=== PATIENT | female | born 1970 | race Caucasian/White ===

== ENCOUNTER 2021-02-16 18:56 | Inpatient (IN) | payer MEDICAID, SELFPAY ==
[2021-02-16 18:58] VITALS: BP 147/85; PULSE 104; RESP 16; TEMP 36.2; O2SAT 97; BMI 25.0
--- NOTE | 2021-02-16 19:26 | ED.VIS.GI ---
HPI HPI - GI History of Present Illness Chief Complaint: Nausea/Vomiting Informant: patient Abdominal Pain/Flank Pain Onset: Days Context: Gradual Onset Timing: Intermittent Current Severity: Mild Maximum Severity: Moderate Worsened by: Nothing Relieved by: Nothing Nausea/Vomiting/Emesis GI Symptom: Positive for Nausea and Vomiting Onset: Weeks Quality: Positive for Hematemesis Severity: Moderate Diarrhea/Melena/Hematochezia GI Symptom: Negative for Diarrhea, Melena and Hematochezia Associated Symptoms Associated Symptoms: Negative for Dysuria and Frequency Narrative Narrative: 44-year-old female history of liver cirrhosis, hypertension high cholesterol. States he drinks half of the fifth of vodka a day. She has had nausea vomiting for 6 months. Today she threw up initially dark blood then bright red blood. She denies any melena. Mild epigastric discomfort. States that there were clots in the blood today and it was more than a Styrofoam cup for blood. She is on no blood thinners. Prior similar symptoms: No Recent Illness/Hospitalization: Yes PFSH [facility] Medical History Alcohol abuse Cirrhosis of liver High cholesterol Hypertension Home Medications aripiprazole 2 mg PO DAILY 02/16/21 [History Last Taken 02/16/21] naltrexone 50 mg PO DAILY 02/16/21 [History Last Taken 02/15/21] propranolol 80 mg PO DAILY 02/16/21 [History Last Taken 02/16/21] spironolactone 25 mg PO DAILY 02/16/21 [History Last Taken 02/16/21] Allergy/AdvReac Type Severity Reaction Status Date / Time No Known Allergies Allergy Verified 02/16/21 18:57 Social History Smoking Status: Never smoker ROS ROS ED ROS Narrative Nausea and vomiting. Hematemesis. Epigastric abdominal pain. Review of Systems ROS Unobtainable: Denies due to encephalopathy Constitutional Constitutional ED: Denies chills or fever(s) ENT ENT ED: Denies ear pain Cardiovascular Cardiovascular: Denies chest pain Respiratory/Chest Respiratory/Chest: Denies cough or dyspnea Gastrointestinal Gastrointestinal: Reports abdominal pain, nausea and vomiting; Denies constipation, diarrhea or melena Genitourinary Genitourinary ED: Denies dysuria Musculoskeletal Musculoskeletal: Denies myalgias Integumentary Denies rash Neurologic Neurologic: Denies headache(s) Psychiatric Psychiatric: Denies depression Endocrine Endocrinology: Denies polyuria Hematologic/Lymphatic Hematologic/Lymphatic: Denies easy bruising Allergic/Immunologic Allergic/Immunologic ED: Denies urticaria EXAM Physical Exam Narrative Exam Narrative: Right treatment no acute distress vital signs stable afebrile. Initial blood pressure 147/85. She sitting upright in bed. HEENT exam unremarkable. Neck nontender. Lungs clear to auscultation bilaterally. Heart regular rhythm rate about 100 no murmur. Abdomen soft mild epigastric left upper quadrant tenderness. No rebound guarding rigidity. Soft. Right upper and right lower quadrants are unremarkable. No obstruction. Moving all 4 extremities. No edema. Neurologically awake and alert with no focal motor deficits. Const Vital Signs: 02/16/21 18:58 Temperature 97.1 F L Temperature Source Temporal Pulse Rate 104 H Respiratory Rate 16 Blood Pressure 147/85 H Blood Pressure Mean 105 Pulse Ox 97 Oxygen Delivery Method Room Air Positive well nourished and well developed; Negative for obese, cachectic, contractures or unkempt General Appearance ED: well developed and NAD; Negative for unkempt, cachectic, contractures or pallor Nutritional Appearance: Negative for cachectic or obese HEENT Reports moist mucous membranes normocephalic and atraumatic; Negative for trauma or tenderness Eyes PERRL and EOMs intact bilaterally General Eye ED: Negative for pale conjunctiva or scleral icterus Neck no lymphadenopathy, supple and no JVD General: Negative for tenderness Resp normal respiratory effort and clear to auscultation bilaterally Auscultation: Negative for rales, rhonchi or wheezes Cardio regular rate, regular rhythm, S1 normal heart sound, S2 normal heart sound and no murmurs GI non-distended and no masses; Negative for non-tender Inspection: Negative for abdominal distention Auscultation: normoactive bowel sounds; Negative for hypoactive bowel sounds Palpation: soft and tender; Negative for guarding, rigid or rebound tenderness present Back/Spine no CVA tenderness General Back: Negative for CVA tenderness Cervical Spine: Negative for cervical spine tenderness Extremity full ROM General Extremety ED: Negative for edema or tenderness General Extremity: Negative for edema Neuro moves all extremities Sensorium / Orientation: alert, oriented to person, oriented to place and oriented to time; Negative for orientation impaired, confused, lethargic or stuporous Motor Exam: strength 5/5 throughout Psych mental status grossly normal and thought process normal Appearance: Negative for unkempt Skin no wounds General Skin Exam: Negative for jaundice or pallor Lesions: no lesions Rashes: no rashes MDM MDM MDM Narrative Medical decision making narrative: 42-year-old female cirrhosis with upper GI bleed. She has had a prior upper endoscopy she says there is no history or signs of varices in the past. She is on no blood thinners. She is never had a GI bleed or an ulcer. She has had no recent melena. She will be treated with IV fluids, Protonix and Zofran. She will undergo work-up. She will need to be admitted for further evaluation and possible upper endoscopy. Repeat exam patient is doing well at 9:20 PM. We went over all of her labs and reason for admission. Discussed with GI on-call and the hospitalist the hospitalist would admit her and GI will be consulted. Lab Data Attestation: I reviewed the patient's lab results. Lab results narrative: CBC shows white count of 7. Hemoglobin 11.5 with no prior comparison. PT of 15 INR 1 PTT of 40. Electrolytes sodium 147. Gap of 12. Normal BUN and creatinine. Liver enzymes slightly elevated. Lipase normal. Labs: Laboratory Results - last 24 hr 02/16/21 02/16/21 02/16/21 19:43 19:43 19:43 WBC 7.2 RBC 3.44 L Hgb 11.5 L Hct 35.8 L MCV 104.1 H MCH 33.4 H MCHC 32.1 RDW Std Deviation 55.3 H RDW Coeff of Melissa 14.4 Plt Count 157 MPV 10.0 Immature Gran % (Auto) 0.800 Neut % (Auto) 65.8 Lymph % (Auto) 16.8 L [place] % (Auto) 10.2 H Eos % (Auto) 4.9 Baso % (Auto) 1.5 H Absolute Neuts (auto) 4.7 Absolute Lymphs (auto) 1.20 Nucleated RBC % 0 PT 15.4 H INR 1.3 APTT 40.0 H Sodium Potassium Chloride Carbon Dioxide Anion Gap BUN Creatinine Estim Creat Clear Calc Est GFR (MDRD) Af Amer Est GFR (MDRD) Non-Af BUN/Creatinine Ratio Glucose Calcium Total Bilirubin AST ALT Alkaline Phosphatase Total Protein Albumin Globulin Albumin/Globulin Ratio Lipase Crossmatch See Detail 02/16/21 19:43 WBC RBC Hgb Hct MCV MCH MCHC RDW Std Deviation RDW Coeff of Melissa Plt Count MPV Immature Gran % (Auto) Neut % (Auto) Lymph % (Auto) [place] % (Auto) Eos % (Auto) Baso % (Auto) Absolute Neuts (auto) Absolute Lymphs (auto) Nucleated RBC % PT INR APTT Sodium 147 H Potassium 3.7 Chloride 112 H Carbon Dioxide 23.0 Anion Gap 12 BUN 17 Creatinine 0.72 Estim Creat Clear Calc 85.98 Est GFR (MDRD) Af Amer 110 Est GFR (MDRD) Non-Af 91 BUN/Creatinine Ratio 23.4 H Glucose 94 Calcium 9.8 Total Bilirubin 1.90 H AST 129 H ALT 47 Alkaline Phosphatase 229 H Total Protein 8.2 Albumin 3.1 L Globulin 5.1 H Albumin/Globulin Ratio 0.6 L Lipase 147 Crossmatch Discharge Plan Dx/Rx/DC Orders Clinical Impression: Upper GI bleed, History of cirrhosis of liver, History of alcoholism Disposition Disposition: Acute Care Hospital [facility]
[2021-02-16] MEDS: 0.9% Normal Saline 1,000 ML 125 ML IV (19:41)
[2021-02-16] MEDS: Ondansetron 4 MG/2 ML Vial IV (19:41)
[2021-02-16 20:05] LABS: Absolute Neutrophil Count 4.7 X10^3/uL (2.0-7.7); Basophil# 0.11 X10^3/uL; Basophil% 1.5 % (0-1); Eosinophil# 0.35 X10^3/uL; Eosinophils% 4.9 % (0-5); Hematocrit 35.8 % (37-47); Hemoglobin 11.5 g/dL (12.0-15.0); Lymphocyte % 16.8 % (19-41); Mean Corp Hgb Conc 32.1 g/dL (32-36); Mean Corpuscular Hgb 33.4 pg (27.0-32.0); Mean Corpuscular Volume 104.1 fL (81-99); Monocyte# 0.73 X10^3/uL; Monocyte% 10.2 % (0-10); NRBC Flagged by Analyzer 0 % (0-5); Neutrophil # 4.71 X10^3/uL (2.7-7.7); Neutrophil % 65.8 % (47-70); Platelet Count 157 K/mm3 (150-450); RBC Distribution Width CV 14.4 % (11.6-14.6); RBC Distribution Width SD 55.3 fl (35.1-43.9); Red Blood Count 3.44 M/mm3 (4.2-5.4); White Blood Count 7.2 K/mm3 (4.4-11.0)
[2021-02-16 20:14] LABS: International Normalized Ratio 1.3; Prothrombin Time (Protime)PT. 15.4 SECONDS (11.7-14.9)
[2021-02-16 20:34] LABS: ALB/GLOB Ratio 0.6 RATIO (0.9-2.4); AST(SGOT) 129 U/L (15-37); Alanine Aminotransfer ALT/SGPT 47 U/L (13-56); Albumin, Serum 3.1 g/dL (3.2-5.0); Alkaline Phosphatase 229 U/L (45-117); Anion Gap 12 (5-15); BUN 17 mg/dL (7-18); BUN/Creat Ratio 23.4 RATIO (10-20); Calcium,Total 9.8 mg/dL (8.5-10.1); Chloride 112 mmol/L (98-107); Creatinine, Serum 0.72 mg/dL (0.55-1.02); EST Glomerular Filtration Rate 91 mL/min (>60); Est Glom Filt Rate - Afr Amer 110 mL/min (>60); Estimated Creatinine Clearance 85.98 ml/min; Globulin 5.1 g/dL (2.2-4.2); Glucose 94 mg/dL (74-106); Lipase 147 U/L (73-393); Potassium 3.7 mmol/L (3.5-5.1); Protein, Total 8.2 g/dL (6.4-8.2); Sodium Level 147 mmol/L (136-145)
--- NOTE | 2021-02-16 21:32 | PCM.HP.STD ---
HPI - General General Date of Admission: 02/16/21 Date of Service: 02/16/21 Chief Complaint: Hematemesis HPI Narrative DOMINICK MCKEON, is a 50 F with a significant history of hypertension; depression; hyperlipidemia; cirrhosis of the liver and alcohol abuse who presents to the emergency department with hematemesis. Reportedly patient has been throwing up since the past 6 months on a daily basis. However she never threw up blood until this day of presentation. Reportedly on the day of presentation within 2 hours frame she threw up about a gallon of vomitus. Reportedly the vomitus was black; later it was red, and it had clots. The vomitus looked like blood. Also she reports constipation with black stools. She drinks about 8 glasses of vodka per day. She has been prescribed Vivitrol to control her drinking habits. But last time she took the Vivitrol was about a week ago. Patient reported that about 2 months ago she had an endoscopy at [facility]. The endoscopy did not show any varices. [facility] Medical History Alcohol abuse Cirrhosis of liver Depression High cholesterol Hypertension Migraines Home Medications aripiprazole 2 mg PO DAILY 02/16/21 [History Last Taken 02/16/21] naltrexone 50 mg PO DAILY 02/16/21 [History Last Taken 02/15/21] propranolol 80 mg PO DAILY 02/16/21 [History Last Taken 02/16/21] sertraline [Zoloft] 100 mg PO DAILY 02/16/21 [History Last Taken Unknown] spironolactone 25 mg PO DAILY 02/16/21 [History Last Taken 02/16/21] Allergy/AdvReac Type Severity Reaction Status Date / Time No Known Allergies Allergy Verified 02/16/21 18:57 Family History Other Diabetes Heart disease Hyperlipidemia Hypertension Surgical History History of carpal tunnel surgery Social History Smoking Status: Never smoker ROS ROS Narrative Constitutional: Denies fever, chills, fatigue, anorexia and change in weight Eyes: Denies blurry vision, change in eye color, change in vision, discharge from eye(s), double vision, erythema, eye pain, loss of vision or other HEENT: Denies abnormal hearing, dysphagia, ear pain, epistaxis, headache(s), hearing loss, nasal congestion, nasal discharge, post nasal drip, sinus pressure, sore throat or other Cardiovascular: Denies chest pain or palpitations. Denies dyspnea on exertion, orthopnea and paroxysmal nocturnal dyspnea Respiratory/Chest: Denies cough, excessive phlegm production, shortness of breath with exertion and wheezing Gastrointestinal: Reports hematemesis, constipation and melena. Reports nausea and vomiting. Denies hematochezia and diarrhea. Genitourinary: Denies burning urination, difficulty urinating, dysuria, hematuria, nocturia, urinary frequency, urinary hesitancy, urinary incontinence, urinary urgency or other Musculoskeletal: Denies arthralgias, back pain, joint pain, joint stiffness, joint swelling, myalgias, neck pain or other Neurologic: Denies abnormal gait, abnormal speech, confusion, disequilibrium, dizziness, focal weakness, headache(s), numbness, paresthesias, seizure-like activity, seizures, syncope, tingling, tremor(s) or other Psychiatric: Denies homicidal ideation, suicidal ideation or other Endocrinology: Denies change in body appearance, cold intolerance, excessive sweating, heat intolerance, polydipsia, polyuria or other Hematologic/Lymphatic: Denies anemia, easy bleeding, easy bruising, lymphadenopathy or other Integumentary: Denies rashes Allergic/Immunologic: Denies rhinitis, hives, eczema, asthma or other Vital Signs Vital Signs Vital Signs: 02/16/21 18:58 Temperature 97.1 F L Temperature Source Temporal Pulse Rate 104 H Respiratory Rate 16 Blood Pressure 147/85 H Blood Pressure Mean 105 Pulse Ox 97 Oxygen Delivery Method Room Air Weight Weight: 68.039 kg Body Mass Index (BMI) 25.0 Physical Exam Narrative Physical exam: General: Well-nourished, well-developed. Head: Normocephalic, atraumatic, no tenderness Eyes: PERRLA, EOMI ENT, no trauma, moist mucous membranes, no rhinorrhea Neck: Nontender, full range of motion, no spinal tenderness, deformities, step-off CVS: Regular rate and rhythm. S1-S2 present. No murmur, gallop or rub. Respiratory : clear to auscultation bilaterally, chest wall nontender, no wheezing Abdomen: Soft, nontender, nondistended, normal bowel sounds, no masses : Deferred Back: Nontender, no CVA tenderness, no midline spinal tenderness, deformities, step-offs Extremities: Nontender full range of motion, no trauma Skin: Normal color, no trauma, abrasions Neuro: Alert, oriented, cranial nerves II through XII grossly intact. Psychiatry: Normal mood. Normal affect. Not depressed. Not anxious. Results Lab / Micro Data Result Diagrams: 02/16/21 19:43 02/16/21 19:43 Labs: Laboratory Results - last 24 hr 02/16/21 19:43: PT 15.4 H, INR 1.3, APTT 40.0 H 02/16/21 19:43: Blood Type A POSITIVE, Antibody Screen NEGATIVE, Crossmatch See Detail 02/16/21 19:43: WBC 7.2, RBC 3.44 L, Hgb 11.5 L, Hct 35.8 L, MCV 104.1 H, MCH 33.4 H, MCHC 32.1, RDW Std Deviation 55.3 H, RDW Coeff of Melissa 14.4, Plt Count 157, MPV 10.0, Immature Gran % (Auto) 0.800, Neut % (Auto) 65.8, Lymph % (Auto) 16.8 L, [place] % (Auto) 10.2 H, Eos % (Auto) 4.9, Baso % (Auto) 1.5 H, Absolute Neuts (auto) 4.7, Absolute Lymphs (auto) 1.20, Nucleated RBC % 0 02/16/21 19:43: Sodium 147 H, Potassium 3.7, Chloride 112 H, Carbon Dioxide 23.0, Anion Gap 12, BUN 17, Creatinine 0.72, Estim Creat Clear Calc 85.98, Est GFR (MDRD) Af Amer 110, Est GFR (MDRD) Non-Af 91, BUN/Creatinine Ratio 23.4 H, Glucose 94, Calcium 9.8, Total Bilirubin 1.90 H, AST 129 H, ALT 47, Alkaline Phosphatase 229 H, Total Protein 8.2, Albumin 3.1 L, Globulin 5.1 H, Albumin/Globulin Ratio 0.6 L, Lipase 147 Assessment & Plan Assessment/Plan (1) Acute upper GI bleed: (2) History of cirrhosis of liver: (3) Alcoholism: PLAN: Acute upper GI bleed ED labs reviewed showed hemoglobin of 11.5. No old records to compare with. Received Protonix bolus at emergency department. Protonix drip ordered. Received normal saline infusion at the emergency department. With history of cirrhosis and on Aldactone we will hold off further IV fluids at this time. Will trend blood pressures. Will trend H&H. We will keep n.p.o. after midnight. Emergency plan doctor discussed the case with GI specialist. GI consult. No chemical thromboprophylaxis secondary GI bleed. Alcoholism Review of labs showed acute macrocytic anemia. Patient has not been taking her Vivitrol. Hold Vivitrol. We will put on CIWA protocol with Ativan, thiamine, and folic acid, and multivitamin ordered. Counseled. Significant other who was in patient's room and is also an alcoholic was counselled. Depression Aripiprazole continued Cirrhosis Review of labs showed AST of 129, ALT of 47; alcoholic pattern. Alkaline phosphatase of 229 and bilirubin of 1.90. Patient is not a candidate of transplant secondary to alcoholism. Propanolol and spironolactone continued Hypernatremia and hyperchloremia Sodium of 147 and chloride of 112. BUN of 17. Trend BMP. DVT prophylaxis: SCD ordered. Charges/Coding Visit Charges Inpatient E&M: 73161 Init Hosp L3
[2021-02-16 22:17] VITALS: BP 136/84; PULSE 95; RESP 18; TEMP 36.8; O2SAT 97
[2021-02-16 22:29] VITALS: BMI 25.9
[2021-02-16 22:47] VITALS: BP 143/80; PULSE 93; RESP 18; TEMP 36; O2SAT 93
--- NOTE | 2021-02-16 22:58 | PCS.PANDOC ---
PANDEMIC DOCUMENTATION INITIATED: Date: 10/25/2020 Time: 190
[2021-02-16 23:09] VITALS: O2SAT 96
[2021-02-16 23:26] VITALS: BMI 25.9
[2021-02-17] VITALS (11 sets, daily range): BP systolic 101–146; BP diastolic 58–84; PULSE 78–92; RESP 15–18; TEMP 36.3–37; O2SAT 96–100
[2021-02-17 04:12] LABS: Hematocrit 33.5 % (37-47); Hemoglobin 10.8 g/dL (12.0-15.0)
[2021-02-17 06:23] LABS: Hematocrit 33.3 % (37-47); Hemoglobin 10.7 g/dL (12.0-15.0)
[2021-02-17 06:43] LABS: Anion Gap 8 (5-15); BUN 21 mg/dL (7-18); BUN/Creat Ratio 36.8 RATIO (10-20); Calcium,Total 9.1 mg/dL (8.5-10.1); Chloride 110 mmol/L (98-107); Creatinine, Serum 0.57 mg/dL (0.55-1.02); EST Glomerular Filtration Rate 120 mL/min (>60); Est Glom Filt Rate - Afr Amer 145 mL/min (>60); Estimated Creatinine Clearance 108.61 ml/min; Glucose 102 mg/dL (74-106); Potassium 3.9 mmol/L (3.5-5.1); Sodium Level 144 mmol/L (136-145)
--- NOTE | 2021-02-17 07:30 | EX.PCM.CON.G ---
HPI Consult Data Date of Consult: 02/17/21 HPI Narrative HPI Narrative: DOMINICK MCKEON, is a 50 F who presents to the ED with the chief complaint of hematemesis. She has a history of alcoholic cirrhosis. She says that she has had episodes of jaundice, alcoholic hepatitis and possibly upper GI bleed secondary to portal gastropathy. She drinks about 8 glasses of vodka a day. She was on Vivitrol to control drinking habits. However she stopped taking it. She says she has had problems with nausea vomiting over the last 6 months. She got very concerned and came into the ER due to a large volume of bloody vomitus. She does not take any NSAIDs. She does have a past medical history of hypercholesteremia and hypertension. She believes that they put her on propanolol for variceal prophylaxis. She has no family members with cirrhosis. She has no autoimmune disease. Patient reported that about 2 months ago she had an endoscopy at [facility]. The endoscopy did not show any varices. [facility] Medical History Alcohol abuse Cirrhosis of liver Depression High cholesterol Hypertension Migraines Home Medications aripiprazole 2 mg PO DAILY 02/16/21 [History Last Taken 02/16/21] naltrexone 50 mg PO DAILY 02/16/21 [History Last Taken 02/15/21] propranolol 80 mg PO DAILY 02/16/21 [History Last Taken 02/16/21] sertraline [Zoloft] 100 mg PO DAILY 02/16/21 [History Last Taken Unknown] spironolactone 25 mg PO DAILY 02/16/21 [History Last Taken 02/16/21] Allergy/AdvReac Type Severity Reaction Status Date / Time No Known Allergies Allergy Verified 02/16/21 18:57 Family History Other Diabetes Heart disease Hyperlipidemia Hypertension Surgical History History of carpal tunnel surgery Social History Smoking Status: Never smoker ROS Review of Systems ROS Unobtainable: other Constitutional Constitutional: Denies fatigue, fever(s), poor appetite, weight gain or weight loss ENT HEENT: Denies mouth lesions Cardiovascular Cardiovascular: Denies abdominal bloating, abdominal edema or abdominal pain Respiratory/Chest Respiratory/Chest: Denies change in mental status, change in phlegm color, chest congestion or chest tightness Gastrointestinal Gastrointestinal: Denies coffee ground emesis or hematemesis Genitourinary Genitourinary: Denies abdominal discomfort, burning urination or itching Musculoskeletal Musculoskeletal: Reports as per HPI; Denies muscle weakness or myalgias Integumentary Integumentary: Denies jaundice Neurologic Neurologic: Denies lack of coordination or weakness Psychiatric Psychiatric: Denies confusion, depression, memory loss, mood swings, paranoia or suicidal ideation Endocrine Endocrinology: Denies systems reviewed and no addt'l complaints, except as documented Hematologic/Lymphatic Hematologic/Lymphatic: Denies anemia, easy bleeding, easy bruising or lymphadenopathy Allergic/Immunologic Allergic/Immunologic: Denies systems reviewed and no addt'l complaints, except as documented Physical Exam Const alert General Appearance: cooperative Orientation / Consciousness: oriented to person HEENT hearing grossly normal bilaterally Head and Scalp: normal to inspection Face and Sinus: face symmetric Nose: external nose normal Mouth: oral and palatal mucosa normal Eyes conjunctivae normal General Eye: normal appearance of both eyes Neck full ROM General: normal visual inspection Lymph Lymphatic: no lymphadenopathy noted Chest inspection of chest normal and palpation of chest normal Chest: symmetrical chest wall rise Resp normal respiratory effort Effort and Inspection: able to speak in complete sentences Cardio regular rate GI non-distended Percussion: normal to percussion Rectal Exam: deferred Neuro Speech: speech normal Gait (Neuro): normal gait Lab / Micro Data Result Diagrams: 02/17/21 05:42 02/17/21 05:42 Labs: Laboratory Results - last 24 hr 02/16/21 19:43: PT 15.4 H, INR 1.3, APTT 40.0 H 02/16/21 19:43: Blood Type A POSITIVE, Antibody Screen NEGATIVE, Crossmatch See Detail 02/16/21 19:43: WBC 7.2, RBC 3.44 L, Hgb 11.5 L, Hct 35.8 L, MCV 104.1 H, MCH 33.4 H, MCHC 32.1, RDW Std Deviation 55.3 H, RDW Coeff of Melissa 14.4, Plt Count 157, MPV 10.0, Immature Gran % (Auto) 0.800, Neut % (Auto) 65.8, Lymph % (Auto) 16.8 L, [place] % (Auto) 10.2 H, Eos % (Auto) 4.9, Baso % (Auto) 1.5 H, Absolute Neuts (auto) 4.7, Absolute Lymphs (auto) 1.20, Nucleated RBC % 0 02/16/21 19:43: Sodium 147 H, Potassium 3.7, Chloride 112 H, Carbon Dioxide 23.0, Anion Gap 12, BUN 17, Creatinine 0.72, Estim Creat Clear Calc 85.98, Est GFR (MDRD) Af Amer 110, Est GFR (MDRD) Non-Af 91, BUN/Creatinine Ratio 23.4 H, Glucose 94, Calcium 9.8, Total Bilirubin 1.90 H, AST 129 H, ALT 47, Alkaline Phosphatase 229 H, Total Protein 8.2, Albumin 3.1 L, Globulin 5.1 H, Albumin/Globulin Ratio 0.6 L, Lipase 147 02/17/21 00:00: Hgb 10.8 L, Hct 33.5 L 02/17/21 05:42: Sodium 144, Potassium 3.9, Chloride 110 H, Carbon Dioxide 26.0, Anion Gap 8, BUN 21 H, Creatinine 0.57, Estim Creat Clear Calc 108.61, Est GFR (MDRD) Af Amer 145, Est GFR (MDRD) Non-Af 120, BUN/Creatinine Ratio 36.8 H, Glucose 102, Calcium 9.1 02/17/21 05:42: Hgb 10.7 L, Hct 33.3 L Assessment & Plan Assessment/Plan (1) Upper GI bleed: PLAN: The differential diagnosis for upper GI bleed would be portal gastropathy, Angie-Ruiz tear, variceal bleed, AVM. Patient should undergo upper endoscopy. I would continue PPI drip until then. After she undergoes upper endoscopy we can decide whether she needs to be on a PPI drip and or octreotide. I will give her a dose of ceftriaxone although she has no history of ascites. (2) History of cirrhosis of liver: PLAN: Patient is still actively drinking. It has been 1 day since she has not drank. She would begin to enter the window of possible DTs later this evening. We will need to watch out for that. (3) History of alcoholism: PLAN: Patient says she wants to stop drinking and would like help with that. Charges/Coding Visit Charges Inpatient E&M: 20535 Init Hosp L2
[2021-02-17] MEDS: LORazepam 2 MG/ML Syringe IV (07:56)
[2021-02-17] MEDS: 0.9% Saline Lock 10 ML Syringe IV (07:57)
--- NOTE | 2021-02-17 09:46 | CASEMGMT ---
Physician asked for the field applications specialist to see patient while at [facility]. SW called Venkat with [employer] and she said she will be in to see patient today. Liliya Wilder RN OTOLARYNGOLOGY LILIBETH
--- NOTE | 2021-02-17 10:20 | CASEMGMT ---
SW completed assessment with patient. Patient was agreeable to talking with SW. Patient lives with her significant other in [place], [place]. She is here in the area visiting her mom until Sunday. PCP: Dr. Navneet Arriaza Specialists: Gastroenterology. She is going to [facility] for a second opinion Pharmacy-patient requested meds go to local [facility]. MH History: Patient does have a history of Depression. She is on Zoloft and Abilify. She is not in counseling. She tried counseling a couple of years ago and she felt it made her more depressed. Substance abuse: Patient's drink of choice is Vodka. She started drinking alcohol when she was 23 years old. She originally was only drinking on weekends. Then the last 2 years she started drinking heavily and continues to do so. She does feel like she is using alcohol as her coping mechanism. She is open to talking with the occupational health specialist, Venkat and she is aware she will be in to see her today. Patient has no concerns with being discharged when ready. She asked that her medications be sent to the local [facility]. SW will fix this in the computer. Liliya Wilder POLY OPERATOR LILIBETH
--- NOTE | 2021-02-17 11:22 | PCM.PN.HOSP ---
Subjective Subjective Patient is a 50-year-old female comfortably resting in bed, alert and orient x3. Patient denies any further events of hematemesis since admission. Denies development of any new symptoms overnight. Does not appear in acute distress Objective Data Objective Data Vital Signs: Vital Signs Temp Pulse Resp BP Pulse Ox 98.6 F 78 16 144/82 H 100 02/17/21 07:45 02/17/21 07:45 02/17/21 07:45 02/17/21 07:45 02/17/21 07:45 Oxygen Delivery Method Room Air Weight: 156 lb 4.924 oz Body Mass Index (BMI) 25.9 Intake & Output: Intake and Output for Last 24 Hours 02/15/21 02/16/21 02/17/21 23:59 23:59 23:59 Intake Total 405.83 / 405.83 100 / 100 Balance 405.83 / 405.83 100 / 100 Lab / Micro Data Result Diagrams: 02/17/21 05:42 02/17/21 05:42 Labs: Laboratory Results - last 24 hr 02/16/21 19:43: PT 15.4 H, INR 1.3, APTT 40.0 H 02/16/21 19:43: Blood Type A POSITIVE, Antibody Screen NEGATIVE, Crossmatch See Detail 02/16/21 19:43: WBC 7.2, RBC 3.44 L, Hgb 11.5 L, Hct 35.8 L, MCV 104.1 H, MCH 33.4 H, MCHC 32.1, RDW Std Deviation 55.3 H, RDW Coeff of Melissa 14.4, Plt Count 157, MPV 10.0, Immature Gran % (Auto) 0.800, Neut % (Auto) 65.8, Lymph % (Auto) 16.8 L, [place] % (Auto) 10.2 H, Eos % (Auto) 4.9, Baso % (Auto) 1.5 H, Absolute Neuts (auto) 4.7, Absolute Lymphs (auto) 1.20, Nucleated RBC % 0 02/16/21 19:43: Sodium 147 H, Potassium 3.7, Chloride 112 H, Carbon Dioxide 23.0, Anion Gap 12, BUN 17, Creatinine 0.72, Estim Creat Clear Calc 85.98, Est GFR (MDRD) Af Amer 110, Est GFR (MDRD) Non-Af 91, BUN/Creatinine Ratio 23.4 H, Glucose 94, Calcium 9.8, Total Bilirubin 1.90 H, AST 129 H, ALT 47, Alkaline Phosphatase 229 H, Total Protein 8.2, Albumin 3.1 L, Globulin 5.1 H, Albumin/Globulin Ratio 0.6 L, Lipase 147 02/17/21 00:00: Hgb 10.8 L, Hct 33.5 L 02/17/21 05:42: Sodium 144, Potassium 3.9, Chloride 110 H, Carbon Dioxide 26.0, Anion Gap 8, BUN 21 H, Creatinine 0.57, Estim Creat Clear Calc 108.61, Est GFR (MDRD) Af Amer 145, Est GFR (MDRD) Non-Af 120, BUN/Creatinine Ratio 36.8 H, Glucose 102, Calcium 9.1 02/17/21 05:42: Hgb 10.7 L, Hct 33.3 L Physical Exam Const alert, oriented x3 and no apparent distress HEENT head/scalp atraumatic and moist oral mucous membranes Head and Scalp: normocephalic Eyes PERRL, EOMs intact bilaterally and conjunctivae normal Neck no lymphadenopathy, supple and no JVD Resp normal respiratory effort, no retractions, no use of accessory muscles and clear to auscultation bilaterally Cardio regular rate, regular rhythm, no murmurs and no JVD GI normal to inspection, nondistended, normoactive bowel sounds and soft to palpation Palpation: tender Extremity normal to inspection, full ROM and no clubbing, cyanosis or edema Skin no rashes or lesions noted and skin turgor normal Neuro CN's II-XII intact bilaterally Psych affect normal Assessment & Plan Assessment/Plan (1) Upper GI bleed: (2) History of cirrhosis of liver: (3) History of alcoholism: PLAN: Day 1 Discharge planning: Current plan is for patient to discharge home when medically ready. 1) Acute upper GI bleed No further episodes of hematemesis since admission. Patient to undergo endoscopy by business office manager later on today to evaluate for source of bleed: Variceal bleed versus Angie-Ruiz tear, continue PPI, continue to monitor CBC. 2) Alcohol abuse with impending withdrawal Continue to hold Vivitrol, continue CIWA protocol with as needed Ativan. Continue supplement thiamine and folic acid. Continue to monitor for delirium tremens. 3) cirrhosis Labs on admission demonstrated an AST of 129 and ALT of 47. Alk phos was 229 and bilirubin of 1.9. Plan is as above. 4) hyponatremia Resolved, currently 144. Continue to trend BMP. DVT prophylaxis - Not indicated Patient seen by Benigon Fair PA-C, under the supervision of Dr. Smith.
[2021-02-17 12:02] LABS: Hematocrit 32.8 % (37-47); Hemoglobin 10.9 g/dL (12.0-15.0)
--- NOTE | 2021-02-17 13:07 | CHAPLAIN ---
Type of Pastoral Visit _x__ Initial Visit ___ Follow-up Visit ___ On-call Visit ___ General Patient Visit ___ Spiritual Assessment ___ Family Conference ___ Bereavement ___ Rapid Response ___ Code Blue ___ Other (describe below) Pastoral Care Referral From _x__ Patient ___ Family ___ Nurse ___ Physician ___ Appellate Law Clerk ___ Punchboard Assembler ___ Other (describe below) Sacrament/Intervention _x__ Active listening ___ Anointing ___ Jewish ___ Bereavement ___ Communion ___ Flory exploration ___ ___ Life review _x__ Prayer ___ Reconciliation ___ Sacrament of Sick _x__ Supportive presence ___ Wedding ___ Other (describe below) Pastoral Comments patient and spouse are in room; pt states that she has had health issues for six months; pt admits to some anxiety about what will be found in testing and possible outcomes; when asked how she is coping pt stated I want a drink but I know that is probably not a good idea; pt encouraged to make choices needed for better health; pt open to support and welcomed a prayer; pt is of the [employer] flory
--- NOTE | 2021-02-17 13:09 | ADDICTION ---
This scientific writer met with PT to conduct a relapse prevention plan for d/c. PT declined d/c planning noting that she will follow up once she is home. This scientific writer offered to schedule an appointment with a treatment center but PT declined again. Resources were given and H&P will be sent with her per request for later AoD admission.
--- NOTE | 2021-02-17 14:30 | NURSING ---
pt to endo
[2021-02-17] MEDS: Lactated Ringers 1,000 ML 15 ML IV (15:03)
--- NOTE | 2021-02-17 16:25 | OP.CCLET_ITS ---
11/16/2021 Adonisdanette Kinsey Re : Upper GI endoscopy procedure for Sujey St Agnieszka Kinsey This procedure was performed on February. My impressions and recommendations are as follows: Impressions : - Grade I esophageal varices. - Erythematous mucosa in the stomach. - Non-bleeding gastric ulcer with no stigmata of bleeding. Treated with argon beam coagulation. - Oozing gastric ulcer with a visible vessel. Treated with argon beam coagulation. - Portal hypertensive gastropathy. - Normal first portion of the duodenum. - No specimens collected. Recommendations : - Discharge patient to home. - Resume previous diet. - Continue present medications. - Use Protonix (pantoprazole) 40 mg PO BID for 8 weeks. My findings are described in the full procedure note, which is enclosed. If I can be of further assistance, please feel free to contact me at . Sincerely, Cr Friend, 02/17/2021 4:25:12 PM This report has been signed electronically.
--- NOTE | 2021-02-17 16:25 | OP.EGD_ITS ---
Patient Name: Sujey Dawson Procedure Date: 02/17/2021 3:37 PM Date of : 1970 Age: 50 Procedure: Upper GI endoscopy Indications: Hematemesis Providers: Cr Roman DO Patient Profile: This is a 50 year old female. Refer to note in patient chart for documentation of history and physical. Patient has symptoms of acute vomiting. Complications: No immediate complications. Procedure: Pre-Anesthesia Assessment: - Prior to the procedure, a History and Physical was performed, and patient medications and allergies were reviewed. The risks and benefits of the procedure and the sedation options and risks were discussed with the patient. All questions were answered and informed consent was obtained. Patient identification and proposed procedure were verified by the physician in the pre-procedure area. Mental Status Examination: alert and oriented. Airway Examination: normal oropharyngeal airway and neck mobility. Respiratory Examination: clear to auscultation. Prophylactic Antibiotics: The patient does not require prophylactic antibiotics. Prior Anticoagulants: The patient has taken no previous anticoagulant or antiplatelet agents. After reviewing the risks and benefits, the patient was deemed in satisfactory condition to undergo the procedure. The anesthesia plan was to use moderate sedation / analgesia (conscious sedation). Immediately prior to administration of medications, the patient was re-assessed for adequacy to receive sedatives. The heart rate, respiratory rate, oxygen saturations, blood pressure, adequacy of pulmonary ventilation, and response to care were monitored throughout the procedure. The physical status of the patient was re-assessed after the procedure. After obtaining informed consent, the endoscope was passed under direct vision. Throughout the procedure, the patient's blood pressure, pulse, and oxygen saturations were monitored continuously. The Endoscope was introduced through the mouth, and advanced to the second part of duodenum. The upper GI endoscopy was accomplished without difficulty. The patient tolerated the procedure well. Moderate Sedation: Moderate (conscious) sedation was administered by the endoscopy nurse and supervised by the endoscopist. The patient's oxygen saturation, heart rate, blood pressure and response to care were monitored. Total physician intraservice time was 15 minutes. Scope In: 4:09:06 PM Scope Out: 4:16:39 PM Total Procedure Duration Time 0 hours 7 minutes 33 seconds Findings: Grade I varices were found in the lower third of the esophagus. They were 2 mm in largest diameter. Diffuse severely erythematous mucosa without bleeding was found in the entire examined stomach. One non-bleeding superficial gastric ulcer with no stigmata of bleeding was found on the greater curvature of the stomach. The lesion was 6 mm in largest dimension. Coagulation for bleeding prevention using argon beam at 0.3 liters/minute and 20 madrigal was successful. Estimated blood loss was minimal. One oozing cratered gastric ulcer with a visible vessel was found at the pylorus. The lesion was 6 mm in largest dimension. Coagulation for hemostasis using argon beam at 0.3 liters/minute and 20 madrigal was successful. Estimated blood loss was minimal. Severe portal hypertensive gastropathy was found in the entire examined stomach. The first portion of the duodenum was normal. Impression: - Grade I esophageal varices. - Erythematous mucosa in the stomach. - Non-bleeding gastric ulcer with no stigmata of bleeding. Treated with argon beam coagulation. - Oozing gastric ulcer with a visible vessel. Treated with argon beam coagulation. - Portal hypertensive gastropathy. - Normal first portion of the duodenum. - No specimens collected. Recommendation: - Discharge patient to home. - Resume previous diet. - Continue present medications. - Use Protonix (pantoprazole) 40 mg PO BID for 8 weeks. Procedure Code(s): --- Professional --- 54190, Esophagogastroduodenoscopy, flexible, transoral; with control of bleeding, any method 01825, 59, Moderate sedation services provided by the same physician or other qualified health long term care pharmacist performing the diagnostic or therapeutic service that the sedation supports, requiring the presence of an independent trained observer to assist in the monitoring of the patient's level of consciousness and physiological status; initial 15 minutes of intraservice time, patient age 5 years or older CPT copyright 2017 [employer]. All rights reserved. The codes documented in this report are preliminary and upon cigar head puncher review may be revised to meet current compliance requirements. Cr Roman DO 02/17/2021 4:25:12 PM This report has been signed electronically. Number of Addenda: 1 Note Initiated On: 02/17/2021 3:37 PM Addendum Number: 1 Addendum Date: 11/16/2021 7:06:00 AM MAC was used instead of moderate sedation for the patient. Cr Roman DO 11/16/2021 7:06:07 AM This report has been signed electronically.
--- NOTE | 2021-02-17 16:52 | PCM.DC ---
Discharge Instructions Diet Discharge Diet: No restrictions Activity Discharge Activity: Return to Normal Activity Weight Bearing Status: Weight bearing as tolerated Dressing / Incision Call your doctor if you observe: Fever of 101 or Higher, Numbness or Tingling, Shortness of breath, Dizziness, Chest pain, Increased palpitations (irregular heartbeat) and Calf discomfort Follow Up Care Please Follow Up With: Primary care provider When: Within the next two weeks. Test Results: Test results from this visit will be discussed in further detail at your follow-up appointment, if applicable. Discharge Plan Admission Admit Date/Time: 02/16/21 21:23 Attending Provider: Edwin Smith Consulting Providers: Cr Roman Discharge Orders/Prescriptions Prescriptions: New pantoprazole [Protonix] 40 mg tablet,delayed release (DR/EC) 40 mg PO BID Qty: 60 RF: 0 Continued propranolol 80 mg Tablet 80 mg PO DAILY RF: 0 naltrexone 50 mg Tablet 50 mg PO DAILY RF: 0 spironolactone 25 mg Tablet 25 mg PO DAILY RF: 0 aripiprazole 2 mg Tablet 2 mg PO DAILY RF: 0 sertraline [Zoloft] 100 mg Tablet 100 mg PO DAILY RF: 0 Referrals / Follow Up: SONALI MONTES [Other] - Within 2 Weeks Disposition Disposition (needs filled in before D/C Order can be placed): Home, Self Care
--- NOTE | 2021-02-17 16:57 | PCM.DC.SUM ---
Documented by User: Benigno ARREOLA 02/17/21 17:03 Providers Date of Admission: 02/16/21 Primary Care Physician: SONALI MONTES Consultations 02/16/21 22:28 Consult: Gastroenterology Routine Consulting Provider: Cr Roman Reason for Consult: Upper GI bleed EMERGENT Consult: No MD Notified: Yes Date Notified: 02/16/21 Time Notified: 21:32 Method of Notification: Called by MD from ED Reason For Visit: ACUTE UPPER GI BLEED Diagnosis Discharge Diagnosis (1) Upper GI bleed: Status: Acute Code(s): K92.2 - Gastrointestinal hemorrhage, unspecified (2) History of cirrhosis of liver: Status: Acute Code(s): Z87.19 - Personal history of other diseases of the digestive system (3) History of alcoholism: Status: Acute Code(s): F10.21 - Alcohol dependence, in remission Medications at Discharge Home Medications aripiprazole 2 mg PO DAILY 02/16/21 naltrexone 50 mg PO DAILY 02/16/21 propranolol 80 mg PO DAILY 02/16/21 sertraline [Zoloft] 100 mg PO DAILY 02/16/21 spironolactone 25 mg PO DAILY 02/16/21 pantoprazole [Protonix] 40 mg PO BID #60 tab 02/17/21 sucralfate [Carafate] 1 g PO BID #60 tab 02/17/21 Hospital Course Procedures EGD Summary of Care Provided Minutes Spent on Discharge: 35 Hospital Course: Disposition: Patient to discharge home. 1) Acute upper GI bleed No further episodes of hematemesis since admission. Serial H&H's revealed stable hemoglobin, currently at 10.9. Patient underwent EGD, per Dr. Roman, and was significant for grade 1 esophageal varices, erythematous mucosa in the stomach and a nonbleeding gastric ulcer which was treated with argon beam coagulation. Recommendations from GI are to initiate Protonix 40 mg p.o. twice daily for 8 weeks. Follow-up with primary care provider in the next 2 weeks. 2) Alcohol abuse with impending withdrawal Patient supplemented with thiamine and folic acid. Patient was offered and declined addiction medicine services here at [facility] as she is from [place]. field crop farm worker provided a list of addiction medicine counseling services available in her area. Patient is to continue with naltrexone. 3) cirrhosis Labs on admission demonstrated an AST of 129 and ALT of 47. Alk phos was 229 and bilirubin of 1.9. Plan is as above. 4) hyponatremia Resolved, currently 144. Patient seen by Benigno Fair PA-C, under the supervision of Dr. Smith. Physical Exam Narrative Patient is a 50-year-old female comfortably resting in bed, alert and orient x3. Patient denies any further events of hematemesis since admission. Denies development of any new symptoms overnight. Does not appear in acute distress Const alert, oriented x3 and no apparent distress HEENT normocephalic, head/scalp atraumatic and hearing grossly normal bilaterally Eyes PERRL, EOMs intact bilaterally and conjunctivae normal Neck no lymphadenopathy, supple and no JVD Resp normal respiratory effort, no retractions, no use of accessory muscles and clear to auscultation bilaterally Cardio regular rate, regular rhythm, no murmurs and no JVD GI normal to inspection, nondistended, normoactive bowel sounds, soft to palpation and non-tender Extremity normal to inspection, full ROM and no clubbing, cyanosis or edema Skin no rashes or lesions noted, no wounds and skin turgor normal Neuro CN's II-XII intact bilaterally Psych affect normal Weight / BMI Weight Weight: 156 lb 4.924 oz Body Mass Index (BMI) 25.9 ABG / Lab / Microbiology Data Result Diagrams: 02/17/21 11:48 02/17/21 05:42 Laboratory: Laboratory Results - last 24 hr 02/16/21 19:43: PT 15.4 H, INR 1.3, APTT 40.0 H 02/16/21 19:43: Blood Type A POSITIVE, Antibody Screen NEGATIVE, Crossmatch See Detail 02/16/21 19:43: WBC 7.2, RBC 3.44 L, Hgb 11.5 L, Hct 35.8 L, MCV 104.1 H, MCH 33.4 H, MCHC 32.1, RDW Std Deviation 55.3 H, RDW Coeff of Melissa 14.4, Plt Count 157, MPV 10.0, Immature Gran % (Auto) 0.800, Neut % (Auto) 65.8, Lymph % (Auto) 16.8 L, [place] % (Auto) 10.2 H, Eos % (Auto) 4.9, Baso % (Auto) 1.5 H, Absolute Neuts (auto) 4.7, Absolute Lymphs (auto) 1.20, Nucleated RBC % 0 02/16/21 19:43: Sodium 147 H, Potassium 3.7, Chloride 112 H, Carbon Dioxide 23.0, Anion Gap 12, BUN 17, Creatinine 0.72, Estim Creat Clear Calc 85.98, Est GFR (MDRD) Af Amer 110, Est GFR (MDRD) Non-Af 91, BUN/Creatinine Ratio 23.4 H, Glucose 94, Calcium 9.8, Total Bilirubin 1.90 H, AST 129 H, ALT 47, Alkaline Phosphatase 229 H, Total Protein 8.2, Albumin 3.1 L, Globulin 5.1 H, Albumin/Globulin Ratio 0.6 L, Lipase 147 02/17/21 00:00: Hgb 10.8 L, Hct 33.5 L 02/17/21 05:42: Sodium 144, Potassium 3.9, Chloride 110 H, Carbon Dioxide 26.0, Anion Gap 8, BUN 21 H, Creatinine 0.57, Estim Creat Clear Calc 108.61, Est GFR (MDRD) Af Amer 145, Est GFR (MDRD) Non-Af 120, BUN/Creatinine Ratio 36.8 H, Glucose 102, Calcium 9.1 02/17/21 05:42: Hgb 10.7 L, Hct 33.3 L 02/17/21 11:48: Hgb 10.9 L, Hct 32.8 L D/C Instructions Discharge Diet: No restrictions Weight Bearing Status: Weight bearing as tolerated Call your doctor if you observe: Fever of 101 or Higher, Numbness or Tingling, Shortness of breath, Dizziness, Chest pain, Increased palpitations (irregular heartbeat) and Calf discomfort Please Follow Up With: Primary care provider When: Within the next two weeks. Meaningful Use Info Meaningful Use Diagnoses (Choose all that apply): None applicable Discharge Plan Admission Admit Date/Time: 02/16/21 21:23 Attending Provider: Edwin Smith Consulting Providers: Cr Roman Discharge Orders/Prescriptions Prescriptions: New pantoprazole [Protonix] 40 mg tablet,delayed release (DR/EC) 40 mg PO BID Qty: 60 RF: 0 sucralfate [Carafate] 1 gram tablet 1 g PO BID Qty: 60 RF: 0 Continued propranolol 80 mg Tablet 80 mg PO DAILY RF: 0 naltrexone 50 mg Tablet 50 mg PO DAILY RF: 0 spironolactone 25 mg Tablet 25 mg PO DAILY RF: 0 aripiprazole 2 mg Tablet 2 mg PO DAILY RF: 0 sertraline [Zoloft] 100 mg Tablet 100 mg PO DAILY RF: 0 Referrals / Follow Up: SIMON, BASEM [Other] - Within 2 Weeks Disposition Disposition (needs filled in before D/C Order can be placed): Home, Self Care Documented by User: Dr. Edwin Smith DO 02/17/21 17:20 Providers Date of Admission: 02/16/21 Reason For Visit: ACUTE UPPER GI BLEED Medications at Discharge Home Medications aripiprazole 2 mg PO DAILY 02/16/21 naltrexone 50 mg PO DAILY 02/16/21 propranolol 80 mg PO DAILY 02/16/21 sertraline [Zoloft] 100 mg PO DAILY 02/16/21 spironolactone 25 mg PO DAILY 02/16/21 pantoprazole [Protonix] 40 mg PO BID #60 tab 02/17/21 sucralfate [Carafate] 1 g PO BID #60 tab 02/17/21 ABG / Lab / Microbiology Data Result Diagrams: 02/17/21 11:48 02/17/21 05:42 Discharge Plan Admission Admit Date/Time: 02/16/21 21:23 Attending Provider: Edwin Smith Consulting Providers: Cr Roman Discharge Orders/Prescriptions Prescriptions: New pantoprazole [Protonix] 40 mg tablet,delayed release (DR/EC) 40 mg PO BID Qty: 60 RF: 0 sucralfate [Carafate] 1 gram tablet 1 g PO BID Qty: 60 RF: 0 Continued propranolol 80 mg Tablet 80 mg PO DAILY RF: 0 naltrexone 50 mg Tablet 50 mg PO DAILY RF: 0 spironolactone 25 mg Tablet 25 mg PO DAILY RF: 0 aripiprazole 2 mg Tablet 2 mg PO DAILY RF: 0 sertraline [Zoloft] 100 mg Tablet 100 mg PO DAILY RF: 0 Referrals / Follow Up: SIMON, BASEM [Other] - Within 2 Weeks Disposition Disposition (needs filled in before D/C Order can be placed): Home, Self Care Charges/Coding Addendum Addendum: Patient seen and examined independently. Data and vitals reviewed. I agree with the above note by the physician yard assistant. Patient presents with acute GI bleed. Patient has vomiting and developed marked hematemesis. Patient with start of PPI therapy and underwent EGD. It showed grade 1 varices but did show an oozing cratered gastric ulcer with visible vessel that was found at the pylorus. Patient at hemostasis using argon beam. Patient had no further bleeding while she is hospitalized. Patient to take PPI therapy twice daily for 8 weeks. Patient advised to follow-up with gastroenterology as well. Complicating her course is patient is an alcoholic and drinks 5 glasses of vodka per day. We did offer her the opportunity to undergo treatment while she was here in the hospital but she declined. Patient lives out by [place] and will continue with therapy out there. Patient is currently on Vivitrol for alcohol abuse but she still actively drinking. Strongly advised patient to follow-up with addiction program. Physical exam: Patient is no acute stress and afebrile heart rate regular rate and rhythm plus S1-S2 no murmurs Rubs. Patient Did Have Some Epigastric Tenderness but Otherwise Abdominal Exam Is Unremarkable. Visit Charges Inpatient E&M: 53216 Disch Hosp
--- NOTE | 2021-02-17 17:53 | NURSING ---
pt nury jello and sprite with no c/o pain or nausea. pt ambulated to bathroom and voided. discharge inst given
== END 2021-02-17 18:16 | disposition home or self-care (01) | DRG 241 ==
LOC: ED 19:53 → PCU 21:35
PROVIDERS: Internal Medicine Gastroenterology; Admitting Provider Hospitalist; Emergency Provider Emergency Medicine
PROC: 0DJ08ZZ Inspection of Upper Intestinal Tract, Via Natural or Artificial Opening Endoscopic (ICD-10-PCS; CPT 43235; principal; 2021-02-17 16:25)
DX: K25.4 Chronic or unspecified gastric ulcer with hemorrhage (principal); K76.6 Portal hypertension; K70.30 Alcoholic cirrhosis of liver without ascites; I85.10 Secondary esophageal varices without bleeding; K59.00 Constipation, unspecified; D53.9 Nutritional anemia, unspecified; I10 Essential (primary) hypertension; E87.0 Hyperosmolality and hypernatremia; E78.00 Pure hypercholesterolemia, unspecified; E78.5 Hyperlipidemia, unspecified; E87.1 Hypo-osmolality and hyponatremia; F10.20 Alcohol dependence, uncomplicated; F32.A Depression, unspecified; G43.909 Migraine, unspecified, not intractable, without status migrainosus; E87.8 Other disorders of electrolyte and fluid balance, not elsewhere classified; Z91.14 Patient's other noncompliance with medication regimen; Z79.899 Other long term (current) drug therapy
CPT/HCPCS: 36415; 80048; 80053; 83690; 85014; 85018; 85025; 85610; 85730; 86850; 86900; 86901; 86920; 86922; 97802; 99284; J7030; J7120; A4216; J2405; J3490

== ENCOUNTER 2022-04-17 04:29 | Inpatient (IN) | payer MEDICAID, SELFPAY ==
[2022-04-17 04:30] VITALS: BP 171/95; PULSE 102; RESP 18; TEMP 36.8; O2SAT 99; BMI 27.1
[2022-04-17] MEDS: 0.9% Normal Saline 1,000 ML 999 ML IV (05:02)
[2022-04-17] MEDS: Octreotide 0.1 MG/ML ML 0.05 MG IV (05:06)
[2022-04-17] MEDS: Ondansetron 4 MG/2 ML Vial IV ×2 (05:08→07:29)
--- NOTE | 2022-04-17 05:08 | EX.ED.DYSGE1 ---
HPI History of Present Illness Chief Complaint: Nausea/Vomiting Narrative Narrative: Patient is a 51-year-old female with past medical history of alcohol abuse and known gastric ulcer esophageal varices and cirrhosis. She states she has been feeling bloated for approximately 2 weeks but over the last 2 days been having increased bouts of nausea and vomiting which are bright red in color and also has noticed intermittent dark/black stool. She states she is concerned for internal bleeding because of her history. She denies any history of bleeding disorder or blood thinner use. She states she drinks roughly half a bottle of vodka per day and states she has done this for multiple years. She reports her last drink was roughly 4 hours prior to arrival [facility] Medical History Alcohol abuse Alcoholism Cirrhosis of liver Depression High cholesterol History of alcoholism History of cirrhosis of liver Hypertension Irritable bowel Migraines Home Medications aripiprazole 2 mg tablet 2 mg PO DAILY 02/16/21 [History Last Taken 02/16/21] naltrexone 50 mg tablet 50 mg PO DAILY 02/16/21 [History Last Taken 02/15/21] propranolol 80 mg tablet 80 mg PO DAILY 02/16/21 [History Last Taken 02/16/21] sertraline 100 mg tablet (Zoloft) 100 mg PO DAILY depression 02/16/21 [History Last Taken Unknown] spironolactone 25 mg tablet 25 mg PO DAILY 02/16/21 [History Last Taken 02/16/21] pantoprazole 40 mg tablet,delayed release (Protonix) 40 mg PO BID #60 tabs 02/17/21 [Rx Last Taken Unknown] sucralfate 1 gram tablet (Carafate) 1 g PO BID #60 tabs 02/17/21 [Rx Last Taken Unknown] Allergy/AdvReac Type Severity Reaction Status Date / Time bee venom protein (honey bee) Allergy NEEDS Verified 04/17/22 04:34 [bee sting] FOLLOW-UP Family History Other Diabetes Heart disease Hyperlipidemia Hypertension Surgical History History of carpal tunnel surgery Social History Smoking Status: Never smoker ROS ROS ED Constitutional Constitutional ED: Denies chills or fever(s) ENT ENT ED: Denies sore throat Cardiovascular Cardiovascular: Denies chest pain Respiratory/Chest Respiratory/Chest: Denies cough or dyspnea Gastrointestinal Gastrointestinal: Reports melena, nausea and vomiting; Denies abdominal pain or diarrhea Genitourinary Genitourinary ED: Denies dysuria or hematuria Musculoskeletal Musculoskeletal: Denies myalgias Integumentary Denies rash Neurologic Neurologic: Denies headache(s) Hematologic/Lymphatic Hematologic/Lymphatic: Denies easy bleeding or easy bruising EXAM Physical Exam Const Vital Signs: 04/17/22 04:30 Temperature 98.2 F Temperature Source Temporal Pulse Rate 102 H Respiratory Rate 18 Blood Pressure 171/95 H Blood Pressure Mean 120 Pulse Ox 99 Oxygen Delivery Method Room Air Positive well nourished and well developed General Appearance ED: well developed HEENT Reports moist mucous membranes HEENT Narrative: No dried blood or active bleeding noted in the posterior pharynx. No airway edema or compromise Eyes PERRL and EOMs intact bilaterally General Eye ED: Yes scleral icterus Neck supple Neck Narrative: No crepitance palpated Resp normal respiratory effort and clear to auscultation bilaterally Cardio regular rate and regular rhythm Rate: other Other Details: Radial pulses are plus 2 out of 4 bilaterally are equal and symmetric GI non-tender and no masses GI Narrative: Abdomen is soft nontender with normoactive bowel sounds. There is slight distention and positive fluid wave noted. No voluntary guarding or rigidity. No pulsatile mass Auscultation: normoactive bowel sounds Palpation: soft Narrative: Patient has nonbleeding nonthrombosed external hemorrhoids. Rectal tone is normal. Stool is mucousy brown in color. Extremity normal to inspection Neuro oriented x3 and CN's II-XII intact bilaterally Sensorium / Orientation: alert Psych mental status grossly normal Skin Skin Narrative: Patient has mild jaundice noted MDM MDM MDM Narrative Medical decision making narrative: Patient presented to the ER in no acute distress. She reported a long-term alcohol abuse leading to cirrhosis her physical exam with jaundice and scleral icterus is consistent with this. She was admitted to this facility roughly 1 year ago in February of 2021 and at that time was found to have grade 1 esophageal varices as well as gastric ulcers. Therefore her report of hematemesis and hematochezia is concerning for rupture of these. Secondary to this patient was given a Protonix bolus and started on a Protonix drip. She was also started on octreotide bolus and drip. She has just slight fluid wave on exam going with mild ascites from her cirrhosis but she does not have any peripheral edema going against obvious need for paracentesis. This can be further evaluated by ultrasound on an inpatient basis. Because of the patient's known history and reported worsening symptoms over the last few days I do feel it is more appropriate to admit her to the hospital at this time so that she can be rescoped to ensure there is no rebleeding or worsening of symptoms. Lab Data Attestation: I reviewed the patient's lab results. Labs: Laboratory Results - last 24 hr 04/17/22 04/17/22 04/17/22 04:40 04:40 04:40 WBC 7.0 RBC 3.69 L Hgb 11.2 L Hct 35.4 L MCV 95.9 MCH 30.4 MCHC 31.6 L RDW Std Deviation 70.8 H RDW Coeff of Melissa 20.1 H Plt Count 107 L MPV 9.5 Immature Gran % (Auto) 1.000 H Neut % (Auto) 67.5 Lymph % (Auto) 18.9 L Armstrong % (Auto) 7.7 Eos % (Auto) 3.3 Baso % (Auto) 1.6 H Absolute Neuts (auto) 4.8 Absolute Lymphs (auto) 1.33 Nucleated RBC % 0 PT 15.7 H INR 1.3 APTT 38.3 H Sodium 141 Potassium 3.2 L Chloride 107 Carbon Dioxide 22.0 Anion Gap 12 BUN 7 Creatinine 0.71 Estim Creat Clear Calc 86.25 Est GFR (MDRD) Af Amer 112 Est GFR (MDRD) Non-Af 92 BUN/Creatinine Ratio 9.8 L Glucose 108 H Calcium 9.2 Total Bilirubin 5.20 H Direct Bilirubin 4.22 H AST 366 H ALT 81 H Alkaline Phosphatase 300 H Total Protein 9.3 H Albumin 3.7 Globulin 5.6 H Lipase 258 Ethyl Alcohol 04/17/22 04:40 WBC RBC Hgb Hct MCV MCH MCHC RDW Std Deviation RDW Coeff of Melissa Plt Count MPV Immature Gran % (Auto) Neut % (Auto) Lymph % (Auto) Armstrong % (Auto) Eos % (Auto) Baso % (Auto) Absolute Neuts (auto) Absolute Lymphs (auto) Nucleated RBC % PT INR APTT Sodium Potassium Chloride Carbon Dioxide Anion Gap BUN Creatinine Estim Creat Clear Calc Est GFR (MDRD) Af Amer Est GFR (MDRD) Non-Af BUN/Creatinine Ratio Glucose Calcium Total Bilirubin Direct Bilirubin AST ALT Alkaline Phosphatase Total Protein Albumin Globulin Lipase Ethyl Alcohol 319.0 H* Discharge Plan Triage Chief Complaint: Nausea/Vomiting ED Provider: Elijah Mcdonnell Dx/Rx/DC Orders Clinical Impression: Bleeding esophageal varices due to alcoholic liver disease, Gastric ulcer with hemorrhage, Alcohol abuse, Cirrhosis of liver with ascites Prescriptions: No Action propranolol 80 mg Tablet 80 mg PO DAILY naltrexone 50 mg Tablet 50 mg PO DAILY spironolactone 25 mg Tablet 25 mg PO DAILY aripiprazole 2 mg Tablet 2 mg PO DAILY sertraline [Zoloft] 100 mg Tablet 100 mg PO DAILY pantoprazole [Protonix] 40 mg tablet,delayed release (DR/EC) 40 mg PO BID Qty: 60 0RF sucralfate [Carafate] 1 gram tablet 1 g PO BID Qty: 60 0RF Primary Care Provider: Care Physician,No Primary Referrals: SIMON, BASEM [Other] Disposition Disposition: Acute Care Hospital [facility]
[2022-04-17 05:11] LABS: Absolute Lymphocyte Count 1.33 X10^3/uL (0.83-4.51); Absolute Neutrophil Count 4.8 X10^3/uL (2.0-7.7); Basophil# 0.11 X10^3/uL; Basophil% 1.6 % (0-1); Eosinophil# 0.23 X10^3/uL; Eosinophils% 3.3 % (0-5); Hematocrit 35.4 % (37-47); Hemoglobin 11.2 g/dL (12.0-15.0); Lymphocyte # 1.33 X10^3/ul (0.83-4.51); Lymphocyte % 18.9 % (19-41); Mean Corp Hgb Conc 31.6 g/dL (32-36); Mean Corpuscular Hgb 30.4 pg (27.0-32.0); Mean Corpuscular Volume 95.9 fL (81-99); Mean Platelet Vol. 9.5 fl (6.2-12.0); Monocyte# 0.54 X10^3/uL; Monocyte% 7.7 % (0-10); NRBC Flagged by Analyzer 0 % (0-5); Neutrophil # 4.75 X10^3/uL (2.7-7.7); Neutrophil % 67.5 % (47-70); POSITIVE MORPHOLOGY YES; Platelet Count 107 K/mm3 (150-450); RBC Distribution Width CV 20.1 % (11.6-14.6); RBC Distribution Width SD 70.8 fl (35.1-43.9); Red Blood Count 3.69 M/mm3 (4.2-5.4)
[2022-04-17 05:16] LABS: Differential Indicated SCAN CRITERIA MET
[2022-04-17 05:18] LABS: International Normalized Ratio 1.3; Prothrombin Time (Protime)PT. 15.7 SECONDS (11.7-14.9)
[2022-04-17 05:19] LABS: Partial Thromboplast Time 38.3 Seconds (24.1-36.2)
[2022-04-17 05:20] LABS: AST(SGOT) 366 U/L (15-37); Alanine Aminotransfer ALT/SGPT 81 U/L (13-56); Albumin, Serum 3.7 g/dL (3.2-5.0); Alkaline Phosphatase 300 U/L (45-117); Anion Gap 12 (5-15); BUN 7 mg/dL (7-18); BUN/Creat Ratio 9.8 RATIO (10-20); Bilirubin, Direct 4.22 mg/dL (0.00-0.30); Calcium,Total 9.2 mg/dL (8.5-10.1); Chloride 107 mmol/L (98-107); Creatinine, Serum 0.71 mg/dL (0.55-1.02); EST Glomerular Filtration Rate 92 mL/min (>60); Est Glom Filt Rate - Afr Amer 112 mL/min (>60); Estimated Creatinine Clearance 86.25 ml/min; Globulin 5.6 g/dL (2.2-4.2); Glucose 108 mg/dL (74-106); Lipase 258 U/L (73-393); Potassium 3.2 mmol/L (3.5-5.1); Protein, Total 9.3 g/dL (6.4-8.2); Sodium Level 141 mmol/L (136-145)
--- NOTE | 2022-04-17 05:49 | HP.PCM.HOS_ITS ---
HPI - General General Date of Admission: 04/17/22 Date of Service: 04/17/22 Chief Complaint: Hematesis, bloody stools ongoing for 2 weeks HPI Narrative DOMINICK MCKEON, is a 51 F who presents with the above. Patient has past medical history of alcoholic liver disease, history of esophageal varices, chronic alcohol abuse who has been drinking about a pint of vodka every day or every other day. She comes in because she has been having hematemesis, and bloody stools. She admits to nausea and vomiting. Vitals in the ED showed blood pressure 171/95, heart rate 102, oxygen sat 99% on room air, temperature 98.2 F. Admitting WBC count 7.2, hemoglobin 11.2, platelet count 107, INR 1.3, sodium 141, potassium 3.2, chloride 102, bicarbonate 22, BUN 7, creatinine 0.71, total bilirubin 5.2, WBC 4.22, AST 36 ALT 81, ALP 300. Admitting alcohol level 319. CT of the abdomen and pelvis is pending. [facility] Medical History Alcohol abuse Alcoholism Cirrhosis of liver Depression High cholesterol History of alcoholism History of cirrhosis of liver Hypertension Irritable bowel Migraines Home Medications aripiprazole 2 mg tablet 2 mg PO DAILY 02/16/21 [History Last Taken 02/16/21] naltrexone 50 mg tablet 50 mg PO DAILY 02/16/21 [History Last Taken 02/15/21] sertraline 100 mg tablet (Zoloft) 100 mg PO DAILY depression 02/16/21 [History Last Taken Unknown] spironolactone 25 mg tablet 25 mg PO DAILY 02/16/21 [History Last Taken 02/16/21] pantoprazole 40 mg tablet,delayed release (Protonix) 40 mg PO BID #60 tabs 02/17/21 [Rx Last Taken Unknown] sucralfate 1 gram tablet (Carafate) 1 g PO BID #60 tabs 02/17/21 [Rx Last Taken Unknown] propranolol 80 mg capsule,24 hr,extended release (Inderal LA) 80 mg PO DAILY BP 04/17/22 [History Last Taken Unknown] Allergy/AdvReac Type Severity Reaction Status Date / Time bee venom protein (honey bee) Allergy NEEDS Verified 04/17/22 04:34 [bee sting] FOLLOW-UP Family History Other Diabetes Heart disease Hyperlipidemia Hypertension Surgical History History of carpal tunnel surgery Social History (Updated 04/17/22 @ 07:[address] Anh Bianchi MD) household members: family Smoking Status: Never smoker alcohol intake: current substance use type: does not use ROS ROS Narrative Constitutional: Reports: Malaise, Weakness, Fatigue, anorexia. Denies:Chills, Fever, Night Sweats, Weight Change Eyes: Denies: Blurred vision, Cataracts, Conjunctivae Inflammation, Pain, Redness, Vision Change HEENT: Denies: Difficulty Hearing, Difficulty Swallowing, Head Aches, Hearing Changes, Sinus Congestion, Sinus Drainage Cardiovascular: Denies: Chest Pain, Orthopnea, Palpitations Respiratory: Denies: Cough, Shortness of breath at rest, Sputum production Gastrointestinal: See HPI Genitourinary: Denies: Dysuria Musculoskeletal: Denies: Joint Pain, Joint stiffness, Joint swelling, Joint Tenderness Skin: Denies: Rash, Wounds Neurological: Denies: Numbness, Tingling, Focal weakness Vital Signs Vital Signs Vital Signs: 04/17/22 04:30 Temperature 98.2 F Temperature Source Temporal Pulse Rate 102 H Respiratory Rate 18 Blood Pressure 171/95 H Blood Pressure Mean 120 Pulse Ox 99 Oxygen Delivery Method Room Air Weight Weight: 74 kg Body Mass Index (BMI) 27.1 Physical Exam Narrative Physical exam: General: Alert, Oriented x3, appears unwell, jaundiced, pale HEENT: Atraumatic Oral: Moist Mucosa Neck: Supple Lungs: Diminished to auscultation Cardiovascular: HS I+II, regular, no murmurs Abdomen: Bowel Sounds Present, Soft, Non Tender Extremities: Trace bilateral pedal edema Skin: No rashes, No breakdown Neurological: Grossly intact Psych/Mental Status: Appropriate Results Lab / Micro Data Result Diagrams: 04/17/22 04:40 04/17/22 04:40 Labs: Laboratory Results - last 24 hr 04/17/22 04:40: WBC 7.0, RBC 3.69 L, Hgb 11.2 L, Hct 35.4 L, MCV 95.9, MCH 30.4, MCHC 31.6 L, RDW Std Deviation 70.8 H, RDW Coeff of Melissa 20.1 H, Plt Count 107 L, MPV 9.5, Immature Gran % (Auto) 1.000 H, Neut % (Auto) 67.5, Lymph % (Auto) 18.9 L, [place] % (Auto) 7.7, Eos % (Auto) 3.3, Baso % (Auto) 1.6 H, Absolute Neuts (auto) 4.8, Absolute Lymphs (auto) 1.33, Nucleated RBC % 0 04/17/22 04:40: PT 15.7 H, INR 1.3, APTT 38.3 H 04/17/22 04:40: Sodium 141, Potassium 3.2 L, Chloride 107, Carbon Dioxide 22.0, Anion Gap 12, BUN 7, Creatinine 0.71, Estim Creat Clear Calc 86.25, Est GFR (MDRD) Af Amer 112, Est GFR (MDRD) Non-Af 92, BUN/Creatinine Ratio 9.8 L, Glucose 108 H, Calcium 9.2, Total Bilirubin 5.20 H, Direct Bilirubin 4.22 H, AST 366 H, ALT 81 H, Alkaline Phosphatase 300 H, Total Protein 9.3 H, Albumin 3.7, Globulin 5.6 H, Lipase 258 04/17/22 04:40: Ethyl Alcohol 319.0 H* Micro: Microbiology 04/17/22 04:50 Stool Stool Occult Blood (NOELLE) - Final Occult Blood Positive Assessment & Plan Assessment/Plan (1) Bleeding esophageal varices due to alcoholic liver disease: (2) Gastric ulcer with hemorrhage: PLAN: Plan 1. Acute GI bleed, suspected upper in a patient with history of liver cirrhosis with varices History of EGD in November 2021 with a finding shows aphasia varices grade 1, bleeding gastric ulcer was treated with argon beam coagulation as well as nonb leeding ulcer Started on octreotide drip as well as pantoprazole drip in the ED Hemoglobin is 11.2, GI consulted Admit to lisa Torres n.p.o., continue octreotide drip and pantoprazole drip 2. Elevated liver enzymes likely secondary to acute alcoholic hepatitis, History of underlying liver cirrhosis. CT of the abdomen pelvis is pending Liver profile shows a cholestatic pattern GI consulted and discussed?we will start patient on IV Zosyn Follow-up on CT abdomen pelvis 3. Decompensated alcoholic liver cirrhosis with ascites and acute hepatic cephalopathy Ammonia is 78. Started on lactulose, rifaximin Patient may need paracentesis later 4. Hypokalemia, potassium was 3.2, replaced, recheck in a.m. 5. Chronic alcohol abuse, advised to quit, will monitor for alcohol withdrawal 6. DVT prophylaxis?SCDs Total time spent: 75 minutes of which a greater part, more than 50% was spent in reviewing patient's chart, laboratory investigations, discussing with emergency physician, gastroenterology, taking history and physical examining patient and discussing plan of care with patient and her mother at the bedside. Charges/Coding Visit Charges Inpatient E&M: 81425 Init Hosp L3
--- NOTE | 2022-04-17 06:36 | CT_ITS ---
STUDY: CT ABDOMEN AND PELVIS WITH AND WITHOUT CONTRAST REASON FOR EXAM: Female, 51 years old. Elevated liver function tests. RADIATION DOSAGE (If Supplied By Facility): CTDIvol = ( 17.92 ) mGy, DLP = ( 2546.97 ) mGycm TECHNIQUE: Transaxial images were obtained from the dome of the diaphragm to the symphysis pubis without oral contrast. IV 100mL Isovue-370 was administered. Sagittal and coronal images were reconstructed. Individualized dose optimization techniques were used for this CT. COMPARISON: None. FINDINGS: The visualized lung bases are unremarkable. The visualized portions of the heart are within normal limits. Hepatomegaly with hepatic steatosis. Nodular appearance to some of the liver margins suggestive of cirrhosis. Abdominal varices. Tiny stone within the dependent portion of gallbladder. Small amount of pericholecystic fluid. There is mild splenomegaly. Normal pancreas. Normal bilateral adrenal glands. Normal right kidney. Normal left kidney. The stomach is not well distended. There may be gastric wall thickening. Soft tissue stranding adjacent to third portion of duodenum. Soft tissue stranding in the mesentery in the midabdomen and coronal image 65 series 601. Wall thickening involving the cecum and proximal ascending colon. Additional areas of wall thickening involving portions of the transverse and descending colon.. The appendix is visualized and appears normal. Normal abdominal aorta. Normal inferior vena cava. Normal retroperitoneum. No intra-abdominal free air. Minimal ascites in the paracolic gutters bilaterally. Minimal ascites adjacent to the anterior margin of the liver. Normal urinary bladder. Uterus is not enlarged. No adnexal masses seen. Normal abdominal wall. Mild compression fracture T11 which is probably old. Degenerative changes of the lower lumbar spine. CT/CT Abd/Pelvis W/WO Contrast IMPRESSION: Hepatosplenomegaly. Diffuse fatty liver. Cirrhosis. Abdominal varices. Pericholecystic fluid with tiny gallstone. Correlate with right upper quadrant ultrasound to exclude acute cholecystitis. Pancolitis. Inflammatory changes adjacent to third portion of duodenum and in the mesentery of the mid abdomen. No periaortic lymphadenopathy. Questionable gastric wall thickening versus lack of distention. Consider direct visualization. Small amount of abdominal ascites. Electronically Signed: Froilan Montoya MD at 7:32 EST Reading Location ID and State: [id number] / , Service support ,
[2022-04-17 06:58] VITALS: BP 156/95; PULSE 99; RESP 13; TEMP 37; O2SAT 93
[2022-04-17] MEDS: 0.9% Normal Saline 1,000 ML 100 ML IV ×2 (07:02→18:22)
[2022-04-17] MEDS: Potassium Chloride 10mEq/100mL 10 MEQ/100 ML IV.SOLN. 100 MEQ IV BOLUS ×2 (07:05→11:02)
[2022-04-17 07:19] VITALS: BMI 27.1
[2022-04-17 07:31] LABS: Anisocytosis 2+; Platelet Estimate SLT DEC (ADEQ)
--- NOTE | 2022-04-17 07:47 | US_ITS ---
STUDY: ABDOMINAL ULTRASOUND - RIGHT UPPER QUADRANT REASON FOR VISIT: Female, 51 years old . Abdominal pain. TECHNIQUE: Ultrasound evaluation of the right upper quadrant was performed with real-time and static sinha-scale imaging. TECHNICAL QUALITY: Adequate. COMPARISON: None. FINDINGS: Liver: The liver is enlarged and measures 23 cm. There is increased echogenicity consistent with fatty infiltration. Heterogeneous appearance of the liver with a contour abnormality suggestive of cirrhosis. The bile ducts are within normal limits. There is hepatic color flow. The direction of portal flow is hepatopetal. There is no demonstrated mass lesion. Gallbladder: Normal distended gallbladder. The gallbladder wall is thickened and measures 4.4 mm. There is a negative sonographic Velazco''s sign. There is pericholecystic fluid. There is a solitary echogenic gallstone within the neck of the gallbladder. Common Bile Duct (C.B.D.): The common bile duct measures 3 mm. Pancreas: Normal size of the head, body and tail of the pancreas. There is normal echogenicity of the pancreas. There is no demonstrated pancreatic mass or cyst. Right Kidney: Normal size of the right kidney. The right kidney measures 10.9 cm x 6 cm x 4.5 cm. Normal renal cortex. The right cortex measures 1.6 cm. There is no demonstrated renal mass or cyst. There is no right hydronephrosis. US/Gallbladder IMPRESSION: Hepatomegaly with fatty infiltration of the liver and heterogeneous echotexture with contour abnormality. Small amount of pericholecystic fluid. Solitary gallstone in the neck of the gallbladder. Electronically Signed: Lorenzo Limon MD at 12:17 EST ,
[2022-04-17 08:03] LABS: Amphetamine Urine VISTA NEGATIVE (<1000 ng/mL); Barbiturate Urine VISTA NEGATIVE (< 200 ng/mL); Benzodiazepine Urine VISTA POSITIVE (< 200 ng/mL); Cocaine Urine VISTA NEGATIVE (< 300 ng/mL); Ecstacy Urine VISTA NEGATIVE (< 500 ng/mL); Methadone Urine VISTA NEGATIVE (< 300 ng/mL); PCP Urine VISTA NEGATIVE (< 25 ng/mL); THC Urine VISTA NEGATIVE (< 50 ng/mL); Vista UDS pH Range 7
[2022-04-17] MEDS: LORazepam 2 MG/ML Syringe 1 MG IV (08:13)
[2022-04-17] MEDS: Potassium Chloride 10mEq/100mL 10 MEQ/100 ML IV.SOLN. IV BOLUS ×2 (08:13→09:06)
[2022-04-17 09:00] VITALS: BP 138/84; PULSE 98; RESP 16; TEMP 36.8; O2SAT 94
--- NOTE | 2022-04-17 11:30 | CASEMGMT ---
RN?CM?SHELLFISH WEIGHER?CM?to room to meet with patient for initial transition planning/care coordination?assessment.?RN?CM?introduced self and role at [facility] [place].? Pt voices understanding and consents to?assessment?at this time.? Pt resting in bed in no distress at this time.? Pt is A/O at this time and answers all questions appropriately.?? Care providers, pharmacy, and demographics verified/updated at this time.? PCP:?BEHAVIORAL HEALTH PROFESSIONAL Sheridan Sommer @ [facility] in [place] Specialists:?Dr Piter Beltran @ [facility] Preferred Pharmacy:? [facility] [place] Retail Insurance:?[employer] Prescription Benefit:?Yes Living Will/HPOA:??Pt does not have either and would like to complete. SOSA, Cami, made aware. LNOK:?Pt is , but is . Mother, Gertrude. Brother, Kenn. Living Arrangements:?Lives alone in 2-story home w/2 steps to enter. Indep w/ADL's and IADL's. Transportation:?Pt states drives self and states no transportation concerns at this time.?? DME: ? Denies using any DME and denies needs.?? HHC/SNF:?No hx of either. No needs identified. Pt wishes to return home. Pt states she drinks vodka daily and that she has been an alcoholic for 10 yrs. She reports being sober for about 7 months at one time. She states the only concern returning home is that she will start drinking again, ?Pt made aware the spine specialist will be in to talk with her. She voices appreciation. CM?to follow for any further discharge planning/needs.? Pt voices no further concerns/needs at this time.? Advised pt to ask for?CM?if any further questions/concerns/needs arise.? Voices understanding.? PLAN:??Home Devan JETTN?RN?CM
--- NOTE | 2022-04-17 12:19 | CASEMGMT ---
Addendum entered by Cami García 04/17/22 16:34: SW did ask Last from [facility] to see pt. JAILENE Fu Original Note: Social Work SW met w/pt, assisted in completing LW/POA documents. Pt listed her mother then brother as healthcare POA. SW gave pt originals and copies, copies placed on chart. SW spoke w/pt briefly about alcohol use, she would like to speak to the internal medicine specialist from [facility] when she is here. SW will let her know. JAILENE Fu
--- NOTE | 2022-04-17 14:46 | PN.HOSP_ITS ---
Subjective Subjective Patient seen and examined. She was admitted in the early hours of this morning with a complaint of hematemesis and bloody stools which had been going on for 2 weeks. She came in this morning though because she was concerned about acute alcohol withdrawal. she has no active complaints this morning. She denies any na usea, vomiting, fever or chills. Review of systems was otherwise negative. Objective Data Objective Data Vital Signs: Vital Signs Temp Pulse Resp BP Pulse Ox O2 Del Method 98.3 F 98 16 138/84 H 94 Room Air 04/17/22 09:00 04/17/22 09:00 04/17/22 09:00 04/17/22 09:00 04/17/22 09:00 04/17/22 13:19 Oxygen Delivery Method Room Air Weight: 163 lb 2.273 oz Body Mass Index (BMI) 27.1 Intake & Output: Intake and Output for Last 24 Hours 04/15/22 04/16/22 04/17/22 23:59 23:59 23:59 Intake Total 1380.03 / 1380.03 Balance 1380.03 / 1380.03 Lab / Micro Data Result Diagrams: 04/17/22 04:40 04/17/22 04:40 Labs: Laboratory Results - last 24 hr 04/17/22 04:40: WBC 7.0, RBC 3.69 L, Hgb 11.2 L, Hct 35.4 L, MCV 95.9, MCH 30.4, MCHC 31.6 L, RDW Std Deviation 70.8 H, RDW Coeff of Melissa 20.1 H, Plt Count 107 L, MPV 9.5, Immature Gran % (Auto) 1.000 H, Neut % (Auto) 67.5, Lymph % (Auto) 18.9 L, [place] % (Auto) 7.7, Eos % (Auto) 3.3, Baso % (Auto) 1.6 H, Absolute Neuts (auto) 4.8, Absolute Lymphs (auto) 1.33, Nucleated RBC % 0, Platelet Estimate SLT DEC, Anisocytosis 2+ 04/17/22 04:40: PT 15.7 H, INR 1.3, APTT 38.3 H 04/17/22 04:40: Sodium 141, Potassium 3.2 L, Chloride 107, Carbon Dioxide 22.0, Anion Gap 12, BUN 7, Creatinine 0.71, Estim Creat Clear Calc 86.25, Est GFR (MDRD) Af Amer 112, Est GFR (MDRD) Non-Af 92, BUN/Creatinine Ratio 9.8 L, Glucose 108 H, Calcium 9.2, Total Bilirubin 5.20 H, Direct Bilirubin 4.22 H, AST 366 H, ALT 81 H, Alkaline Phosphatase 300 H, Total Protein 9.3 H, Albumin 3.7, Globulin 5.6 H, Lipase 258 04/17/22 04:40: Ethyl Alcohol 319.0 H* 04/17/22 04:40: Magnesium 2.0 04/17/22 04:55: Blood Type A POSITIVE, Antibody Screen NEGATIVE 04/17/22 06:10: Ammonia 78.0 H 04/17/22 06:45: Urine Opiates Screen NEGATIVE, Urine Methadone Screen NEGATIVE, Ur Barbiturates Screen NEGATIVE, Ur Phencyclidine Scrn NEGATIVE, Ur Amphetamines Screen NEGATIVE, MDMA (Ecstasy) Screen NEGATIVE, U Benzodiazepines Scrn POSITIVE H, Urine Cocaine Screen NEGATIVE, U Cannabinoids Screen NEGATIVE, Ur Drug Screen Comment Micro: Microbiology 04/17/22 05:13 Vomitus Gastric Occult Blood - Final Occult Blood Positive 04/17/22 04:50 Stool Stool Occult Blood (NOELLE) - Final Occult Blood Positive Radiography Diagnostic Testing: Radiology Impression Abdomen/Pelvis CT 04/17/22 06:36 IMPRESSION: Hepatosplenomegaly. Diffuse fatty liver. Cirrhosis. Abdominal varices. Pericholecystic fluid with tiny gallstone. Correlate with right upper quadrant ultrasound to exclude acute cholecystitis. Pancolitis. Inflammatory changes adjacent to third portion of duodenum and in the mesentery of the mid abdomen. No periaortic lymphadenopathy. Questionable gastric wall thickening versus lack of distention. Consider direct visualization. Small amount of abdominal ascites. Electronically Signed: Froilan Montoya MD at 7:32 EST Reading Location ID and State: [id number] / , Service support , Gallbladder Ultrasound 04/17/22 07:47 IMPRESSION: Hepatomegaly with fatty infiltration of the liver and heterogeneous echotexture with contour abnormality. Small amount of pericholecystic fluid. Solitary gallstone in the neck of the gallbladder. Electronically Signed: Lorenzo Limon MD at 12:17 EST , Physical Exam Const alert, oriented x3 and no apparent distress HEENT head/scalp atraumatic and moist oral mucous membranes HEENT Narrative: jaundiced Head and Scalp: normocephalic Mouth: dry mucous membranes Eyes PERRL, EOMs intact bilaterally and conjunctivae normal Neck no lymphadenopathy, supple and no JVD Resp normal respiratory effort, no retractions, no use of accessory muscles and clear to auscultation bilaterally Cardio regular rate, regular rhythm, S1 normal heart sound, S2 normal heart sound and no murmurs GI normal to inspection, nondistended, normoactive bowel sounds, soft to palpation, non-tender and non-distended Extremity normal to inspection, full ROM and no clubbing, cyanosis or edema Neuro oriented x3, CN's II-XII intact bilaterally, moves all extremities and no focal motor deficits Sensorium / Orientation: awake and alert Psych affect normal Assessment & Plan Assessment/Plan (1) Bleeding esophageal varices due to alcoholic liver disease: (2) Alcohol withdrawal: PLAN: Plan #Acute GI bleed * likely due to bleeding esophageal varices in a patient with liver cirrhosis and varices * currenlty NPO * on octreotide drip and pantoprazole drip * GI on board. * #Liver cirrhosis * due to alcohol abuase * liver enzymes elevated. They are chronically elevated * started on IV zosyn due to concerns about gallbladder etiology CT abdomen and pelvis showed pericholecystic fluid with tiny gallstones. * gallbladder USG showed small amount of pericholecystic fluid with solitary gallstone in the neck of the gallbladder * ammonia level elevated at 78 * on lactulose and rifaximin * consult general surgery due to gallbladder findings * #Hypokalemia: Potassium is 3.2. Was replaced this morning. #Acute alcohol withdrawal * Patient states she feels like she is going into withdrawal. * Start on alcohol withdrawal protocol with Ativan. * Phenobarbital not being used because of liver impairment. * monitor CIWA score * #Thrombocytopenia * platelets are down to 107 * likely due to liver disease. Will monitor * DVT prophylaxis: SCDs * Reason for Visit Reason for Visit: Diagnoses Secondary esophageal varices with bleeding (04/17/22) Chronic or unspecified gastric ulcer with hemorrhage (04/17/22) Alcoholic liver disease, unspecified (04/17/22)
[2022-04-17 15:00] VITALS: BP 130/75; PULSE 92; RESP 16; TEMP 36.9; O2SAT 96
--- NOTE | 2022-04-17 17:03 | CON.PCM.GI_ITS ---
HPI Consult Data Date of Consult: 04/17/22 HPI Narrative HPI Narrative: DOMINICK MCKENO, is a 51 F who presents to the ED with the chief complaint of hematemesis.? She has a history of alcoholic cirrhosis.? She says that she has had episodes of jaundice, alcoholic hepatitis and possibly upper GI bleed secondary to portal gastropathy.? She drinks about 8 glasses of vodka a day.? She was on Vivitrol to control drinking habits.? However she stopped taking it.? She says she has had problems with nausea vomiting over the last 6 months.? She got very concerned and came into the ER due to a large volume of bloody vomitus.? She does not take any NSAIDs.? She does have a past medical history of hypercholesteremia and hypertension.? She believes that they put her on propanolol for variceal prophylaxis.? She has no family members with cirrhosis.? She has no autoimmune disease. I saw her over a year ago for hematemesis. She was determined to have esophage al varices, portal gastropathy and gastric ulcer with bleeding stigmata. It was treated endoscopically. [facility] Medical History Alcohol abuse Alcoholism Cirrhosis of liver Depression High cholesterol History of alcoholism History of cirrhosis of liver Hypertension Irritable bowel Migraines Home Medications aripiprazole 2 mg tablet 2 mg PO DAILY 02/16/21 [History Last Taken 02/16/21] naltrexone 50 mg tablet 50 mg PO DAILY 02/16/21 [History Last Taken 02/15/21] sertraline 100 mg tablet (Zoloft) 100 mg PO DAILY depression 02/16/21 [History Last Taken Unknown] spironolactone 25 mg tablet 25 mg PO DAILY 02/16/21 [History Last Taken 02/16/21] pantoprazole 40 mg tablet,delayed release (Protonix) 40 mg PO BID #60 tabs 02/17/21 [Rx Last Taken Unknown] sucralfate 1 gram tablet (Carafate) 1 g PO BID #60 tabs 02/17/21 [Rx Last Taken Unknown] propranolol 80 mg capsule,24 hr,extended release (Inderal LA) 80 mg PO DAILY BP 04/17/22 [History Last Taken Unknown] Allergy/AdvReac Type Severity Reaction Status Date / Time bee venom protein (honey bee) Allergy NEEDS Verified 04/17/22 04:34 [bee sting] FOLLOW-UP Family History Other Diabetes Heart disease Hyperlipidemia Hypertension Surgical History History of carpal tunnel surgery Social History (Updated 04/17/22 @ 07:[address] Anh Bianchi MD) household members: family Smoking Status: Never smoker alcohol intake: current substance use type: does not use ROS ROS Narrative Constitutional: Reports: Malaise, Weakness, Fatigue, anorexia. Denies:Chills, Fever, Night Sweats, Weight Change Eyes: Denies: Blurred vision, Cataracts, Conjunctivae Inflammation, Pain, Redness, Vision Change HEENT: Denies: Difficulty Hearing, Difficulty Swallowing, Head Aches, Hearing Changes, Sinus Congestion, Sinus Drainage Cardiovascular: Denies: Chest Pain, Orthopnea, Palpitations Respiratory: Denies: Cough, Shortness of breath at rest, Sputum production Gastrointestinal: See HPI Genitourinary: Denies: Dysuria Musculoskeletal: Denies: Joint Pain, Joint stiffness, Joint swelling, Joint Tenderness Skin: Denies: Rash, Wounds Neurological: Denies: Numbness, Tingling, Focal weakness Lab / Micro Data Result Diagrams: 04/17/22 04:40 04/17/22 04:40 Labs: Laboratory Results - last 24 hr 04/17/22 04:40: WBC 7.0, RBC 3.69 L, Hgb 11.2 L, Hct 35.4 L, MCV 95.9, MCH 30.4, MCHC 31.6 L, RDW Std Deviation 70.8 H, RDW Coeff of Melissa 20.1 H, Plt Count 107 L, MPV 9.5, Immature Gran % (Auto) 1.000 H, Neut % (Auto) 67.5, Lymph % (Auto) 18.9 L, [place] % (Auto) 7.7, Eos % (Auto) 3.3, Baso % (Auto) 1.6 H, Absolute Neuts (auto) 4.8, Absolute Lymphs (auto) 1.33, Nucleated RBC % 0, Platelet Estimate SLT DEC, Anisocytosis 2+ 04/17/22 04:40: PT 15.7 H, INR 1.3, APTT 38.3 H 04/17/22 04:40: Sodium 141, Potassium 3.2 L, Chloride 107, Carbon Dioxide 22.0, Anion Gap 12, BUN 7, Creatinine 0.71, Estim Creat Clear Calc 86.25, Est GFR (MDRD) Af Amer 112, Est GFR (MDRD) Non-Af 92, BUN/Creatinine Ratio 9.8 L, Glucose 108 H, Calcium 9.2, Total Bilirubin 5.20 H, Direct Bilirubin 4.22 H, AST 366 H, ALT 81 H, Alkaline Phosphatase 300 H, Total Protein 9.3 H, Albumin 3.7, Globulin 5.6 H, Lipase 258 04/17/22 04:40: Ethyl Alcohol 319.0 H* 04/17/22 04:40: Magnesium 2.0 04/17/22 04:55: Blood Type A POSITIVE, Antibody Screen NEGATIVE 04/17/22 06:10: Ammonia 78.0 H 04/17/22 06:45: Urine Opiates Screen NEGATIVE, Urine Methadone Screen NEGATIVE, Ur Barbiturates Screen NEGATIVE, Ur Phencyclidine Scrn NEGATIVE, Ur Amphetamines Screen NEGATIVE, MDMA (Ecstasy) Screen NEGATIVE, U Benzodiazepines Scrn POSITIVE H, Urine Cocaine Screen NEGATIVE, U Cannabinoids Screen NEGATIVE, Ur Drug Screen Comment Micro: Microbiology 04/17/22 05:13 Vomitus Gastric Occult Blood - Final Occult Blood Positive 04/17/22 04:50 Stool Stool Occult Blood (NOELLE) - Final Occult Blood Positive Radiology Impression Abdomen/Pelvis CT 04/17/22 06:36 IMPRESSION: Hepatosplenomegaly. Diffuse fatty liver. Cirrhosis. Abdominal varices. Pericholecystic fluid with tiny gallstone. Correlate with right upper quadrant ultrasound to exclude acute cholecystitis. Pancolitis. Inflammatory changes adjacent to third portion of duodenum and in the mesentery of the mid abdomen. No periaortic lymphadenopathy. Questionable gastric wall thickening versus lack of distention. Consider direct visualization. Small amount of abdominal ascites. Electronically Signed: Froilan Montoya MD at 7:32 EST Reading Location ID and State: [id number] / , Service support , Gallbladder Ultrasound 04/17/22 07:47 IMPRESSION: Hepatomegaly with fatty infiltration of the liver and heterogeneous echotexture with contour abnormality. Small amount of pericholecystic fluid. Solitary gallstone in the neck of the gallbladder. Electronically Signed: Lorenzo Limon MD at 12:17 EST , Assessment & Plan Assessment/Plan (1) Bleeding esophageal varices due to alcoholic liver disease: PLAN: She will undergo endoscopy to evaluate esophagus for possible variceal bleed. Recommended octreotide and PPI drip. (2) Gastric ulcer with hemorrhage: PLAN: Gastric ulcer likely secondary to alcoholic gastritis. Recommend PPI drip (3) Cirrhosis of liver with ascites: PLAN: At this time she is suffering from alcoholic hepatitis with a Madrey score of 28. She is not encephalopathic at this time. I would recommend Xifaxan 5 to 50 mg p.o. twice daily and lactulose 20 cc p.o. every 6 hours as prophylaxis for encephalopathy. I would not give her steroids at this time.
[2022-04-17] MEDS: rifAXIMin 550 MG Tablet PO (21:54)
[2022-04-17] MEDS: Lactulose 20 GM/30 ML UDC PO (21:54)
[2022-04-17] MEDS: Dicyclomine 10 MG Capsule 20 MG PO (22:00)
[2022-04-17] MEDS: Ondansetron 8 MG Tablet PO (22:00)
[2022-04-17] MEDS: Propranolol LA 80 MG Capsule PO (22:06)
[2022-04-17] MEDS: hydrOXYzine PAM 25 MG Capsule 50 MG PO (22:09)
[2022-04-17 22:19] VITALS: BP 156/96; PULSE 90; RESP 16; TEMP 36.9; O2SAT 100
[2022-04-18] VITALS (9 sets, daily range): BP systolic 131–158; BP diastolic 75–98; PULSE 72–85; RESP 16; TEMP 36.6–37.7; O2SAT 92–99; BMI 25.8
[2022-04-18 04:48] LABS: Absolute Lymphocyte Count 0.69 X10^3/uL (0.83-4.51); Absolute Neutrophil Count 4.7 X10^3/uL (2.0-7.7); Basophil# 0.07 X10^3/uL; Basophil% 1.1 % (0-1); Eosinophil# 0.24 X10^3/uL; Eosinophils% 3.9 % (0-5); Lymphocyte # 0.69 X10^3/ul (0.83-4.51); Lymphocyte % 11.1 % (19-41); Mean Corp Hgb Conc 32.3 g/dL (32-36); Mean Corpuscular Hgb 31.3 pg (27.0-32.0); Mean Corpuscular Volume 96.9 fL (81-99); Mean Platelet Vol. 9.5 fl (6.2-12.0); Monocyte# 0.48 X10^3/uL; Monocyte% 7.7 % (0-10); NRBC Flagged by Analyzer 0 % (0-5); Neutrophil # 4.66 X10^3/uL (2.7-7.7); Neutrophil % 75.2 % (47-70); POSITIVE COUNT YES; POSITIVE MORPHOLOGY YES; Platelet Count 77 K/mm3 (150-450); RBC Distribution Width CV 19.6 % (11.6-14.6); RBC Distribution Width SD 69.8 fl (35.1-43.9); White Blood Count 6.2 K/mm3 (4.4-11.0)
[2022-04-18 05:04] LABS: Differential Indicated SCAN CRITERIA MET
[2022-04-18 05:12] LABS: ALB/GLOB Ratio 0.6 RATIO (0.9-2.4); AST(SGOT) 263 U/L (15-37); Alanine Aminotransfer ALT/SGPT 68 U/L (13-56); Albumin, Serum 3.2 g/dL (3.2-5.0); Alkaline Phosphatase 243 U/L (45-117); Anion Gap 11 (5-15); BUN 6 mg/dL (7-18); BUN/Creat Ratio 6.7 RATIO (10-20); Calcium,Total 8.4 mg/dL (8.5-10.1); Chloride 100 mmol/L (98-107); Creatinine, Serum 0.89 mg/dL (0.55-1.02); EST Glomerular Filtration Rate 72 mL/min (>60); Est Glom Filt Rate - Afr Amer 87 mL/min (>60); Globulin 5.1 g/dL (2.2-4.2); Glucose 141 mg/dL (74-106); Potassium 3.5 mmol/L (3.5-5.1); Protein, Total 8.3 g/dL (6.4-8.2); Sodium Level 134 mmol/L (136-145)
[2022-04-18 05:32] LABS: Anisocytosis 2+; Platelet Estimate MOD DEC (ADEQ)
--- NOTE | 2022-04-18 07:10 | EKG12_ITS ---
Test Reason : PRE OP Blood Pressure : / mmHG Vent. Rate : 076 BPM Atrial Rate : 076 BPM P-R Int : 190 ms QRS Dur : 100 ms QT Int : 438 ms P-R-T Axes : 045 -08 031 degrees QTc Int : 492 ms Normal sinus rhythm Prolonged QT Abnormal ECG No previous ECGs available Confirmed by SANDRA WISE, VIVIAN ([id number]), index editor VAMSHI GUNN ([id number]) on 04/18/2022 2:06:51 PM Referred By: SUSANA Confirmed By:VIVIAN FLORES MD
[2022-04-18] MEDS: Sucralfate 1 GM Tablet PO ×2 (08:28→17:29)
[2022-04-18] MEDS: Sertraline 100 MG Tablet PO (08:28)
[2022-04-18] MEDS: rifAXIMin 550 MG Tablet PO ×2 (08:28→21:29)
[2022-04-18] MEDS: ARIPiprazole 2 MG Tablet PO (08:28)
[2022-04-18] MEDS: Spironolactone 25 MG Tablet PO (08:28)
[2022-04-18] MEDS: Folic Acid 1 MG Tablet PO (08:29)
[2022-04-18] MEDS: Propranolol LA 80 MG Capsule PO (08:29)
[2022-04-18] MEDS: Thiamine Hydrochloride 100 MG Tablet PO (08:29)
[2022-04-18] MEDS: Lactulose 20 GM/30 ML UDC PO ×2 (08:29→21:31)
[2022-04-18] MEDS: FLU VACC QS2022-23(6MOS UP)/PF 60 MCG/0.5 ML SYRINGE IM (08:32)
--- NOTE | 2022-04-18 10:56 | PN.HOSP_ITS ---
Subjective Subjective Patient seen and examined. She says she does feel a bit better today. She denies any abdominal pain, fever, chills, cough, chest pain, palpitations, dizziness, nausea, vomiting or diarrhea. Review of systems is otherwise negative. She is for EGD today. Objective Data Objective Data Vital Signs: Vital Signs Temp Pulse Resp BP Pulse Ox O2 Del Method 100 F H 75 16 149/92 H 97 Room Air 04/18/22 07:36 04/18/22 07:36 04/18/22 07:36 04/18/22 07:36 04/18/22 07:36 04/18/22 07:36 Oxygen Delivery Method Room Air Weight: 155 lb 3.287 oz Body Mass Index (BMI) 25.8 Intake & Output: Intake and Output for Last 24 Hours 04/16/22 04/17/22 04/18/22 23:59 23:59 23:59 Intake Total 3015.86 / 3015.86 811.54 / 811.54 Balance 3015.86 / 3015.86 811.54 / 811.54 Lab / Micro Data Result Diagrams: 04/18/22 04:34 04/18/22 04:34 Labs: Laboratory Results - last 24 hr 04/18/22 04:34: WBC 6.2, RBC 3.20 L, Hgb 10.0 L, Hct 31.0 L, MCV 96.9, MCH 31.3, MCHC 32.3, RDW Std Deviation 69.8 H, RDW Coeff of Melissa 19.6 H, Plt Count 77 L, MPV 9.5, Immature Gran % (Auto) 1.000 H, Neut % (Auto) 75.2 H, Lymph % (Auto) 11.1 L, [place] % (Auto) 7.7, Eos % (Auto) 3.9, Baso % (Auto) 1.1 H, Absolute Neuts (auto) 4.7, Absolute Lymphs (auto) 0.69 L, Nucleated RBC % 0, Platelet Estimate MOD DEC, Anisocytosis 2+ 04/18/22 04:34: Sodium 134 L, Potassium 3.5, Chloride 100, Carbon Dioxide 23.0, Anion Gap 11, BUN 6 L, Creatinine 0.89, Estim Creat Clear Calc 68.80, Est GFR (MDRD) Af Amer 87, Est GFR (MDRD) Non-Af 72, BUN/Creatinine Ratio 6.7 L, Glucose 141 H, Calcium 8.4 L, Total Bilirubin 6.70 H, AST 263 H, ALT 68 H, Alkaline Phosphatase 243 H, Total Protein 8.3 H, Albumin 3.2, Globulin 5.1 H, Albumin/Globulin Ratio 0.6 L Micro: Microbiology 04/17/22 05:13 Vomitus Gastric Occult Blood - Final Occult Blood Positive 04/17/22 04:50 Stool Stool Occult Blood (NOELLE) - Final Occult Blood Positive Radiography Diagnostic Testing: Radiology Impression Gallbladder Ultrasound 04/17/22 07:47 IMPRESSION: Hepatomegaly with fatty infiltration of the liver and heterogeneous echotexture with contour abnormality. Small amount of pericholecystic fluid. Solitary gallstone in the neck of the gallbladder. Electronically Signed: Lorenzo Limon MD at 12:17 EST Reading Location ID and State: [facility] / MD , Service support , Physical Exam Const alert, oriented x3 and no apparent distress HEENT head/scalp atraumatic and moist oral mucous membranes HEENT Narrative: jaundiced Head and Scalp: normocephalic Mouth: oral and palatal mucosa normal Eyes PERRL, EOMs intact bilaterally and conjunctivae normal Eyes Narrative: jaundiced Neck no lymphadenopathy, supple and no JVD Resp normal respiratory effort, no retractions, no use of accessory muscles and clear to auscultation bilaterally Cardio regular rate, regular rhythm, S1 normal heart sound, S2 normal heart sound and no murmurs GI normal to inspection, nondistended, normoactive bowel sounds, soft to palpation, non-tender and non-distended Extremity normal to inspection, full ROM and no clubbing, cyanosis or edema Neuro oriented x3, CN's II-XII intact bilaterally, moves all extremities and no focal motor deficits Sensorium / Orientation: awake and alert Psych affect normal Assessment & Plan Assessment/Plan (1) Bleeding esophageal varices due to alcoholic liver disease: (2) Alcohol withdrawal: PLAN: Plan #Acute GI bleed * likely due to bleeding esophageal varices in a patient with liver cirrhosis and varices * currenlty NPO * on octreotide drip and pantoprazole drip * GI on board. * for EGD today * #Liver cirrhosis * due to alcohol abuase * liver enzymes elevated. They are chronically elevated. Total bilirubin trended up further today to 6.7. * started on IV zosyn due to concerns about gallbladder etiology CT abdomen and pelvis showed pericholecystic fluid with tiny gallstones. * gallbladder USG showed small amount of pericholecystic fluid with solitary gallstone in the neck of the gallbladder * on lactulose and rifaximin o/a of elevated ammonia level * consult general surgery due to gallbladder findings- discussed with general surgery, low suspicion for acute cholecystitis. To do HIDA scan per general surgery. * #Hypokalemia: Potassium is 3.5 today. Will continue monitoring. #Acute alcohol withdrawal * Patient states she feels like she is going into withdrawal. * Start on alcohol withdrawal protocol with Ativan. * Phenobarbital not being used because of liver impairment. * monitor CIWA score * #Thrombocytopenia * platelets are further down to 77 today * likely due to liver disease. * Will continue to monitor * DVT prophylaxis: SCDs * Charges/Coding Visit Charges Inpatient E&M: 69864 Subs Hosp L3 Reason for Visit Reason for Visit: Diagnoses Alcohol use, unspecified with withdrawal, unspecified (04/17/22) Secondary esophageal varices with bleeding (04/17/22) Chronic or unspecified gastric ulcer with hemorrhage (04/17/22) Alcoholic liver disease, unspecified (04/17/22) Unspecified cirrhosis of liver (04/17/22) Other ascites (04/17/22)
[2022-04-18] MEDS: 0.9% Normal Saline 1,000 ML 100 ML IV (12:21)
[2022-04-18] MEDS: LORazepam 1 MG Tablet 2 MG PO ×3 (12:43→21:29)
--- NOTE | 2022-04-18 13:30 | EX.PCM.CON.S ---
Assessment & Plan Assessment/Plan (1) Cholelithiasis: PLAN: At this juncture I do not think we need to do any further work-up on her with regards to her gallbladder. This can easily be done as an outpatient. She is not a good surgical candidate and if she were to actually progressed to acute cholecystitis she would need to be treated with a cholecystostomy tube. HPI Consult Data Date of Consult: 04/18/22 HPI Narrative HPI Narrative: DOMINICK MCKEON, is a 11 F who presents with the above.? Patient has past medical history of alcoholic liver disease, history of esophageal varices, chronic alcohol abuse who has been drinking about a pint of vodka every day or every other day.? She comes in because she has been having hematemesis, and bloody stools.? She admits to nausea and vomiting. Vitals in the ED showed blood pressure 171/95, heart rate 102, oxygen sat 99% on room air, temperature 98.2 F. Admitting WBC count 7.2, hemoglobin 11.2, platelet count 107, INR 1.3, sodium 141, potassium 3.2, chloride 102, bicarbonate 22, BUN 7, creatinine 0.71, total bilirubin 5.2, WBC 4.22, AST 36 ALT 81, ALP 300.? Admitting alcohol level 319.? Work-up did include a gallbladder ultrasound shows stone in the neck with some pericholecystic fluid. [facility] Medical History Alcohol abuse Alcoholism Cirrhosis of liver Depression High cholesterol History of alcoholism History of cirrhosis of liver Hypertension Irritable bowel Migraines Home Medications aripiprazole 2 mg tablet 2 mg PO DAILY 02/16/21 [History Last Taken 02/16/21] naltrexone 50 mg tablet 50 mg PO DAILY 02/16/21 [History Last Taken 02/15/21] sertraline 100 mg tablet (Zoloft) 100 mg PO DAILY depression 02/16/21 [History Last Taken Unknown] spironolactone 25 mg tablet 25 mg PO DAILY 02/16/21 [History Last Taken 02/16/21] pantoprazole 40 mg tablet,delayed release (Protonix) 40 mg PO BID #60 tabs 02/17/21 [Rx Last Taken Unknown] sucralfate 1 gram tablet (Carafate) 1 g PO BID #60 tabs 02/17/21 [Rx Last Taken Unknown] propranolol 80 mg capsule,24 hr,extended release (Inderal LA) 80 mg PO DAILY BP 04/17/22 [History Last Taken Unknown] Allergy/AdvReac Type Severity Reaction Status Date / Time bee venom protein (honey bee) Allergy NEEDS Verified 04/17/22 04:34 [bee sting] FOLLOW-UP Family History Other Diabetes Heart disease Hyperlipidemia Hypertension Surgical History History of carpal tunnel surgery Social History household members: family Smoking Status: Never smoker alcohol intake: current substance use type: does not use ROS Constitutional Constitutional: Reports anorexia and fatigue; Denies chills or fever(s) Cardiovascular Cardiovascular: Denies chest pain Respiratory/Chest Respiratory/Chest: Denies cough or dyspnea Gastrointestinal Gastrointestinal: Reports abdominal pain and melena Genitourinary Genitourinary: Denies dysuria Physical Exam Const alert, oriented x3 and no apparent distress HEENT normocephalic and head/scalp atraumatic Eyes PERRL and EOMs intact bilaterally Resp clear to auscultation bilaterally Cardio Rate: regular rate Rhythm: regular rhythm GI soft to palpation, non-tender and non-distended Palpation: Negative for guarding Lab / Micro Data Result Diagrams: 04/18/22 04:34 04/18/22 04:34 Labs: Laboratory Results - last 24 hr 04/18/22 04:34: WBC 6.2, RBC 3.20 L, Hgb 10.0 L, Hct 31.0 L, MCV 96.9, MCH 31.3, MCHC 32.3, RDW Std Deviation 69.8 H, RDW Coeff of Melissa 19.6 H, Plt Count 77 L, MPV 9.5, Immature Gran % (Auto) 1.000 H, Neut % (Auto) 75.2 H, Lymph % (Auto) 11.1 L, [place] % (Auto) 7.7, Eos % (Auto) 3.9, Baso % (Auto) 1.1 H, Absolute Neuts (auto) 4.7, Absolute Lymphs (auto) 0.69 L, Nucleated RBC % 0, Platelet Estimate MOD DEC, Anisocytosis 2+ 04/18/22 04:34: Sodium 134 L, Potassium 3.5, Chloride 100, Carbon Dioxide 23.0, Anion Gap 11, BUN 6 L, Creatinine 0.89, Estim Creat Clear Calc 68.80, Est GFR (MDRD) Af Amer 87, Est GFR (MDRD) Non-Af 72, BUN/Creatinine Ratio 6.7 L, Glucose 141 H, Calcium 8.4 L, Total Bilirubin 6.70 H, AST 263 H, ALT 68 H, Alkaline Phosphatase 243 H, Total Protein 8.3 H, Albumin 3.2, Globulin 5.1 H, Albumin/Globulin Ratio 0.6 L
--- NOTE | 2022-04-18 13:34 | CON.PCM.SX_ITS ---
Assessment & Plan Assessment/Plan (1) Cholelithiasis: QUALIFIERS: Cholelithiasis location: gallbladder PLAN: The patient is here with bloody vomiting and is a known cirrhotic from alcohol. The patient came in acutely intoxicated. The patient is having EGD today for possible variceal bleeding. On CT scan the patient had some inflammation around the gallbladder and a stone in the neck of the gallbladder on gallbladder ultrasound. Patient is not complaining of any right upper quadrant pain or nausea and vomiting prior to the bloody vomit. Unsure if the patient is having acute cholecystitis or if the gallbladder is inflamed from the alcoholic hepatitis she is currently experiencing. Patient also has increased LFTs no dilation of her duct. At this point Dr. Roman is planning on proceeding with an EGD today. I will order HIDA test for tomorrow. If HIDA is negative she can stay here for treatment of her GI bleed but if HIDA is positive I recommend transfer due to the cirrhosis and high morbidity risk associated with that. Kael Whitmore MD Pager: [facility] [address] [place] [address], [address] [place] [address] Office: HPI Consult Data Date of Consult: 04/18/22 HPI Narrative HPI Narrative: DOMINICK MCKEON, is a 51 F who presents with bloody vomiting. The patient reports that she was having black stools and vomiting blood before arrival. She complains of pain in her left lower quadrant. She has not had any nausea since the bleeding has stopped. She does not complain of any right upper quadrant pain or fevers or chills. [facility] Medical History Alcohol abuse Alcoholism Cirrhosis of liver Depression High cholesterol History of alcoholism History of cirrhosis of liver Hypertension Irritable bowel Migraines Home Medications aripiprazole 2 mg tablet 2 mg PO DAILY 02/16/21 [History Last Taken 02/16/21] naltrexone 50 mg tablet 50 mg PO DAILY 02/16/21 [History Last Taken 02/15/21] sertraline 100 mg tablet (Zoloft) 100 mg PO DAILY depression 02/16/21 [History Last Taken Unknown] spironolactone 25 mg tablet 25 mg PO DAILY 02/16/21 [History Last Taken 1 04/19/20] pantoprazole 40 mg tablet,delayed release (Protonix) 40 mg PO BID #60 tabs 02/17/21 [Rx Last Taken Unknown] sucralfate 1 gram tablet (Carafate) 1 g PO BID #60 tabs 02/17/21 [Rx Last Taken Unknown] propranolol 80 mg capsule,24 hr,extended release (Inderal LA) 80 mg PO DAILY BP 04/17/22 [History Last Taken Unknown] Allergy/AdvReac Type Severity Reaction Status Date / Time bee venom protein (honey bee) Allergy NEEDS Verified 04/17/22 04:34 [bee sting] FOLLOW-UP Family History Other Diabetes Heart disease Hyperlipidemia Hypertension Surgical History History of carpal tunnel surgery Social History household members: family Smoking Status: Never smoker alcohol intake: current substance use type: does not use ROS Constitutional Constitutional: Denies anorexia, chills, fatigue or fever(s) ENT HEENT: Denies abnormal hearing Cardiovascular Cardiovascular: Denies chest pain Gastrointestinal Gastrointestinal: Reports abdominal pain, hematemesis, melena, nausea and vomiting; Denies diarrhea or dysphagia Genitourinary Genitourinary: Denies change in urinary stream Musculoskeletal Musculoskeletal: Denies abnormal gait Integumentary Integumentary: Denies jaundice Neurologic Neurologic: Denies abnormal gait Physical Exam Const alert and oriented x3 General Appearance: cooperative HEENT Head and Scalp: normal to inspection Eyes PERRL Neck full ROM Lymph Lymphatic: no lymphadenopathy noted Cardio Rate: regular rate Rhythm: regular rhythm GI soft to palpation Palpation: tender LLQ Extremity normal to inspection Lab / Micro Data Result Diagrams: 04/18/22 04:34 04/18/22 04:34 Labs: Laboratory Results - last 24 hr 04/18/22 04:34: WBC 6.2, RBC 3.20 L, Hgb 10.0 L, Hct 31.0 L, MCV 96.9, MCH 31.3, MCHC 32.3, RDW Std Deviation 69.8 H, RDW Coeff of Melissa 19.6 H, Plt Count 77 L, MPV 9.5, Immature Gran % (Auto) 1.000 H, Neut % (Auto) 75.2 H, Lymph % (Auto) 11.1 L, [place] % (Auto) 7.7, Eos % (Auto) 3.9, Baso % (Auto) 1.1 H, Absolute Neuts (auto) 4.7, Absolute Lymphs (auto) 0.69 L, Nucleated RBC % 0, Platelet Estimate MOD DEC, Anisocytosis 2+ 04/18/22 04:34: Sodium 134 L, Potassium 3.5, Chloride 100, Carbon Dioxide 23.0, Anion Gap 11, BUN 6 L, Creatinine 0.89, Estim Creat Clear Calc 68.80, Est GFR (MDRD) Af Amer 87, Est GFR (MDRD) Non-Af 72, BUN/Creatinine Ratio 6.7 L, Glucose 141 H, Calcium 8.4 L, Total Bilirubin 6.70 H, AST 263 H, ALT 68 H, Alkaline Phosphatase 243 H, Total Protein 8.3 H, Albumin 3.2, Globulin 5.1 H, Albumin/Globulin Ratio 0.6 L
--- NOTE | 2022-04-18 14:40 | NURSING ---
pt to endo
[2022-04-18] MEDS: Lactated Ringers 1,000 ML 15 ML IV (14:59)
--- NOTE | 2022-04-18 16:30 | OP.EGD_ITS ---
Patient Name: Sujey Dawson Procedure Date: 04/18/2022 4:06 PM Date of : 1970 Age: 51 Procedure: Upper GI endoscopy Indications: Hematemesis, Esophageal varices Providers: rC Roman DO Medicines: Monitored Anesthesia Care Patient Profile: This is a 51 year old female. Refer to note in patient chart for documentation of history and physical. Patient has symptoms of acute vomiting. Complications: No immediate complications. Procedure: Pre-Anesthesia Assessment: - Prior to the procedure, a History and Physical was performed, and patient medications and allergies were reviewed. The risks and benefits of the procedure and the sedation options and risks were discussed with the patient. All questions were answered and informed consent was obtained. Patient identification and proposed procedure were verified in the pre-procedure area. Mental Status Examination: alert and oriented. Respiratory Examination: clear to auscultation. CV Examination: normal. Prophylactic Antibiotics: The patient does not require prophylactic antibiotics. Prior Anticoagulants: The patient has taken no previous anticoagulant or antiplatelet agents. After reviewing the risks and benefits, the patient was deemed in satisfactory condition to undergo the procedure. The anesthesia plan was to use monitored anesthesia care (MAC). Immediately prior to administration of medications, the patient was re-assessed for adequacy to receive sedatives. The heart rate, respiratory rate, oxygen saturations, blood pressure, adequacy of pulmonary ventilation, and response to care were monitored throughout the procedure. The physical status of the patient was re-assessed after the procedure. After obtaining informed consent, the endoscope was passed under direct vision. Throughout the procedure, the patient's blood pressure, pulse, and oxygen saturations were monitored continuously. The gastroscope was introduced through the mouth, and advanced to the second part of duodenum. The upper GI endoscopy was accomplished without difficulty. The patient tolerated the procedure well. Scope In: 4:18:52 PM Scope Out: 4:25:33 PM Total Procedure Duration Time 0 hours 6 minutes 41 seconds Findings: Grade II varices were found in the middle third of the esophagus and in the lower third of the esophagus. They were 5 mm in largest diameter. Two bands were successfully placed with incomplete eradication of varices. There was no bleeding during the procedure. Severe, diffuse portal hypertensive gastropathy was found in the cardia, in the gastric fundus, in the gastric body, on the anterior wall of the stomach, on the greater curvature of the stomach, on the lesser curvature of the stomach, on the posterior wall of the stomach and at the incisura. This was biopsied with a cold forceps for histology. Verification of patient identification for the specimen was done. No gross lesions were noted in the first portion of the duodenum. Impression: - Grade II esophageal varices. Incompletely eradicated. Banded. - Portal hypertensive gastropathy. Biopsied. - No gross lesions in the first portion of the duodenum. Recommendation: - Continue present medications. Procedure Code(s): --- Professional --- 29628, Esophagogastroduodenoscopy, flexible, transoral; with band ligation of esophageal/gastric varices 27403, Esophagogastroduodenoscopy, flexible, transoral; with biopsy, single or multiple CPT copyright 2017 [employer]. All rights reserved. The codes documented in this report are preliminary and upon presetter operator review may be revised to meet current compliance requirements. Cr Roman DO 04/18/2022 4:30:24 PM This report has been signed electronically. Number of Addenda: 0 Note Initiated On: 04/18/2022 4:06 PM
--- NOTE | 2022-04-18 16:30 | PCM.PROGNOTE ---
Subjective Subjective She underwent an upper endoscopy today and was discovered to have stigmata of acute variceal bleed along with severe portal gastropathy. She underwent banding of esophageal varices. Objective Data Objective Data Vital Signs: Vital Signs Temp Pulse Resp BP Pulse Ox O2 Del Method 98.4 F 79 16 144/95 H 99 Room Air 04/18/22 14:38 04/18/22 14:38 04/18/22 14:38 04/18/22 14:38 04/18/22 14:38 04/18/22 14:38 Oxygen Delivery Method Room Air Weight: 155 lb 3.287 oz Body Mass Index (BMI) 25.8 Intake & Output: Intake and Output for Last 24 Hours 04/16/22 04/17/22 04/18/22 23:59 23:59 23:59 Intake Total 3015.86 / 3015.86 1395.09 / 1395.09 Balance 3015.86 / 3015.86 1395.09 / 1395.09 Lab / Micro Data Result Diagrams: 04/18/22 04:34 04/18/22 04:34 Labs: Laboratory Results - last 24 hr 04/18/22 04:34: WBC 6.2, RBC 3.20 L, Hgb 10.0 L, Hct 31.0 L, MCV 96.9, MCH 31.3, MCHC 32.3, RDW Std Deviation 69.8 H, RDW Coeff of Melissa 19.6 H, Plt Count 77 L, MPV 9.5, Immature Gran % (Auto) 1.000 H, Neut % (Auto) 75.2 H, Lymph % (Auto) 11.1 L, [place]elope % (Auto) 7.7, Eos % (Auto) 3.9, Baso % (Auto) 1.1 H, Absolute Neuts (auto) 4.7, Absolute Lymphs (auto) 0.69 L, Nucleated RBC % 0, Platelet Estimate MOD DEC, Anisocytosis 2+ 04/18/22 04:34: Sodium 134 L, Potassium 3.5, Chloride 100, Carbon Dioxide 23.0, Anion Gap 11, BUN 6 L, Creatinine 0.89, Estim Creat Clear Calc 68.80, Est GFR (MDRD) Af Amer 87, Est GFR (MDRD) Non-Af 72, BUN/Creatinine Ratio 6.7 L, Glucose 141 H, Calcium 8.4 L, Total Bilirubin 6.70 H, AST 263 H, ALT 68 H, Alkaline Phosphatase 243 H, Total Protein 8.3 H, Albumin 3.2, Globulin 5.1 H, Albumin/Globulin Ratio 0.6 L Micro: Microbiology 04/17/22 05:13 Vomitus Gastric Occult Blood - Final Occult Blood Positive 04/17/22 04:50 Stool Stool Occult Blood (NOELLE) - Final Occult Blood Positive Physical Exam Const alert and oriented x3 General Appearance: cooperative HEENT Head and Scalp: normal to inspection Eyes PERRL Neck full ROM Lymph Lymphatic: no lymphadenopathy noted Cardio Rate: regular rate Rhythm: regular rhythm GI soft to palpation Palpation: tender LLQ Extremity normal to inspection Assessment & Plan Assessment/Plan (1) Bleeding esophageal varices due to alcoholic liver disease: PLAN: Recommended octreotide and PPI drip. Patient can have a clear liquid diet. (2) Gastric ulcer with hemorrhage: PLAN: Gastric ulcer likely secondary to alcoholic gastritis. There was no sign of ulcerations on this exam but she did have severe portal gastropathy with recent stigmata of bleeding. (3) Cirrhosis of liver with ascites: PLAN: At this time she is suffering from alcoholic hepatitis with a Madrey score of 34. She is not encephalopathic at this time. I would recommend Xifaxan 5 to 50 mg p.o. twice daily and lactulose 20 cc p.o. every 6 hours as prophylaxis for encephalopathy. I would not give her steroids at this time. Charges/Coding Visit Charges Inpatient E&M: 76039 Subs Hosp L3
--- NOTE | 2022-04-18 16:31 | OP.CCLET_ITS ---
04/18/2022 [place] Town Doctor Re : [facility] Doctor This procedure was performed on Monday, April 18, 2022. My impressions and recommendations are as follows: Impressions : - Grade II esophageal varices. Incompletely eradicated. Banded. - Portal hypertensive gastropathy. Biopsied. - No gross lesions in the first portion of the duodenum. Recommendations : - Continue present medications. My findings are described in the full procedure note, which is enclosed. If I can be of further assistance, please feel free to contact me at . Sincerely, Cr Roman, 04/18/2022 4:30:24 PM This report has been signed electronically.
[2022-04-19] VITALS (22 sets, daily range): BP systolic 116–163; BP diastolic 78–103; PULSE 67–78; RESP 11–23; TEMP 36.7–37.2; O2SAT 90–98
[2022-04-19] MEDS: LORazepam 2 MG/ML Syringe IV (01:07)
[2022-04-19] MEDS: traZODone 100 MG Tablet PO (01:07)
[2022-04-19] MEDS: Gabapentin 300 MG Capsule PO (01:08)
--- NOTE | 2022-04-19 07:54 | PCM.PN.SRG ---
Subjective Subjective patient lethargic, on sedation drip due to ETOH withdrawal but no complaints of pain Objective Data Objective Data Vital Signs: Vital Signs Temp Pulse Resp BP Pulse Ox O2 Del Method 98.8 F 73 21 H 145/81 H 92 Room Air 04/19/22 03:00 04/19/22 06:00 04/19/22 06:00 04/19/22 06:00 04/19/22 06:00 04/19/22 06:00 Oxygen Delivery Method Room Air Weight: 78 kg Body Mass Index (BMI) 25.8 Intake & Output: Intake and Output for Last 24 Hours 04/17/22 04/18/22 04/19/22 23:59 23:59 23:59 Intake Total 3015.86 / 3015.86 1633.34 / 1633.34 326.73 / 326.73 Balance 3015.86 / 3015.86 1633.34 / 1633.34 326.73 / 326.73 Lab / Micro Data Attestation: I reviewed the patient's lab results. Result Diagrams: 04/20/22 04:30 04/20/22 04:30 Micro: Microbiology 04/17/22 05:13 Vomitus Gastric Occult Blood - Final Occult Blood Positive 04/17/22 04:50 Stool Stool Occult Blood (NOELLE) - Final Occult Blood Positive Physical Exam Const Constitutional Narrative: on sedation drip GI GI Narrative: abdomen seemingly soft and benign Assessment & Plan Assessment/Plan (1) Cholelithiasis: QUALIFIERS: Cholelithiasis location: gallbladder PLAN: would not recommend surgery at this location if clinically required, signs of worsening cholecystitis - recommend IR cholecystotomy tube placement
--- NOTE | 2022-04-19 10:30 | EX.PCM.CONCC ---
Assessment & Plan Assessment/Plan (1) Alcohol withdrawal: PLAN: Plan RECOMMENDATIONS: 1. Continue Precedex for symptom management of alcohol withdrawal. 2. Continue thiamine and folate repletion. 3. Continue gentle IV fluid hydration. 4. Continue octreotide and PPI infusion per GI recommendations. IMPRESSIONS: 1. Acute alcohol withdrawal Continue alcohol withdrawal protocol with Precedex as ordered along with thiamine and folate repletion. Continue gentle IV fluid hydration as tolerated. 2. Bleeding esophageal varices status post endoscopic banding Continue medical management per gastroenterology recommendations with octreotide and PPI infusions. Continue to monitor H&H. No current indication for transfusion of blood products. 3. Alcoholic hepatitis Continue rifaximin and lactulose as ordered. This note was generated with [employer] dictation software. It may contain incorrect words, spelling, and punctuation that were not noted in checking the note before signing. HPI Consult Data Date of Consult: 04/19/22 HPI Narrative Reason for Consultation: Acute alcohol withdrawal HPI Narrative: The patient is a 51-year-old female, with a history as outlined below, who presented to the emergency department on April 17 with nausea, hematemesis and melena. The patient has a known history of alcoholic cirrhosis. The patient typically drinks about 8 glasses of vodka per day. The patient also has a history of esophageal varices. On presentation to the emergency department, the patient was noted to be afebrile but was mildly tachycardic and hypertensive. She was maintaining appropriate oxygen saturations on room air. Initial laboratory evaluation revealed a normal white blood cell count. Hemoglobin was stable at 11.2 g/dL with a platelet count of 107,000. Chemistry profile was notable for a potassium of 3.2. Total bili was elevated at 5.2 with an AST of 366 and ALT of 81. Alkaline phosphatase was elevated at 300 with an ammonia level of 78. Alcohol level was noted to be 319. CT abdomen/pelvis demonstrated hepatosplenomegaly with diffuse fatty liver and cirrhosis. The patient was seen in consultation by gastroenterology and underwent an upper endoscopy which revealed grade 2 esophageal varices which were banded along with evidence of portal hypertensive gastropathy. On April 19, the patient was ultimately transferred to the medical intensive care unit with worsening alcohol withdrawal symptoms, necessitating the use of Precedex therapy. [facility] Medical History Alcohol abuse Alcoholism Cirrhosis of liver Depression High cholesterol History of alcoholism History of cirrhosis of liver Hypertension Irritable bowel Migraines Home Medications aripiprazole 2 mg tablet 2 mg PO DAILY 02/16/21 [History Last Taken 02/16/21] naltrexone 50 mg tablet 50 mg PO DAILY 02/16/21 [History Last Taken 02/15/21] sertraline 100 mg tablet (Zoloft) 100 mg PO DAILY depression 02/16/21 [History Last Taken Unknown] spironolactone 25 mg tablet 25 mg PO DAILY 02/16/21 [History Last Taken 02/16/21] pantoprazole 40 mg tablet,delayed release (Protonix) 40 mg PO BID #60 tabs 02/17/21 [Rx Last Taken Unknown] sucralfate 1 gram tablet (Carafate) 1 g PO BID #60 tabs 02/17/21 [Rx Last Taken Unknown] propranolol 80 mg capsule,24 hr,extended release (Inderal LA) 80 mg PO DAILY BP 04/17/22 [History Last Taken Unknown] acamprosate 333 mg tablet,delayed release 333 mg PO TID Check with primary doctor 04/19/22 [History Last Taken Unknown] atorvastatin 40 mg tablet (Lipitor) 40 mg PO DAILY Check with primary doctor 04/19/22 [History Last Taken Unknown] baclofen 10 mg tablet 10 mg PO TID PRN PRN Pain 04/19/22 [History Last Taken Unknown] mirabegron 25 mg tablet,extended release 24 hr (Myrbetriq) 25 mg PO DAILY Check with primary doctor 04/19/22 [History Last Taken Unknown] montelukast 10 mg tablet (Singulair) 10 mg PO DAILY Check with primary doctor 04/19/22 [History Last Taken Unknown] olanzapine 5 mg tablet (Zyprexa) 5 mg PO QHS Check with primary doctor 04/19/22 [History Last Taken Unknown] oxcarbazepine 300 mg tablet (Trileptal) 300 mg PO BID Check with primary doctor 04/19/22 [History Last Taken Unknown] sulfasalazine 500 mg tablet (Azulfidine) 1,000 mg PO BID Check with primary doctor 04/19/22 [History Last Taken Unknown] Allergy/AdvReac Type Severity Reaction Status Date / Time bee venom protein (honey bee) Allergy NEEDS Verified 04/17/22 04:34 [bee sting] FOLLOW-UP Family History Other Diabetes Heart disease Hyperlipidemia Hypertension Surgical History History of carpal tunnel surgery Social History household members: family Smoking Status: Never smoker alcohol intake: current substance use type: does not use ROS Review of Systems ROS Unobtainable: due to mental status Physical Exam Const no apparent distress General Appearance: lethargic HEENT normocephalic and head/scalp atraumatic Eyes PERRL and EOMs intact bilaterally Neck supple General: trachea midline Chest inspection of chest normal Resp normal respiratory effort Auscultation: Negative for rales, rhonchi or wheezes Cardio regular rate and regular rhythm GI soft to palpation and non-tender Extremity no clubbing, cyanosis or edema Skin no rashes or lesions noted Neuro no focal motor deficits Psych Mood & Affect: flat affect Lab / Micro Data Result Diagrams: 04/18/22 04:34 04/18/22 04:34 Charges/Coding Visit Charges Inpatient E&M: 12070 Init Hosp L3
--- NOTE | 2022-04-19 10:43 | NURSING ---
Unable to give 0600 dose of zosyn due to lack of infusion pumps. pump found, consulted Rajesh in pharmacy for next dose. Per Rajesh, hold 0600 dose and give 1400 dose at 1200.
--- NOTE | 2022-04-19 12:42 | PN.HOSP_ITS ---
Reason for Visit Reason for Visit: Diagnoses Alcohol use, unspecified with withdrawal, unspecified (04/17/22) Secondary esophageal varices with bleeding (04/17/22) Chronic or unspecified gastric ulcer with hemorrhage (04/17/22) Alcoholic liver disease, unspecified (04/17/22) Unspecified cirrhosis of liver (04/17/22) Calculus of gallbladder without cholecystitis without obstruction (04/17/22) Other ascites (04/17/22) Subjective Subjective Patient seen and examined. Her mother was by her bedside. She was transferred to the ICU overnight after she became very agitated and required precedex drip. She was drowsy but would wake up and mutter a few words. Unable to do review of systems due to her altered mental status. She has remained hemodynamically stable. Objective Data Objective Data Vital Signs: Vital Signs Temp Pulse Resp BP Pulse Ox O2 Del Method 98.8 F 73 21 H 145/81 H 92 Room Air 04/19/22 03:00 04/19/22 06:00 04/19/22 06:00 04/19/22 06:00 04/19/22 06:00 04/19/22 06:00 Oxygen Delivery Method Room Air Weight: 171 lb 15.369 oz Body Mass Index (BMI) 25.8 Intake & Output: Intake and Output for Last 24 Hours 04/17/22 04/18/22 04/19/22 23:59 23:59 23:59 Intake Total 3015.86 / 3015.86 1633.34 / 1633.34 410.04 / 410.04 Balance 3015.86 / 3015.86 1633.34 / 1633.34 410.04 / 410.04 Lab / Micro Data Result Diagrams: 04/18/22 04:34 04/18/22 04:34 Micro: Microbiology 04/17/22 05:13 Vomitus Gastric Occult Blood - Final Occult Blood Positive 04/17/22 04:50 Stool Stool Occult Blood (NOELLE) - Final Occult Blood Positive Physical Exam Const alert, oriented x3 and no apparent distress HEENT head/scalp atraumatic and moist oral mucous membranes HEENT Narrative: jaundiced Head and Scalp: normocephalic Mouth: dry mucous membranes Eyes PERRL, EOMs intact bilaterally and conjunctivae normal Eyes Narrative: jaundiced Neck no lymphadenopathy, supple and no JVD Resp normal respiratory effort, no retractions, no use of accessory muscles and clear to auscultation bilaterally Cardio regular rate, regular rhythm, S1 normal heart sound, S2 normal heart sound and no murmurs GI normal to inspection, nondistended, normoactive bowel sounds, soft to palpation, non-tender and non-distended Extremity normal to inspection, full ROM and no clubbing, cyanosis or edema Neuro CN's II-XII intact bilaterally, moves all extremities and no focal motor deficits Neuro Narrative: confused, restless Sensorium / Orientation: awake Psych Psych Narrative: confused, restless Assessment & Plan Assessment/Plan (1) Bleeding esophageal varices due to alcoholic liver disease: (2) Alcohol withdrawal: PLAN: Plan #Acute GI bleed * likely due to bleeding esophageal varices in a patient with liver cirrhosis and varices * omar NPO * had EGD which showed grade II esophageal varices which were banded, as well as portal hypertensive gastropathy. * still on octreotide drip and pantoprazole drip * GI on board. * * #Liver cirrhosis * due to alcohol abuse * liver enzymes elevated. They are chronically elevated. Total bilirubin trended up further today to 6.7. * started on IV zosyn due to concerns about gallbladder etiology CT abdomen and pelvis showed pericholecystic fluid with tiny gallstones. * gallbladder USG showed small amount of pericholecystic fluid with solitary gallstone in the neck of the gallbladder * on lactulose and rifaximin o/a of elevated ammonia level * consult general surgery due to gallbladder findings- discussed with general surgery, low suspicion for acute cholecystitis. * #Hypokalemia: potassium pending today #Acute alcohol withdrawal with delirium tremens * became very agitated overnight and was transferred to ICU for initiation of precedex drip * critical care consulted * on precedex drip * monitor CIWA score * * #Thrombocytopenia * platelets were 77 yesterday, labs pending today. * likely due to liver disease. * Will continue to monitor * DVT prophylaxis: SCDs * Charges/Coding Visit Charges Inpatient E&M: 06408 Subs Hosp L3
--- NOTE | 2022-04-19 13:18 | NURSING ---
patient's mother took patient's clear jeweled stud earrings, gold colored hoop earrings, and cross necklace.
[2022-04-19 14:53] LABS: Absolute Lymphocyte Count 0.71 X10^3/uL (0.83-4.51); Absolute Neutrophil Count 2.8 X10^3/uL (2.0-7.7); Basophil# 0.05 X10^3/uL; Basophil% 1.2 % (0-1); Eosinophil# 0.24 X10^3/uL; Eosinophils% 5.7 % (0-5); Hematocrit 33.4 % (37-47); Hemoglobin 10.8 g/dL (12.0-15.0); Lymphocyte # 0.71 X10^3/ul (0.83-4.51); Lymphocyte % 16.8 % (19-41); Mean Corp Hgb Conc 32.3 g/dL (32-36); Mean Corpuscular Volume 98.8 fL (81-99); Mean Platelet Vol. 9.7 fl (6.2-12.0); Monocyte# 0.35 X10^3/uL; Monocyte% 8.3 % (0-10); NRBC Flagged by Analyzer 0 % (0-5); Neutrophil # 2.81 X10^3/uL (2.7-7.7); Neutrophil % 66.6 % (47-70); POSITIVE COUNT YES; POSITIVE MORPHOLOGY YES; Platelet Count 66 K/mm3 (150-450); RBC Distribution Width CV 19.5 % (11.6-14.6); RBC Distribution Width SD 70.8 fl (35.1-43.9); Red Blood Count 3.38 M/mm3 (4.2-5.4); White Blood Count 4.2 K/mm3 (4.4-11.0)
[2022-04-19 14:55] LABS: Differential Indicated SCAN CRITERIA MET
[2022-04-19 15:07] LABS: ALB/GLOB Ratio 0.6 RATIO (0.9-2.4); AST(SGOT) 177 U/L (15-37); Alanine Aminotransfer ALT/SGPT 53 U/L (13-56); Albumin, Serum 3.1 g/dL (3.2-5.0); Alkaline Phosphatase 204 U/L (45-117); Anion Gap 10 (5-15); BUN 8 mg/dL (7-18); BUN/Creat Ratio 10.7 RATIO (10-20); Calcium,Total 8.7 mg/dL (8.5-10.1); Chloride 104 mmol/L (98-107); Creatinine, Serum 0.75 mg/dL (0.55-1.02); EST Glomerular Filtration Rate 87 mL/min (>60); Est Glom Filt Rate - Afr Amer 106 mL/min (>60); Estimated Creatinine Clearance 81.65 ml/min; Globulin 5.1 g/dL (2.2-4.2); Glucose 123 mg/dL (74-106); Potassium 3.1 mmol/L (3.5-5.1); Protein, Total 8.2 g/dL (6.4-8.2); Sodium Level 138 mmol/L (136-145)
[2022-04-19 15:19] LABS: Anisocytosis 1+; Platelet Estimate MOD DEC (ADEQ)
[2022-04-19] MEDS: 0.9% Normal Saline 1,000 ML 100 ML IV (15:25)
[2022-04-19] MEDS: Sucralfate 1 GM Tablet PO (16:27)
--- NOTE | 2022-04-19 18:37 | PCM.PROGNOTE ---
Subjective Subjective Patient transferred up to the ICU due to altered mental status. When she came to the hospital she had a alcohol level of 317. She drinks on a daily basis. She was experiencing tachycardia and agitation but she is on CIWA protocol. Objective Data Objective Data Vital Signs: Vital Signs Temp Pulse Resp BP Pulse Ox O2 Del Method 98.8 F 73 21 H 145/81 H 92 Room Air 04/19/22 03:00 04/19/22 06:00 04/19/22 06:00 04/19/22 06:00 04/19/22 06:00 04/19/22 06:00 Oxygen Delivery Method Room Air Weight: 171 lb 15.369 oz Body Mass Index (BMI) 25.8 Intake & Output: Intake and Output for Last 24 Hours 04/17/22 04/18/22 04/19/22 23:59 23:59 23:59 Intake Total 3015.86 / 3015.86 1633.34 / 1633.34 1241.88 / 1241.88 Output Total 250 / 250 Balance 3015.86 / 3015.86 1633.34 / 1633.34 991.88 / 991.88 Lab / Micro Data Result Diagrams: 04/19/22 14:42 04/19/22 14:42 Labs: Laboratory Results - last 24 hr 04/19/22 14:42: WBC 4.2 L, RBC 3.38 L, Hgb 10.8 L, Hct 33.4 L, MCV 98.8, MCH 32.0, MCHC 32.3, RDW Std Deviation 70.8 H, RDW Coeff of Melissa 19.5 H, Plt Count 66 L, MPV 9.7, Immature Gran % (Auto) 1.400 H, Neut % (Auto) 66.6, Lymph % (Auto) 16.8 L, [place] % (Auto) 8.3, Eos % (Auto) 5.7 H, Baso % (Auto) 1.2 H, Absolute Neuts (auto) 2.8, Absolute Lymphs (auto) 0.71 L, Nucleated RBC % 0, Platelet Estimate MOD DEC, Anisocytosis 1+ 04/19/22 14:42: Sodium 138, Potassium 3.1 L, Chloride 104, Carbon Dioxide 24.0, Anion Gap 10, BUN 8, Creatinine 0.75, Estim Creat Clear Calc 81.65, Est GFR (MDRD) Af Amer 106, Est GFR (MDRD) Non-Af 87, BUN/Creatinine Ratio 10.7, Glucose 123 H, Calcium 8.7, Total Bilirubin 7.80 H, AST 177 H, ALT 53, Alkaline Phosphatase 204 H, Total Protein 8.2, Albumin 3.1 L, Globulin 5.1 H, Albumin/Globulin Ratio 0.6 L Micro: Microbiology 04/17/22 05:13 Vomitus Gastric Occult Blood - Final Occult Blood Positive 04/17/22 04:50 Stool Stool Occult Blood (NOELLE) - Final Occult Blood Positive Physical Exam Const alert, oriented x3 and no apparent distress HEENT head/scalp atraumatic and moist oral mucous membranes HEENT Narrative: jaundiced Head and Scalp: normocephalic Mouth: dry mucous membranes Eyes PERRL, EOMs intact bilaterally and conjunctivae normal Eyes Narrative: jaundiced Neck no lymphadenopathy, supple and no JVD Resp normal respiratory effort, no retractions, no use of accessory muscles and clear to auscultation bilaterally Cardio regular rate, regular rhythm, S1 normal heart sound, S2 normal heart sound and no murmurs GI normal to inspection, nondistended, normoactive bowel sounds, soft to palpation, non-tender and non-distended Extremity normal to inspection, full ROM and no clubbing, cyanosis or edema Neuro CN's II-XII intact bilaterally, moves all extremities and no focal motor deficits Neuro Narrative: confused, restless Sensorium / Orientation: awake Psych Psych Narrative: confused, restless Assessment & Plan Assessment/Plan (1) Bleeding esophageal varices due to alcoholic liver disease: PLAN: Recommended octreotide and PPI drip. Patient can have a clear liquid diet. (2) Alcohol withdrawal: (3) Gastric ulcer with hemorrhage: PLAN: Gastric ulcer likely secondary to alcoholic gastritis. There was no sign of ulcerations on this exam but she did have severe portal gastropathy with recent stigmata of bleeding. (4) Cirrhosis of liver with ascites: PLAN: At this time she is suffering from alcoholic hepatitis with a Madrey score of 34. She is not encephalopathic at this time. I would recommend Xifaxan 5 to 50 mg p.o. twice daily and lactulose 20 cc p.o. every 6 hours as prophylaxis for encephalopathy. I would not give her steroids at this time. Charges/Coding Visit Charges Inpatient E&M: 52389 Subs Hosp L3
[2022-04-19] MEDS: Lactulose 20 GM/30 ML UDC PO (21:31)
[2022-04-19] MEDS: rifAXIMin 550 MG Tablet PO (21:31)
[2022-04-20] VITALS (24 sets, daily range): BP systolic 115–152; BP diastolic 65–99; PULSE 65–72; RESP 14–21; TEMP 36.6–36.9; O2SAT 93–98
[2022-04-20 04:38] LABS: Absolute Neutrophil Count 3.5 X10^3/uL (2.0-7.7); Basophil# 0.06 X10^3/uL; Basophil% 1.1 % (0-1); Eosinophil# 0.33 X10^3/uL; Eosinophils% 6.3 % (0-5); Hematocrit 33.1 % (37-47); Hemoglobin 10.7 g/dL (12.0-15.0); Lymphocyte % 15.2 % (19-41); Mean Corp Hgb Conc 32.3 g/dL (32-36); Mean Corpuscular Hgb 31.8 pg (27.0-32.0); Mean Corpuscular Volume 98.2 fL (81-99); Mean Platelet Vol. 9.7 fl (6.2-12.0); Monocyte# 0.47 X10^3/uL; NRBC Flagged by Analyzer 0 % (0-5); Neutrophil # 3.54 X10^3/uL (2.7-7.7); Neutrophil % 67.4 % (47-70); POSITIVE COUNT YES; POSITIVE MORPHOLOGY YES; Platelet Count 65 K/mm3 (150-450); RBC Distribution Width CV 19.2 % (11.6-14.6); RBC Distribution Width SD 69.8 fl (35.1-43.9); Red Blood Count 3.37 M/mm3 (4.2-5.4); White Blood Count 5.3 K/mm3 (4.4-11.0)
[2022-04-20 04:40] LABS: Differential Indicated SCAN CRITERIA MET
[2022-04-20 04:57] LABS: ALB/GLOB Ratio 0.6 RATIO (0.9-2.4); AST(SGOT) 166 U/L (15-37); Alanine Aminotransfer ALT/SGPT 52 U/L (13-56); Alkaline Phosphatase 197 U/L (45-117); Anion Gap 8 (5-15); BUN 7 mg/dL (7-18); BUN/Creat Ratio 8.3 RATIO (10-20); Calcium,Total 8.1 mg/dL (8.5-10.1); Chloride 101 mmol/L (98-107); Creatinine, Serum 0.85 mg/dL (0.55-1.02); EST Glomerular Filtration Rate 76 mL/min (>60); Est Glom Filt Rate - Afr Amer 91 mL/min (>60); Estimated Creatinine Clearance 72.04 ml/min; Globulin 5.1 g/dL (2.2-4.2); Glucose 130 mg/dL (74-106); Potassium 2.9 mmol/L (3.5-5.1); Protein, Total 8.1 g/dL (6.4-8.2); Sodium Level 134 mmol/L (136-145)
[2022-04-20 05:00] LABS: Anisocytosis 2+; Platelet Estimate MOD DEC (ADEQ)
[2022-04-20] MEDS: 0.9% Normal Saline 1,000 ML 100 ML IV (05:00)
--- NOTE | 2022-04-20 06:57 | PCM.PN.INT ---
Assessment & Plan Assessment/Plan (1) Alcohol withdrawal: PLAN: Plan RECOMMENDATIONS: 1. Continue Precedex for symptom management of alcohol withdrawal. 2. Continue thiamine and folate. 3. Aggressive electrolyte repletion. Will check magnesium and phosphorus as well. 4. Stop continuous IV fluids. 5. Continue octreotide and PPI infusion per GI recommendations. IMPRESSIONS: 1. Acute alcohol withdrawal Continue alcohol withdrawal protocol with Precedex as ordered along with thiamine and folate. Continuous IV fluids can be discontinued from my perspective. 2. Bleeding esophageal varices status post endoscopic banding Continue medical management per gastroenterology recommendations with octreotide and PPI infusions. Continue to monitor H&H. No current indication for transfusion of blood products. 3. Alcoholic hepatitis Continue rifaximin and lactulose as ordered. 4. Hypokalemia Aggressive electrolyte repletion as ordered. Check magnesium and phosphorus as well. This note was generated with [email or web address] dictation software. It may contain incorrect words, spelling, and punctuation that were not noted in checking the note before signing. Subjective Subjective The patient was seen and examined at the bedside this morning. Events from the last 24 hours have been reviewed. The patient is currently afebrile, hemodynamically stable and maintaining appropriate oxygen saturations on room air. The patient's alcohol withdrawal symptoms appear to be effectively managed with Precedex. No overnight issues were identified by the nursing staff. Platelet count remains low at 65,000. Potassium is low as well at 2.9. Total bili is elevated at 8.2. Objective Data Objective Data The patient's most recent lab work, culture data and imaging studies have all been personally reviewed. Vital Signs: Vital Signs Temp Pulse Resp BP Pulse Ox O2 Del Method 98.2 F 67 15 144/86 H 94 Room Air 04/20/22 04:00 04/20/22 06:00 04/20/22 06:00 04/20/22 06:00 04/20/22 06:00 04/20/22 06:00 Oxygen Delivery Method Room Air Weight: 171 lb 1.259 oz Body Mass Index (BMI) 25.8 Intake & Output: Intake and Output for Last 24 Hours 04/18/22 04/19/22 04/20/22 23:59 23:59 23:59 Intake Total 1633.34 / 1633.34 2084.30 / 2605.40 1640.87 / 1640.87 Output Total 250 / 250 Balance 1633.34 / 1633.34 1834.30 / 2355.40 1640.87 / 1640.87 Lab / Micro Data Attestation: I reviewed the patient's lab results. Result Diagrams: 04/20/22 04:30 04/20/22 04:30 Labs: Laboratory Results - last 24 hr 04/19/22 14:42: WBC 4.2 L, RBC 3.38 L, Hgb 10.8 L, Hct 33.4 L, MCV 98.8, MCH 32.0, MCHC 32.3, RDW Std Deviation 70.8 H, RDW Coeff of Melissa 19.5 H, Plt Count 66 L, MPV 9.7, Immature Gran % (Auto) 1.400 H, Neut % (Auto) 66.6, Lymph % (Auto) 16.8 L, [place] % (Auto) 8.3, Eos % (Auto) 5.7 H, Baso % (Auto) 1.2 H, Absolute Neuts (auto) 2.8, Absolute Lymphs (auto) 0.71 L, Nucleated RBC % 0, Platelet Estimate MOD DEC, Anisocytosis 1+ 04/19/22 14:42: Sodium 138, Potassium 3.1 L, Chloride 104, Carbon Dioxide 24.0, Anion Gap 10, BUN 8, Creatinine 0.75, Estim Creat Clear Calc 81.65, Est GFR (MDRD) Af Amer 106, Est GFR (MDRD) Non-Af 87, BUN/Creatinine Ratio 10.7, Glucose 123 H, Calcium 8.7, Total Bilirubin 7.80 H, AST 177 H, ALT 53, Alkaline Phosphatase 204 H, Total Protein 8.2, Albumin 3.1 L, Globulin 5.1 H, Albumin/Globulin Ratio 0.6 L 04/20/22 04:30: WBC 5.3, RBC 3.37 L, Hgb 10.7 L, Hct 33.1 L, MCV 98.2, MCH 31.8, MCHC 32.3, RDW Std Deviation 69.8 H, RDW Coeff of Melissa 19.2 H, Plt Count 65 L, MPV 9.7, Immature Gran % (Auto) 1.000 H, Neut % (Auto) 67.4, Lymph % (Auto) 15.2 L, [place] % (Auto) 9.0, Eos % (Auto) 6.3 H, Baso % (Auto) 1.1 H, Absolute Neuts (auto) 3.5, Absolute Lymphs (auto) 0.80 L, Nucleated RBC % 0, Platelet Estimate MOD DEC, Anisocytosis 2+ 04/20/22 04:30: Sodium 134 L, Potassium 2.9 L, Chloride 101, Carbon Dioxide 25.0, Anion Gap 8, BUN 7, Creatinine 0.85, Estim Creat Clear Calc 72.04, Est GFR (MDRD) Af Amer 91, Est GFR (MDRD) Non-Af 76, BUN/Creatinine Ratio 8.3 L, Glucose 130 H, Calcium 8.1 L, Total Bilirubin 8.20 H, AST 166 H, ALT 52, Alkaline Phosphatase 197 H, Total Protein 8.1, Albumin 3.0 L, Globulin 5.1 H, Albumin/Globulin Ratio 0.6 L Micro: Microbiology 04/17/22 05:13 Vomitus Gastric Occult Blood - Final Occult Blood Positive 04/17/22 04:50 Stool Stool Occult Blood (NEOLLE) - Final Occult Blood Positive Physical Exam Const alert and no apparent distress Constitutional Narrative: Jaundiced in appearance General Appearance: cooperative HEENT normocephalic and head/scalp atraumatic Eyes PERRL and EOMs intact bilaterally Neck supple General: trachea midline Chest inspection of chest normal Resp normal respiratory effort Auscultation: Negative for rales, rhonchi or wheezes Cardio regular rate and regular rhythm GI soft to palpation and non-tender GI Narrative: Distended abdomen Palpation: ascites Extremity no clubbing, cyanosis or edema Skin no rashes or lesions noted Neuro no focal motor deficits Psych Mood & Affect: flat affect Charges/Coding Visit Charges Inpatient E&M: 44221 Subs Hosp L2
[2022-04-20 07:33] LABS: Magnesium 1.3 mg/dL (1.6-2.6)
[2022-04-20] MEDS: Potassium Chloride Oral Soln 20 MEQ/15 ML UDC 40 MEQ PO (08:01)
[2022-04-20] MEDS: Sucralfate 1 GM Tablet PO ×2 (08:02→17:09)
[2022-04-20] MEDS: rifAXIMin 550 MG Tablet PO ×2 (08:02→20:57)
[2022-04-20] MEDS: Propranolol LA 80 MG Capsule PO (08:03)
[2022-04-20] MEDS: Sertraline 100 MG Tablet PO (08:03)
[2022-04-20] MEDS: Thiamine Hydrochloride 100 MG Tablet PO (08:03)
[2022-04-20] MEDS: Folic Acid 1 MG Tablet PO (08:03)
[2022-04-20] MEDS: ARIPiprazole 2 MG Tablet PO (08:03)
[2022-04-20] MEDS: Spironolactone 25 MG Tablet PO (08:04)
[2022-04-20] MEDS: Lactulose 20 GM/30 ML UDC PO ×2 (08:04→20:57)
[2022-04-20] MEDS: Potassium Chloride 10mEq/100mL 10 MEQ/100 ML IV.SOLN. 100 MEQ IV BOLUS ×4 (09:17→12:47)
--- NOTE | 2022-04-20 10:47 | PN.HOSP_ITS ---
Reason for Visit Reason for Visit: Diagnoses Alcohol use, unspecified with withdrawal, unspecified (04/17/22) Secondary esophageal varices with bleeding (04/17/22) Chronic or unspecified gastric ulcer with hemorrhage (04/17/22) Alcoholic liver disease, unspecified (04/17/22) Unspecified cirrhosis of liver (04/17/22) Calculus of gallbladder without cholecystitis without obstruction (04/17/22) Other ascites (04/17/22) Subjective Subjective Patient seen and examined. She remains on precedex drip. she had no active complaints. Review of systems is otherwise negative. Potassium is low at 2.9 today. Total bilirubin is trending upwards. AST, ALT and ALP are trending downwards though. Objective Data Objective Data Vital Signs: Vital Signs Temp Pulse Resp BP Pulse Ox O2 Del Method 98.1 F 67 14 145/88 H 98 Room Air 04/20/22 08:00 04/20/22 10:00 04/20/22 10:00 04/20/22 10:00 04/20/22 10:00 04/20/22 10:00 Oxygen Delivery Method Room Air Weight: 171 lb 1.259 oz Body Mass Index (BMI) 25.8 Intake & Output: Intake and Output for Last 24 Hours 04/18/22 04/19/22 04/20/22 23:59 23:59 23:59 Intake Total 1633.34 / 1633.34 2084.30 / 2605.40 1860.15 / 1860.15 Output Total 250 / 250 Balance 1633.34 / 1633.34 1834.30 / 2355.40 1860.15 / 1860.15 Lab / Micro Data Result Diagrams: 04/20/22 04:30 04/20/22 04:30 Labs: Laboratory Results - last 24 hr 04/19/22 14:42: WBC 4.2 L, RBC 3.38 L, Hgb 10.8 L, Hct 33.4 L, MCV 98.8, MCH 32.0, MCHC 32.3, RDW Std Deviation 70.8 H, RDW Coeff of Melissa 19.5 H, Plt Count 66 L, MPV 9.7, Immature Gran % (Auto) 1.400 H, Neut % (Auto) 66.6, Lymph % (Auto) 16.8 L, [place] % (Auto) 8.3, Eos % (Auto) 5.7 H, Baso % (Auto) 1.2 H, Absolute Neuts (auto) 2.8, Absolute Lymphs (auto) 0.71 L, Nucleated RBC % 0, Platelet Estimate MOD DEC, Anisocytosis 1+ 04/19/22 14:42: Sodium 138, Potassium 3.1 L, Chloride 104, Carbon Dioxide 24.0, Anion Gap 10, BUN 8, Creatinine 0.75, Estim Creat Clear Calc 81.65, Est GFR (M DRD) Af Amer 106, Est GFR (MDRD) Non-Af 87, BUN/Creatinine Ratio 10.7, Glucose 123 H, Calcium 8.7, Total Bilirubin 7.80 H, AST 177 H, ALT 53, Alkaline Phosphatase 204 H, Total Protein 8.2, Albumin 3.1 L, Globulin 5.1 H, Albumin/Globulin Ratio 0.6 L 04/20/22 04:30: WBC 5.3, RBC 3.37 L, Hgb 10.7 L, Hct 33.1 L, MCV 98.2, MCH 31.8, MCHC 32.3, RDW Std Deviation 69.8 H, RDW Coeff of Melissa 19.2 H, Plt Count 65 L, MPV 9.7, Immature Gran % (Auto) 1.000 H, Neut % (Auto) 67.4, Lymph % (Auto) 15.2 L, [place] % (Auto) 9.0, Eos % (Auto) 6.3 H, Baso % (Auto) 1.1 H, Absolute Neuts (auto) 3.5, Absolute Lymphs (auto) 0.80 L, Nucleated RBC % 0, Platelet Estimate MOD DEC, Anisocytosis 2+ 04/20/22 04:30: Sodium 134 L, Potassium 2.9 L, Chloride 101, Carbon Dioxide 25.0, Anion Gap 8, BUN 7, Creatinine 0.85, Estim Creat Clear Calc 72.04, Est GFR (MDRD) Af Amer 91, Est GFR (MDRD) Non-Af 76, BUN/Creatinine Ratio 8.3 L, Glucose 130 H, Calcium 8.1 L, Total Bilirubin 8.20 H, AST 166 H, ALT 52, Alkaline Phosphatase 197 H, Total Protein 8.1, Albumin 3.0 L, Globulin 5.1 H, Albumin/Globulin Ratio 0.6 L 02/09/23 04:30: Phosphorus 2.0 L, Magnesium 1.3 L Micro: Microbiology 04/17/22 05:13 Vomitus Gastric Occult Blood - Final Occult Blood Positive 04/17/22 04:50 Stool Stool Occult Blood (NOELLE) - Final Occult Blood Positive Physical Exam Const alert and no apparent distress Constitutional Narrative: restless HEENT head/scalp atraumatic and moist oral mucous membranes Head and Scalp: normocephalic Mouth: oral and palatal mucosa normal Eyes PERRL, EOMs intact bilaterally and conjunctivae normal Eyes Narrative: jaundiced Neck no lymphadenopathy, supple and no JVD Resp normal respiratory effort, no retractions, no use of accessory muscles and clear to auscultation bilaterally Cardio regular rate, regular rhythm, S1 normal heart sound, S2 normal heart sound and no murmurs GI normal to inspection, nondistended, normoactive bowel sounds, soft to palpation and non-tender GI Narrative: moderate distension, positive fluid thrill Extremity normal to inspection, full ROM and no clubbing, cyanosis or edema Neuro CN's II-XII intact bilaterally, moves all extremities and no focal motor deficits Neuro Narrative: confused, restless Sensorium / Orientation: awake and alert Psych Psych Narrative: confused, restless Assessment & Plan Assessment/Plan (1) Bleeding esophageal varices due to alcoholic liver disease: (2) Alcohol withdrawal: PLAN: Plan #Acute GI bleed * likely due to bleeding esophageal varices in a patient with liver cirrhosis and varices * currenlty NPO * had EGD which showed grade II esophageal varices which were banded, as well as portal hypertensive gastropathy. * still on octreotide drip and pantoprazole drip * GI on board. * #Hypokalemia: K is 2.9. Will replace and trend. #Liver cirrhosis * due to alcohol abuse * Liver enzymes are trending downwards, but total bilirubin has trended upwards to 8.2 today. * started on IV zosyn due to concerns about gallbladder etiology. CT abdomen and pelvis showed pericholecystic fluid with tiny gallstones. * gallbladder USG showed small amount of pericholecystic fluid with solitary gallstone in the neck of the gallbladder * on lactulose and rifaximin o/a of elevated ammonia level * general surgery on board. Didnt think she needs any acute inervention * consult general surgery due to gallbladder findings- discussed with general surgery, low suspicion for acute cholecystitis. * #Acute alcohol withdrawal with delirium tremens * became very agitated overnight and was transferred to ICU for initiation of precedex drip * critical care on board. * remains on precedex trip * monitor CIWA score * #Hypomagnesemia: Mg is 1.3. Will replace and trend. #Thrombocytopenia * platelets have dropped down further to 65 today. Likely due to liver disease. * Will continue to monitor * DVT prophylaxis: SCDs * Charges/Coding Visit Charges Inpatient E&M: 75501 Subs Hosp L3
--- NOTE | 2022-04-20 12:21 | PCM.PROGNOTE ---
Subjective Subjective No issues with patient overnight. She is a little bit more alert today. She denies any abdominal pain. She denies any hematemesis, hematochezia or melena. Objective Data Objective Data Vital Signs: Vital Signs Temp Pulse Resp BP Pulse Ox O2 Del Method 98.1 F 67 14 145/88 H 98 Room Air 04/20/22 08:00 04/20/22 12:00 04/20/22 10:00 04/20/22 10:00 04/20/22 10:00 04/20/22 10:00 Oxygen Delivery Method Room Air Weight: 171 lb 1.259 oz Body Mass Index (BMI) 25.8 Intake & Output: Intake and Output for Last 24 Hours 04/18/22 04/19/22 04/20/22 23:59 23:59 23:59 Intake Total 1633.34 / 1633.34 2084.30 / 2605.40 2046.32 / 2046.32 Output Total 250 / 250 Balance 1633.34 / 1633.34 1834.30 / 2355.40 2046.32 / 2046.32 Lab / Micro Data Result Diagrams: 04/20/22 04:30 04/20/22 04:30 Labs: Laboratory Results - last 24 hr 04/19/22 14:42: WBC 4.2 L, RBC 3.38 L, Hgb 10.8 L, Hct 33.4 L, MCV 98.8, MCH 32.0, MCHC 32.3, RDW Std Deviation 70.8 H, RDW Coeff of Melissa 19.5 H, Plt Count 66 L, MPV 9.7, Immature Gran % (Auto) 1.400 H, Neut % (Auto) 66.6, Lymph % (Auto) 16.8 L, [place] % (Auto) 8.3, Eos % (Auto) 5.7 H, Baso % (Auto) 1.2 H, Absolute Neuts (auto) 2.8, Absolute Lymphs (auto) 0.71 L, Nucleated RBC % 0, Platelet Estimate MOD DEC, Anisocytosis 1+ 04/19/22 14:42: Sodium 138, Potassium 3.1 L, Chloride 104, Carbon Dioxide 24.0, Anion Gap 10, BUN 8, Creatinine 0.75, Estim Creat Clear Calc 81.65, Est GFR (MDRD) Af Amer 106, Est GFR (MDRD) Non-Af 87, BUN/Creatinine Ratio 10.7, Glucose 123 H, Calcium 8.7, Total Bilirubin 7.80 H, AST 177 H, ALT 53, Alkaline Phosphatase 204 H, Total Protein 8.2, Albumin 3.1 L, Globulin 5.1 H, Albumin/Globulin Ratio 0.6 L 04/20/22 04:30: WBC 5.3, RBC 3.37 L, Hgb 10.7 L, Hct 33.1 L, MCV 98.2, MCH 31.8, MCHC 32.3, RDW Std Deviation 69.8 H, RDW Coeff of Melissa 19.2 H, Plt Count 65 L, MPV 9.7, Immature Gran % (Auto) 1.000 H, Neut % (Auto) 67.4, Lymph % (Auto) 15.2 L, [place] % (Auto) 9.0, Eos % (Auto) 6.3 H, Baso % (Auto) 1.1 H, Absolute Neuts (auto) 3.5, Absolute Lymphs (auto) 0.80 L, Nucleated RBC % 0, Platelet Estimate MOD DEC, Anisocytosis 2+ 04/20/22 04:30: Sodium 134 L, Potassium 2.9 L, Chloride 101, Carbon Dioxide 25.0, Anion Gap 8, BUN 7, Creatinine 0.85, Estim Creat Clear Calc 72.04, Est GFR (MDRD) Af Amer 91, Est GFR (MDRD) Non-Af 76, BUN/Creatinine Ratio 8.3 L, Glucose 130 H, Calcium 8.1 L, Total Bilirubin 8.20 H, AST 166 H, ALT 52, Alkaline Phosphatase 197 H, Total Protein 8.1, Albumin 3.0 L, Globulin 5.1 H, Albumin/Globulin Ratio 0.6 L 04/20/22 04:30: Phosphorus 2.0 L, Magnesium 1.3 L Micro: Microbiology 04/17/22 05:13 Vomitus Gastric Occult Blood - Final Occult Blood Positive 04/17/22 04:50 Stool Stool Occult Blood (NOELLE) - Final Occult Blood Positive Physical Exam Const alert and no apparent distress Constitutional Narrative: restless HEENT head/scalp atraumatic and moist oral mucous membranes Head and Scalp: normocephalic Mouth: oral and palatal mucosa normal Eyes PERRL, EOMs intact bilaterally and conjunctivae normal Eyes Narrative: jaundiced Neck no lymphadenopathy, supple and no JVD Resp normal respiratory effort, no retractions, no use of accessory muscles and clear to auscultation bilaterally Cardio regular rate, regular rhythm, S1 normal heart sound, S2 normal heart sound and no murmurs GI normal to inspection, nondistended, normoactive bowel sounds, soft to palpation and non-tender GI Narrative: moderate distension, positive fluid thrill Extremity normal to inspection, full ROM and no clubbing, cyanosis or edema Neuro CN's II-XII intact bilaterally, moves all extremities and no focal motor deficits Neuro Narrative: confused, restless Sensorium / Orientation: awake and alert Psych Psych Narrative: confused, restless Assessment & Plan Assessment/Plan (1) Bleeding esophageal varices due to alcoholic liver disease: PLAN: Recommended octreotide and PPI drip. Patient can have a full liquid diet (2) Alcohol withdrawal: PLAN: She is not having any signs of alcohol withdrawal at this time. (3) Gastric ulcer with hemorrhage: PLAN: Gastric ulcer likely secondary to alcoholic gastritis. There was no sign of ulcerations on this exam but she did have severe portal gastropathy with recent stigmata of bleeding. (4) Cirrhosis of liver with ascites: PLAN: At this time she is suffering from alcoholic hepatitis with a Madrey score of 34. She is not encephalopathic at this time. I would recommend Xifaxan 5 to 50 mg p.o. twice daily and lactulose 20 cc p.o. every 6 hours as prophylaxis for encephalopathy. I would not give her steroids at this time. (5) Alcoholic hepatitis: PLAN: Patient is Madrey score is increased to 34. Therefore I will start pentoxifylline 400 mg p.o. 3 times daily. I do not think she needs steroid time Charges/Coding Visit Charges Inpatient E&M: 47591 Subs Hosp L3
[2022-04-20] MEDS: Magnesium Sulfate 4gm/100mL 4 GM/100 ML IV.SOLN. IV (12:39)
[2022-04-20] MEDS: Pentoxifylline 400 MG Tablet PO (17:11)
--- NOTE | 2022-04-20 20:30 | NURSING ---
Pt questioned in regard to staying sober once home. Pt states, I'm moving in with Mom, away from my , he drinks a lot. I have plans to attend group therapy 4x/wk and taper down in number of visits per wk gradually. I also have a psychiatrist picked out to help me. Pt also states that she still notices that she is hearing and seeing people and objects. sometimes I know they're not really there, sometimes I don't. Emotional support provided and encouragement given.
[2022-04-21] VITALS (22 sets, daily range): BP systolic 114–158; BP diastolic 8–91; PULSE 59–72; RESP 14–26; TEMP 36.2–36.9; O2SAT 96–100
[2022-04-21] MEDS: 0.9% Saline Lock 10 ML Syringe IV (00:59)
--- NOTE | 2022-04-21 01:02 | NURSING ---
Pt visualized on camera picking at [facility], where IV sites are located. Upon entering room, pt holding IV tubing, intact angiocath from proximal forearm; bleeding generously from IV site. Gauze applied and pressure held, called for assistance to clean pt. Pt assisted to BSC, all linens changed and pt given bath wipes. Once returned in bed, pt c/o seeing a statue move in the corner of the room. Pt reassured that no statue was in room, lights turned on. 20g IV placed to ventral surface of mid-forearm and secured by tegaderm drsg. Both IVs secured w/SALINAS wrap. Pt nury all well physically; auditory and visual hallucinations cont.
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
[2022-04-21 04:49] LABS: Absolute Lymphocyte Count 0.63 X10^3/uL (0.83-4.51); Absolute Neutrophil Count 4.7 X10^3/uL (2.0-7.7); Basophil# 0.04 X10^3/uL; Basophil% 0.6 % (0-1); Differential Indicated SCAN CRITERIA MET; Eosinophil# 0.28 X10^3/uL; Eosinophils% 4.5 % (0-5); Hematocrit 35.1 % (37-47); Hemoglobin 11.2 g/dL (12.0-15.0); Lymphocyte # 0.63 X10^3/ul (0.83-4.51); Lymphocyte % 10.1 % (19-41); Mean Corp Hgb Conc 31.9 g/dL (32-36); Mean Corpuscular Hgb 31.2 pg (27.0-32.0); Mean Corpuscular Volume 97.8 fL (81-99); Mean Platelet Vol. 10.7 fl (6.2-12.0); Monocyte# 0.54 X10^3/uL; Monocyte% 8.6 % (0-10); NRBC Flagged by Analyzer 0.5 % (0-5); Neutrophil # 4.69 X10^3/uL (2.7-7.7); Neutrophil % 74.9 % (47-70); POSITIVE COUNT YES; POSITIVE MORPHOLOGY YES; Platelet Count 67 K/mm3 (150-450); RBC Distribution Width CV 19.6 % (11.6-14.6); RBC Distribution Width SD 70.3 fl (35.1-43.9); Red Blood Count 3.59 M/mm3 (4.2-5.4); White Blood Count 6.3 K/mm3 (4.4-11.0)
[2022-04-21] MEDS: Sucralfate 1 GM Tablet PO ×2 (05:44→18:39)
[2022-04-21 05:45] LABS: ALB/GLOB Ratio 0.6 RATIO (0.9-2.4); AST(SGOT) 146 U/L (15-37); Alanine Aminotransfer ALT/SGPT 48 U/L (13-56); Alkaline Phosphatase 192 U/L (45-117); Anion Gap 10 (5-15); BUN 5 mg/dL (7-18); BUN/Creat Ratio 6.5 RATIO (10-20); Calcium,Total 8.5 mg/dL (8.5-10.1); Chloride 104 mmol/L (98-107); Creatinine, Serum 0.77 mg/dL (0.55-1.02); EST Glomerular Filtration Rate 84 mL/min (>60); Est Glom Filt Rate - Afr Amer 102 mL/min (>60); Estimated Creatinine Clearance 79.53 ml/min; Globulin 5.4 g/dL (2.2-4.2); Glucose 118 mg/dL (74-106); Potassium 3.6 mmol/L (3.5-5.1); Protein, Total 8.4 g/dL (6.4-8.2); Sodium Level 135 mmol/L (136-145)
[2022-04-21 05:50] LABS: Differential Comment SCANNED; Polychromasia RARE
[2022-04-21] MEDS: LORazepam 2 MG/ML Syringe IV (06:50)
[2022-04-21] MEDS: TITRATION PARAMETER CHANGE 1 EACH IV (06:50)
[2022-04-21] MEDS: rifAXIMin 550 MG Tablet PO ×2 (08:17→21:16)
[2022-04-21] MEDS: Lactulose 20 GM/30 ML UDC PO ×3 (08:17→21:16)
[2022-04-21] MEDS: Thiamine Hydrochloride 100 MG Tablet PO (08:18)
[2022-04-21] MEDS: Sertraline 100 MG Tablet PO (08:18)
[2022-04-21] MEDS: Propranolol LA 80 MG Capsule PO (08:18)
[2022-04-21] MEDS: Folic Acid 1 MG Tablet PO (08:18)
[2022-04-21] MEDS: Pentoxifylline 400 MG Tablet PO ×3 (08:18→17:04)
[2022-04-21] MEDS: ARIPiprazole 2 MG Tablet PO (08:19)
[2022-04-21] MEDS: Spironolactone 25 MG Tablet PO (08:19)
--- NOTE | 2022-04-21 09:28 | PN.HOSP_ITS ---
Reason for Visit Reason for Visit: Diagnoses Alcohol use, unspecified with withdrawal, unspecified (04/17/22) Secondary esophageal varices with bleeding (04/17/22) Chronic or unspecified gastric ulcer with hemorrhage (04/17/22) Alcoholic hepatitis without ascites (04/17/22) Alcoholic liver disease, unspecified (04/17/22) Unspecified cirrhosis of liver (04/17/22) Calculus of gallbladder without cholecystitis without obstruction (04/17/22) Other ascites (04/17/22) Subjective Subjective Patient seen and examined. She still remains confused. Per her nurse, she has been hallucinating. Patient tells me she had nightmares. She remains on precedex drip, but was still agitated overnight and is now maxed out on precedex drip. Her bilirubin is still trending upwards Objective Data Objective Data Vital Signs: Vital Signs Temp Pulse Resp BP Pulse Ox O2 Del Method 98.5 F 69 20 H 145/84 H 97 Room Air 04/21/22 02:00 04/21/22 08:00 04/21/22 08:00 04/21/22 08:00 04/21/22 08:00 04/21/22 08:00 Oxygen Delivery Method Room Air Weight: 169 lb 8.568 oz Body Mass Index (BMI) 25.8 Intake & Output: Intake and Output for Last 24 Hours 04/19/22 04/20/22 04/21/22 23:59 23:59 23:59 Intake Total 2084.30 / 2605.40 3808.50 / 4031.40 986.78 / 986.78 Output Total 250 / 250 650 / 650 Balance 1834.30 / 2355.40 3808.50 / 4031.40 336.78 / 336.78 Lab / Micro Data Result Diagrams: 04/21/22 04:30 04/21/22 04:30 Labs: Laboratory Results - last 24 hr 04/21/22 04:30: WBC 6.3, RBC 3.59 L, Hgb 11.2 L, Hct 35.1 L, MCV 97.8, MCH 31.2, MCHC 31.9 L, RDW Std Deviation 70.3 H, RDW Coeff of Melissa 19.6 H, Plt Count 67 L, MPV 10.7, Immature Gran % (Auto) 1.300 H, Neut % (Auto) 74.9 H, Lymph % (Auto) 10.1 L, [place] % (Auto) 8.6, Eos % (Auto) 4.5, Baso % (Auto) 0.6, Absolute Neuts (auto) 4.7, Absolute Lymphs (auto) 0.63 L, Nucleated RBC % 0.5, Differential Comment SCANNED, Polychromasia RARE 04/21/22 04:30: Sodium 135 L, Potassium 3.6, Chloride 104, Carbon Dioxide 21.0, Anion Gap 10, BUN 5 L, Creatinine 0.77, Estim Creat Clear Calc 79.53, Est GFR (MDRD) Af Amer 102, Est GFR (MDRD) Non-Af 84, BUN/Creatinine Ratio 6.5 L, Glucose 118 H, Calcium 8.5, Total Bilirubin 10.80 H, AST 146 H, ALT 48, Alkaline Phosphatase 192 H, Total Protein 8.4 H, Albumin 3.0 L, Globulin 5.4 H, Albumin/Globulin Ratio 0.6 L 04/21/22 04:30: Phosphorus 2.0 L, Magnesium 2.0 Micro: Microbiology 04/17/22 05:13 Vomitus Gastric Occult Blood - Final Occult Blood Positive 04/17/22 04:50 Stool Stool Occult Blood (NOELLE) - Final Occult Blood Positive Physical Exam Const alert and no apparent distress Constitutional Narrative: restless, confused Orientation / Consciousness: disoriented HEENT head/scalp atraumatic and moist oral mucous membranes Eyes PERRL, EOMs intact bilaterally and conjunctivae normal Eyes Narrative: jaundiced Neck no lymphadenopathy, supple and no JVD Resp normal respiratory effort, no retractions, no use of accessory muscles and clear to auscultation bilaterally Cardio regular rate, regular rhythm, S1 normal heart sound, S2 normal heart sound and no murmurs GI normal to inspection, nondistended, normoactive bowel sounds, soft to palpation, non-tender and non-distended GI Narrative: moderate distension, positive fluid thrill, mild hepatomegaly Extremity normal to inspection, full ROM and no clubbing, cyanosis or edema Neuro oriented x3, CN's II-XII intact bilaterally, moves all extremities and no focal motor deficits Neuro Narrative: confused, restless Sensorium / Orientation: awake and alert Psych Psych Narrative: confused, restless Assessment & Plan Assessment/Plan (1) Bleeding esophageal varices due to alcoholic liver disease: (2) Alcohol withdrawal: PLAN: Plan #Acute GI bleed * likely due to bleeding esophageal varices in a patient with liver cirrhosis and varices * had EGD which showed grade II esophageal varices which were banded, as well as portal hypertensive gastropathy. * still on octreotide drip and pantoprazole drip * GI on board. * now on an oral diet * #Hypokalemia: resolved #Liver cirrhosis with acute alcoholic hepatitis * total bilirubin is up to 10.8 today, though AST, ALT and ALP have trended downwards * I think this is all due to alcoholic hepatitis * gallbladder USG showed small amount of pericholecystic fluid with solitary gallstone in the neck of the gallbladder * on lactulose and rifaximin o/a of elevated ammonia level * general surgery on board. Didnt think she needs any acute inervention * GI on board; patient to be started on steroids to help with alcoholic hepatitis #Acute alcohol withdrawal with delirium tremens * critical care on board. * remains on precedex trip; still agitated and hallucinating. Will add on phenobarb taper. * monitor CIWA score * #Hypomagnesemia: resolved. Mg is 2 today. #Thrombocytopenia * platelets are 67. Due to alcoholic liver cirrhosis. * will trend platelets * DVT prophylaxis: SCDs * Charges/Coding Visit Charges Inpatient E&M: 79048 Subs Hosp L3
--- NOTE | 2022-04-21 09:35 | CASEMGMT ---
Social Work SW attended ICU rounds. Pt will need to see addiction therapist prior to discharge. At this time pt is not medically appropriate. Will need to notify addiction therapist when pt is medically ready. JASPER Cid
[2022-04-21] MEDS: Phenobarbital 32.4 MG Tablet PO ×4 (10:02→21:16)
--- NOTE | 2022-04-21 12:23 | PCM.PN.INT ---
Assessment & Plan Assessment/Plan (1) Alcoholic hepatitis: PLAN: Liver function tests remain abnormal, with alkaline phosphatase 192 AST 146. Electrolyte abnormalities include a phosphate of 2.0 Patient continue supportive care, avoid further hepatotoxins. Lactulose Check ammonia, amylase lipase (2) Cholelithiasis: QUALIFIERS: Cholelithiasis location: gallbladder PLAN: Management per GI. (3) Alcohol withdrawal: PLAN: The patient remains on appropriate medications, hospitalist and/or GI are managing Acetadote trial. Precedex drip P.o. medications for continuation of withdrawal management to start today per hospitalist. (4) Bleeding esophageal varices due to alcoholic liver disease: PLAN: Currently stable, hemoglobin is within normal limits, platelets are 67,000 likely due to alcohol and splenic sequestration. (5) Gastric ulcer with hemorrhage: PLAN: No active bleeding (6) Alcohol abuse: PLAN: Chronic, patient is unlikely to quit per nursing staff (7) Cirrhosis of liver with ascites: PLAN: Patient continues to drink actively, with an alcohol level of 319 on admission. This limits her treatment options. PLAN: Plan ICU team will continue to follow. Patient is slowly detoxing, and is being monitored in ICU for risk of superimposed pathology. Subjective Subjective This this deeply jaundiced woman did not awaken for my exam despite gentle shoulder shaking and voice today. However after I rounded on the patient came back 20 minutes later she was calling loudly for her mother. Nursing reports that she is at times trying to get out of bed and was moved to room 2 for closer observation of impulsive behavior. There may be some component of playing possum. Objective Data Objective Data This patient was admitted on 04/17/2022 for alcohol with withdrawal, alcoholic hepatitis, cholelithiasis, gastric ulcer with hemorrhage, cirrhosis and ascites. Her varices were banded 2 days ago, she is followed actively by Dr. Corcoran and gastroenterology. She remains on an octreotide drip at 12.5 MLS per hour. She is on Zosyn, pantoprazole drip at 8 mg/h. Folate, thiamine, lactulose. Other medications reviewed. Vital Signs: Vital Signs Temp Pulse Resp BP Pulse Ox O2 Del Method 97.2 F L 69 18 145/84 H 98 Room Air 04/21/22 08:00 04/21/22 09:00 04/21/22 09:00 04/21/22 09:00 04/21/22 09:00 04/21/22 09:00 Oxygen Delivery Method Room Air Weight: 169 lb 8.568 oz Body Mass Index (BMI) 25.8 Comfortably sedated and stable on Precedex 1.5 mcg Per kilogram per hour. Intake & Output: Intake and Output for Last 24 Hours 04/19/22 04/20/22 04/21/22 23:59 23:59 23:59 Intake Total 2084.30 / 2605.40 3808.50 / 4031.40 1036.78 / 1036.78 Output Total 250 / 250 650 / 650 Balance 1834.30 / 2355.40 3808.50 / 4031.40 386.78 / 386.78 Lab / Micro Data Result Diagrams: 04/21/22 04:30 04/21/22 04:30 Labs: Laboratory Results - last 24 hr 04/21/22 04:30: WBC 6.3, RBC 3.59 L, Hgb 11.2 L, Hct 35.1 L, MCV 97.8, MCH 31.2, MCHC 31.9 L, RDW Std Deviation 70.3 H, RDW Coeff of Melissa 19.6 H, Plt Count 67 L, MPV 10.7, Immature Gran % (Auto) 1.300 H, Neut % (Auto) 74.9 H, Lymph % (Auto) 10.1 L, [place] % (Auto) 8.6, Eos % (Auto) 4.5, Baso % (Auto) 0.6, Absolute Neuts (auto) 4.7, Absolute Lymphs (auto) 0.63 L, Nucleated RBC % 0.5, Differential Comment SCANNED, Polychromasia RARE 04/21/22 04:30: Sodium 135 L, Potassium 3.6, Chloride 104, Carbon Dioxide 21.0, Anion Gap 10, BUN 5 L, Creatinine 0.77, Estim Creat Clear Calc 79.53, Est GFR (MDRD) Af Amer 102, Est GFR (MDRD) Non-Af 84, BUN/Creatinine Ratio 6.5 L, Glucose 118 H, Calcium 8.5, Total Bilirubin 10.80 H, AST 146 H, ALT 48, Alkaline Phosphatase 192 H, Total Protein 8.4 H, Albumin 3.0 L, Globulin 5.4 H, Albumin/Globulin Ratio 0.6 L 04/21/22 04:30: Phosphorus 2.0 L, Magnesium 2.0 Micro: Microbiology 04/17/22 05:13 Vomitus Gastric Occult Blood - Final Occult Blood Positive 04/17/22 04:50 Stool Stool Occult Blood (NOELLE) - Final Occult Blood Positive Rhythm Strip Rhythm Strip: Sinus Rhythm Physical Exam Narrative Jaundiced woman who is sleeping in her ICU bed in no respiratory or other distress. HEENT: Would not cooperate with exam, skin was jaundiced mucous membranes grossly normal. Neck is supple with JVD present Lungs had unlabored respirations, anterior exam was within normal limits with no wheezes rales or rhonchi, no use of accessory muscles, chest is symmetrical with good rise. Heart regular S1-S2 with no murmurs rubs or gallops Abdomen is distended and ascitic, but nontender with positive bowel sounds Extremities have no clubbing cyanosis or edema Neurologic exam no obvious tremor although exam was suboptimal because patient sleeping. However I observed her across the ICU later to be moving all extremities and vocalizing. Skin is jaundiced without lesions No Cordon in place Charges/Coding Visit Charges Inpatient E&M: 48518 Subs Hosp L3
[2022-04-21 14:17] LABS: Amylase 70 U/L (25-115); Lipase 309 U/L (73-393)
--- NOTE | 2022-04-21 16:17 | PCM.PROGNOTE ---
Subjective Subjective Patient is having hallucinations. She is on Precedex drip. She is not able to give a good history at this time or review of systems. Objective Data Objective Data Vital Signs: Vital Signs Temp Pulse Resp BP Pulse Ox O2 Del Method 97.8 F 65 16 156/63 H 99 Room Air 04/21/22 12:00 04/21/22 16:00 04/21/22 16:00 04/21/22 16:00 04/21/22 16:00 04/21/22 16:00 Oxygen Delivery Method Room Air Weight: 169 lb 8.568 oz Body Mass Index (BMI) 25.8 Intake & Output: Intake and Output for Last 24 Hours 04/19/22 04/20/22 04/21/22 23:59 23:59 23:59 Intake Total 2084.30 / 2605.40 3808.50 / 4031.40 2275.94 / 2275.94 Output Total 250 / 250 1300 / 1300 Balance 1834.30 / 2355.40 3808.50 / 4031.40 975.94 / 975.94 Lab / Micro Data Result Diagrams: 04/21/22 04:30 04/21/22 04:30 Labs: Laboratory Results - last 24 hr 04/21/22 04:30: WBC 6.3, RBC 3.59 L, Hgb 11.2 L, Hct 35.1 L, MCV 97.8, MCH 31.2, MCHC 31.9 L, RDW Std Deviation 70.3 H, RDW Coeff of Melissa 19.6 H, Plt Count 67 L, MPV 10.7, Immature Gran % (Auto) 1.300 H, Neut % (Auto) 74.9 H, Lymph % (Auto) 10.1 L, [place] % (Auto) 8.6, Eos % (Auto) 4.5, Baso % (Auto) 0.6, Absolute Neuts (auto) 4.7, Absolute Lymphs (auto) 0.63 L, Nucleated RBC % 0.5, Differential Comment SCANNED, Polychromasia RARE 04/21/22 04:30: Sodium 135 L, Potassium 3.6, Chloride 104, Carbon Dioxide 21.0, Anion Gap 10, BUN 5 L, Creatinine 0.77, Estim Creat Clear Calc 79.53, Est GFR (MDRD) Af Amer 102, Est GFR (MDRD) Non-Af 84, BUN/Creatinine Ratio 6.5 L, Glucose 118 H, Calcium 8.5, Total Bilirubin 10.80 H, AST 146 H, ALT 48, Alkaline Phosphatase 192 H, Total Protein 8.4 H, Albumin 3.0 L, Globulin 5.4 H, Albumin/Globulin Ratio 0.6 L 04/21/22 04:30: Phosphorus 2.0 L, Magnesium 2.0 04/21/22 13:40: Ammonia 83.0 H 04/21/22 13:40: Amylase 70, Lipase 309 Micro: Microbiology 04/17/22 05:13 Vomitus Gastric Occult Blood - Final Occult Blood Positive 04/17/22 04:50 Stool Stool Occult Blood (NOELLE) - Final Occult Blood Positive Rhythm Strip Rhythm Strip: Sinus Rhythm Physical Exam Narrative Jaundiced HEENT: jaundiced mucous membranes grossly normal. Neck is supple with JVD present Lungs had unlabored respirations, anterior exam was within normal limits with no wheezes rales or rhonchi, no use of accessory muscles, chest is symmetrical with good rise. Heart regular S1-S2 with no murmurs rubs or gallops Abdomen is distended and ascitic, but nontender with positive bowel sounds Extremities have no clubbing cyanosis or edema Neurologic exam no focal abnormalities Skin is jaundiced without lesions No Cordon in place Assessment & Plan Assessment/Plan (1) Bleeding esophageal varices due to alcoholic liver disease: PLAN: octreotide and PPI drip can be stopped. Recommend only Protonix 40 mg IV every 12 hours. Patient can have a regular. (2) Alcohol withdrawal: PLAN: She is not having any signs of alcohol withdrawal at this time. (3) Gastric ulcer with hemorrhage: PLAN: Gastric ulcer likely secondary to alcoholic gastritis. There was no sign of ulcerations on this exam but she did have severe portal gastropathy with recent stigmata of bleeding. (4) Cirrhosis of liver with ascites: PLAN: At this time she is suffering from alcoholic hepatitis with a Madrey score of 34. She is not encephalopathic at this time. I would recommend Xifaxan 5 to 50 mg p.o. twice daily and lactulose 20 cc p.o. every 6 hours as prophylaxis for encephalopathy. (5) Alcoholic hepatitis: PLAN: Patient is Madrey score is increased to 34. Therefore I will start pentoxifylline 400 mg p.o. 3 times daily. I gave her N-acetylcysteine for nonacetaminophen induced acute liver injury. I will also start her on steroids x4 days and check a Matilda score to see if steroids will improve her overall outcome. My only issue with the steroids is that she is at increased risk of infection. Charges/Coding Visit Charges Inpatient E&M: 32640 Subs Hosp L3
--- NOTE | 2022-04-21 17:26 | NURSING ---
informed mother @ request as per Dr Bond of [facility] refused transfer said there would be no changes in treatment
[2022-04-22] VITALS (24 sets, daily range): BP systolic 91–165; BP diastolic 59–92; PULSE 57–77; RESP 15–22; TEMP 36.4–37.1; O2SAT 96–100
[2022-04-22] MEDS: Phenobarbital 32.4 MG Tablet PO ×6 (02:08→21:33)
[2022-04-22 04:23] LABS: Absolute Lymphocyte Count 0.53 X10^3/uL (0.83-4.51); Absolute Neutrophil Count 4.1 X10^3/uL (2.0-7.7); Basophil# 0.01 X10^3/uL; Basophil% 0.2 % (0-1); Eosinophil# 0.01 X10^3/uL; Eosinophils% 0.2 % (0-5); Hematocrit 34.1 % (37-47); Lymphocyte # 0.53 X10^3/ul (0.83-4.51); Lymphocyte % 10.4 % (19-41); Mean Corp Hgb Conc 32.3 g/dL (32-36); Mean Corpuscular Volume 96.1 fL (81-99); Monocyte# 0.43 X10^3/uL; Monocyte% 8.4 % (0-10); NRBC Flagged by Analyzer 0 % (0-5); Neutrophil # 4.06 X10^3/uL (2.7-7.7); Neutrophil % 79.6 % (47-70); POSITIVE COUNT YES; POSITIVE DIFFERENTIAL YES; POSITIVE MORPHOLOGY YES; Platelet Count 65 K/mm3 (150-450); RBC Distribution Width SD 72.7 fl (35.1-43.9); Red Blood Count 3.55 M/mm3 (4.2-5.4); White Blood Count 5.1 K/mm3 (4.4-11.0)
[2022-04-22 04:27] LABS: Differential Indicated SCAN CRITERIA MET
[2022-04-22 04:36] LABS: ALB/GLOB Ratio 0.5 RATIO (0.9-2.4); AST(SGOT) 102 U/L (15-37); Alanine Aminotransfer ALT/SGPT 47 U/L (13-56); Albumin, Serum 2.7 g/dL (3.2-5.0); Alkaline Phosphatase 169 U/L (45-117); Anion Gap 10 (5-15); BUN 7 mg/dL (7-18); BUN/Creat Ratio 9.3 RATIO (10-20); Calcium,Total 8.6 mg/dL (8.5-10.1); Chloride 101 mmol/L (98-107); Creatinine, Serum 0.75 mg/dL (0.55-1.02); EST Glomerular Filtration Rate 87 mL/min (>60); Est Glom Filt Rate - Afr Amer 105 mL/min (>60); Estimated Creatinine Clearance 81.65 ml/min; Globulin 5.5 g/dL (2.2-4.2); Glucose 146 mg/dL (74-106); Protein, Total 8.2 g/dL (6.4-8.2); Sodium Level 134 mmol/L (136-145)
[2022-04-22 05:32] LABS: Differential Comment SCANNED
[2022-04-22] MEDS: Sertraline 100 MG Tablet PO (08:01)
[2022-04-22] MEDS: Propranolol LA 80 MG Capsule PO (08:02)
[2022-04-22] MEDS: Sucralfate 1 GM Tablet PO ×2 (08:03→16:59)
[2022-04-22] MEDS: Folic Acid 1 MG Tablet PO (08:03)
[2022-04-22] MEDS: Thiamine Hydrochloride 100 MG Tablet PO (08:03)
[2022-04-22] MEDS: Pentoxifylline 400 MG Tablet PO ×3 (08:03→16:58)
[2022-04-22] MEDS: rifAXIMin 550 MG Tablet PO ×2 (08:03→23:09)
[2022-04-22] MEDS: Spironolactone 25 MG Tablet PO (08:04)
[2022-04-22] MEDS: Lactulose 20 GM/30 ML UDC PO ×4 (08:04→23:09)
[2022-04-22 09:30] LABS: International Normalized Ratio 1.6; Prothrombin Time (Protime)PT. 19.1 SECONDS (11.7-14.9)
--- NOTE | 2022-04-22 10:09 | PCM.PROGNOTE ---
Subjective Subjective Patient looks a lot better today. She is talking and converse eating. She is maintained on phenobarbital for alcohol withdrawal. She is hungry. Objective Data Objective Data Vital Signs: Vital Signs Temp Pulse Resp BP Pulse Ox O2 Del Method 98.3 F 61 17 136/84 H 100 Room Air 04/22/22 04:00 04/22/22 09:00 04/22/22 09:00 04/22/22 09:00 04/22/22 09:00 04/22/22 09:00 Oxygen Delivery Method Room Air Weight: 164 lb 10.965 oz Body Mass Index (BMI) 25.8 Intake & Output: Intake and Output for Last 24 Hours 04/20/22 04/21/22 04/22/22 23:59 23:59 23:59 Intake Total 3808.50 / 4031.40 2734.10 / 2758.10 879.25 / 879.25 Output Total 1300 / 1300 Balance 3808.50 / 4031.40 1434.10 / 1458.10 879.25 / 879.25 Lab / Micro Data Result Diagrams: 04/22/22 04:15 04/22/22 04:15 Labs: Laboratory Results - last 24 hr 04/21/22 13:40: Ammonia 83.0 H 04/21/22 13:40: Amylase 70, Lipase 309 04/22/22 04:15: WBC 5.1, RBC 3.55 L, Hgb 11.0 L, Hct 34.1 L, MCV 96.1, MCH 31.0, MCHC 32.3, RDW Std Deviation 72.7 H, RDW Coeff of Melissa 20.0 H, Plt Count 65 L, MPV 10.0, Immature Gran % (Auto) 1.200 H, Neut % (Auto) 79.6 H, Lymph % (Auto) 10.4 L, [place] % (Auto) 8.4, Eos % (Auto) 0.2, Baso % (Auto) 0.2, Absolute Neuts (auto) 4.1, Absolute Lymphs (auto) 0.53 L, Nucleated RBC % 0, Differential Comment SCANNED 04/22/22 04:15: Sodium 134 L, Potassium 3.0 L, Chloride 101, Carbon Dioxide 23.0, Anion Gap 10, BUN 7, Creatinine 0.75, Estim Creat Clear Calc 81.65, Est GFR (MDRD) Af Amer 105, Est GFR (MDRD) Non-Af 87, BUN/Creatinine Ratio 9.3 L, Glucose 146 H, Calcium 8.6, Total Bilirubin 10.70 H, AST 102 H, ALT 47, Alkaline Phosphatase 169 H, Total Protein 8.2, Albumin 2.7 L, Globulin 5.5 H, Albumin/Globulin Ratio 0.5 L 04/22/22 07:40: PT 19.1 H, INR 1.6 Micro: Microbiology 04/17/22 05:13 Vomitus Gastric Occult Blood - Final Occult Blood Positive 04/17/22 04:50 Stool Stool Occult Blood (NOELLE) - Final Occult Blood Positive Rhythm Strip Rhythm Strip: Sinus Rhythm Physical Exam Narrative Jaundiced HEENT: jaundiced mucous membranes grossly normal. Neck is supple with JVD present Lungs had unlabored respirations, anterior exam was within normal limits with no wheezes rales or rhonchi, no use of accessory muscles, chest is symmetrical with good rise. Heart regular S1-S2 with no murmurs rubs or gallops Abdomen is distended and ascitic, but nontender with positive bowel sounds Extremities have no clubbing cyanosis or edema Neurologic exam no focal abnormalities Skin is jaundiced without lesions No Cordon in place Assessment & Plan Assessment/Plan (1) Bleeding esophageal varices due to alcoholic liver disease: PLAN: octreotide and PPI drip is stopped. Recommend only Protonix 40 mg IV every 12 hours. Patient can have a regular diet. (2) Alcohol withdrawal: PLAN: She is not having any signs of alcohol withdrawal at this time. Continue Precedex and phenobarbital. Had a long conversation with her regarding her continued alcohol intake and she says that she wants to stop and may be willing to go into AA for help. (3) Gastric ulcer with hemorrhage: PLAN: Gastric ulcer likely secondary to alcoholic gastritis. There was no sign of ulcerations on this exam but she did have severe portal gastropathy with recent stigmata of bleeding. (4) Cirrhosis of liver with ascites: PLAN: At this time she is suffering from alcoholic hepatitis with a Madrey score of 34. She is not encephalopathic at this time. I would recommend Xifaxan 5 to 50 mg p.o. twice daily and lactulose 20 cc p.o. every 6 hours as prophylaxis for encephalopathy. She would likely need an ultrasound to assess for ascites. (5) Alcoholic hepatitis: PLAN: Patient is Madrey score is increased to 34. But is about the same today. Continue pentoxifylline 400 mg p.o. 3 times daily. She was given better prognosis. N-acetylcysteine for nonacetaminophen induced acute liver injury. On steroids x4 days and check a Matilda score to see if steroids will improve her overall outcome. Charges/Coding Visit Charges Inpatient E&M: 34450 Subs Hosp L3
--- NOTE | 2022-04-22 10:23 | PCM.PN.SRG ---
Subjective Subjective patient points to left sided abdominal pain, but seems to have generalized abdominal pain passing flatus and had small bowel movement Objective Data Objective Data Vital Signs: Vital Signs Temp Pulse Resp BP Pulse Ox O2 Del Method 98.3 F 61 17 136/84 H 100 Room Air 04/22/22 04:00 04/22/22 09:00 04/22/22 09:00 04/22/22 09:00 04/22/22 09:00 04/22/22 09:00 Oxygen Delivery Method Room Air Weight: 74.7 kg Body Mass Index (BMI) 25.8 Intake & Output: Intake and Output for Last 24 Hours 04/20/22 04/21/22 04/22/22 23:59 23:59 23:59 Intake Total 3808.50 / 4031.40 2734.10 / 2758.10 879.25 / 879.25 Output Total 1300 / 1300 Balance 3808.50 / 4031.40 1434.10 / 1458.10 879.25 / 879.25 Lab / Micro Data Attestation: I reviewed the patient's lab results. Result Diagrams: 04/22/22 04:15 04/22/22 04:15 Labs: Laboratory Results - last 24 hr 04/21/22 13:40: Ammonia 83.0 H 04/21/22 13:40: Amylase 70, Lipase 309 04/22/22 04:15: WBC 5.1, RBC 3.55 L, Hgb 11.0 L, Hct 34.1 L, MCV 96.1, MCH 31.0, MCHC 32.3, RDW Std Deviation 72.7 H, RDW Coeff of Melissa 20.0 H, Plt Count 65 L, MPV 10.0, Immature Gran % (Auto) 1.200 H, Neut % (Auto) 79.6 H, Lymph % (Auto) 10.4 L, [place] % (Auto) 8.4, Eos % (Auto) 0.2, Baso % (Auto) 0.2, Absolute Neuts (auto) 4.1, Absolute Lymphs (auto) 0.53 L, Nucleated RBC % 0, Differential Comment SCANNED 04/22/22 04:15: Sodium 134 L, Potassium 3.0 L, Chloride 101, Carbon Dioxide 23.0, Anion Gap 10, BUN 7, Creatinine 0.75, Estim Creat Clear Calc 81.65, Est GFR (MDRD) Af Amer 105, Est GFR (MDRD) Non-Af 87, BUN/Creatinine Ratio 9.3 L, Glucose 146 H, Calcium 8.6, Total Bilirubin 10.70 H, AST 102 H, ALT 47, Alkaline Phosphatase 169 H, Total Protein 8.2, Albumin 2.7 L, Globulin 5.5 H, Albumin/Globulin Ratio 0.5 L 04/22/22 07:40: PT 19.1 H, INR 1.6 Micro: Microbiology 04/17/22 05:13 Vomitus Gastric Occult Blood - Final Occult Blood Positive 04/17/22 04:50 Stool Stool Occult Blood (NOELLE) - Final Occult Blood Positive Rhythm Strip Rhythm Strip: Sinus Rhythm Physical Exam Const alert and oriented x3 Constitutional Narrative: much more cognizant than when I last encountered her General Appearance: cooperative HEENT normocephalic Neck supple Resp normal respiratory effort Effort and Inspection: able to speak in complete sentences GI GI Narrative: abdomen is protuberant and soft Skin Skin Narrative: with jaundice Assessment & Plan Assessment/Plan (1) Cholelithiasis: QUALIFIERS: Cholelithiasis location: gallbladder PLAN: patient denies specifically to have RUQ abdominal pain if clinically indicated (which I do not believe is required at this point), would consider cholecystotomy tube, as patient is a poor surgical candidate
--- NOTE | 2022-04-22 10:28 | PN.HOSP_ITS ---
Reason for Visit Reason for Visit: Diagnoses Alcohol abuse, uncomplicated (04/17/22) Alcohol use, unspecified with withdrawal, unspecified (04/17/22) Secondary esophageal varices with bleeding (04/17/22) Chronic or unspecified gastric ulcer with hemorrhage (04/17/22) Alcoholic hepatitis without ascites (04/17/22) Alcoholic liver disease, unspecified (04/17/22) Unspecified cirrhosis of liver (04/17/22) Calculus of gallbladder without cholecystitis without obstruction (04/17/22) Other ascites (04/17/22) Subjective Subjective Patient seen and examined. She was lethargic, so couldnt do review of systems. Her ammonia level is elevated. Her total bilirubin is 10.7. Potassium is 3.0 today. Mother requested transfer to [facility] yesterday; I did speak to [facility] neurology director and potato picker who didnt think there was a need for transfer and denied transfer. Objective Data Objective Data Vital Signs: Vital Signs Temp Pulse Resp BP Pulse Ox O2 Del Method 98.3 F 61 17 136/84 H 100 Room Air 04/22/22 04:00 04/22/22 09:00 04/22/22 09:00 04/22/22 09:00 04/22/22 09:00 04/22/22 09:00 Oxygen Delivery Method Room Air Weight: 164 lb 10.965 oz Body Mass Index (BMI) 25.8 Intake & Output: Intake and Output for Last 24 Hours 04/20/22 04/21/22 04/22/22 23:59 23:59 23:59 Intake Total 3808.50 / 4031.40 2734.10 / 2758.10 879.25 / 879.25 Output Total 1300 / 1300 Balance 3808.50 / 4031.40 1434.10 / 1458.10 879.25 / 879.25 Lab / Micro Data Result Diagrams: 04/22/22 04:15 04/22/22 04:15 Labs: Laboratory Results - last 24 hr 04/21/22 13:40: Ammonia 83.0 H 04/21/22 13:40: Amylase 70, Lipase 309 04/22/22 04:15: WBC 5.1, RBC 3.55 L, Hgb 11.0 L, Hct 34.1 L, MCV 96.1, MCH 31.0, MCHC 32.3, RDW Std Deviation 72.7 H, RDW Coeff of Melissa 20.0 H, Plt Count 65 L, MPV 10.0, Immature Gran % (Auto) 1.200 H, Neut % (Auto) 79.6 H, Lymph % (Auto) 10.4 L, [place] % (Auto) 8.4, Eos % (Auto) 0.2, Baso % (Auto) 0.2, Absolute Neuts (auto) 4.1, Absolute Lymphs (auto) 0.53 L, Nucleated RBC % 0, Differential Comment SCANNED 04/22/22 04:15: Sodium 134 L, Potassium 3.0 L, Chloride 101, Carbon Dioxide 23.0, Anion Gap 10, BUN 7, Creatinine 0.75, Estim Creat Clear Calc 81.65, Est GFR (MDRD) Af Amer 105, Est GFR (MDRD) Non-Af 87, BUN/Creatinine Ratio 9.3 L, Glucose 146 H, Calcium 8.6, Total Bilirubin 10.70 H, AST 102 H, ALT 47, Alkaline Phosphatase 169 H, Total Protein 8.2, Albumin 2.7 L, Globulin 5.5 H, Albumin/Globulin Ratio 0.5 L 04/22/22 07:40: PT 19.1 H, INR 1.6 Micro: Microbiology 04/17/22 05:13 Vomitus Gastric Occult Blood - Final Occult Blood Positive 04/17/22 04:50 Stool Stool Occult Blood (NOELLE) - Final Occult Blood Positive Rhythm Strip Rhythm Strip: Sinus Rhythm Physical Exam Const Constitutional Narrative: lethargic Orientation / Consciousness: lethargic HEENT head/scalp atraumatic and moist oral mucous membranes Head and Scalp: normocephalic Mouth: oral and palatal mucosa normal Eyes PERRL, EOMs intact bilaterally and conjunctivae normal Eyes Narrative: jaundiced Neck no lymphadenopathy, supple and no JVD Resp normal respiratory effort, no retractions, no use of accessory muscles and clear to auscultation bilaterally Cardio regular rate, regular rhythm, S1 normal heart sound, S2 normal heart sound and no murmurs GI normal to inspection, nondistended, normoactive bowel sounds, soft to palpation, non-tender and non-distended GI Narrative: moderate distension, positive fluid thrill, mild hepatomegaly Extremity normal to inspection, full ROM and no clubbing, cyanosis or edema Neuro Neuro Narrative: lethargic Psych Psych Narrative: lethargic Assessment & Plan Assessment/Plan (1) Bleeding esophageal varices due to alcoholic liver disease: (2) Alcohol withdrawal: PLAN: Plan #Acute GI bleed * likely due to bleeding esophageal varices in a patient with liver cirrhosis and varices * had EGD which showed grade II esophageal varices which were banded, as well as portal hypertensive gastropathy. * off octreotide drip. * GI on board. * now on an oral diet * #Hypokalemia: resolved #Liver cirrhosis with acute alcoholic hepatitis * total bilirubin is slightly down to 10.7. * on solumedrol, pentoxyfylline and rifaximin. * gastroenterology on board * ammonia also elevated. Lactulose increased, will titrate to achieve 2-3 loose stools daily * AST, ALT and ALP have trended downwards. * gallbladder USG showed small amount of pericholecystic fluid with solitary gallstone in the neck of the gallbladder * on lactulose and rifaximin o/a of elevated ammonia level * general surgery on board. Didnt think she needs any acute inervention * GI on board; patient to be started on steroids to help with alcoholic hepatitis #Acute alcohol withdrawal with delirium tremens * critical care on board. * precedex drip being weaned down. * on phenobarb taper * CIWA score being monitored * * #Hypomagnesemia: resolved. Mg is 2 today. #Thrombocytopenia * platelets remain 65. Will trend. * #Hypokalemia: K is 3. Will replace and trend. * DVT prophylaxis: SCDs * Charges/Coding Visit Charges Inpatient E&M: 22890 Subs Hosp L2
[2022-04-22] MEDS: ARIPiprazole 2 MG Tablet PO (10:39)
[2022-04-22] MEDS: Ondansetron 8 MG Tablet PO (14:44)
[2022-04-23] VITALS (20 sets, daily range): BP systolic 90–136; BP diastolic 55–76; PULSE 61–78; RESP 15–22; TEMP 36.4–37.2; O2SAT 95–100
[2022-04-23] MEDS: Ondansetron 8 MG Tablet PO (02:15)
[2022-04-23] MEDS: Phenobarbital 32.4 MG Tablet PO ×6 (02:15→23:10)
[2022-04-23] MEDS: Lactulose 20 GM/30 ML UDC PO ×4 (04:37→23:32)
[2022-04-23 05:48] LABS: Absolute Lymphocyte Count 0.67 X10^3/uL (0.83-4.51); Absolute Neutrophil Count 5.6 X10^3/uL (2.0-7.7); Basophil# 0.02 X10^3/uL; Basophil% 0.3 % (0-1); Eosinophil# 0.08 X10^3/uL; Eosinophils% 1.1 % (0-5); Hematocrit 32.4 % (37-47); Hemoglobin 10.5 g/dL (12.0-15.0); Lymphocyte # 0.67 X10^3/ul (0.83-4.51); Lymphocyte % 9.2 % (19-41); Mean Corp Hgb Conc 32.4 g/dL (32-36); Mean Corpuscular Hgb 31.1 pg (27.0-32.0); Mean Corpuscular Volume 95.9 fL (81-99); Mean Platelet Vol. 10.5 fl (6.2-12.0); Monocyte# 0.81 X10^3/uL; Monocyte% 11.1 % (0-10); NRBC Flagged by Analyzer 0 % (0-5); Neutrophil # 5.64 X10^3/uL (2.7-7.7); Neutrophil % 77.1 % (47-70); POSITIVE COUNT YES; POSITIVE MORPHOLOGY YES; Platelet Count 82 K/mm3 (150-450); RBC Distribution Width CV 20.8 % (11.6-14.6); RBC Distribution Width SD 72.2 fl (35.1-43.9); Red Blood Count 3.38 M/mm3 (4.2-5.4); White Blood Count 7.3 K/mm3 (4.4-11.0)
[2022-04-23 05:52] LABS: Differential Indicated SCAN CRITERIA MET
[2022-04-23 06:08] LABS: ALB/GLOB Ratio 0.6 RATIO (0.9-2.4); AST(SGOT) 98 U/L (15-37); Alanine Aminotransfer ALT/SGPT 46 U/L (13-56); Albumin, Serum 2.7 g/dL (3.2-5.0); Alkaline Phosphatase 159 U/L (45-117); Anion Gap 10 (5-15); BUN 16 mg/dL (7-18); BUN/Creat Ratio 17.7 RATIO (10-20); Calcium,Total 8.7 mg/dL (8.5-10.1); Chloride 105 mmol/L (98-107); Creatinine, Serum 0.91 mg/dL (0.55-1.02); EST Glomerular Filtration Rate 70 mL/min (>60); Est Glom Filt Rate - Afr Amer 85 mL/min (>60); Estimated Creatinine Clearance 67.29 ml/min; Globulin 4.9 g/dL (2.2-4.2); Glucose 120 mg/dL (74-106); Protein, Total 7.6 g/dL (6.4-8.2); Sodium Level 135 mmol/L (136-145)
[2022-04-23 06:09] LABS: Differential Comment SCANNED; Target Cells 2+
[2022-04-23 06:11] LABS: Anisocytosis 2+; Macrocytosis 1+; Microcytosis 1+; Polychromasia RARE
[2022-04-23] MEDS: Potassium Chloride 10mEq/100mL 10 MEQ/100 ML IV.SOLN. 100 MEQ IV BOLUS ×4 (08:06→11:29)
[2022-04-23 08:08] LABS: Magnesium 1.7 mg/dL (1.6-2.6)
[2022-04-23] MEDS: Sucralfate 1 GM Tablet PO ×2 (08:09→17:05)
[2022-04-23] MEDS: 0.9% Saline Lock 10 ML Syringe IV (08:09)
[2022-04-23] MEDS: Potassium Chloride Oral Tablet 20 MEQ 60 MEQ PO (08:14)
[2022-04-23] MEDS: Folic Acid 1 MG Tablet PO (09:26)
[2022-04-23] MEDS: Pentoxifylline 400 MG Tablet PO ×3 (09:27→17:06)
[2022-04-23] MEDS: Thiamine Hydrochloride 100 MG Tablet PO (09:27)
--- NOTE | 2022-04-23 09:46 | PN.HOSP_ITS ---
Reason for Visit Reason for Visit: Diagnoses Alcohol abuse, uncomplicated (04/17/22) Alcohol use, unspecified with withdrawal, unspecified (04/17/22) Secondary esophageal varices with bleeding (04/17/22) Chronic or unspecified gastric ulcer with hemorrhage (04/17/22) Alcoholic hepatitis without ascites (04/17/22) Alcoholic liver disease, unspecified (04/17/22) Unspecified cirrhosis of liver (04/17/22) Calculus of gallbladder without cholecystitis without obstruction (04/17/22) Other ascites (04/17/22) Subjective Subjective Patient seen and examined. She feels much better today. She is off precedex. She had no active complaints and had an uneventful night. She is doing much better, and was ambulating with her nurse. Her bilirubin is 10.3. Review of systems is otherwise negative. Objective Data Objective Data Vital Signs: Vital Signs Temp Pulse Resp BP Pulse Ox O2 Del Method 97.8 F 65 17 105/64 95 Room Air 04/23/22 04:00 04/23/22 07:00 04/23/22 07:00 04/23/22 07:00 04/23/22 07:00 04/23/22 07:00 Oxygen Delivery Method Room Air Weight: 163 lb 5.8 oz Body Mass Index (BMI) 25.8 Intake & Output: Intake and Output for Last 24 Hours 04/21/22 04/22/22 04/23/22 23:59 23:59 23:59 Intake Total 2734.10 / 2758.10 1577.18 / 1590.68 771.38 / 771.38 Output Total 1300 / 1300 1200 / 1700 750 / 750 Balance 1434.10 / 1458.10 377.18 / -109.32 21.38 / 21.38 Lab / Micro Data Result Diagrams: 04/23/22 05:35 04/23/22 05:35 Labs: Laboratory Results - last 24 hr 04/23/22 04:15: Magnesium 1.7 04/23/22 05:35: WBC 7.3, RBC 3.38 L, Hgb 10.5 L, Hct 32.4 L, MCV 95.9, MCH 31.1, MCHC 32.4, RDW Std Deviation 72.2 H, RDW Coeff of Melissa 20.8 H, Plt Count 82 L, MPV 10.5, Immature Gran % (Auto) 1.200 H, Neut % (Auto) 77.1 H, Lymph % (Auto) 9 .2 L, [place] % (Auto) 11.1 H, Eos % (Auto) 1.1, Baso % (Auto) 0.3, Absolute Neuts (auto) 5.6, Absolute Lymphs (auto) 0.67 L, Nucleated RBC % 0, Differential Comment SCANNED, Polychromasia RARE, Anisocytosis 2+, Microcytosis 1+, Macrocytosis 1+, Target Cells 2+ 04/23/22 05:35: Sodium 135 L, Potassium 3.0 L, Chloride 105, Carbon Dioxide 20.0 L, Anion Gap 10, BUN 16, Creatinine 0.91, Estim Creat Clear Calc 67.29, Est GFR (MDRD) Af Amer 85, Est GFR (MDRD) Non-Af 70, BUN/Creatinine Ratio 17.7, Glucose 120 H, Calcium 8.7, Total Bilirubin 10.30 H, AST 98 H, ALT 46, Alkaline Phosphatase 159 H, Total Protein 7.6, Albumin 2.7 L, Globulin 4.9 H, Albumin/Globulin Ratio 0.6 L 04/23/22 05:35: Ammonia Cancelled 04/23/22 07:15: Ammonia 63.0 H Micro: Microbiology 04/17/22 05:13 Vomitus Gastric Occult Blood - Final Occult Blood Positive 04/17/22 04:50 Stool Stool Occult Blood (NOELLE) - Final Occult Blood Positive Rhythm Strip Rhythm Strip: Sinus Rhythm Physical Exam Const alert, oriented x3 and no apparent distress Constitutional Narrative: much more communicative today Orientation / Consciousness: disoriented HEENT head/scalp atraumatic and moist oral mucous membranes Head and Scalp: normocephalic Mouth: oral and palatal mucosa normal Eyes PERRL, EOMs intact bilaterally and conjunctivae normal Eyes Narrative: jaundiced Neck no lymphadenopathy, supple and no JVD Resp normal respiratory effort, no retractions, no use of accessory muscles and clear to auscultation bilaterally Cardio regular rate, regular rhythm, S1 normal heart sound, S2 normal heart sound and no murmurs GI normal to inspection, nondistended, normoactive bowel sounds, soft to palpation and non-tender GI Narrative: moderate distension, positive fluid thrill, mild hepatomegaly Extremity normal to inspection, full ROM and no clubbing, cyanosis or edema Neuro oriented x3, CN's II-XII intact bilaterally, moves all extremities and no focal motor deficits Sensorium / Orientation: awake and alert Psych affect normal Assessment & Plan Assessment/Plan (1) Bleeding esophageal varices due to alcoholic liver disease: (2) Alcohol withdrawal: PLAN: Plan #Acute GI bleed * likely due to bleeding esophageal varices in a patient with liver cirrhosis and varices * had EGD which showed grade II esophageal varices which were banded, as well as portal hypertensive gastropathy. * off octreotide drip. * GI on board. * now on an oral diet * #Hypokalemia: K is 3. Will replace and trend. #Liver cirrhosis with acute alcoholic hepatitis * total bilirubin is trending downwards to 10.3 today. * on solumedrol, pentoxyfylline and rifaximin. * gastroenterology on board * on lactulose, titrate to achieve 2-3 loose stools daily. * AST, ALT and ALP have trended downwards. * gallbladder USG showed small amount of pericholecystic fluid with solitary gallstone in the neck of the gallbladder * on lactulose and rifaximin o/a of elevated ammonia level * general surgery on board. Didnt think she needs any acute intervention * #Acute alcohol withdrawal with delirium tremens * critical care on board. * precedex weaned off. * on phenobarb taper * will monitor CIWA score. * #Hypomagnesemia: resolved. Mg is 2 today. #Thrombocytopenia * platelets has trended upwards to 82. * DVT prophylaxis: SCDs * * Disposition: transfer to PCU today. Charges/Coding Visit Charges Inpatient E&M: 51155 Subs Hosp L3
--- NOTE | 2022-04-23 10:06 | PCM.PROGNOTE ---
Subjective Subjective Patient is doing a lot better. She is more coherent. She is off of Precedex. She is tolerating a diet Objective Data Objective Data Vital Signs: Vital Signs Temp Pulse Resp BP Pulse Ox O2 Del Method 97.8 F 65 17 105/64 95 Room Air 04/23/22 04:00 04/23/22 07:00 04/23/22 07:00 04/23/22 07:00 04/23/22 07:00 04/23/22 07:00 Oxygen Delivery Method Room Air Weight: 163 lb 5.8 oz Body Mass Index (BMI) 25.8 Intake & Output: Intake and Output for Last 24 Hours 04/21/22 04/22/22 04/23/22 23:59 23:59 23:59 Intake Total 2734.10 / 2758.10 1577.18 / 1590.68 785.32 / 785.32 Output Total 1300 / 1300 1200 / 1700 750 / 750 Balance 1434.10 / 1458.10 377.18 / -109.32 35.32 / 35.32 Lab / Micro Data Result Diagrams: 04/23/22 05:35 04/23/22 05:35 Labs: Laboratory Results - last 24 hr 04/23/22 04:15: Magnesium 1.7 04/23/22 05:35: WBC 7.3, RBC 3.38 L, Hgb 10.5 L, Hct 32.4 L, MCV 95.9, MCH 31.1, MCHC 32.4, RDW Std Deviation 72.2 H, RDW Coeff of Melissa 20.8 H, Plt Count 82 L, MPV 10.5, Immature Gran % (Auto) 1.200 H, Neut % (Auto) 77.1 H, Lymph % (Auto) 9.2 L, [place] % (Auto) 11.1 H, Eos % (Auto) 1.1, Baso % (Auto) 0.3, Absolute Neuts (auto) 5.6, Absolute Lymphs (auto) 0.67 L, Nucleated RBC % 0, Differential Comment SCANNED, Polychromasia RARE, Anisocytosis 2+, Microcytosis 1+, Macrocytosis 1+, Target Cells 2+ 04/23/22 05:35: Sodium 135 L, Potassium 3.0 L, Chloride 105, Carbon Dioxide 20.0 L, Anion Gap 10, BUN 16, Creatinine 0.91, Estim Creat Clear Calc 67.29, Est GFR (MDRD) Af Amer 85, Est GFR (MDRD) Non-Af 70, BUN/Creatinine Ratio 17.7, Glucose 120 H, Calcium 8.7, Total Bilirubin 10.30 H, AST 98 H, ALT 46, Alkaline Phosphatase 159 H, Total Protein 7.6, Albumin 2.7 L, Globulin 4.9 H, Albumin/Globulin Ratio 0.6 L 04/23/22 05:35: Ammonia Cancelled 04/23/22 07:15: Ammonia 63.0 H Micro: Microbiology 04/17/22 05:13 Vomitus Gastric Occult Blood - Final Occult Blood Positive 04/17/22 04:50 Stool Stool Occult Blood (NOELLE) - Final Occult Blood Positive Rhythm Strip Rhythm Strip: Sinus Rhythm Physical Exam Const alert, oriented x3 and no apparent distress Constitutional Narrative: much more communicative today Orientation / Consciousness: disoriented HEENT head/scalp atraumatic and moist oral mucous membranes Head and Scalp: normocephalic Mouth: oral and palatal mucosa normal Eyes PERRL, EOMs intact bilaterally and conjunctivae normal Eyes Narrative: jaundiced Neck no lymphadenopathy, supple and no JVD Resp normal respiratory effort, no retractions, no use of accessory muscles and clear to auscultation bilaterally Cardio regular rate, regular rhythm, S1 normal heart sound, S2 normal heart sound and no murmurs GI normal to inspection, nondistended, normoactive bowel sounds, soft to palpation and non-tender GI Narrative: moderate distension, positive fluid thrill, mild hepatomegaly Extremity normal to inspection, full ROM and no clubbing, cyanosis or edema Neuro oriented x3, CN's II-XII intact bilaterally, moves all extremities and no focal motor deficits Sensorium / Orientation: awake and alert Psych affect normal Assessment & Plan Assessment/Plan (1) Bleeding esophageal varices due to alcoholic liver disease: PLAN: octreotide and PPI drip is stopped. Recommend only Protonix 40 mg IV every 12 hours. She is tolerating a regular diet. (2) Alcohol withdrawal: PLAN: She is not having any signs of alcohol withdrawal at this time. Continue Precedex and phenobarbital. Had a long conversation with her regarding her continued alcohol intake and she says that she wants to stop and may be willing to go into AA for help. (3) Gastric ulcer with hemorrhage: PLAN: Gastric ulcer likely secondary to alcoholic gastritis. There was no sign of ulcerations on this exam but she did have severe portal gastropathy with recent stigmata of bleeding. (4) Cirrhosis of liver with ascites: PLAN: At this time she is suffering from alcoholic hepatitis with a Madrey score of 34. She is not encephalopathic at this time. I would recommend Xifaxan 5 to 50 mg p.o. twice daily and lactulose 20 cc p.o. every 6 hours as prophylaxis for encephalopathy. She would likely need an ultrasound to assess for ascites. (5) Alcoholic hepatitis: PLAN: Patient is Madrey score is increased to 34. But is about the same today. Continue pentoxifylline 400 mg p.o. 3 times daily. She was given better prognosis. N-acetylcysteine for nonacetaminophen induced acute liver injury. On steroids x4 days and check a Matilda score to see if steroids will improve her overall outcome. She would likely need steroids at home to complete a 30-day course. This is day #3 of steroids. Charges/Coding Visit Charges Inpatient E&M: 42949 Subs Hosp L3
[2022-04-23] MEDS: Ondansetron 4 MG/2 ML Vial IV ×2 (10:56→17:38)
--- NOTE | 2022-04-23 11:02 | PCM.PN.SRG ---
Subjective Subjective patient denies abdominal pain, but is tender to palpation in RUQ - no peritoneal signs, suspect liver pathology rather than gallbladder pathology causing pain Objective Data Objective Data Vital Signs: Vital Signs Temp Pulse Resp BP Pulse Ox O2 Del Method 97.8 F 65 17 105/64 95 Room Air 04/23/22 04:00 04/23/22 07:00 04/23/22 07:00 04/23/22 07:00 04/23/22 07:00 04/23/22 07:00 Oxygen Delivery Method Room Air Weight: 74.1 kg Body Mass Index (BMI) 25.8 Intake & Output: Intake and Output for Last 24 Hours 04/21/22 04/22/22 04/23/22 23:59 23:59 23:59 Intake Total 2734.10 / 2758.10 1577.18 / 1590.68 885.32 / 885.32 Output Total 1300 / 1300 1200 / 1700 750 / 750 Balance 1434.10 / 1458.10 377.18 / -109.32 135.32 / 135.32 Lab / Micro Data Attestation: I reviewed the patient's lab results. Result Diagrams: 04/23/22 05:35 04/23/22 05:35 Labs: Laboratory Results - last 24 hr 04/23/22 04:15: Magnesium 1.7 04/23/22 05:35: WBC 7.3, RBC 3.38 L, Hgb 10.5 L, Hct 32.4 L, MCV 95.9, MCH 31.1, MCHC 32.4, RDW Std Deviation 72.2 H, RDW Coeff of Melissa 20.8 H, Plt Count 82 L, MPV 10.5, Immature Gran % (Auto) 1.200 H, Neut % (Auto) 77.1 H, Lymph % (Auto) 9.2 L, [place] % (Auto) 11.1 H, Eos % (Auto) 1.1, Baso % (Auto) 0.3, Absolute Neuts (auto) 5.6, Absolute Lymphs (auto) 0.67 L, Nucleated RBC % 0, Differential Comment SCANNED, Polychromasia RARE, Anisocytosis 2+, Microcytosis 1+, Macrocytosis 1+, Target Cells 2+ 04/23/22 05:35: Sodium 135 L, Potassium 3.0 L, Chloride 105, Carbon Dioxide 20.0 L, Anion Gap 10, BUN 16, Creatinine 0.91, Estim Creat Clear Calc 67.29, Est GFR (MDRD) Af Amer 85, Est GFR (MDRD) Non-Af 70, BUN/Creatinine Ratio 17.7, Glucose 120 H, Calcium 8.7, Total Bilirubin 10.30 H, AST 98 H, ALT 46, Alkaline Phosphatase 159 H, Total Protein 7.6, Albumin 2.7 L, Globulin 4.9 H, Albumin/Globulin Ratio 0.6 L 04/23/22 05:35: Ammonia Cancelled 04/23/22 07:15: Ammonia 63.0 H Micro: Microbiology 04/17/22 05:13 Vomitus Gastric Occult Blood - Final Occult Blood Positive 04/17/22 04:50 Stool Stool Occult Blood (NOELLE) - Final Occult Blood Positive Rhythm Strip Rhythm Strip: Sinus Rhythm Physical Exam Const alert and oriented x3 General Appearance: cooperative Neck supple Resp normal respiratory effort Effort and Inspection: able to speak in complete sentences Cardio Cardio Narrative: abdomen is soft and benign, protuberant Assessment & Plan Assessment/Plan (1) Cholelithiasis: QUALIFIERS: Cholelithiasis location: gallbladder PLAN: see below PLAN: Plan patient is not a surgical candidate but clinically no indication for intervention for cholelithiasis as this point in time Continue present therapy
[2022-04-23] MEDS: rifAXIMin 550 MG Tablet PO ×2 (11:23→20:47)
[2022-04-23] MEDS: ARIPiprazole 2 MG Tablet PO (11:59)
[2022-04-23] MEDS: Sertraline 100 MG Tablet PO (12:00)
[2022-04-23] MEDS: 0.9% Normal Saline 1,000 ML 125 ML IV ×2 (12:48→20:44)
[2022-04-23] MEDS: Dicyclomine 10 MG Capsule 20 MG PO ×2 (14:29→23:10)
[2022-04-24] MEDS: Loperamide 2 MG Capsule PO (04:57)
[2022-04-24] MEDS: Phenobarbital 32.4 MG Tablet PO ×4 (05:00→23:53)
[2022-04-24 05:01] VITALS: BP 147/45; PULSE 73; RESP 16; TEMP 37.1; O2SAT 100
[2022-04-24] MEDS: Lactulose 20 GM/30 ML UDC PO ×3 (05:01→23:54)
[2022-04-24 06:31] LABS: Absolute Lymphocyte Count 1.27 X10^3/uL (0.83-4.51); Absolute Neutrophil Count 7.3 X10^3/uL (2.0-7.7); Basophil# 0.05 X10^3/uL; Basophil% 0.5 % (0-1); Eosinophil# 0.17 X10^3/uL; Eosinophils% 1.6 % (0-5); Hematocrit 36.6 % (37-47); Hemoglobin 11.7 g/dL (12.0-15.0); Lymphocyte # 1.27 X10^3/ul (0.83-4.51); Lymphocyte % 11.9 % (19-41); Mean Corpuscular Hgb 31.4 pg (27.0-32.0); Mean Corpuscular Volume 98.1 fL (81-99); Mean Platelet Vol. 10.6 fl (6.2-12.0); Monocyte# 1.72 X10^3/uL; Monocyte% 16.1 % (0-10); NRBC Flagged by Analyzer 0 % (0-5); Neutrophil # 7.31 X10^3/uL (2.7-7.7); Neutrophil % 68.6 % (47-70); POSITIVE DIFFERENTIAL YES; POSITIVE MORPHOLOGY YES; Platelet Count 151 K/mm3 (150-450); RBC Distribution Width CV 20.6 % (11.6-14.6); RBC Distribution Width SD 74.9 fl (35.1-43.9); Red Blood Count 3.73 M/mm3 (4.2-5.4); White Blood Count 10.7 K/mm3 (4.4-11.0)
[2022-04-24 06:59] LABS: Differential Indicated SCAN CRITERIA MET
[2022-04-24 07:09] LABS: ALB/GLOB Ratio 0.5 RATIO (0.9-2.4); AST(SGOT) 98 U/L (15-37); Alanine Aminotransfer ALT/SGPT 47 U/L (13-56); Albumin, Serum 2.9 g/dL (3.2-5.0); Alkaline Phosphatase 175 U/L (45-117); Anion Gap 8 (5-15); BUN 14 mg/dL (7-18); BUN/Creat Ratio 17.2 RATIO (10-20); Calcium,Total 9.1 mg/dL (8.5-10.1); Chloride 111 mmol/L (98-107); Creatinine, Serum 0.81 mg/dL (0.55-1.02); EST Glomerular Filtration Rate 79 mL/min (>60); Est Glom Filt Rate - Afr Amer 96 mL/min (>60); Globulin 5.3 g/dL (2.2-4.2); Glucose 112 mg/dL (74-106); Potassium 2.8 mmol/L (3.5-5.1); Protein, Total 8.2 g/dL (6.4-8.2); Sodium Level 137 mmol/L (136-145)
[2022-04-24 07:14] LABS: Anisocytosis 2+
[2022-04-24 08:11] VITALS: BP 157/69; PULSE 74; RESP 18; TEMP 37.3; O2SAT 100
[2022-04-24 08:12] LABS: Magnesium 1.9 mg/dL (1.6-2.6); Phosphorus 1.4 mg/dL (2.5-4.9)
[2022-04-24] MEDS: Folic Acid 1 MG Tablet PO (08:12)
[2022-04-24] MEDS: Spironolactone 25 MG Tablet PO (08:13)
[2022-04-24] MEDS: rifAXIMin 550 MG Tablet PO ×2 (08:13→20:25)
[2022-04-24] MEDS: Thiamine Hydrochloride 100 MG Tablet PO (08:13)
[2022-04-24] MEDS: Pentoxifylline 400 MG Tablet PO ×3 (08:13→16:47)
[2022-04-24] MEDS: Propranolol LA 80 MG Capsule PO (08:13)
[2022-04-24] MEDS: 0.9% Saline Lock 10 ML Syringe IV ×2 (08:14→11:12)
[2022-04-24] MEDS: Sertraline 100 MG Tablet PO (08:14)
[2022-04-24] MEDS: ARIPiprazole 2 MG Tablet PO (08:14)
[2022-04-24] MEDS: Sucralfate 1 GM Tablet PO ×2 (08:17→16:47)
--- NOTE | 2022-04-24 10:24 | PN.HOSP_ITS ---
Reason for Visit Reason for Visit: Diagnoses Alcohol abuse, uncomplicated (04/17/22) Alcohol use, unspecified with withdrawal, unspecified (04/17/22) Secondary esophageal varices with bleeding (04/17/22) Chronic or unspecified gastric ulcer with hemorrhage (04/17/22) Alcoholic hepatitis without ascites (04/17/22) Alcoholic liver disease, unspecified (04/17/22) Unspecified cirrhosis of liver (04/17/22) Calculus of gallbladder without cholecystitis without obstruction (04/17/22) Other ascites (04/17/22) Subjective Subjective Doing well, no issues overnight. Still has some confusion per nursing report Objective Data Objective Data Vital Signs: Vital Signs Temp Pulse Resp BP Pulse Ox O2 Del Method 99.2 F H 74 18 157/69 H 100 Room Air 04/24/22 08:11 04/24/22 08:11 04/24/22 08:11 04/24/22 08:11 04/24/22 08:11 04/24/22 08:11 Oxygen Delivery Method Room Air Weight: 166 lb 3.657 oz Body Mass Index (BMI) 25.8 Intake & Output: Intake and Output for Last 24 Hours 04/23/22 04/24/22 04/25/22 03:59 03:59 03:59 Intake Total 1880.78 / 1894.28 2507.99 / 2507.99 1160 / 1160 Output Total 1700 / 1700 2700 / 2700 Balance 180.78 / 194.28 -192.01 / -192.01 1160 / 1160 Lab / Micro Data Result Diagrams: 04/24/22 06:19 04/24/22 06:19 Labs: Laboratory Results - last 24 hr 04/24/22 06:19: WBC 10.7, RBC 3.73 L, Hgb 11.7 L, Hct 36.6 L, MCV 98.1, MCH 31.4, MCHC 32.0, RDW Std Deviation 74.9 H, RDW Coeff of Melissa 20.6 H, Plt Count 151, MPV 10.6, Immature Gran % (Auto) 1.300 H, Neut % (Auto) 68.6, Lymph % (Auto ) 11.9 L, [place] % (Auto) 16.1 H, Eos % (Auto) 1.6, Baso % (Auto) 0.5, Absolute Neuts (auto) 7.3, Absolute Lymphs (auto) 1.27, Nucleated RBC % 0, Anisocytosis 2+ 04/24/22 06:19: Sodium 137, Potassium 2.8 L, Chloride 111 H, Carbon Dioxide 18.0 L, Anion Gap 8, BUN 14, Creatinine 0.81, Estim Creat Clear Calc 75.60, Est GFR (MDRD) Af Amer 96, Est GFR (MDRD) Non-Af 79, BUN/Creatinine Ratio 17.2, Glucose 112 H, Calcium 9.1, Total Bilirubin 11.80 H, AST 98 H, ALT 47, Alkaline Phosphatase 175 H, Total Protein 8.2, Albumin 2.9 L, Globulin 5.3 H, Albumin/Globulin Ratio 0.5 L 04/24/22 06:19: Phosphorus 1.4 L, Magnesium 1.9 Micro: Microbiology 04/17/22 05:13 Vomitus Gastric Occult Blood - Final Occult Blood Positive 04/17/22 04:50 Stool Stool Occult Blood (NOELLE) - Final Occult Blood Positive Rhythm Strip Rhythm Strip: Sinus Rhythm Physical Exam Narrative General: Alert, Oriented x3, Cooperative, No apparent distress HEENT: Atraumatic, PERRLA, EOMI, Normocephalic Oral: Moist Mucosa Neck: Supple, No JVD Lungs: Clear to auscultation, Normal air movement, No rhonchi, No wheeze, No rales Cardiovascular: Regular rate, Regular Rhythm, Normal S1, Normal S2, No murmurs Abdomen: Soft, Non Tender, Non-Distended, No Hepato-splenomegaly Extremities: No edema, Capillary Refill Less than 3 Seconds Skin: No rashes, No breakdown, Benigno this Musculoskeletal: No Tenderness to Palpation of Joints or Extremities Neurological: Cranial nerves II-XII grossly intact, Motor Exam 5/5 strength throughout, Sensory exam intact to light touch and pain Psych/Mental Status: Normal Affect, Appropriate Assessment & Plan Assessment/Plan (1) Bleeding esophageal varices due to alcoholic liver disease: (2) Alcohol withdrawal: PLAN: Plan #Acute GI bleed/liver cirrhosis with acute alcoholic hepatitis/acute alcohol withdrawal with delirium tremens/thrombocytopenia/anxiety/depression * likely due to bleeding esophageal varices in a patient with liver cirrhosis and varices * had EGD which showed grade II esophageal varices which were banded, as well as portal hypertensive gastropathy. * Appreciate GI assistance * Continue with lactulose as well as Solu-Medrol, pentoxifylline, rifaximin. We will transition her Solu-Medrol to prednisone in the morning * Continue with her PPI * now on an oral diet, bilirubin is stabilized but is still elevated * No surgical intervention for her gallbladder at this time * She is off the Precedex drip but per nursing she does exhibit some odd behaviors at times she just pulled out her IV and urinated all over the floor and thinks her mother works in the hospital * Her thrombocytopenia is now resolved likely related to her alcohol use and bleeding * Continuous Zoloft, Abilify * Continue propranolol DVT: SCDs Charges/Coding Visit Charges Inpatient E&M: 83263 Subs Hosp L2
--- NOTE | 2022-04-24 11:10 | CASEMGMT ---
Social work SW accompanied Manager Money, Gina Carroll, in meeting with pt to determine if pt is oriented and capable of making decisions for self. Pt presented as oriented x3, evidenced by correctly answering questions related to self, time and place. Pt was able to hold intelligent conversation regarding a discharge plan and appeared to be using critical thinking skills while considering the options presented to her regarding discharging to inpatient treatment or going home first. Pt asked to have time to think before making this decision. PLAN: Possible inpatient addiction treatment placement [facility]
--- NOTE | 2022-04-24 11:40 | NURSING ---
Patient's mother, Gertrude Velasquez, phoned in and asked for an update on patient. This RN reviewed updates from this shift so far. Patient's mother voiced concerns about taking patient home and caring for her daughter. She states she was confused when they talked on the phone stating that she saw a rat in her room and thought that her mother was here at the hospital helping housekeeping. SW was made aware of of the situation and states she will follow up.
[2022-04-24 12:44] VITALS: BP 140/67; PULSE 69; RESP 16; TEMP 37.3; O2SAT 97
[2022-04-24] MEDS: Gabapentin 300 MG Capsule PO (15:01)
--- NOTE | 2022-04-24 15:44 | NURSING ---
Patient set bed alarm off and came out to the nurses' station. CHEF MANAGER was with patient. She appeared agitated and was hallucinating that her mother was here and was upset with her because she took all of her stuff. The CHEF MANAGER escorted patient back to her room. A PRN dose if gabapentin was given for anxiety. Bed alarm placed. Will continue to monitor.
[2022-04-24 16:48] VITALS: BP 156/75; PULSE 76; RESP 18; TEMP 36.8; O2SAT 96
--- NOTE | 2022-04-24 17:06 | PCM.PROGNOTE ---
Subjective Subjective Patient is eating and in good spirits. She still has a grade 1-2 encephalopathy. Objective Data Objective Data Vital Signs: Vital Signs Temp Pulse Resp BP Pulse Ox O2 Del Method 98.3 F 76 18 156/75 H 96 Room Air 04/24/22 16:48 04/24/22 16:48 04/24/22 16:48 04/24/22 16:48 04/24/22 16:48 04/24/22 16:48 Oxygen Delivery Method Room Air Weight: 166 lb 3.657 oz Body Mass Index (BMI) 25.8 Intake & Output: Intake and Output for Last 24 Hours 04/22/22 04/23/22 04/24/22 23:59 23:59 23:59 Intake Total 1577.18 / 1590.68 2921.99 / 2921.99 2079 Output Total 1200 / 1700 3200 / 3200 Balance 377.18 / -109.32 -278.01 / -278.01 2079 Lab / Micro Data Result Diagrams: 04/24/22 06:19 04/24/22 06:19 Labs: Laboratory Results - last 24 hr 04/24/22 06:19: WBC 10.7, RBC 3.73 L, Hgb 11.7 L, Hct 36.6 L, MCV 98.1, MCH 31.4, MCHC 32.0, RDW Std Deviation 74.9 H, RDW Coeff of Melissa 20.6 H, Plt Count 151, MPV 10.6, Immature Gran % (Auto) 1.300 H, Neut % (Auto) 68.6, Lymph % (Auto) 11.9 L, [place] % (Auto) 16.1 H, Eos % (Auto) 1.6, Baso % (Auto) 0.5, Absolute Neuts (auto) 7.3, Absolute Lymphs (auto) 1.27, Nucleated RBC % 0, Anisocytosis 2+ 04/24/22 06:19: Sodium 137, Potassium 2.8 L, Chloride 111 H, Carbon Dioxide 18.0 L, Anion Gap 8, BUN 14, Creatinine 0.81, Estim Creat Clear Calc 75.60, Est GFR (MDRD) Af Amer 96, Est GFR (MDRD) Non-Af 79, BUN/Creatinine Ratio 17.2, Glucose 112 H, Calcium 9.1, Total Bilirubin 11.80 H, AST 98 H, ALT 47, Alkaline Phosphatase 175 H, Total Protein 8.2, Albumin 2.9 L, Globulin 5.3 H, Albumin/Globulin Ratio 0.5 L 04/24/22 06:19: Phosphorus 1.4 L, Magnesium 1.9 Micro: Microbiology 04/17/22 05:13 Vomitus Gastric Occult Blood - Final Occult Blood Positive 04/17/22 04:50 Stool Stool Occult Blood (NOELLE) - Final Occult Blood Positive Rhythm Strip Rhythm Strip: Sinus Rhythm Physical Exam Narrative General: Alert, Oriented x3, Cooperative, No apparent distress HEENT: Atraumatic, PERRLA, EOMI, Normocephalic Oral: Moist Mucosa Neck: Supple, No JVD Lungs: Clear to auscultation, Normal air movement, No rhonchi, No wheeze, No rales Cardiovascular: Regular rate, Regular Rhythm, Normal S1, Normal S2, No murmurs Abdomen: Soft, Non Tender, Non-Distended, No Hepato-splenomegaly Extremities: No edema, Capillary Refill Less than 3 Seconds Skin: No rashes, No breakdown, Benigno this Musculoskeletal: No Tenderness to Palpation of Joints or Extremities Neurological: Cranial nerves II-XII grossly intact, Motor Exam 5/5 strength throughout, Sensory exam intact to light touch and pain Psych/Mental Status: Normal Affect, Appropriate Assessment & Plan Assessment/Plan (1) Bleeding esophageal varices due to alcoholic liver disease: PLAN: octreotide and PPI drip is stopped. Recommend only Protonix 40 mg IV every 12 hours. She is tolerating a regular diet. Protonix can be switched to 40 mg p.o. twice daily. (2) Alcohol withdrawal: PLAN: She is not having any signs of alcohol withdrawal at this time. Continue Precedex and phenobarbital. Had a long conversation with her regarding her continued alcohol intake and she says that she wants to stop and may be willing to go into AA for help. (3) Gastric ulcer with hemorrhage: PLAN: Gastric ulcer likely secondary to alcoholic gastritis. There was no sign of ulcerations on this exam but she did have severe portal gastropathy with recent stigmata of bleeding. (4) Cirrhosis of liver with ascites: PLAN: At this time she is suffering from alcoholic hepatitis with a Madrey score of 34. She is not encephalopathic at this time. I would recommend Xifaxan 550 mg p.o. twice daily and lactulose 20 cc p.o. every 6 hours as prophylaxis for encephalopathy. She would likely need an ultrasound to assess for ascites. (5) Alcoholic hepatitis: PLAN: Patient is Madrey score is increased to 34. But is about the same today. Continue pentoxifylline 400 mg p.o. 3 times daily. She was given better prognosis. N-acetylcysteine for nonacetaminophen induced acute liver injury. On steroids x4 days and check a Matilda score to see if steroids will improve her overall outcome. I am okay with her switching to oral steroids. This is day #4 of steroids. Her Matilda score was calculated and it does show that steroids to is to be continued for 30 days. Charges/Coding Visit Charges Inpatient E&M: 98050 Subs Hosp L3
[2022-04-24 20:21] VITALS: BP 153/78; PULSE 78; RESP 18; TEMP 36.9; O2SAT 96
[2022-04-24] MEDS: Pantoprazole Sodium 40 MG Tablet PO (20:25)
[2022-04-25 03:17] VITALS: BP 155/76; PULSE 63; RESP 18; TEMP 36.8; O2SAT 100
[2022-04-25 06:02] LABS: Absolute Lymphocyte Count 1.52 X10^3/uL (0.83-4.51); Absolute Neutrophil Count 7.5 X10^3/uL (2.0-7.7); Basophil# 0.05 X10^3/uL; Basophil% 0.5 % (0-1); Eosinophils% 1.8 % (0-5); Hematocrit 36.8 % (37-47); Hemoglobin 11.9 g/dL (12.0-15.0); Lymphocyte # 1.52 X10^3/ul (0.83-4.51); Lymphocyte % 13.8 % (19-41); Mean Corp Hgb Conc 32.3 g/dL (32-36); Mean Corpuscular Hgb 31.5 pg (27.0-32.0); Mean Corpuscular Volume 97.4 fL (81-99); Mean Platelet Vol. 10.9 fl (6.2-12.0); Monocyte% 14.6 % (0-10); NRBC Flagged by Analyzer 0 % (0-5); Neutrophil # 7.45 X10^3/uL (2.7-7.7); Neutrophil % 67.8 % (47-70); POSITIVE DIFFERENTIAL YES; POSITIVE MORPHOLOGY YES; Platelet Count 186 K/mm3 (150-450); RBC Distribution Width CV 20.2 % (11.6-14.6); Red Blood Count 3.78 M/mm3 (4.2-5.4)
[2022-04-25 06:04] LABS: Differential Indicated SCAN CRITERIA MET
[2022-04-25 06:22] LABS: Anisocytosis 1+; Differential Comment SCANNED
[2022-04-25] MEDS: Sucralfate 1 GM Tablet PO ×2 (06:22→16:35)
[2022-04-25] MEDS: Lactulose 20 GM/30 ML UDC PO ×2 (06:22→20:35)
[2022-04-25] MEDS: Phenobarbital 32.4 MG Tablet PO ×2 (06:23→12:20)
[2022-04-25 06:41] LABS: ALB/GLOB Ratio 0.6 RATIO (0.9-2.4); AST(SGOT) 91 U/L (15-37); Alanine Aminotransfer ALT/SGPT 48 U/L (13-56); Albumin, Serum 3.2 g/dL (3.2-5.0); Alkaline Phosphatase 183 U/L (45-117); Anion Gap 11 (5-15); BUN 11 mg/dL (7-18); BUN/Creat Ratio 16.7 RATIO (10-20); Calcium,Total 9.3 mg/dL (8.5-10.1); Chloride 108 mmol/L (98-107); Creatinine, Serum 0.66 mg/dL (0.55-1.02); EST Glomerular Filtration Rate 101 mL/min (>60); Est Glom Filt Rate - Afr Amer 122 mL/min (>60); Estimated Creatinine Clearance 92.78 ml/min; Globulin 5.3 g/dL (2.2-4.2); Glucose 110 mg/dL (74-106); Potassium 2.9 mmol/L (3.5-5.1); Protein, Total 8.5 g/dL (6.4-8.2); Sodium Level 136 mmol/L (136-145)
[2022-04-25 07:48] LABS: Magnesium 1.8 mg/dL (1.6-2.6); Phosphorus 2.6 mg/dL (2.5-4.9)
[2022-04-25] MEDS: Folic Acid 1 MG Tablet PO (08:13)
[2022-04-25] MEDS: Sertraline 100 MG Tablet PO (08:13)
[2022-04-25] MEDS: Pantoprazole Sodium 40 MG Tablet PO ×2 (08:13→20:34)
[2022-04-25] MEDS: hydrOXYzine PAM 25 MG Capsule 50 MG PO (08:13)
[2022-04-25] MEDS: Pentoxifylline 400 MG Tablet PO ×3 (08:13→16:35)
[2022-04-25] MEDS: predniSONE 20 MG Tablet 40 MG PO (08:13)
[2022-04-25] MEDS: ARIPiprazole 2 MG Tablet PO (08:14)
[2022-04-25] MEDS: Propranolol LA 80 MG Capsule PO (08:14)
[2022-04-25] MEDS: Thiamine Hydrochloride 100 MG Tablet PO (08:14)
[2022-04-25] MEDS: rifAXIMin 550 MG Tablet PO ×2 (08:14→20:34)
[2022-04-25] MEDS: Spironolactone 25 MG Tablet PO (08:21)
--- NOTE | 2022-04-25 08:24 | NURSING ---
Patient is hallucinating this morning. She states she snuck her dog in here last night. My kids are hiding under the bed. I got bit by two mosquitos last night. MD will be updated during rounds.
[2022-04-25 08:25] VITALS: BP 145/73; PULSE 66; RESP 18; TEMP 36.8; O2SAT 97
--- NOTE | 2022-04-25 11:02 | PN.HOSP_ITS ---
Reason for Visit Reason for Visit: Diagnoses Alcohol abuse, uncomplicated (04/17/22) Alcohol use, unspecified with withdrawal, unspecified (04/17/22) Secondary esophageal varices with bleeding (04/17/22) Chronic or unspecified gastric ulcer with hemorrhage (04/17/22) Alcoholic hepatitis without ascites (04/17/22) Alcoholic liver disease, unspecified (04/17/22) Unspecified cirrhosis of liver (04/17/22) Calculus of gallbladder without cholecystitis without obstruction (04/17/22) Other ascites (04/17/22) Subjective Subjective No issues overnight, she continues to have periods of lucidity followed by hallucinations Objective Data Objective Data Vital Signs: Vital Signs Temp Pulse Resp BP Pulse Ox O2 Del Method 98.3 F 66 18 145/73 H 97 Room Air 04/25/22 08:25 04/25/22 08:25 04/25/22 08:25 04/25/22 08:25 04/25/22 08:25 04/25/22 08:25 Oxygen Delivery Method Room Air Weight: 195 lb 5.273 oz Body Mass Index (BMI) 25.8 Intake & Output: Intake and Output for Last 24 Hours 04/24/22 04/25/22 04/26/22 03:59 03:59 03:59 Intake Total 2507.99 / 2507.99 2593.3333 / 2593.3333 300 / 300 Output Total 2700 / 2700 Balance -192.01 / -192.01 2593.3333 / 2593.3333 300 / 300 Lab / Micro Data Result Diagrams: 04/25/22 05:10 04/25/22 05:10 Labs: Laboratory Results - last 24 hr 04/24/22 18:58: Ammonia 64.0 H 04/25/22 05:10: WBC 11.0, RBC 3.78 L, Hgb 11.9 L, Hct 36.8 L, MCV 97.4, MCH 31.5, MCHC 32.3, RDW Std Deviation 73.0 H, RDW Coeff of [place] 20.2 H, Plt Count 186, MPV 10.9, Immature Gran % (Auto) 1.500 H, Neut % (Auto) 67.8, Lymph % (Auto) 13.8 L, [place] % (Auto) 14.6 H, Eos % (Auto) 1.8, Baso % (Auto) 0.5, Absolute Neuts (auto) 7.5, Absolute Lymphs (auto) 1.52, Nucleated RBC % 0, Differential Comment SCANNED, Anisocytosis 1+ 04/25/22 05:10: Sodium 136, Potassium 2.9 L, Chloride 108 H, Carbon Dioxide 17.0 L, Anion Gap 11, BUN 11, Creatinine 0.66, Estim Creat Clear Calc 92.78, Est GFR (MDRD) Af Amer 122, Est GFR (MDRD) Non-Af 101, BUN/Creatinine Ratio 16.7, Glucose 110 H, Calcium 9.3, Total Bilirubin 10.60 H, AST 91 H, ALT 48, Alkaline Phosphatase 183 H, Total Protein 8.5 H, Albumin 3.2, Globulin 5.3 H, Albumin/Globulin Ratio 0.6 L 04/25/22 05:10: Phosphorus 2.6, Magnesium 1.8 Micro: Microbiology 04/17/22 05:13 Vomitus Gastric Occult Blood - Final Occult Blood Positive 04/17/22 04:50 Stool Stool Occult Blood (NOELLE) - Final Occult Blood Positive Rhythm Strip Rhythm Strip: Sinus Rhythm Physical Exam Narrative General: Alert, Oriented x3, Cooperative, No apparent distress HEENT: Atraumatic, PERRLA, EOMI, Normocephalic Oral: Moist Mucosa Neck: Supple, No JVD Lungs: Clear to auscultation, Normal air movement, No rhonchi, No wheeze, No rales Cardiovascular: Regular rate, Regular Rhythm, Normal S1, Normal S2, No murmurs Abdomen: Soft, Non Tender, Non-Distended, No Hepato-splenomegaly Extremities: No edema, Capillary Refill Less than 3 Seconds Skin: No rashes, No breakdown Musculoskeletal: No Tenderness to Palpation of Joints or Extremities Neurological: Cranial nerves II-XII grossly intact, Motor Exam 5/5 strength throughout, Sensory exam intact to light touch and pain Psych/Mental Status: Normal Affect, Appropriate, per nursing report occasionally has episodes of hallucinations Assessment & Plan Assessment/Plan (1) Bleeding esophageal varices due to alcoholic liver disease: (2) Alcohol withdrawal: PLAN: Plan #Acute GI bleed/liver cirrhosis with acute alcoholic hepatitis/acute alcohol withdrawal with delirium tremens/thrombocytopenia/anxiety/depression * likely due to bleeding esophageal varices in a patient with liver cirrhosis and varices * had EGD which showed grade II esophageal varices which were banded, as well as portal hypertensive gastropathy. * Appreciate GI assistance * Continue with lactulose as well as prednisone, pentoxifylline, rifaximin. * Continue with her PPI * now on an oral diet, bilirubin is stabilized but is still elevated * No surgical intervention for her gallbladder at this time * She is off the Precedex drip but per nursing she does exhibit some odd behaviors and hallucinations * Her thrombocytopenia is now resolved likely related to her alcohol use and bleeding, we are looking into potentially getting her into inpatient rehab for her drinking * Continuous Zoloft, Abilify * Continue propranolol DVT: SCDs Charges/Coding Visit Charges Inpatient E&M: 94741 Subs Hosp L2
[2022-04-25] MEDS: Potassium Chloride Oral Tablet 20 MEQ 60 MEQ PO (12:20)
--- NOTE | 2022-04-25 19:22 | PCM.PROGNOTE ---
Subjective Subjective Mental status is about the same as it was yesterday. She is not eating much. She has been sleeping a lot off and on. She denies any hallucinations. She also denies any dizziness. Objective Data Objective Data Vital Signs: Vital Signs Temp Pulse Resp BP Pulse Ox O2 Del Method 98.3 F 66 18 145/73 H 97 Room Air 04/25/22 08:25 04/25/22 08:25 04/25/22 08:25 04/25/22 08:25 04/25/22 08:25 04/25/22 08:25 Oxygen Delivery Method Room Air Weight: 195 lb 5.273 oz Body Mass Index (BMI) 25.8 Intake & Output: Intake and Output for Last 24 Hours 04/23/22 04/24/22 04/25/22 23:59 23:59 23:59 Intake Total 2921.99 / 2921.99 2593.3333 / 2593.3333 910 / 910 Output Total 3200 / 3200 Balance -278.01 / -278.01 2593.3333 / 2593.3333 910 / 910 Lab / Micro Data Result Diagrams: 04/25/22 05:10 04/25/22 05:10 Labs: Laboratory Results - last 24 hr 04/24/22 18:58: Ammonia 64.0 H 04/25/22 05:10: WBC 11.0, RBC 3.78 L, Hgb 11.9 L, Hct 36.8 L, MCV 97.4, MCH 31.5, MCHC 32.3, RDW Std Deviation 73.0 H, RDW Coeff of Melissa 20.2 H, Plt Count 186, MPV 10.9, Immature Gran % (Auto) 1.500 H, Neut % (Auto) 67.8, Lymph % (Auto) 13.8 L, [place] % (Auto) 14.6 H, Eos % (Auto) 1.8, Baso % (Auto) 0.5, Absolute Neuts (auto) 7.5, Absolute Lymphs (auto) 1.52, Nucleated RBC % 0, Differential Comment SCANNED, Anisocytosis 1+ 04/25/22 05:10: Sodium 136, Potassium 2.9 L, Chloride 108 H, Carbon Dioxide 17.0 L, Anion Gap 11, BUN 11, Creatinine 0.66, Estim Creat Clear Calc 92.78, Est GFR (MDRD) Af Amer 122, Est GFR (MDRD) Non-Af 101, BUN/Creatinine Ratio 16.7, Glucose 110 H, Calcium 9.3, Total Bilirubin 10.60 H, AST 91 H, ALT 48, Alkaline Phosphatase 183 H, Total Protein 8.5 H, Albumin 3.2, Globulin 5.3 H, Albumin/Globulin Ratio 0.6 L 04/25/22 05:10: Phosphorus 2.6, Magnesium 1.8 Micro: Microbiology 04/17/22 05:13 Vomitus Gastric Occult Blood - Final Occult Blood Positive 04/17/22 04:50 Stool Stool Occult Blood (NOELLE) - Final Occult Blood Positive Rhythm Strip Rhythm Strip: Sinus Rhythm Physical Exam Narrative General: Alert, Oriented x3, Cooperative, No apparent distress HEENT: Atraumatic, PERRLA, EOMI, Normocephalic Oral: Moist Mucosa Neck: Supple, No JVD Lungs: Clear to auscultation, Normal air movement, No rhonchi, No wheeze, No rales Cardiovascular: Regular rate, Regular Rhythm, Normal S1, Normal S2, No murmurs Abdomen: Soft, Non Tender, Non-Distended, No Hepato-splenomegaly Extremities: No edema, Capillary Refill Less than 3 Seconds Skin: No rashes, No breakdown Musculoskeletal: No Tenderness to Palpation of Joints or Extremities Neurological: Cranial nerves II-XII grossly intact, Motor Exam 5/5 strength throughout, Sensory exam intact to light touch and pain Psych/Mental Status: Normal Affect, Appropriate, per nursing report occasionally has episodes of hallucinations Assessment & Plan Assessment/Plan (1) Bleeding esophageal varices due to alcoholic liver disease: PLAN: octreotide and PPI drip is stopped. Recommend only Protonix 40 mg IV every 12 hours. She is tolerating a regular diet. Protonix can be switched to 40 mg p.o. twice daily. I am starting her on nadolol therapy for variceal prophylaxis. (2) Alcohol withdrawal: PLAN: She is not having any signs of alcohol withdrawal at this time. Continue Precedex and phenobarbital. Had a long conversation with her regarding her continued alcohol intake and she says that she wants to stop and may be willing to go into AA for help. (3) Gastric ulcer with hemorrhage: PLAN: Gastric ulcer likely secondary to alcoholic gastritis. There was no sign of ulcerations on this exam but she did have severe portal gastropathy with recent stigmata of bleeding. (4) Cirrhosis of liver with ascites: PLAN: At this time she is suffering from alcoholic hepatitis with a Madrey score of 34. She is not encephalopathic at this time. I would recommend Xifaxan 550 mg p.o. twice daily and lactulose 20 cc p.o. every 6 hours as prophylaxis for encephalopathy. She would likely need an ultrasound to assess for ascites. (5) Alcoholic hepatitis: PLAN: Patient is Madrey score is increased to 34. But is about the same today. Continue pentoxifylline 400 mg p.o. 3 times daily. She was given better prognosis. N-acetylcysteine for nonacetaminophen induced acute liver injury. On steroids x4 days and check a Matilda score to see if steroids will improve her overall outcome. I am okay with her switching to oral steroids. This is day #4 of steroids. Her Matilda score was calculated and it does show that steroids to is to be continued for 30 days. Charges/Coding Visit Charges Inpatient E&M: 44819 Subs Hosp L3
[2022-04-25 20:31] VITALS: BP 132/75; PULSE 66; RESP 18; TEMP 36.8; O2SAT 99
[2022-04-26 02:38] VITALS: BP 131/85; PULSE 65; RESP 16; TEMP 36.7; O2SAT 98
[2022-04-26] MEDS: Sucralfate 1 GM Tablet PO (05:54)
[2022-04-26] MEDS: Lactulose 20 GM/30 ML UDC PO (06:00)
[2022-04-26 06:49] LABS: ALB/GLOB Ratio 0.5 RATIO (0.9-2.4); AST(SGOT) 120 U/L (15-37); Alanine Aminotransfer ALT/SGPT 61 U/L (13-56); Alkaline Phosphatase 201 U/L (45-117); Anion Gap 9 (5-15); BUN 18 mg/dL (7-18); BUN/Creat Ratio 21.8 RATIO (10-20); Calcium,Total 9.5 mg/dL (8.5-10.1); Chloride 107 mmol/L (98-107); Creatinine, Serum 0.83 mg/dL (0.55-1.02); EST Glomerular Filtration Rate 78 mL/min (>60); Est Glom Filt Rate - Afr Amer 94 mL/min (>60); Estimated Creatinine Clearance 73.78 ml/min; Globulin 5.6 g/dL (2.2-4.2); Glucose 99 mg/dL (74-106); Potassium 3.2 mmol/L (3.5-5.1); Protein, Total 8.6 g/dL (6.4-8.2); Sodium Level 133 mmol/L (136-145)
[2022-04-26] MEDS: predniSONE 20 MG Tablet 40 MG PO (07:54)
[2022-04-26] MEDS: Thiamine Hydrochloride 100 MG Tablet PO (07:54)
[2022-04-26] MEDS: Pentoxifylline 400 MG Tablet PO ×2 (07:54→12:38)
[2022-04-26] MEDS: Folic Acid 1 MG Tablet PO (07:56)
[2022-04-26] MEDS: Potassium Chloride Oral Tablet 20 MEQ 60 MEQ PO (07:56)
[2022-04-26 08:26] VITALS: BP 126/80; PULSE 74; RESP 16; TEMP 37; O2SAT 94
--- NOTE | 2022-04-26 09:26 | PN.HOSP_ITS ---
Reason for Visit Reason for Visit: Diagnoses Alcohol abuse, uncomplicated (04/17/22) Alcohol use, unspecified with withdrawal, unspecified (04/17/22) Secondary esophageal varices with bleeding (04/17/22) Chronic or unspecified gastric ulcer with hemorrhage (04/17/22) Alcoholic hepatitis without ascites (04/17/22) Alcoholic liver disease, unspecified (04/17/22) Unspecified cirrhosis of liver (04/17/22) Calculus of gallbladder without cholecystitis without obstruction (04/17/22) Other ascites (04/17/22) Subjective Subjective No issues overnight but she still has episodes of confusion, this morning I discussed with her the need to potentially be discharged to a rehab facility and during our conversation she agreed and said that they had already decided on a facility but then that her very next sentence was about when she could go home Objective Data Objective Data Vital Signs: Vital Signs Temp Pulse Resp BP Pulse Ox O2 Del Method 98.6 F 74 16 126/80 H 94 Room Air 04/26/22 08:26 04/26/22 08:26 04/26/22 08:26 04/26/22 08:26 04/26/22 08:26 04/26/22 08:26 Oxygen Delivery Method Room Air Weight: 195 lb 1.745 oz Body Mass Index (BMI) 25.8 Intake & Output: Intake and Output for Last 24 Hours 04/25/22 04/26/22 04/27/22 03:59 03:59 03:59 Intake Total 2593.3333 / 2593.3333 910 / 910 300 / 300 Balance 2593.3333 / 2593.3333 910 / 910 300 / 300 Lab / Micro Data Result Diagrams: 04/25/22 05:10 04/26/22 05:41 Labs: Laboratory Results - last 24 hr 04/26/22 05:41: Sodium 133 L, Potassium 3.2 L, Chloride 107, Carbon Dioxide 17.0 L, Anion Gap 9, BUN 18, Creatinine 0.83, Estim Creat Clear Calc 73.78, Est GFR (MDRD) Af Amer 94, Est GFR (MDRD) Non-Af 78, BUN/Creatinine Ratio 21.8 H, Glucose 99, Calcium 9.5, Total Bilirubin 9.90 H, AST 120 H, ALT 61 H, Alkaline Phosphatase 201 H, Total Protein 8.6 H, Albumin 3.0 L, Globulin 5.6 H, Albumin/Globulin Ratio 0.5 L Micro: Microbiology 04/17/22 05:13 Vomitus Gastric Occult Blood - Final Occult Blood Positive 04/17/22 04:50 Stool Stool Occult Blood (NOELLE) - Final Occult Blood Positive Rhythm Strip Rhythm Strip: Sinus Rhythm Physical Exam Narrative General: Alert, Oriented x3, Cooperative, No apparent distress HEENT: Atraumatic, PERRLA, EOMI, Normocephalic Oral: Moist Mucosa Neck: Supple, No JVD Lungs: Clear to auscultation, Normal air movement, No rhonchi, No wheeze, No rales Cardiovascular: Regular rate, Regular Rhythm, Normal S1, Normal S2, No murmurs Abdomen: Soft, Non Tender, Non-Distended, No Hepato-splenomegaly Extremities: No edema, Capillary Refill Less than 3 Seconds Skin: No rashes, No breakdown Musculoskeletal: No Tenderness to Palpation of Joints or Extremities Neurological: Cranial nerves II-XII grossly intact, Motor Exam 5/5 strength throughout, Sensory exam intact to light touch and pain Psych/Mental Status: Normal Affect, Appropriate, per nursing report occasionally has episodes of hallucinations Assessment & Plan Assessment/Plan (1) Bleeding esophageal varices due to alcoholic liver disease: (2) Alcohol withdrawal: PLAN: Plan #Acute GI bleed/liver cirrhosis with acute alcoholic hepatitis/acute alcohol withdrawal with delirium tremens/thrombocytopenia/anxiety/depression * likely due to bleeding esophageal varices in a patient with liver cirrhosis and varices * had EGD which showed grade II esophageal varices which were banded, as well as portal hypertensive gastropathy. * Appreciate GI assistance * Continue with lactulose as well as prednisone, pentoxifylline, rifaximin. * Continue with her PPI * She is off the Precedex drip but per nursing she does exhibit some odd behaviors and hallucinations * Her thrombocytopenia is now resolved likely related to her alcohol use and bleeding, we are looking into potentially getting her into inpatient rehab for her drinking * Would recommend discharge to a rehab facility for her alcoholism * Continuous Zoloft, Abilify * Continue propranolol DVT: SCDs Charges/Coding Visit Charges Inpatient E&M: 05195 Subs Hosp L2
[2022-04-26] MEDS: ARIPiprazole 2 MG Tablet PO (09:30)
[2022-04-26] MEDS: Sertraline 100 MG Tablet PO (09:30)
[2022-04-26] MEDS: rifAXIMin 550 MG Tablet PO (09:30)
[2022-04-26] MEDS: Ondansetron 8 MG Tablet PO (09:30)
[2022-04-26] MEDS: Spironolactone 25 MG Tablet PO (09:30)
[2022-04-26] MEDS: Propranolol LA 80 MG Capsule PO (09:30)
[2022-04-26] MEDS: Pantoprazole Sodium 40 MG Tablet PO (09:32)
--- NOTE | 2022-04-26 11:24 | DCINST_ITS ---
Discharge Instructions Diet Discharge Diet: No restrictions Activity Discharge Activity: Return to Normal Activity Dressing / Incision Call your doctor if you observe: Fever of 101 or Higher, Shortness of breath, Dizziness, Fainting spells, Swelling in the ankles, Chest pain and Increased palpitations (irregular heartbeat) Follow Up Care Test Results: Test results from this visit will be discussed in further detail at your follow- up appointment, if applicable. Discharge Plan Admission Admit Date/Time: 04/17/22 05:46 Attending Provider: Gamal Galvan Consulting Providers: Anh Bianchi ; Wil Antonio ; Vivek Johnson ; Freddy Thomas ; Henry Barbour ; Miguel Diane ; Marti Ferrara NP ; Odilia Bond Discharge Orders/Prescriptions Prescriptions: New prednisone 20 mg Tablet 40 mg PO BREAKFAST 30 Days Qty: 60 0RF pentoxifylline 400 mg Tablet Extended Release 400 mg PO TIDCM 30 Days Qty: 90 0RF folic acid 1 mg Tablet 1 mg PO DAILY@0800 Qty: 30 0RF Xifaxan 550 mg Tablet 550 mg PO BID 30 Days Qty: 60 0RF lactulose 20 gram/30 mL Solution 20 g PO Q8 30 Days Qty: 2700 0RF thiamine HCl (vitamin B1) [Vitamin B-1] 100 mg Tablet 100 mg PO BREAKFAST 30 Days Qty: 30 0RF Continued naltrexone 50 mg Tablet 50 mg PO DAILY spironolactone 25 mg Tablet 25 mg PO DAILY aripiprazole 2 mg Tablet 2 mg PO DAILY sertraline [Zoloft] 100 mg Tablet 100 mg PO DAILY pantoprazole [Protonix] 40 mg tablet,delayed release (DR/EC) 40 mg PO BID Qty: 60 0RF sucralfate [Carafate] 1 gram tablet 1 g PO BID Qty: 60 0RF propranolol [Inderal LA] 80 mg capsule,extended release 24 hr 80 mg PO DAILY Label Comments: take 1 capsule by mouth once daily Myrbetriq 25 mg tablet extended release 24 hr 25 mg PO DAILY sulfasalazine [Azulfidine] 500 mg tablet 1,000 mg PO BID Label Comments: take 2 tablets by mouth twice a day montelukast [Singulair] 10 mg tablet 10 mg PO DAILY Label Comments: take 1 tablet by mouth once daily olanzapine [Zyprexa] 5 mg tablet 5 mg PO QHS Label Comments: take 1 tablet by mouth nightly acamprosate 333 mg tablet,delayed release (DR/EC) 333 mg PO TID Label Comments: take 1 tablet by mouth three times a day atorvastatin [Lipitor] 40 mg tablet 40 mg PO DAILY Label Comments: take 1 tablet by mouth nightly baclofen 10 mg tablet 10 mg PO TID PRN PRN (Reason: Pain) Label Comments: take 1 tablet by mouth three times a day NEEDED FOR PAIN oxcarbazepine [Trileptal] 300 mg tablet 300 mg PO BID Label Comments: take 1 tablet by mouth twice a day Referrals / Follow Up: SIMON, BASEM [Other] Disposition Disposition (needs filled in before D/C Order can be placed): DC/Tx to Another Type of HCF
--- NOTE | 2022-04-26 12:00 | PHA.DC.MR ---
Pharmacy Service has performed discharge medication reconciliation for this patient. The patient's discharge medication list was reviewed for discrepancies and discrepancies were resolved. Home Medications aripiprazole 2 mg tablet 2 mg PO DAILY 02/16/21 naltrexone 50 mg tablet 50 mg PO DAILY 02/16/21 sertraline 100 mg tablet (Zoloft) 100 mg PO DAILY depression 02/16/21 spironolactone 25 mg tablet 25 mg PO DAILY 02/16/21 pantoprazole 40 mg tablet,delayed release (Protonix) 40 mg PO BID #60 tabs 02/17/21 sucralfate 1 gram tablet (Carafate) 1 g PO BID #60 tabs 02/17/21 propranolol 80 mg capsule,24 hr,extended release (Inderal LA) 80 mg PO DAILY BP 04/17/22 acamprosate 333 mg tablet,delayed release 333 mg PO TID Check with primary doctor 04/19/22 atorvastatin 40 mg tablet (Lipitor) 40 mg PO DAILY Check with primary doctor 04/19/22 baclofen 10 mg tablet 10 mg PO TID PRN PRN Pain 04/19/22 mirabegron 25 mg tablet,extended release 24 hr (Myrbetriq) 25 mg PO DAILY Check with primary doctor 04/19/22 montelukast 10 mg tablet (Singulair) 10 mg PO DAILY Check with primary doctor 04/19/22 olanzapine 5 mg tablet (Zyprexa) 5 mg PO QHS Check with primary doctor 04/19/22 oxcarbazepine 300 mg tablet (Trileptal) 300 mg PO BID Check with primary doctor 04/19/22 sulfasalazine 500 mg tablet (Azulfidine) 1,000 mg PO BID Check with primary doctor 04/19/22 folic acid 1 mg tablet 1 mg PO DAILY@0800 #30 tabs 04/26/22 lactulose 20 gram/30 mL oral solution 20 g (30 mL) PO Q8 30 days #2,700 mL 04/26/22 pentoxifylline 400 mg tablet,extended release 400 mg PO TIDCM 30 days #90 tabs 04/26/22 prednisone 20 mg tablet 40 mg PO BREAKFAST 30 days #60 tabs 04/26/22 rifaximin 550 mg tablet (Xifaxan) 550 mg PO BID 30 days #60 tabs 04/26/22 thiamine HCl (vitamin B1) 100 mg tablet (Vitamin B-1) 100 mg PO BREAKFAST 30 days #30 tabs 04/26/22
--- NOTE | 2022-04-26 12:05 | CASEMGMT ---
RN CM NOTE: Pt being discharged today and new meds have been e-scribed to [facility] retail pharmacy. Per Ary @ [facility] Retail pharmacy, no PA needed for the Xifaxin and all meds went through and covered @ 100%. Ary aware meds to be delivered to pt's room. Devan ROBIN RN CM
--- NOTE | 2022-04-26 13:21 | DS.PCM_ITS ---
Providers Date of Admission: 04/17/22 Consultations 04/17/22 07:26 Consult: Gastroenterology Routine Consulting Provider: Yana [facility] Reason for Consult: Elevated LFTs EMERGENT Consult: No Notified: Yes Date Notified: 04/17/22 Time Notified: 07:23 Method of Notification: via text 04/18/22 15:59 Consult: General Surgery Routine Consulting Provider: Wil Antonio Reason for Consult: stone in neck of gallbladder EMERGENT Consult: No Notified: Yes Date Notified: 04/17/22 Time Notified: 15:59 Method of Notification: Text 04/19/22 09:56 Consult: [employer] / Pulmonary Medicine Routine Consulting Provider: Pulmonary Medicine [facility] Reason for Consult: delirium tremens EMERGENT Consult: No Notified: Yes Date Notified: 04/19/22 Time Notified: 09:56 Method of Notification: Verbal Reason For Visit: ELEVATED LFTs Diagnosis Discharge Diagnosis (1) Bleeding esophageal varices due to alcoholic liver disease: Status: Acute Code(s): K70.9 - Alcoholic liver disease, unspecified; I85.11 - Secondary esophageal varices with bleeding (2) Alcohol withdrawal: Status: Acute Code(s): F10.939 - Alcohol use, unspecified with withdrawal, unspecified Medications at Discharge Home Medications aripiprazole 2 mg tablet 2 mg PO DAILY 02/16/21 naltrexone 50 mg tablet 50 mg PO DAILY 02/16/21 sertraline 100 mg tablet (Zoloft) 100 mg PO DAILY depression 02/16/21 spironolactone 25 mg tablet 25 mg PO DAILY 02/16/21 pantoprazole 40 mg tablet,delayed release (Protonix) 40 mg PO BID #60 tabs 1 04/20/20 sucralfate 1 gram tablet (Carafate) 1 g PO BID #60 tabs 02/17/21 propranolol 80 mg capsule,24 hr,extended release (Inderal LA) 80 mg PO DAILY BP 04/17/22 acamprosate 333 mg tablet,delayed release 333 mg PO TID Check with primary doctor 04/19/22 atorvastatin 40 mg tablet (Lipitor) 40 mg PO DAILY Check with primary doctor 04/19/22 baclofen 10 mg tablet 10 mg PO TID PRN PRN Pain 04/19/22 mirabegron 25 mg tablet,extended release 24 hr (Myrbetriq) 25 mg PO DAILY Check with primary doctor 04/19/22 montelukast 10 mg tablet (Singulair) 10 mg PO DAILY Check with primary doctor 04/19/22 olanzapine 5 mg tablet (Zyprexa) 5 mg PO QHS Check with primary doctor 04/19/22 oxcarbazepine 300 mg tablet (Trileptal) 300 mg PO BID Check with primary doctor 04/19/22 sulfasalazine 500 mg tablet (Azulfidine) 1,000 mg PO BID Check with primary doctor 04/19/22 folic acid 1 mg tablet 1 mg PO DAILY@0800 #30 tabs 04/26/22 lactulose 20 gram/30 mL oral solution 20 g (30 mL) PO Q8 30 days #2,700 mL 04/26/22 pentoxifylline 400 mg tablet,extended release 400 mg PO TIDCM 30 days #90 tabs 04/26/22 prednisone 20 mg tablet 40 mg PO BREAKFAST 30 days #60 tabs 04/26/22 rifaximin 550 mg tablet (Xifaxan) 550 mg PO BID 30 days #60 tabs 04/26/22 thiamine HCl (vitamin B1) 100 mg tablet (Vitamin B-1) 100 mg PO BREAKFAST 30 days #30 tabs 04/26/22 Hospital Course Operations None Procedures EGD Summary of Care Provided Minutes Spent on Discharge: 43 Hospital Course: Per HPI: DOMINICK MCKEON, is a 51 F who presents with the above.? Patient has past medical history of alcoholic liver disease, history of esophageal varices, chronic alcohol abuse who has been drinking about a pint of vodka every day or every other day.? She comes in because she has been having hematemesis, and bloody stools.? She admits to nausea and vomiting. Vitals in the ED showed blood pressure 171/95, heart rate 102, oxygen sat 99% on room air, temperature 98.2 F. Admitting WBC count 7.2, hemoglobin 11.2, platelet count 107, INR 1.3, sodium 141, potassium 3.2, chloride 102, bicarbonate 22, BUN 7, creatinine 0.71, total bilirubin 5.2, WBC 4.22, AST 36 ALT 81, ALP 300.? Admitting alcohol level 319.? CT of the abdomen and pelvis is pending. Hospital Course: 1. Acute GI bleed from esophageal varices/liver cirrhosis with acute alcoholic hepatitis/acute alcohol withdrawal with delirium tremens/thrombocytopenia/an xiety/depression?51-year-old female who drinks extensively presented to the hospital with hematemesis. EGD demonstrated portal hypertensive gastropathy with esophageal varices. She has had a slow recovery due to alcohol withdrawal complicating the rest of her symptoms. She continues to have hallucinations and had to be transferred to the ICU during her stay for Precedex drip secondary to her delirium tremens. She was started on lactulose as well as Xifaxan, pentoxifylline and steroids for her hepatitis. She did agree to be discharged to an inpatient alcohol rehab facility which we will plan on today. She will need to continue her steroids for at least a month and then she will need to be on a PPI twice a day, will also continue with folate and thiamine replacement. We will also check her electrolytes, her phosphorus was low and had to be replaced and we have been replacing her potassium daily. Weight / BMI Weight Weight: 195 lb 1.745 oz Body Mass Index (BMI) 25.8 ABG / Lab / Microbiology Data Result Diagrams: 04/25/22 05:10 04/26/22 05:41 Laboratory: Laboratory Results - last 24 hr 04/26/22 05:41: Sodium 133 L, Potassium 3.2 L, Chloride 107, Carbon Dioxide 17.0 L, Anion Gap 9, BUN 18, Creatinine 0.83, Estim Creat Clear Calc 73.78, Est GFR (MDRD) Af Amer 94, Est GFR (MDRD) Non-Af 78, BUN/Creatinine Ratio 21.8 H, Glucose 99, Calcium 9.5, Total Bilirubin 9.90 H, AST 120 H, ALT 61 H, Alkaline Phosphatase 201 H, Total Protein 8.6 H, Albumin 3.0 L, Globulin 5.6 H, Albumin/Globulin Ratio 0.5 L Microbiology: Microbiology 04/17/22 05:13 Vomitus Gastric Occult Blood - Final Occult Blood Positive 04/17/22 04:50 Stool Stool Occult Blood (NOELLE) - Final Occult Blood Positive D/C Instructions Discharge Diet: No restrictions Call your doctor if you observe: Fever of 101 or Higher, Shortness of breath, Dizziness, Fainting spells, Swelling in the ankles, Chest pain and Increased p alpitations (irregular heartbeat) Meaningful Use Info Meaningful Use Diagnoses (Choose all that apply): None applicable Discharge Plan Admission Admit Date/Time: 04/17/22 05:46 Attending Provider: Gamal Galvan Consulting Providers: Anh Bianchi ; Wil Antonio ; Vivek Johnson ; Freddy Thomas ; Henry Barbour ; Miguel Diane ; Marti Ferrara MINE SAFETY MANAGER ; Odilia Bond Discharge Orders/Prescriptions Prescriptions: New prednisone 20 mg Tablet 40 mg PO BREAKFAST 30 Days Qty: 60 0RF pentoxifylline 400 mg Tablet Extended Release 400 mg PO TIDCM 30 Days Qty: 90 0RF folic acid 1 mg Tablet 1 mg PO DAILY@0800 Qty: 30 0RF Xifaxan 550 mg Tablet 550 mg PO BID 30 Days Qty: 60 0RF lactulose 20 gram/30 mL Solution 20 g PO Q8 30 Days Qty: 2700 0RF thiamine HCl (vitamin B1) [Vitamin B-1] 100 mg Tablet 100 mg PO BREAKFAST 30 Days Qty: 30 0RF Continued naltrexone 50 mg Tablet 50 mg PO DAILY spironolactone 25 mg Tablet 25 mg PO DAILY aripiprazole 2 mg Tablet 2 mg PO DAILY sertraline [Zoloft] 100 mg Tablet 100 mg PO DAILY pantoprazole [Protonix] 40 mg tablet,delayed release (DR/EC) 40 mg PO BID Qty: 60 0RF sucralfate [Carafate] 1 gram tablet 1 g PO BID Qty: 60 0RF propranolol [Inderal LA] 80 mg capsule,extended release 24 hr 80 mg PO DAILY Label Comments: take 1 capsule by mouth once daily Myrbetriq 25 mg tablet extended release 24 hr 25 mg PO DAILY sulfasalazine [Azulfidine] 500 mg tablet 1,000 mg PO BID Label Comments: take 2 tablets by mouth twice a day montelukast [Singulair] 10 mg tablet 10 mg PO DAILY Label Comments: take 1 tablet by mouth once daily olanzapine [Zyprexa] 5 mg tablet 5 mg PO QHS Label Comments: take 1 tablet by mouth nightly acamprosate 333 mg tablet,delayed release (DR/EC) 333 mg PO TID Label Comments: take 1 tablet by mouth three times a day atorvastatin [Lipitor] 40 mg tablet 40 mg PO DAILY Label Comments: take 1 tablet by mouth nightly baclofen 10 mg tablet 10 mg PO TID PRN PRN (Reason: Pain) Label Comments: take 1 tablet by mouth three times a day NEEDED FOR PAIN oxcarbazepine [Trileptal] 300 mg tablet 300 mg PO BID Label Comments: take 1 tablet by mouth twice a day Referrals / Follow Up: SIMON, BASEM [Other] Disposition Disposition (needs filled in before D/C Order can be placed): DC/Tx to Another Type of HCF Charges/Coding Visit Charges Inpatient E&M: 51402 Disch Hosp >30min
--- NOTE | 2022-04-26 13:28 | NURSING ---
pt discharged to inpt rehab.
--- NOTE | 2022-04-26 15:26 | CASEMGMT ---
Social work SW received phone call from pt's mother, who expressed being highly upset with situation regarding pt's discharge. Pt mother asked SW question regarding how can you guys lie to patients about how long they will be going to inpatient treatment. You told my daughter she would be going for 3 days and told me she was going for 30 just to convince her to go. SW attempted to validate pt's mother's feelings. [facility] offered phone number for patient advocate, Van, and informed the mother that Van would be best equipped to help with these concerns. Mother continued voicing discontent and named several other things regarding staff being rude and about lies that were told to pt and mother. SW attempted to smooth things with pt mother, addressing lies and suggesting these might have been miscommunications between parties. Pt mother appeared to be somewhat less upset at the end of the call and agreeable to speaking to Van regarding her concerns. [facility] called Van to relay information for Van to expect call from pt's mother. JASPER Berman
== END 2022-04-26 14:05 | DRG 280 ==
LOC: ED 06:01 → MS3 06:50 → ICU 04-19 02:58 → MS3 04-23 18:34
PROVIDERS: Internal Medicine; Internal Medicine Critical Care Medicine; Internal Medicine Gastroenterology; Student in an Organized Health Care Education/Training Program; Admitting Provider Internal Medicine; Emergency Provider Emergency Medicine; Visit Provider Family Medicine
PROC: 0DJ08ZZ Inspection of Upper Intestinal Tract, Via Natural or Artificial Opening Endoscopic (ICD-10-PCS; CPT 43235; principal; 2022-04-18 15:55)
DX: K70.31 Alcoholic cirrhosis of liver with ascites (principal); K70.11 Alcoholic hepatitis with ascites; I85.11 Secondary esophageal varices with bleeding; F10.231 Alcohol dependence with withdrawal delirium; K76.6 Portal hypertension; E83.39 Other disorders of phosphorus metabolism; D69.59 Other secondary thrombocytopenia; E78.00 Pure hypercholesterolemia, unspecified; I10 Essential (primary) hypertension; E87.6 Hypokalemia; F41.9 Anxiety disorder, unspecified; K31.89 Other diseases of stomach and duodenum; K80.20 Calculus of gallbladder without cholecystitis without obstruction; F32.A Depression, unspecified; Y90.8 Blood alcohol level of 240 mg/100 ml or more; Z79.899 Other long term (current) drug therapy; Z23 Encounter for immunization
CPT/HCPCS: 36415; 74178; 76705; 80048; 80053; 80076; 80307; 82077; 82140; 82150; 82271; 82274; 83690; 83735; 84100; 85025; 85610; 85730; 86850; 86900; 86901; 93005; 94668; 97802; 97803; 99252; 99283; J7030; J7040; J7050; J7120; Q9967; 90686; A4216; G0463; J2354; J2405; J3490

== ENCOUNTER 2022-04-30 10:26 | Emergency (ER) | payer MEDICAID, SELFPAY ==
[2022-04-30 10:28] VITALS: BP 169/85; PULSE 108; RESP 16; TEMP 35.8; O2SAT 100; BMI 25.1
--- NOTE | 2022-04-30 10:39 | EDS_ITS ---
HPI HPI - GI History of Present Illness Chief Complaint: Nausea/Vomiting/Diarrhea Informant: patient Abdominal Pain/Flank Pain Onset: Days Context: Gradual Onset Timing: Continuous Quality: Aching and Cramping Location: Epigastric, RUQ and LUQ Worsened by: - (Laying on her side) Relieved by: Nothing Nausea/Vomiting/Emesis GI Symptom: Positive for Nausea and Vomiting Onset: Days Quality: Positive for Nonbilious; Negative for Blood streaks, Coffee ground or Hematemesis Diarrhea/Melena/Hematochezia GI Symptom: Positive for Diarrhea; Negative for Melena or Hematochezia Associated Symptoms Associated Symptoms: Positive for Dysuria; Negative for Frequency or Hematuria Narrative Narrative: Patient presents with nausea and vomiting that has been persistent since she was recently discharged from the hospital. Patient states she has been able to keep any of her medications down. Patient denies any hematemesis or coffee-ground emesis. Patient admits to some loose and watery diarrhea. Patient admits to some upper abdominal pain. Patient states she has a history of liver failure and esophageal varices. Patient states she was recently admitted to the hospital for this and had an endoscopy where they diagnosed the varices. Patient states they capped them. Patient describes her pain as aching and cramping. Patient states it has been constant. Patient denies any fevers or chills. Patient does admit to some dysuria. Patient denies any hematuria or frequency. Patient denies any abnormal vaginal bleeding or discharge. [facility] Medical History Alcohol abuse Alcoholism Cirrhosis of liver Depression High cholesterol History of alcoholism History of cirrhosis of liver Hypertension Irritable bowel Migraines Home Medications aripiprazole 2 mg tablet 2 mg PO DAILY 02/16/21 [History Last Taken 02/16/21] naltrexone 50 mg tablet 50 mg PO DAILY 02/16/21 [History Last Taken 02/15/21] sertraline 100 mg tablet (Zoloft) 100 mg PO DAILY depression 02/16/21 [History Last Taken Unknown] spironolactone 25 mg tablet 25 mg PO DAILY 02/16/21 [History Last Taken 02/16/21] pantoprazole 40 mg tablet,delayed release (Protonix) 40 mg PO BID #60 tabs 02/17/21 [Rx Last Taken Unknown] sucralfate 1 gram tablet (Carafate) 1 g PO BID #60 tabs 02/17/21 [Rx Last Taken Unknown] propranolol 80 mg capsule,24 hr,extended release (Inderal LA) 80 mg PO DAILY BP 04/17/22 [History Last Taken Unknown] acamprosate 333 mg tablet,delayed release 333 mg PO TID Check with primary doctor 04/19/22 [History Last Taken Unknown] atorvastatin 40 mg tablet (Lipitor) 40 mg PO DAILY Check with primary doctor 04/19/22 [History Last Taken Unknown] baclofen 10 mg tablet 10 mg PO TID PRN PRN Pain 04/19/22 [History Last Taken Unknown] mirabegron 25 mg tablet,extended release 24 hr (Myrbetriq) 25 mg PO DAILY Check with primary doctor 04/19/22 [History Last Taken Unknown] montelukast 10 mg tablet (Singulair) 10 mg PO DAILY Check with primary doctor 04/19/22 [History Last Taken Unknown] olanzapine 5 mg tablet (Zyprexa) 5 mg PO QHS Check with primary doctor 04/19/22 [History Last Taken Unknown] oxcarbazepine 300 mg tablet (Trileptal) 300 mg PO BID Check with primary doctor 04/19/22 [History Last Taken Unknown] sulfasalazine 500 mg tablet (Azulfidine) 1,000 mg PO BID Check with primary doctor 04/19/22 [History Last Taken Unknown] folic acid 1 mg tablet 1 mg PO DAILY@0800 #30 tabs 04/26/22 [Rx Last Taken Unknown] lactulose 20 gram/30 mL oral solution 20 g (30 mL) PO Q8 30 days #2,700 mL 04/26/22 [Rx Last Taken Unknown] pentoxifylline 400 mg tablet,extended release 400 mg PO TIDCM 30 days #90 tabs 04/26/22 [Rx Last Taken Unknown] prednisone 20 mg tablet 40 mg PO BREAKFAST 30 days #60 tabs 04/26/22 [Rx Last Taken Unknown] rifaximin 550 mg tablet (Xifaxan) 550 mg PO BID 30 days #60 tabs 04/26/22 [Rx Last Taken Unknown] thiamine HCl (vitamin B1) 100 mg tablet (Vitamin B-1) 100 mg PO BREAKFAST 30 days #30 tabs 04/26/22 [Rx Last Taken Unknown] ondansetron 4 mg disintegrating tablet 4 mg PO Q8H PRN PRN Nausea #10 tabs 04/30/22 [Rx Last Taken Unknown] Allergy/AdvReac Type Severity Reaction Status Date / Time bee venom protein (honey bee) Allergy NEEDS Verified 04/17/22 04:34 [bee sting] FOLLOW-UP Family History Other Diabetes Heart disease Hyperlipidemia Hypertension Surgical History History of carpal tunnel surgery Social History household members: family Smoking Status: Never smoker alcohol intake: current substance use type: does not use ROS ROS ED Constitutional Constitutional ED: Denies chills or fever(s) Eyes Eyes: Denies blurry vision or change in vision ENT ENT ED: Denies rhinorrhea or sore throat Cardiovascular Cardiovascular: Denies chest pain or palpitations Respiratory/Chest Respiratory/Chest: Denies cough or dyspnea Gastrointestinal Gastrointestinal: Reports abdominal pain, diarrhea, nausea and vomiting; Denies melena Genitourinary Genitourinary ED: Reports dysuria; Denies hematuria Musculoskeletal Musculoskeletal: Denies back pain or neck pain Integumentary Denies abscess or rash Neurologic Neurologic: Reports headache(s); Denies weakness Allergic/Immunologic Allergic/Immunologic ED: Denies mouth swelling or urticaria EXAM Physical Exam Const Vital Signs: 04/30/22 10:28 Temperature 96.5 F L Temperature Source Temporal Pulse Rate 108 H Respiratory Rate 16 Blood Pressure 169/85 H Blood Pressure Mean 113 Pulse Ox 100 Oxygen Delivery Method Room Air Positive well nourished and well developed General Appearance ED: well developed and NAD HEENT Reports moist mucous membranes Eyes General Eye ED: Yes scleral icterus Neck supple and no JVD Resp normal respiratory effort and clear to auscultation bilaterally Cardio regular rate and regular rhythm GI normal to inspection, nondistended, normoactive bowel sounds Palpation: soft and tender epigastric, LUQ, RUQ and periumbilical; Negative for guarding or rebound tenderness present Extremity normal to inspection General Extremety ED: Negative for edema or tenderness General Extremity: Negative for edema Neuro oriented x3, CN's II-XII intact bilaterally and no sensory deficits noted Sensorium / Orientation: alert Motor Exam: strength 5/5 throughout Psych mental status grossly normal Skin General Skin Exam: jaundice MDM MDM MDM Narrative Medical decision making narrative: Differential diagnosis includes hepatitis, pancreatitis, gastritis, gastric ulcer, and viral gastroenteritis. CBC will be obtained to assess for leukocytosis and anemia. Comprehensive metabolic profile will be obtained to assess for hepatic function, renal function, and electrolyte abnormality. Lipase will be obtained to assess for pancreatitis. Ammonia level will be obtained to assess for hepatic encephalopathy. Lab Data Lab results narrative: CBC was reviewed. There is a mild leukocytosis of 15.4. The remainder was within normal limits. Comprehensive metabolic profile was reviewed. Potassium was slightly low at 3.0. This is likely due to the vomiting. CO2 was 19. This was improved compared to prior results. AST and ALT were slightly elevated at 242 and 128. Alkaline phosphatase was slightly elevated at 190. Total bilirubin was 9.10. These are consistent with prior results. Serum ammonia level was reviewed and was 42. This is actually improved compared to previous result. Lipase was reviewed and was elevated 2015. Serum hCG was reviewed and was negative. Urinalysis was reviewed and does not show any evidence of urinary tract infection or hematuria. Labs: Laboratory Results - last 24 hr 04/30/22 04/30/22 04/30/22 11:00 11:00 11:00 WBC 15.4 H RBC 3.90 L Hgb 12.8 Hct 38.6 MCV 99.0 MCH 32.8 H MCHC 33.2 RDW Std Deviation 67.7 H RDW Coeff of Melissa 18.6 H Plt Count 336 MPV 10.5 Immature Gran % (Auto) 4.000 H Neut % (Auto) 75.4 H Lymph % (Auto) 8.8 L Fajardo % (Auto) 9.4 Eos % (Auto) 1.8 Baso % (Auto) 0.6 Absolute Neuts (auto) 11.6 H Absolute Lymphs (auto) 1.35 Nucleated RBC % 0 Sodium 133 L Potassium 3.0 L Chloride 103 Carbon Dioxide 19.0 L Anion Gap 11 BUN 15 Creatinine 0.93 Estim Creat Clear Calc 65.84 Est GFR (MDRD) Af Amer 82 Est GFR (MDRD) Non-Af 68 BUN/Creatinine Ratio 16.1 Glucose 146 H Calcium 9.5 Total Bilirubin 9.10 H AST 242 H ALT 128 H Alkaline Phosphatase 190 H Ammonia 42.0 H Total Protein 8.9 H Albumin 3.3 Globulin 5.6 H Albumin/Globulin Ratio 0.6 L Lipase 2016 H Serum , Qual Urine Color Urine Clarity Urine pH Ur Specific Sultan Urine Protein Urine Glucose (UA) Urine Ketones Urine Occult Blood Urine Nitrite Urine Bilirubin Urine Urobilinogen Ur Leukocyte Esterase Urine RBC Urine WBC Ur Squamous Epith Cells Urine Bacteria Urine Mucus 04/30/22 04/30/22 11:00 11:00 WBC RBC Hgb Hct MCV MCH MCHC RDW Std Deviation RDW Coeff of Melissa Plt Count MPV Immature Gran % (Auto) Neut % (Auto) Lymph % (Auto) Fajardo % (Auto) Eos % (Auto) Baso % (Auto) Absolute Neuts (auto) Absolute Lymphs (auto) Nucleated RBC % Sodium Potassium Chloride Carbon Dioxide Anion Gap BUN Creatinine Estim Creat Clear Calc Est GFR (MDRD) Af Amer Est GFR (MDRD) Non-Af BUN/Creatinine Ratio Glucose Calcium Total Bilirubin AST ALT Alkaline Phosphatase Ammonia Total Protein Albumin Globulin Albumin/Globulin Ratio Lipase Serum , Qual NEGATIVE Urine Color Britni Urine Clarity Sl. Cloudy Urine pH 6.5 Ur Specific Sultan 1.015 Urine Protein 30 H Urine Glucose (UA) Normal Urine Ketones 5 H Urine Occult Blood 10 H Urine Nitrite Positive H Urine Bilirubin 6 H Urine Urobilinogen 4 H Ur Leukocyte Esterase 100 H Urine RBC 0 SEEN Urine WBC 0-5 SEEN Ur Squamous Epith Cells 0-5 SEEN Urine Bacteria 2+ Urine Mucus 0 SEEN Treatment and Re-Evaluation Narrative: Patient was given IV fluids, Zofran, and morphine. Patient is feeling better on reevaluation. Patient was advised of her findings. Patient was given a dose of oral potassium here. Patient was instructed to start with a liquid diet and advance to a bland diet as tolerated. Patient was advised that her pancreatitis is most likely related to her history of alcohol abuse and liver disease. Patient states her pain has completely resolved here in the emergency department. I think patient stable to be discharged home. Patient was instruct ed to follow-up with her primary care physician in 3 to 5 days. Patient was also instructed to follow-up with her incident response engineer. Patient understands and is agreeable with the plan. All questions were answered. Discharge Plan Triage Chief Complaint: Nausea/Vomiting/Diarrhea ED Provider: Edwin Karimi Dx/Rx/DC Orders Clinical Impression: Pancreatitis, Alcoholic hepatitis, Nausea and vomiting Instructions: ED Pancreatitis, ED Vomiting (Adult) Prescriptions: New ondansetron [ondansetron] 4 mg tablet,disintegrating 4 mg PO Q8H PRN PRN (Reason: Nausea) Qty: 10 0RF No Action naltrexone 50 mg Tablet 50 mg PO DAILY spironolactone 25 mg Tablet 25 mg PO DAILY aripiprazole 2 mg Tablet 2 mg PO DAILY sertraline [Zoloft] 100 mg Tablet 100 mg PO DAILY pantoprazole [Protonix] 40 mg tablet,delayed release (DR/EC) 40 mg PO BID Qty: 60 0RF sucralfate [Carafate] 1 gram tablet 1 g PO BID Qty: 60 0RF propranolol [Inderal LA] 80 mg capsule,extended release 24 hr 80 mg PO DAILY Label Comments: take 1 capsule by mouth once daily Myrbetriq 25 mg tablet extended release 24 hr 25 mg PO DAILY sulfasalazine [Azulfidine] 500 mg tablet 1,000 mg PO BID Label Comments: take 2 tablets by mouth twice a day montelukast [Singulair] 10 mg tablet 10 mg PO DAILY Label Comments: take 1 tablet by mouth once daily olanzapine [Zyprexa] 5 mg tablet 5 mg PO QHS Label Comments: take 1 tablet by mouth nightly acamprosate 333 mg tablet,delayed release (DR/EC) 333 mg PO TID Label Comments: take 1 tablet by mouth three times a day atorvastatin [Lipitor] 40 mg tablet 40 mg PO DAILY Label Comments: take 1 tablet by mouth nightly baclofen 10 mg tablet 10 mg PO TID PRN PRN (Reason: Pain) Label Comments: take 1 tablet by mouth three times a day NEEDED FOR PAIN oxcarbazepine [Trileptal] 300 mg tablet 300 mg PO BID Label Comments: take 1 tablet by mouth twice a day prednisone 20 mg Tablet 40 mg PO BREAKFAST 30 Days Qty: 60 0RF pentoxifylline 400 mg Tablet Extended Release 400 mg PO TIDCM 30 Days Qty: 90 0RF folic acid 1 mg Tablet 1 mg PO DAILY@0800 Qty: 30 0RF Xifaxan 550 mg Tablet 550 mg PO BID 30 Days Qty: 60 0RF lactulose 20 gram/30 mL Solution 20 g PO Q8 30 Days Qty: 2700 0RF thiamine HCl (vitamin B1) [Vitamin B-1] 100 mg Tablet 100 mg PO BREAKFAST 30 Days Qty: 30 0RF Primary Care Provider: KASEY SIMMONS Referrals: KASEY SIMMONS [Other] - 3-5 Days NOT,DEFINED [Non-Staff] - 3-5 Days Disposition Disposition: Home, Self Care
[2022-04-30] MEDS: Ondansetron 4 MG/2 ML Vial IV (11:01)
[2022-04-30] MEDS: 0.9% Normal Saline 1,000 ML 1000 ML IV (11:01)
[2022-04-30] MEDS: Morphine 4 MG/ML Syringe IV (11:01)
[2022-04-30 11:13] LABS: Mucous, Urine 0 SEEN /hpf (<or=2+); Red Blood Cells-Urine 0 SEEN /hpf (0-5)
[2022-04-30 11:15] LABS: Absolute Lymphocyte Count 1.35 X10^3/uL (0.83-4.51); Absolute Neutrophil Count 11.6 X10^3/uL (2.0-7.7); Basophil# 0.09 X10^3/uL; Basophil% 0.6 % (0-1); Color, Urine Amber (Yellow); Eosinophil# 0.27 X10^3/uL; Eosinophils% 1.8 % (0-5); Glucose, Dipstick Normal (Normal); Hematocrit 38.6 % (37-47); Hemoglobin 12.8 g/dL (12.0-15.0); Ketone-Dipstick 5 mg/dl (Negative); Leukocyte Esterase-Dipstick 100 /ul (Negative); Lymphocyte # 1.35 X10^3/ul (0.83-4.51); Lymphocyte % 8.8 % (19-41); Mean Corp Hgb Conc 33.2 g/dL (32-36); Mean Corpuscular Hgb 32.8 pg (27.0-32.0); Mean Platelet Vol. 10.5 fl (6.2-12.0); Monocyte# 1.45 X10^3/uL; Monocyte% 9.4 % (0-10); NRBC Flagged by Analyzer 0 % (0-5); Neutrophil # 11.63 X10^3/uL (2.7-7.7); Neutrophil % 75.4 % (47-70); Nitrite-Dipstick Positive (Negative); Occult Blood-Urine 10 /ul (Negative); POSITIVE MORPHOLOGY YES; Platelet Count 336 K/mm3 (150-450); Protein-Dipstick 30 mg/dl (Negative); RBC Distribution Width CV 18.6 % (11.6-14.6); RBC Distribution Width SD 67.7 fl (35.1-43.9); Specific Gravity, Urine 1.015 (1.002-1.030); Urine Clarity Sl. Cloudy (Clear); Urine Urobilinogen 4 mg/dl (Normal); Urine pH 6.5 (5.0 - 8.0); White Blood Count 15.4 K/mm3 (4.4-11.0)
[2022-04-30 11:17] LABS: Differential Indicated SCAN CRITERIA MET
[2022-04-30 11:23] LABS: Internal QC Validated? YES +Cl - CLEAR BKGD; Pregnancy, Serum, hCG Quali. NEGATIVE Negative
[2022-04-30 11:24] LABS: Urine Bilirubin Dipstick 6 mg/dL (Negative)
[2022-04-30 11:26] LABS: Bacteria 2+ /hpf (None Seen); Squamous Epithelial Cells - UA 0-5 SEEN /hpf (5-10); White Blood Cells 0-5 SEEN /hpf (0-5)
[2022-04-30 11:33] LABS: ALB/GLOB Ratio 0.6 RATIO (0.9-2.4); AST(SGOT) 242 U/L (15-37); Alanine Aminotransfer ALT/SGPT 128 U/L (13-56); Albumin, Serum 3.3 g/dL (3.2-5.0); Alkaline Phosphatase 190 U/L (45-117); Anion Gap 11 (5-15); BUN 15 mg/dL (7-18); BUN/Creat Ratio 16.1 RATIO (10-20); Calcium,Total 9.5 mg/dL (8.5-10.1); Chloride 103 mmol/L (98-107); Creatinine, Serum 0.93 mg/dL (0.55-1.02); EST Glomerular Filtration Rate 68 mL/min (>60); Est Glom Filt Rate - Afr Amer 82 mL/min (>60); Estimated Creatinine Clearance 65.84 ml/min; Globulin 5.6 g/dL (2.2-4.2); Glucose 146 mg/dL (74-106); Lipase 2016 U/L (73-393); Protein, Total 8.9 g/dL (6.4-8.2); Sodium Level 133 mmol/L (136-145)
[2022-04-30] MEDS: Potassium Chloride Oral Tablet 20 MEQ 40 MEQ PO (13:28)
== END 2022-04-30 14:35 | disposition home or self-care (01) ==
PROVIDERS: Emergency Provider Emergency Medicine; Visit Provider Emergency Medicine
DX: K85.90 Acute pancreatitis without necrosis or infection, unspecified (principal); K70.10 Alcoholic hepatitis without ascites; R19.7 Diarrhea, unspecified
CPT/HCPCS: 80053; 81001; 82140; 83690; 84703; 85025; 96361; 96374; 96375; 99283; J7030; A4216; J2405

== ENCOUNTER 2022-09-25 23:21 | Inpatient (IN) | payer MEDICAID, SELFPAY ==
[2022-09-25 23:25] VITALS: BP 164/107; PULSE 94; RESP 22; TEMP 36.1; BMI 25.0
--- NOTE | 2022-09-25 23:43 | RAD_ITS ---
EXAM: XR CHEST, 1 VIEW CLINICAL INDICATION: UGIB, dyspnea TECHNIQUE: Frontal view of the chest. COMPARISON: No relevant prior studies available. FINDINGS: LUNGS AND PLEURAL SPACES: Unremarkable with the exception of slight linear atelectasis or scarring at the left lateral lower lung field. No consolidation or edema. No pneumothorax. No effusion. HEART: Unremarkable. Cardiac silhouette not enlarged. MEDIASTINUM: Central airways and mediastinal contour are unremarkable. BONES/JOINTS: Unremarkable. SOFT TISSUES: Unremarkable. RAD/Chest 1 View (Portable) IMPRESSION: Slight linear parenchymal changes on the left. Otherwise unremarkable exam. Electronically Signed: Lashay August MD at 0:24 EDT ,
--- NOTE | 2022-09-25 23:44 | ED.VIS.GI ---
HPI HPI - GI History of Present Illness Chief Complaint: GI Bleed Informant: patient Nausea/Vomiting/Emesis GI Symptom: Positive for Nausea and Vomiting Narrative Narrative: Patient has a history of alcoholic cirrhosis, she relapsed for the past 2 weeks and has been drinking again, she started vomiting blood today, she has vomited blood with clots 3-4 times this afternoon and evening. She has felt lightheaded and a little dyspneic but no syncope or near syncope. She has some abdominal bloating and pressure but no severe pains. No prior blood per rectum or melena. History of varices that were banded back in April by Dr. Roman. [facility] Medical History Alcohol abuse Alcohol abuse Alcoholism Cirrhosis of liver Cirrhosis of liver with ascites Depression Gastric ulcer with hemorrhage High cholesterol History of alcoholism History of cirrhosis of liver Hypertension Irritable bowel Migraines Home Medications aripiprazole 2 mg tablet 2 mg PO DAILY 02/16/21 [History Last Taken 02/16/21] naltrexone 50 mg tablet 50 mg PO DAILY 02/16/21 [History Last Taken 02/15/21] sertraline 100 mg tablet (Zoloft) 100 mg PO DAILY depression 02/16/21 [History Last Taken Unknown] spironolactone 25 mg tablet 25 mg PO DAILY 02/16/21 [History Last Taken 02/16/21] pantoprazole 40 mg tablet,delayed release (Protonix) 40 mg PO BID #60 tabs 02/17/21 [Rx Last Taken Unknown] sucralfate 1 gram tablet (Carafate) 1 g PO BID #60 tabs 02/17/21 [Rx Last Taken Unknown] propranolol 80 mg capsule,24 hr,extended release (Inderal LA) 80 mg PO DAILY BP 04/17/22 [History Last Taken Unknown] acamprosate 333 mg tablet,delayed release 333 mg PO TID Check with primary doctor 04/19/22 [History Last Taken Unknown] atorvastatin 40 mg tablet (Lipitor) 40 mg PO DAILY Check with primary doctor 04/19/22 [History Last Taken Unknown] baclofen 10 mg tablet 10 mg PO TID PRN PRN Pain 04/19/22 [History Last Taken Unknown] mirabegron 25 mg tablet,extended release 24 hr (Myrbetriq) 25 mg PO DAILY Check with primary doctor 04/19/22 [History Last Taken Unknown] montelukast 10 mg tablet (Singulair) 10 mg PO DAILY Check with primary doctor 04/19/22 [History Last Taken Unknown] olanzapine 5 mg tablet (Zyprexa) 5 mg PO QHS Check with primary doctor 04/19/22 [History Last Taken Unknown] oxcarbazepine 300 mg tablet (Trileptal) 300 mg PO BID Check with primary doctor 04/19/22 [History Last Taken Unknown] sulfasalazine 500 mg tablet (Azulfidine) 1,000 mg PO BID Check with primary doctor 04/19/22 [History Last Taken Unknown] folic acid 1 mg tablet 1 mg PO DAILY@0800 #30 tabs 04/26/22 [Rx Last Taken Unknown] lactulose 20 gram/30 mL oral solution 20 g (30 mL) PO Q8 30 days #2,700 mL 04/26/22 [Rx Last Taken Unknown] pentoxifylline 400 mg tablet,extended release 400 mg PO TIDCM 30 days #90 tabs 04/26/22 [Rx Last Taken Unknown] prednisone 20 mg tablet 40 mg (2 x 20 mg) PO BREAKFAST 30 days #60 tabs 04/26/22 [Rx Last Taken Unknown] rifaximin 550 mg tablet (Xifaxan) 550 mg PO BID 30 days #60 tabs 04/26/22 [Rx Last Taken Unknown] thiamine HCl (vitamin B1) 100 mg tablet (Vitamin B-1) 100 mg PO BREAKFAST 30 days #30 tabs 04/26/22 [Rx Last Taken Unknown] ondansetron 4 mg disintegrating tablet 4 mg PO Q8H PRN PRN Nausea #10 tabs 04/30/22 [Rx Last Taken Unknown] Allergy/AdvReac Type Severity Reaction Status Date / Time bee venom protein (honey bee) Allergy NEEDS Verified 04/17/22 04:34 [bee sting] FOLLOW-UP Family History Other Diabetes Heart disease Hyperlipidemia Hypertension Surgical History History of carpal tunnel surgery Social History household members: family Smoking Status: Never smoker alcohol intake: current substance use type: does not use ROS ROS ED Constitutional Constitutional ED: Reports fatigue; Denies chills or fever(s) Eyes Eyes: Denies change in vision or diplopia ENT ENT ED: Denies rhinorrhea or sore throat Cardiovascular Cardiovascular: Denies chest pain or palpitations Respiratory/Chest Respiratory/Chest: Reports dyspnea; Denies cough Gastrointestinal Gastrointestinal: Reports as per HPI, bloating, hematemesis, nausea and vomiting; Denies diarrhea or hematochezia Genitourinary Genitourinary ED: Denies dysuria or hematuria Musculoskeletal Musculoskeletal: Denies back pain or neck pain Integumentary Denies abscess or rash Neurologic Neurologic: Denies headache(s), paresthesias or weakness Psychiatric Psychiatric: Denies anxiety or suicidal thoughts EXAM Physical Exam Const Vital Signs: 09/25/22 23:25 09/26/22 00:00 Temperature 97 F L Temperature Source Temporal Pulse Rate 94 97 Respiratory Rate 22 H 17 Blood Pressure 164/107 H 140/85 H Blood Pressure Mean 126 103 Pulse Ox 97 Oxygen Delivery Method Room Air Room Air Positive well nourished and well developed Constitutional Narrative: Keenly alert and conversive in full sentences without distress General Appearance ED: well developed and NAD HEENT Reports moist mucous membranes normocephalic and atraumatic Eyes PERRL and EOMs intact bilaterally General Eye ED: Yes scleral icterus Neck full ROM and supple Resp normal respiratory effort and clear to auscultation bilaterally Cardio regular rate, regular rhythm and no murmurs Rate: Negative for tachycardic GI non-tender and non-distended Auscultation: normoactive bowel sounds Palpation: soft Back/Spine no CVA tenderness General Back: other FROM Extremity normal to inspection General Extremety ED: Negative for edema, pulses abnormal or tenderness General Extremity: Negative for edema or pulses abnormal Neuro oriented x3, CN's II-XII intact bilaterally and no sensory deficits noted Sensorium / Orientation: awake and alert Motor Exam: strength 5/5 throughout Psych mental status grossly normal and thought process normal Skin no rashes or lesions noted and no wounds General Skin Exam: jaundice MDM MDM MDM Narrative Medical decision making narrative: Discussed with GI who agree with putting patient on pantoprazole and octreotide drips, no other requested medications right now. Patient is hemodynamically stable, no hematemesis here after Zofran and those drips, and her hemoglobin is 11.1 similar to prior readings which were evaluated. At this time she is typed and screened but does not require blood transfusion. I did concent her, she is agreeable to getting a blood transfusion if she requires it while she is here in the hospital. Liver enzymes reviewed. She is on no anticoagulants, although I did have an INR sent. I did review her labs, she does not have significant elevation of BUN right now, alcoholic gastritis is in the differential as it is esophageal varices, the latter being more concerning hence admission. Her potassium level is very low, we will start replacing that here in the emergency department. Chest x-ray 1 view shows no acute pneumomediastinum or pneumothorax or other acute injury on my interpretation. Radiology in agreement. Patient is doing better after medications and fluids plan is for admission to the hospital. History & Record Review Additional record(s) reviewed:: Prior inpatient record (EGD/GI consultation April 2022) Lab Data Attestation: I reviewed the patient's lab results. Labs: Laboratory Results - last 24 hr 09/25/22 23:30 WBC 4.6 RBC 3.76 L Hgb 11.1 L Hct 35.0 L MCV 93.1 MCH 29.5 MCHC 31.7 L RDW Std Deviation 58.4 H RDW Coeff of Melissa 17.1 H Plt Count 51 L MPV 9.4 Immature Gran % (Auto) 0.400 Neut % (Auto) 54.3 Lymph % (Auto) 29.3 [place] % (Auto) 10.5 H Eos % (Auto) 4.8 Baso % (Auto) 0.7 Absolute Neuts (auto) 2.5 Absolute Lymphs (auto) 1.34 Nucleated RBC % 0 Platelet Estimate MOD DEC PT 16.0 H INR 1.3 Sodium 143 Potassium 2.9 L Chloride 109 H Carbon Dioxide 21.0 Anion Gap 13 BUN 5 L Creatinine 0.65 Estim Creat Clear Calc 93.17 Est GFR (MDRD) Af Amer 124 Est GFR (MDRD) Non-Af 103 BUN/Creatinine Ratio 7.7 L Glucose 80 Calcium 8.6 Total Bilirubin 1.70 H AST 137 H ALT 43 Alkaline Phosphatase 213 H Total Protein 8.4 H Albumin 4.0 Globulin 4.4 H Albumin/Globulin Ratio 0.9 Lipase 31 Ethyl Alcohol 324.0 H* Blood Type A POSITIVE Antibody Screen NEGATIVE Radiography Diagnostic Testing: Clinical Impression(s) from Imaging Studies Chest X-Ray 09/25/22 23:43 IMPRESSION: Slight linear parenchymal changes on the left. Otherwise unremarkable exam. Electronically Signed: Lashay August MD at 0:24 EDT , Management Discussion w/another healthcare provider: Hospitalist and Direct Entry Midwife (GI Dr. Roman) Critical Care Time Critical Care Time: Yes Critical care time (excluding procedures): 30-74 minutes (36 min), Including time spent:, Discussing w/Patient &/or Family/Cigar Sorter, Discussing w/Consultants, Arranging Admission or Transfer and Performing Direct Patient Care at Bedside Discharge Plan Dx/Rx/DC Orders Clinical Impression: Esophageal varices in alcoholic cirrhosis, Acute upper gastrointestinal hemorrhage, Alcoholic cirrhosis, Hypokalemia Disposition Disposition: Acute Care Hospital [facility]
[2022-09-25] MEDS: 0.9% Normal Saline 1,000 ML 1000 ML IV (23:52)
[2022-09-25] MEDS: Ondansetron 4 MG/2 ML Vial IV (23:52)
[2022-09-25 23:53] LABS: Absolute Lymphocyte Count 1.34 X10^3/uL (0.83-4.51); Absolute Neutrophil Count 2.5 X10^3/uL (2.0-7.7); Basophil# 0.03 X10^3/uL; Basophil% 0.7 % (0-1); Eosinophil# 0.22 X10^3/uL; Eosinophils% 4.8 % (0-5); Hemoglobin 11.1 g/dL (12.0-15.0); Lymphocyte # 1.34 X10^3/ul (0.83-4.51); Lymphocyte % 29.3 % (19-41); Mean Corp Hgb Conc 31.7 g/dL (32-36); Mean Corpuscular Hgb 29.5 pg (27.0-32.0); Mean Corpuscular Volume 93.1 fL (81-99); Mean Platelet Vol. 9.4 fl (6.2-12.0); Monocyte# 0.48 X10^3/uL; Monocyte% 10.5 % (0-10); NRBC Flagged by Analyzer 0 % (0-5); Neutrophil # 2.49 X10^3/uL (2.7-7.7); Neutrophil % 54.3 % (47-70); POSITIVE COUNT YES; Platelet Count 51 K/mm3 (150-450); RBC Distribution Width CV 17.1 % (11.6-14.6); RBC Distribution Width SD 58.4 fl (35.1-43.9); Red Blood Count 3.76 M/mm3 (4.2-5.4); White Blood Count 4.6 K/mm3 (4.4-11.0)
[2022-09-25 23:56] LABS: Differential Indicated SCAN CRITERIA MET
[2022-09-26] VITALS (21 sets, daily range): BP systolic 108–169; BP diastolic 55–92; PULSE 85–118; RESP 14–22; TEMP 36.2–38.9; O2SAT 87–100; BMI 25.4; BMI 26.3; BMI 25.5
[2022-09-26 00:11] LABS: ALB/GLOB Ratio 0.9 RATIO (0.9-2.4); AST(SGOT) 137 U/L (15-37); Alanine Aminotransfer ALT/SGPT 43 U/L (13-56); Alkaline Phosphatase 213 U/L (45-117); Anion Gap 13 (5-15); BUN 5 mg/dL (7-18); BUN/Creat Ratio 7.7 RATIO (10-20); Calcium,Total 8.6 mg/dL (8.5-10.1); Chloride 109 mmol/L (98-107); Creatinine, Serum 0.65 mg/dL (0.55-1.02); EST Glomerular Filtration Rate 103 mL/min (>60); Est Glom Filt Rate - Afr Amer 124 mL/min (>60); Estimated Creatinine Clearance 93.17 ml/min; Globulin 4.4 g/dL (2.2-4.2); Glucose 80 mg/dL (74-106); Lipase 31 U/L (13-75); Potassium 2.9 mmol/L (3.5-5.1); Protein, Total 8.4 g/dL (6.4-8.2); Sodium Level 143 mmol/L (136-145)
[2022-09-26 00:24] LABS: International Normalized Ratio 1.3
[2022-09-26 00:31] LABS: Platelet Estimate MOD DEC (ADEQ)
--- NOTE | 2022-09-26 00:41 | PCM.HP.STD ---
HPI - General General Date of Admission: 09/26/22 Date of Service: 09/26/22 Chief Complaint: Hematemesis HPI Narrative DOMINICK CUENCA, is a 52 F with a significant history of esophageal varices secondary to alcoholic cirrhosis who last had variceal banding in April 2022 presenting to the emergency department with multiple episodes of hematemesis that started the same day of presentation. Of note patient denies any hematochezia or melena. He also patient's who had quit alcoholism went back to drinking about 2 weeks ago. She drinks about 15 shots of vodka per day. She began drinking when she was in her 20s. At that time she was not a heavy drinker. However the last 5 years patient has been drinking heavily. Last time she drank was about 2 hours prior to presentation and at presentation she reported that she began having tremulousness signifying her withdrawal. [facility] Medical History Alcohol abuse Alcohol abuse Alcoholism Cirrhosis of liver Cirrhosis of liver with ascites Depression Gastric ulcer with hemorrhage High cholesterol History of alcoholism History of cirrhosis of liver Hypertension Irritable bowel Migraines Home Medications aripiprazole 2 mg tablet 2 mg PO DAILY 02/16/21 [History Last Taken 02/16/21] naltrexone 50 mg tablet 50 mg PO DAILY 02/16/21 [History Last Taken 02/15/21] sertraline 100 mg tablet (Zoloft) 100 mg PO DAILY depression 02/16/21 [History Last Taken Unknown] spironolactone 25 mg tablet 25 mg PO DAILY 02/16/21 [History Last Taken 02/16/21] pantoprazole 40 mg tablet,delayed release (Protonix) 40 mg PO BID #60 tabs 02/17/21 [Rx Last Taken Unknown] sucralfate 1 gram tablet (Carafate) 1 g PO BID #60 tabs 02/17/21 [Rx Last Taken Unknown] propranolol 80 mg capsule,24 hr,extended release (Inderal LA) 80 mg PO DAILY BP 04/17/22 [History Last Taken Unknown] acamprosate 333 mg tablet,delayed release 333 mg PO TID Check with primary doctor 04/19/22 [History Last Taken Unknown] atorvastatin 40 mg tablet (Lipitor) 40 mg PO DAILY Check with primary doctor 04/19/22 [History Last Taken Unknown] baclofen 10 mg tablet 10 mg PO TID PRN PRN Pain 04/19/22 [History Last Taken Unknown] mirabegron 25 mg tablet,extended release 24 hr (Myrbetriq) 25 mg PO DAILY Check with primary doctor 04/19/22 [History Last Taken Unknown] montelukast 10 mg tablet (Singulair) 10 mg PO DAILY Check with primary doctor 04/19/22 [History Last Taken Unknown] olanzapine 5 mg tablet (Zyprexa) 5 mg PO QHS Check with primary doctor 04/19/22 [History Last Taken Unknown] oxcarbazepine 300 mg tablet (Trileptal) 300 mg PO BID Check with primary doctor 04/19/22 [History Last Taken Unknown] sulfasalazine 500 mg tablet (Azulfidine) 1,000 mg PO BID Check with primary doctor 04/19/22 [History Last Taken Unknown] folic acid 1 mg tablet 1 mg PO DAILY@0800 #30 tabs 04/26/22 [Rx Last Taken Unknown] lactulose 20 gram/30 mL oral solution 20 g (30 mL) PO Q8 30 days #2,700 mL 04/26/22 [Rx Last Taken Unknown] pentoxifylline 400 mg tablet,extended release 400 mg PO TIDCM 30 days #90 tabs 04/26/22 [Rx Last Taken Unknown] prednisone 20 mg tablet 40 mg (2 x 20 mg) PO BREAKFAST 30 days #60 tabs 04/26/22 [Rx Last Taken Unknown] rifaximin 550 mg tablet (Xifaxan) 550 mg PO BID 30 days #60 tabs 04/26/22 [Rx Last Taken Unknown] thiamine HCl (vitamin B1) 100 mg tablet (Vitamin B-1) 100 mg PO BREAKFAST 30 days #30 tabs 04/26/22 [Rx Last Taken Unknown] ondansetron 4 mg disintegrating tablet 4 mg PO Q8H PRN PRN Nausea #10 tabs 04/30/22 [Rx Last Taken Unknown] Allergy/AdvReac Type Severity Reaction Status Date / Time bee venom protein (honey bee) Allergy NEEDS Verified 04/17/22 04:34 [bee sting] FOLLOW-UP Family History Other Diabetes Heart disease Hyperlipidemia Hypertension Surgical History History of carpal tunnel surgery Social History household members: family Smoking Status: Never smoker alcohol intake: current substance use type: does not use ROS ROS Narrative Pertinent positives and pertinent negatives as noted in HPI. All other systems were reviewed and are negative Vital Signs Vital Signs Vital Signs: 09/25/22 23:25 09/26/22 00:00 Temperature 97 F L Temperature Source Temporal Pulse Rate 94 97 Respiratory Rate 22 H 17 Blood Pressure 164/107 H 140/85 H Blood Pressure Mean 126 103 Pulse Ox 97 Oxygen Delivery Method Room Air Room Air Weight Weight: 68.039 kg Body Mass Index (BMI) 25.0 Physical Exam Narrative Physical exam: General: Well-nourished, well-developed. Head: Normocephalic, atraumatic, no tenderness Eyes: Vision is grossly intact. EOMI ENT, no trauma, dry mucous membranes, no rhinorrhea Neck: Nontender, No thyromegaly. CVS: Regular rate and rhythm. S1-S2 present. No murmur, gallop or rub. Respiratory : clear to auscultation bilaterally, chest wall nontender Abdomen: Soft, nontender, nondistended, normal bowel sounds, no masses : Deferred Back: Nontender, no CVA tenderness, no midline spinal tenderness, deformities, step-offs Extremities: Nontender full range of motion, no trauma Skin: Normal color, no trauma, abrasions Neuro: Alert, oriented, cranial nerves II through XII grossly intact. Psychiatry: Normal mood. Normal affect. Not depressed. Not anxious. Results Lab / Micro Data 09/25/22 23:30 09/25/22 23:30 Labs: Laboratory Results - last 24 hr 09/25/22 23:30: WBC 4.6, RBC 3.76 L, Hgb 11.1 L, Hct 35.0 L, MCV 93.1, MCH 29.5, MCHC 31.7 L, RDW Std Deviation 58.4 H, RDW Coeff of Melissa 17.1 H, Plt Count 51 L, MPV 9.4, Immature Gran % (Auto) 0.400, Neut % (Auto) 54.3, Lymph % (Auto) 29.3, [place] % (Auto) 10.5 H, Eos % (Auto) 4.8, Baso % (Auto) 0.7, Absolute Neuts (auto) 2.5, Absolute Lymphs (auto) 1.34, Nucleated RBC % 0, Platelet Estimate MOD DEC, PT 16.0 H, INR 1.3, Sodium 143, Potassium 2.9 L, Chloride 109 H, Carbon Dioxide 21.0, Anion Gap 13, BUN 5 L, Creatinine 0.65, Estim Creat Clear Calc 93.17, Est GFR (MDRD) Af Amer 124, Est GFR (MDRD) Non-Af 103, BUN/Creatinine Ratio 7.7 L, Glucose 80, Calcium 8.6, Total Bilirubin 1.70 H, AST 137 H, ALT 43, Alkaline Phosphatase 213 H, Total Protein 8.4 H, Albumin 4.0, Globulin 4.4 H, Albumin/Globulin Ratio 0.9, Lipase 31, Ethyl Alcohol 324.0 H*, Blood Type A POSITIVE, Antibody Screen NEGATIVE Radiology Impression Chest X-Ray 09/25/22 23:43 IMPRESSION: Slight linear parenchymal changes on the left. Otherwise unremarkable exam. Electronically Signed: Lashay August MD at 0:24 EDT , Assessment & Plan Assessment/Plan (1) Acute upper gastrointestinal hemorrhage: (2) Esophageal varices in alcoholic cirrhosis: (3) Hypokalemia: (4) Alcoholic cirrhosis: QUALIFIERS: Ascites presence: without ascites Qualified Code(s): K70.30 - Alcoholic cirrhosis of liver without ascites PLAN: Plan Acute upper GI bleed in setting of history of esophageal varices and alcoholic cirrhotic patient. Impression chest x-ray by radiology: Slight linear parenchymal changes on the left. Otherwise unremarkable exam. Chest x-ray was visualized and independently interpreted and I agree with radiology interpretation. Hemoglobin 11.1 on presentation which is actually stable compared to previous. Admit to monitored bed on PCU IV fluids of normal saline with potassium ordered. H&H every 6 hours No anticoagulants for DVT prophylaxis SCD Protonix drip started at the emergency department and continued. Requested to start emergency department continued. GI consult. Hypokalemia Potassium of 2.9 on presentation. IV potassium ordered at the ED. Normal saline with 40 mil equivalent potassium ordered. Trend BMP. Check magnesium. Alcoholism Alcohol level presentation was 324. Placed on alcohol withdrawal protocol with as needed Ativan and other supportive medications. Time spent in the patient's overall evaluation,decision-making process, review of diagnostic data, adjustment of management, discussion with other providers, nursing nursing and ancillary staff involved in patient's care documentation, 60 minutes. Charges/Coding Visit Charges Inpatient E&M: 62215 Init Hosp L3
[2022-09-26] MEDS: Potassium Chloride 10mEq/100mL 10 MEQ/100 ML IV.SOLN. 100 MEQ IV BOLUS (01:16)
[2022-09-26] MEDS: LORazepam 2 MG/ML Syringe IV (02:30)
[2022-09-26] MEDS: Potassium Chloride 40 MEQ in 0.9% Normal Saline 1,000 ML 100 MEQ IV (02:30)
[2022-09-26] MEDS: 0.9% Saline Lock 10 ML Syringe IV (02:31)
[2022-09-26 06:34] LABS: Hematocrit 30.8 % (37-47); Hemoglobin 9.6 g/dL (12.0-15.0)
--- NOTE | 2022-09-26 07:00 | CON.PCM.GI_ITS ---
HPI Consult Data Date of Consult: 09/26/22 HPI Narrative Reason for Consultation: Upper GI bleed HPI Narrative: DOMINICK CUENCA, is a 52 F who presents from home after vomiting blood multiple times today. Patient has a history of alcoholic cirrhosis, she relapsed for the past 2 weeks and has been drinking again, she started vomiting blood today, she has vomited blood with clots 3-4 times this afternoon and evening. She has felt lightheaded and a little dyspneic but no syncope or near syncope. She has some abdominal bloating and pressure but no severe pains. She has a history of alcoholic cirrhosis. She says that she has had episodes of jaundice, alcoholic hepatitis and possibly upper GI bleed secondary to portal gastropathy. She drinks about 8 glasses of vodka a day. She was on Vivitrol to control drinking habits. However she stopped taking it. She says she has had problems with nausea vomiting over the last 6 months. She got very concerned and came into the ER due to a large volume of bloody vomitus. She does not take any NSAIDs. She does have a past medical history of hypercholesteremia and hypertension. She believes that they put her on propanolol for variceal prophylaxis. She has no family members with cirrhosis. She has no autoimmune disease. Patient reported that about 2 months ago she had an endoscopy at [facility] at [facility]. The endoscopy did not show any varices. [facility] Medical History (Updated 09/26/22 @ 17:[address] Hankins Friend, ) Alcohol abuse Alcohol abuse Alcoholism Cholelithiasis Cirrhosis of liver Cirrhosis of liver with ascites Depression Gastric ulcer with hemorrhage High cholesterol History of alcoholism History of cirrhosis of liver Hypertension Irritable bowel Migraines Home Medications aripiprazole 2 mg tablet 2 mg PO DAILY see pcp 02/16/21 [History Last Taken 02/16/21] naltrexone 50 mg tablet 50 mg PO DAILY see pcp 02/16/21 [History Last Taken 02/15/21] sertraline 100 mg tablet (Zoloft) 100 mg PO DAILY depression 02/16/21 [History Last Taken Unknown] spironolactone 25 mg tablet 25 mg PO DAILY see pcp 02/16/21 [History Last Taken 02/16/21] pantoprazole 40 mg tablet,delayed release (Protonix) 40 mg PO BID see pcp #60 tabs 02/17/21 [Rx Last Taken Unknown] sucralfate 1 gram tablet (Carafate) 1 g PO BID see #60 tabs 02/17/21 [Rx Last Taken Unknown] propranolol 80 mg capsule,24 hr,extended release (Inderal LA) 80 mg PO DAILY BP 04/17/22 [History Last Taken Unknown] acamprosate 333 mg tablet,delayed release 333 mg PO TID Check with primary doctor 04/19/22 [History Last Taken Unknown] atorvastatin 40 mg tablet (Lipitor) 40 mg PO DAILY Check with primary doctor 04/19/22 [History Last Taken Unknown] baclofen 10 mg tablet 10 mg PO TID PRN PRN Pain 04/19/22 [History Last Taken Unknown] mirabegron 25 mg tablet,extended release 24 hr (Myrbetriq) 25 mg PO DAILY Check with primary doctor 04/19/22 [History Last Taken Unknown] montelukast 10 mg tablet (Singulair) 10 mg PO DAILY Check with primary doctor 04/19/22 [History Last Taken Unknown] olanzapine 5 mg tablet (Zyprexa) 5 mg PO QHS Check with primary doctor 04/19/22 [History Last Taken Unknown] oxcarbazepine 300 mg tablet (Trileptal) 300 mg PO BID Check with primary doctor 04/19/22 [History Last Taken Unknown] sulfasalazine 500 mg tablet (Azulfidine) 1,000 mg PO BID Check with primary doctor 04/19/22 [History Last Taken Unknown] folic acid 1 mg tablet 1 mg PO DAILY@0800 #30 tabs 04/26/22 [Rx Last Taken Unknown] lactulose 20 gram/30 mL oral solution 20 g (30 mL) PO Q8 pcp 30 days #2,700 mL 04/26/22 [Rx Last Taken Unknown] pentoxifylline 400 mg tablet,extended release 400 mg PO TIDCM see pcp 30 days #90 tabs 04/26/22 [Rx Last Taken Unknown] prednisone 20 mg tablet 40 mg (2 x 20 mg) PO BREAKFAST see pcp 30 days #60 tabs 04/26/22 [Rx Last Taken Unknown] rifaximin 550 mg tablet (Xifaxan) 550 mg PO BID see pcp 30 days #60 tabs 04/26/22 [Rx Last Taken Unknown] thiamine HCl (vitamin B1) 100 mg tablet (Vitamin B-1) 100 mg PO BREAKFAST see pcp 30 days #30 tabs 04/26/22 [Rx Last Taken Unknown] ondansetron 4 mg disintegrating tablet 4 mg PO Q8H PRN PRN Nausea #10 tabs 04/30/22 [Rx Last Taken Unknown] Allergy/AdvReac Type Severity Reaction Status Date / Time bee venom protein (honey bee) Allergy NEEDS Verified 09/26/22 10:59 [bee sting] FOLLOW-UP Family History Other Diabetes Heart disease Hyperlipidemia Hypertension Surgical History History of carpal tunnel surgery Social History (Updated 09/26/22 @ 10:14 by Nathalia Vegas) household members: family Smoking Status: Never smoker alcohol intake: current substance use type: does not use and other ROS ROS Narrative Pertinent positives and pertinent negatives as noted in HPI. All other systems were reviewed and are negative Physical Exam Narrative Physical exam: General: Well-nourished, well-developed. Head: Normocephalic, atraumatic, no tenderness Eyes: Vision is grossly intact. EOMI ENT, no trauma, dry mucous membranes, no rhinorrhea Neck: Nontender, No thyromegaly. CVS: Regular rate and rhythm. S1-S2 present. No murmur, gallop or rub. Respiratory : clear to auscultation bilaterally, chest wall nontender Abdomen: Soft, nontender, nondistended, normal bowel sounds, no masses : Deferred Back: Nontender, no CVA tenderness, no midline spinal tenderness, deformities, step-offs Extremities: Nontender full range of motion, no trauma Skin: Normal color, no trauma, abrasions Neuro: Alert, oriented, cranial nerves II through XII grossly intact. Psychiatry: Normal mood. Normal affect. Not depressed. Not anxious. Lab / Micro Data 09/26/22 13:07 09/26/22 06:26 Labs: Laboratory Results - last 24 hr 09/25/22 23:30: WBC 4.6, RBC 3.76 L, Hgb 11.1 L, Hct 35.0 L, MCV 93.1, MCH 29.5, MCHC 31.7 L, RDW Std Deviation 58.4 H, RDW Coeff of Melissa 17.1 H, Plt Count 51 L, MPV 9.4, Immature Gran % (Auto) 0.400, Neut % (Auto) 54.3, Lymph % (Auto) 29.3, [place] % (Auto) 10.5 H, Eos % (Auto) 4.8, Baso % (Auto) 0.7, Absolute Neuts (auto) 2.5, Absolute Lymphs (auto) 1.34, Nucleated RBC % 0, Platelet Estimate MOD DEC, PT 16.0 H, INR 1.3, Sodium 143, Potassium 2.9 L, Chloride 109 H, Carbon Dioxide 21.0, Anion Gap 13, BUN 5 L, Creatinine 0.65, Estim Creat Clear Calc 93.17, Est GFR (MDRD) Af Amer 124, Est GFR (MDRD) Non-Af 103, BUN/Creatinine Ratio 7.7 L, Glucose 80, Calcium 8.6, Total Bilirubin 1.70 H, AST 137 H, ALT 43, Alkaline Phosphatase 213 H, Total Protein 8.4 H, Albumin 4.0, Globulin 4.4 H, Albumin/Globulin Ratio 0.9, Lipase 31, Ethyl Alcohol 324.0 H*, Blood Type A POSITIVE, Antibody Screen NEGATIVE 09/26/22 06:26: WBC 3.0 L, RBC 3.30 L, Hgb 9.6 L, Hct 30.8 L, MCV 95.2, MCH 29.4, MCHC 30.9 L, RDW Std Deviation 59.7 H, RDW Coeff of Melissa 17.2 H, Plt Count 35 L*, MPV 10.2, Immature Gran % (Auto) 0.300, Neut % (Auto) 74.4 H, Lymph % (Auto) 14.3 L, [place] % (Auto) 9.6, Eos % (Auto) 0.7, Baso % (Auto) 0.7, Absolute Neuts (auto) 2.2, Absolute Lymphs (auto) 0.43 L, Nucleated RBC % 0, Differential Comment COMMENT, Diff Path Review July foll, Platelet Estimate MKD DEC, Sodium 145, Potassium 3.9, Chloride 113 H, Carbon Dioxide 20.0 L, Anion Gap 12, BUN 4 L , Creatinine 0.44 L, Estim Creat Clear Calc 137.64, Est GFR (MDRD) Af Amer 197, Est GFR (MDRD) Non-Af 163, BUN/Creatinine Ratio 9.2 L, Glucose 62 L, Calcium 7.5 L, Phosphorus 3.6, Magnesium 1.7 09/26/22 10:55: Urine Test Negative 09/26/22 13:07: Hgb 9.9 L, Hct 30.9 L Radiology Impression Chest X-Ray 09/25/22 23:43 IMPRESSION: Slight linear parenchymal changes on the left. Otherwise unremarkable exam. Electronically Signed: Lashay August MD at 0:24 EDT , Assessment & Plan Assessment/Plan (1) Bleeding esophageal varices due to alcoholic liver disease: PLAN: She will undergo endoscopy to evaluate esophagus for possible variceal bleed. Recommended octreotide and PPI drip. (2) Gastric ulcer with hemorrhage: QUALIFIERS: Gastric ulcer chronicity: acute Qualified Code(s): K25.0 - Acute gastric ulcer with hemorrhage PLAN: History of gastric ulcer likely secondary to alcoholic gastritis. Recommend PPI (3) Cirrhosis of liver with ascites: QUALIFIERS: Hepatic cirrhosis type: alcoholic cirrhosis Qualified Code(s): K70.31 - Alcoholic cirrhosis of liver with ascites PLAN: At this time she is suffering from mild alcoholic hepatitis with a Madrey score of 28. She is not encephalopathic at this time. I would recommend Xifaxan 5 to 50 mg p.o. twice daily and lactulose 20 cc p.o. every 6 hours as prophylaxis for encephalopathy. I would not give her steroids at this time.
[2022-09-26 07:10] LABS: Anion Gap 12 (5-15); BUN 4 mg/dL (7-18); BUN/Creat Ratio 9.2 RATIO (10-20); Calcium,Total 7.5 mg/dL (8.5-10.1); Chloride 113 mmol/L (98-107); Creatinine, Serum 0.44 mg/dL (0.55-1.02); EST Glomerular Filtration Rate 163 mL/min (>60); Est Glom Filt Rate - Afr Amer 197 mL/min (>60); Estimated Creatinine Clearance 137.64 ml/min; Glucose 62 mg/dL (74-106); Magnesium 1.7 mg/dL (1.6-2.6); Phosphorus 3.6 mg/dL (2.5-4.9); Potassium 3.9 mmol/L (3.5-5.1); Sodium Level 145 mmol/L (136-145)
--- NOTE | 2022-09-26 07:31 | PN.HOSP_ITS ---
Reason for Visit Reason for Visit: Hematemesis Subjective Subjective Ms. Estevez is a 52-year-old white female with a history of esophageal varices secondary to alcoholic cirrhosis who presented to the emergency department [facility] early this morning on 09/26/2022 with multiple episodes of hematemesis that started on the same day of presentation. She denied any hematochezia or melena. She has a history of alcoholism and had been sober but started drinking about 2 weeks prior to presentation. She reported that she has been drinking 15 shots of vodka daily. Her last drink was about 2 hours prior to presentation and upon presentation she was having some tremulousness. Vital signs on presentation were stable. Her hemoglobin had dropped from 12.8 on 04/30/2019-11.1 at the time of admission and has subsequently dropped to 9.6 this morning. Count on admission was 51,000. Coags were unremarkable. She was found to be hypokalemic with normal renal function and elevated bilirubin at 1.7 this is down from previous in April at which time she had a bilirubin of 9.1. She has very mild transaminitis with an AST of 137 but her ALT is normal consistent with alcohol consumption. Her alcohol level on admission was 324. She had a protracted admission back in April 2022 at which time she had banding of esophageal varices by Dr. Roman. It does not appear as if she is followed up as an outpatient with Dr. Roman since disch arge. Her last admission also was complicated by protracted detox at which time she had to be transferred to the ICU for Precedex drip secondary to DTs. At that time she was discharged to inpatient rehab. Objective Data Objective Data Vital Signs: Vital Signs Temp Pulse Resp BP Pulse Ox O2 Del Method O2 Flow Rate 97.8 F 102 H 16 108/74 100 Nasal Cannula 2 09/26/22 03:30 09/26/22 03:30 09/26/22 03:30 09/26/22 03:30 09/26/22 03:30 09/26/22 03:30 09/26/22 03:30 Oxygen Flow Rate (L/min) 2 Oxygen Delivery Method Nasal Cannula Weight: 69.5 kg Body Mass Index (BMI) 25.4 Intake & Output: Intake and Output for Last 24 Hours 07/16/23 07/17/23 07/18/23 23:59 23:59 23:59 Intake Total 1135 / 1135 Output Total 500 / 500 Balance 635 / 635 Lab / Micro Data 09/26/22 06:26 09/26/22 06:26 Labs: Laboratory Results - last 24 hr 09/25/22 23:30: WBC 4.6, RBC 3.76 L, Hgb 11.1 L, Hct 35.0 L, MCV 93.1, MCH 29.5, MCHC 31.7 L, RDW Std Deviation 58.4 H, RDW Coeff of Melissa 17.1 H, Plt Count 51 L, MPV 9.4, Immature Gran % (Auto) 0.400, Neut % (Auto) 54.3, Lymph % (Auto) 29.3, [place] % (Auto) 10.5 H, Eos % (Auto) 4.8, Baso % (Auto) 0.7, Absolute Neuts (auto) 2.5, Absolute Lymphs (auto) 1.34, Nucleated RBC % 0, Platelet Estimate MOD DEC, PT 16.0 H, INR 1.3, Sodium 143, Potassium 2.9 L, Chloride 109 H, Carbon Dioxide 21.0, Anion Gap 13, BUN 5 L, Creatinine 0.65, Estim Creat Clear Calc 93.17, Est GFR (MDRD) Af Amer 124, Est GFR (MDRD) Non-Af 103, BUN/Creatinine Ratio 7.7 L, Glucose 80, Calcium 8.6, Total Bilirubin 1.70 H, AST 137 H, ALT 43, Alkaline Phosphatase 213 H, Total Protein 8.4 H, Albumin 4.0, Globulin 4.4 H, Albumin/Globulin Ratio 0.9, Lipase 31, Ethyl Alcohol 324.0 H*, Blood Type A POSITIVE, Antibody Screen NEGATIVE 09/26/22 06:26: Hgb 9.6 L, Hct 30.8 L, Sodium 145, Potassium 3.9, Chloride 113 H , Carbon Dioxide 20.0 L, Anion Gap 12, BUN 4 L, Creatinine 0.44 L, Estim Creat Clear Calc 137.64, Est GFR (MDRD) Af Amer 197, Est GFR (MDRD) Non-Af 163, BUN/Creatinine Ratio 9.2 L, Glucose 62 L, Calcium 7.5 L, Phosphorus 3.6, Magnesium 1.7 Radiography Diagnostic Testing: Radiology Impression Chest X-Ray 09/25/22 23:43 IMPRESSION: Slight linear parenchymal changes on the left. Otherwise unremarkable exam. Electronically Signed: Lashay August MD at 0:24 EDT , Assessment & Plan Assessment/Plan (1) Acute upper gastrointestinal hemorrhage: (2) Esophageal varices in alcoholic cirrhosis: (3) Alcoholic cirrhosis: QUALIFIERS: Ascites presence: without ascites Qualified Code(s): K70.30 - Alcoholic cirrhosis of liver without ascites (4) Hypokalemia: (5) Alcoholic hepatitis: (6) Thrombocytopenia: (7) Acute blood loss anemia: PLAN: Plan Hematemesis -Suspected upper GI bleed -Esophageal bleeding and banding in April 2022 -EGD at that time showed grade 2 varices in the middle third of the esophagus and lower third of the esophagus that were banded and severe diffuse portal hypertensive gastropathy in the stomach -Continue Protonix drip -Start octreotide drip -GI consultation for EGD probably later today Acute blood loss anemia -Hemoglobin has dropped from April at which time it was 12.8 and today 9.6 -Continue every 6 hour hemoglobin -Transfuse for hemoglobin less than 7 or precipitous drop -Patient remains hemodynamically stable Acute alcohol withdrawal/alcoholism -Patient had been sober up until about 2 weeks ago since April -Was showing signs of acute withdrawal on admission -Start phenobarbital taper -As needed Ativan for breakthrough withdrawal symptoms -Continue supportive medications for withdrawal symptoms -180 consultation -Recommend repeat inpatient treatment program Thrombocytopenia -This appears to be new -Etiology is unclear -Coags are normal -If it may be related to alcohol toxicity marrow and/or consumption from bleeding -Repeat in a.m. and if continues to trend down may need further work-up Alcoholic hepatitis -Mild -No current need for steroids -continue home pentoxifylline -Repeat LFTs in a.m. Hypokalemia -Resolved History of esophageal varices/portal hypertensive gastropathy -See above -hold home propranolol while on octreotide Liver cirrhosis secondary to alcoholism -continue home aldactone -restart home lactulose -continue home Rifaximin H/O Gastric Ulcer -IV PPI ggt -hold carafate--> pt was not taking at home HPL -continue home statin Anxiety/Depression -hold home antipsychotics for now -on multiple atypical antipsychotics--> will need to clarify -continue home zoloft DVT prophylaxis -scds -no chemoprophylaxis 2/2 GIB Code Status -Full
[2022-09-26 08:12] LABS: Absolute Lymphocyte Count 0.43 X10^3/uL (0.83-4.51); Absolute Neutrophil Count 2.2 X10^3/uL (2.0-7.7); Basophil# 0.02 X10^3/uL; Basophil% 0.7 % (0-1); Eosinophil# 0.02 X10^3/uL; Eosinophils% 0.7 % (0-5); Lymphocyte # 0.43 X10^3/ul (0.83-4.51); Lymphocyte % 14.3 % (19-41); Mean Corp Hgb Conc 30.9 g/dL (32-36); Mean Corpuscular Hgb 29.4 pg (27.0-32.0); Mean Corpuscular Volume 95.2 fL (81-99); Mean Platelet Vol. 10.2 fl (6.2-12.0); Monocyte# 0.29 X10^3/uL; Monocyte% 9.6 % (0-10); NRBC Flagged by Analyzer 0 % (0-5); Neutrophil # 2.24 X10^3/uL (2.7-7.7); Neutrophil % 74.4 % (47-70); POSITIVE COUNT YES; POSITIVE DIFFERENTIAL YES; RBC Distribution Width CV 17.2 % (11.6-14.6); RBC Distribution Width SD 59.7 fl (35.1-43.9)
[2022-09-26 08:15] LABS: Differential Indicated SCAN CRITERIA MET; Platelet Count 35 K/mm3 (150-450)
[2022-09-26] MEDS: Mirabegron 25 MG TAB.ER.24H PO (08:35)
[2022-09-26] MEDS: Folic Acid 1 MG Tablet PO (08:35)
[2022-09-26] MEDS: OXcarbazepine 300 MG Tablet PO ×2 (08:35→21:13)
[2022-09-26] MEDS: sulfaSALAzine 500 MG Tablet 1000 MG PO ×2 (08:35→21:12)
[2022-09-26] MEDS: Phenobarbital 32.4 MG Tablet PO ×5 (08:35→23:57)
[2022-09-26] MEDS: Spironolactone 25 MG Tablet PO (08:40)
[2022-09-26] MEDS: Sertraline 100 MG Tablet PO (08:51)
[2022-09-26] MEDS: Thiamine Hydrochloride 100 MG Tablet PO (08:51)
[2022-09-26] MEDS: rifAXIMin 550 MG Tablet PO ×2 (08:51→21:13)
[2022-09-26] MEDS: 0.9% Normal Saline 1,000 ML 60 ML IV ×2 (08:54→19:54)
[2022-09-26 08:56] LABS: Platelet Estimate MKD DEC (ADEQ)
--- NOTE | 2022-09-26 10:38 | CASEMGMT ---
Per physician patient is open to talking to the wildland fire operations specialist. SOSA passed this information to SW on MS3 who passed it on to Denys, the wildland fire operations specialist. Liliya Wilder STONE RIGGER LILIBETH
--- NOTE | 2022-09-26 10:42 | CASEMGMT ---
Addendum entered by Pat Francis 09/26/22 11:49: Pt remains out of room. Original Note: RN CM NOTE: RN CM to room to complete initial assessment. Pt is out of room at this time for EGD. Devan BSN RN CM
[2022-09-26 11:01] LABS: Internal QC Validated? YES +Cl - CLEAR BKGD; Pregnancy, Urine Negative Negative
--- NOTE | 2022-09-26 12:07 | OP.EGD_ITS ---
Patient Name: Sujey Estevez Procedure Date: 09/26/2022 11:58 AM Date of : 1970 Age: 52 Procedure: Upper GI endoscopy Indications: Hematemesis Providers: Cr Roman DO Medicines: Monitored Anesthesia Care Patient Profile: This is a 52 year old female. Refer to note in patient chart for documentation of history and physical. Patient has symptoms of acute vomiting. Complications: No immediate complications. Procedure: Pre-Anesthesia Assessment: - Prior to the procedure, a History and Physical was performed, and patient medications and allergies were reviewed. The risks and benefits of the procedure and the sedation options and risks were discussed with the patient. All questions were answered and informed consent was obtained. Patient identification and proposed procedure were verified by the physician in the pre-procedure area. Mental Status Examination: alert and oriented. Airway Examination: normal oropharyngeal airway and neck mobility. Respiratory Examination: clear to auscultation. CV Examination: normal. Prophylactic Antibiotics: The patient does not require prophylactic antibiotics. Prior Anticoagulants: The patient has taken no previous anticoagulant or antiplatelet agents. After reviewing the risks and benefits, the patient was deemed in satisfactory condition to undergo the procedure. The anesthesia plan was to use monitored anesthesia care (MAC). Immediately prior to administration of medications, the patient was re-assessed for adequacy to receive sedatives. The heart rate, respiratory rate, oxygen saturations, blood pressure, adequacy of pulmonary ventilation, and response to care were monitored throughout the procedure. The physical status of the patient was re-assessed after the procedure. After obtaining informed consent, the endoscope was passed under direct vision. Throughout the procedure, the patient's blood pressure, pulse, and oxygen saturations were monitored continuously. The gastroscope was introduced through the mouth, and advanced to the second part of duodenum. The upper GI endoscopy was accomplished without difficulty. The patient tolerated the procedure well. Scope In: 11:59:12 AM Scope Out: 12:01:31 PM Total Procedure Duration Time 0 hours 2 minutes 19 seconds Findings: LA Grade C (one or more mucosal breaks continuous between tops of 2 or more mucosal folds, less than 75% circumference) esophagitis with bleeding was found 36 to 40 cm from the incisors. Diffuse severe inflammation characterized by erosions, erythema and friability was found in the entire examined stomach. Moderate portal hypertensive gastropathy was found in the stomach. The second portion of the duodenum was normal. Impression: - LA Grade C erosive esophagitis. - Bile gastritis. - Portal hypertensive gastropathy. - Normal second portion of the duodenum. - No specimens collected. Recommendation: - Return patient to [facility] for ongoing care. - Advance diet as tolerated. - Continue present medications. Procedure Code(s): --- Professional --- 63193, Esophagogastroduodenoscopy, flexible, transoral; diagnostic, including collection of specimen(s) by brushing or washing, when performed (separate procedure) CPT copyright 2017 [employer]. All rights reserved. The codes documented in this report are preliminary and upon operations label clerk review may be revised to meet current compliance requirements. Cr Roman DO 09/26/2022 12:07:33 PM This report has been signed electronically. Number of Addenda: 0 Note Initiated On: 09/26/2022 11:58 AM
--- NOTE | 2022-09-26 12:08 | OP.CCLET_ITS ---
09/26/2022 Lady Kinsey Re : Upper GI endoscopy procedure for Sujey Edgarr Amelie This procedure was performed on Monday, September 26, 2022. My impressions and recommendations are as follows: Impressions : - LA Grade C erosive esophagitis. - Bile gastritis. - Portal hypertensive gastropathy. - Normal second portion of the duodenum. - No specimens collected. Recommendations : - Return patient to [facility] for ongoing care. - Advance diet as tolerated. - Continue present medications. My findings are described in the full procedure note, which is enclosed. If I can be of further assistance, please feel free to contact me at . Sincerely, Cr Roman, 09/26/2022 12:07:33 PM This report has been signed electronically.
[2022-09-26] MEDS: Lactulose 20 GM/30 ML UDC PO ×2 (13:15→21:13)
--- NOTE | 2022-09-26 13:30 | CHAPLAIN ---
Type of Pastoral Visit _x__ Initial Visit ___ Follow-up Visit ___ On-call Visit ___ General Patient Visit ___ Spiritual Assessment ___ Family Conference ___ Bereavement ___ Rapid Response ___ Code Blue ___ Other (describe below) Pastoral Care Referral From _x__ Patient ___ Family ___ Nurse ___ Physician ___ [place] ___ Logistics Vice President ___ Other (describe below) Sacrament/Intervention ___ Active listening ___ Anointing ___ Confucianist ___ Bereavement ___ Communion ___ Flory exploration ___ ___ Life review ___ Prayer ___ Reconciliation ___ Sacrament of Sick _x__ Supportive presence ___ Wedding ___ Other (describe below) Pastoral Comments patient just returned to room from procedure; pt is tired and will sleep once settled; pt thanked this manager learning for the offer of support
--- NOTE | 2022-09-26 14:00 | CASEMGMT ---
RN?CM?UTILITY WORKER FILM PROCESSING?CM?to room to meet with patient for initial transition planning/care coordination?assessment.?RN?CM?introduced self and role at [facility].? Pt voices understanding and consents to?assessment?at this time.? Pt resting in bed in no distress at this time.? Pt's mom/POA, Gertrude, on speaker phone w/pt when RN CM in room and pt chose to have her stay on the phone during CM assessment. Pt is A/O at this time and answers all questions appropriately.?? Care providers, pharmacy, and demographics verified/updated at this time.? PCP:?COMMERCIAL LOAN CLOSER Sheridan Sommer @ [facility] in [place] Specialists:?Dr Piter Beltran @ [facility]. Pt sees a counselor @ [facility] in [place], [place]. She states she was supposed to start an IOP program today and she plans to call them now to let them know she will not be able to come in today. She states the program is for 3 days/week, /Sun/, from 3-6 PM. Preferred Pharmacy:? [facility] Retail Insurance:?[employer] Prescription Benefit:?Yes Living Will/HPOA:??Pt completed AD during last admission Apr, 2022, and they are not file @ [facility]. Pt's mom is HCPOA and her brother, Luis Enrique, is 1st alternative. LNOK:?Pt is , but is and currently going through a divorce.. Mother, Gertrude. Brother, Kenn. Living Arrangements:?Lives alone in 2-story home w/2 steps to enter. Indep w/ADL's and IADL's. Transportation:?Pt states drives self and states no transportation concerns at this time.?? DME: ? Denies using any DME and denies needs.?? HHC/SNF:?No hx of either. No needs identified. Pt states she has been sober from ETOH use since her last admission in Apr, but relapsed a couple of weeks ago d/t nasty divorce. Pt made aware the medical specialist will be in to talk with her. She states she think she was already in earlier to talk w/her and broached the topic of her going to an addiction rehab for 30-days. Pt states she is not willing to go somewhere for 30 days, stating the last place she went was horrible and that she only stayed there for 1 one day. Pt states she would like to discharge home and do the IOP program @ [facility], but is agreeable to medical specialist coming back to talk w/her. CM?to follow for any further discharge planning/needs.? Pt voices no further concerns/needs at this time.? Advised pt to ask for?CM?if any further questions/concerns/needs arise.? Voices understanding.? PLAN:? Home w/[facility] IOP program vs addiction IPU. medical specialist to follow. ? Devan BSN?RN?CM
[2022-09-26 14:15] LABS: Hematocrit 30.9 % (37-47); Hemoglobin 9.9 g/dL (12.0-15.0)
[2022-09-26] MEDS: Ondansetron 4 MG/2 ML Vial IV (17:20)
[2022-09-26 18:23] LABS: Hematocrit 32.4 % (37-47); Hemoglobin 10.1 g/dL (12.0-15.0)
[2022-09-26] MEDS: Dicyclomine 10 MG Capsule 20 MG PO (19:06)
[2022-09-26] MEDS: Atorvastatin Calcium 40 MG Tablet PO (21:13)
[2022-09-26] MEDS: Montelukast 10 MG Tablet PO (21:13)
[2022-09-26] MEDS: proCHLORPERazine 10 MG/2 ML Vial 5 MG IV (22:23)
[2022-09-26 23:14] LABS: Absolute Lymphocyte Count 0.43 X10^3/uL (0.83-4.51); Absolute Neutrophil Count 2.3 X10^3/uL (2.0-7.7); Basophil# 0.03 X10^3/uL; Basophil% 0.9 % (0-1); Eosinophil# 0.01 X10^3/uL; Eosinophils% 0.3 % (0-5); Hematocrit 29.4 % (37-47); Hemoglobin 9.4 g/dL (12.0-15.0); Lymphocyte # 0.43 X10^3/ul (0.83-4.51); Mean Corpuscular Hgb 29.8 pg (27.0-32.0); Mean Corpuscular Volume 93.3 fL (81-99); Mean Platelet Vol. 11.4 fl (6.2-12.0); Monocyte# 0.38 X10^3/uL; Monocyte% 11.5 % (0-10); NRBC Flagged by Analyzer 0.9 % (0-5); Neutrophil % 69.5 % (47-70); POSITIVE COUNT YES; POSITIVE DIFFERENTIAL YES; RBC Distribution Width CV 16.9 % (11.6-14.6); RBC Distribution Width SD 57.1 fl (35.1-43.9); Red Blood Count 3.15 M/mm3 (4.2-5.4); White Blood Count 3.3 K/mm3 (4.4-11.0)
[2022-09-26 23:27] LABS: Lactic Acid 1.8 mmol/L (0.4-1.9)
[2022-09-26 23:37] LABS: ALB/GLOB Ratio 0.8 RATIO (0.9-2.4); AST(SGOT) 95 U/L (15-37); Alanine Aminotransfer ALT/SGPT 34 U/L (13-56); Albumin, Serum 3.4 g/dL (3.2-5.0); Alkaline Phosphatase 182 U/L (45-117); Anion Gap 9 (5-15); BUN 6 mg/dL (7-18); BUN/Creat Ratio 7.3 RATIO (10-20); Calcium,Total 7.7 mg/dL (8.5-10.1); Chloride 99 mmol/L (98-107); Creatinine, Serum 0.82 mg/dL (0.55-1.02); Differential Indicated SCAN CRITERIA MET; EST Glomerular Filtration Rate 78 mL/min (>60); Est Glom Filt Rate - Afr Amer 95 mL/min (>60); Estimated Creatinine Clearance 70.88 ml/min; Globulin 4.2 g/dL (2.2-4.2); Glucose 223 mg/dL (74-106); Platelet Count 30 K/mm3 (150-450); Potassium 3.5 mmol/L (3.5-5.1); Protein, Total 7.6 g/dL (6.4-8.2); Sodium Level 132 mmol/L (136-145)
[2022-09-26 23:39] LABS: Differential Comment SCANNED; Platelet Estimate MKD DEC (ADEQ)
[2022-09-27] VITALS (8 sets, daily range): BP systolic 128–141; BP diastolic 71–86; PULSE 75–109; RESP 14–18; TEMP 36.7–38.3; O2SAT 92–96
[2022-09-27] MEDS: Phenobarbital 32.4 MG Tablet PO ×5 (04:35→20:59)
[2022-09-27] MEDS: Lactulose 20 GM/30 ML UDC PO ×3 (05:10→22:40)
[2022-09-27 06:03] LABS: Absolute Lymphocyte Count 0.99 X10^3/uL (0.83-4.51); Absolute Neutrophil Count 1.8 X10^3/uL (2.0-7.7); Basophil# 0.01 X10^3/uL; Basophil% 0.3 % (0-1); Eosinophil# 0.07 X10^3/uL; Hematocrit 30.2 % (37-47); Hemoglobin 9.7 g/dL (12.0-15.0); Lymphocyte # 0.99 X10^3/ul (0.83-4.51); Lymphocyte % 28.7 % (19-41); Mean Corp Hgb Conc 32.1 g/dL (32-36); Mean Corpuscular Hgb 29.7 pg (27.0-32.0); Mean Corpuscular Volume 92.4 fL (81-99); Mean Platelet Vol. 11.3 fl (6.2-12.0); Monocyte# 0.52 X10^3/uL; Monocyte% 15.1 % (0-10); NRBC Flagged by Analyzer 0 % (0-5); Neutrophil # 1.84 X10^3/uL (2.7-7.7); Neutrophil % 53.3 % (47-70); POSITIVE COUNT YES; RBC Distribution Width SD 57.5 fl (35.1-43.9); Red Blood Count 3.27 M/mm3 (4.2-5.4); White Blood Count 3.5 K/mm3 (4.4-11.0)
[2022-09-27 06:06] LABS: Differential Indicated SCAN CRITERIA MET; Platelet Count 32 K/mm3 (150-450)
[2022-09-27 06:24] LABS: Differential Comment SCANNED; Platelet Estimate MKD DEC (ADEQ)
[2022-09-27 06:59] LABS: ALB/GLOB Ratio 0.9 RATIO (0.9-2.4); AST(SGOT) 86 U/L (15-37); Alanine Aminotransfer ALT/SGPT 32 U/L (13-56); Albumin, Serum 3.5 g/dL (3.2-5.0); Alkaline Phosphatase 177 U/L (45-117); Anion Gap 7 (5-15); BUN 6 mg/dL (7-18); BUN/Creat Ratio 6.9 RATIO (10-20); Calcium,Total 7.7 mg/dL (8.5-10.1); Chloride 104 mmol/L (98-107); Creatinine, Serum 0.86 mg/dL (0.55-1.02); EST Glomerular Filtration Rate 74 mL/min (>60); Est Glom Filt Rate - Afr Amer 89 mL/min (>60); Estimated Creatinine Clearance 67.58 ml/min; Globulin 3.9 g/dL (2.2-4.2); Glucose 139 mg/dL (74-106); Magnesium 1.5 mg/dL (1.6-2.6); Phosphorus 1.2 mg/dL (2.5-4.9); Potassium 3.4 mmol/L (3.5-5.1); Protein, Total 7.4 g/dL (6.4-8.2); Sodium Level 135 mmol/L (136-145); Thyroid Stim Hormone (TSH) 0.16 uIU/mL (0.358-3.74)
[2022-09-27 07:59] LABS: T4 Free Direct 0.82 ng/dL (0.76-1.46)
[2022-09-27] MEDS: proCHLORPERazine 10 MG/2 ML Vial 5 MG IV (08:11)
[2022-09-27] MEDS: Mirabegron 25 MG TAB.ER.24H PO (08:18)
[2022-09-27] MEDS: Thiamine Hydrochloride 100 MG Tablet PO (08:18)
[2022-09-27] MEDS: Folic Acid 1 MG Tablet PO (08:18)
[2022-09-27] MEDS: Spironolactone 25 MG Tablet PO (08:18)
[2022-09-27] MEDS: Sertraline 100 MG Tablet PO (08:18)
[2022-09-27] MEDS: rifAXIMin 550 MG Tablet PO ×2 (08:18→22:39)
[2022-09-27] MEDS: OXcarbazepine 300 MG Tablet PO ×2 (08:18→22:39)
[2022-09-27] MEDS: sulfaSALAzine 500 MG Tablet 1000 MG PO ×2 (08:18→22:40)
--- NOTE | 2022-09-27 10:18 | PCM.PN.HOSP ---
Reason for Visit Reason for Visit: Hematemesis Subjective Subjective Patient states she feels much less tremulous today on the phenobarb. No significant issues overnight. No further hematemesis. Happy to be able to progress to regular diet today. States she talked to 180 yesterday and her plan is to follow-up at outpatient drug rehab program over near her home in [facility]. Objective Data Objective Data Vital Signs: Vital Signs Temp Pulse Resp BP Pulse Ox O2 Del Method O2 Flow Rate 98.3 F 109 H 14 128/80 H 92 Room Air 2 09/27/22 09:18 09/27/22 09:18 09/27/22 09:18 09/27/22 09:18 09/27/22 09:18 09/27/22 09:09/26/22 09:12 Oxygen Flow Rate (L/min) 2 Oxygen Delivery Method Room Air Weight: 69.5 kg Body Mass Index (BMI) 25.5 Intake & Output: Intake and Output for Last 24 Hours 09/25/22 09/26/22 09/27/22 23:59 23:59 23:59 Intake Total 3442.83 / 3442.83 249.83 / 249.83 Output Total 1450 / 1450 Balance 1992.83 / 1991.83 249.83 / 249.83 Lab / Micro Data 09/27/22 05:46 09/27/22 05:46 Labs: Laboratory Results - last 24 hr 09/26/22 10:55: Urine Test Negative 09/26/22 13:07: Hgb 9.9 L, Hct 30.9 L 09/26/22 17:35: Hgb 10.1 L, Hct 32.4 L 09/26/22 22:45: WBC 3.3 L, RBC 3.15 L, Hgb 9.4 L, Hct 29.4 L, MCV 93.3, MCH 29.8, MCHC 32.0, RDW Std Deviation 57.1 H, RDW Coeff of Melissa 16.9 H, Plt Count 30 L*, MPV 11.4, Immature Gran % (Auto) 4.800 H, Neut % (Auto) 69.5, Lymph % (Auto) 13.0 L, [place] % (Auto) 11.5 H, Eos % (Auto) 0.3, Baso % (Auto) 0.9, Absolute Neuts (auto) 2.3, Absolute Lymphs (auto) 0.43 L, Nucleated RBC % 0.9, Differential Comment SCANNED, Diff Path Review [place], Platelet Estimate MKD DEC, Sodium 132 L, Potassium 3.5, Chloride 99, Carbon Dioxide 24.0, Anion Gap 9, BUN 6 L, Creatinine 0.82, Estim Creat Clear Calc 70.88, Est GFR (MDRD) Af Amer 95, Est GFR (MDRD) Non-Af 78, BUN/Creatinine Ratio 7.3 L, Glucose 223 H, Lactic Acid 1.8, Calcium 7.7 L, Total Bilirubin 2.80 H, AST 95 H, ALT 34, Alkaline Phosphatase 182 H, Total Protein 7.6, Albumin 3.4, Globulin 4.2, Albumin/Globulin Ratio 0.8 L 09/27/22 05:46: WBC 3.5 L, RBC 3.27 L, Hgb 9.7 L, Hct 30.2 L, MCV 92.4, MCH 29.7, MCHC 32.1, RDW Std Deviation 57.5 H, RDW Coeff of Melissa 17.0 H, Plt Count 32 L*, MPV 11.3, Immature Gran % (Auto) 0.600, Neut % (Auto) 53.3, Lymph % (Auto) 28.7, [place] % (Auto) 15.1 H, Eos % (Auto) 2.0, Baso % (Auto) 0.3, Absolute Neuts (auto) 1.8 L, Absolute Lymphs (auto) 0.99, Nucleated RBC % 0, Differential Comment SCANNED, Diff Path Review July [place], Platelet Estimate MKD DEC, Sodium 135 L, Potassium 3.4 L, Chloride 104, Carbon Dioxide 24.0, Anion Gap 7, BUN 6 L, Creatinine 0.86, Estim Creat Clear Calc 67.58, Est GFR (MDRD) Af Amer 89, Est GFR (MDRD) Non-Af 74, BUN/Creatinine Ratio 6.9 L, Glucose 139 H, Calcium 7.7 L, Phosphorus 1.2 L, Magnesium 1.5 L, Total Bilirubin 2.80 H, AST 86 H, ALT 32, Alkaline Phosphatase 177 H, Total Protein 7.4, Albumin 3.5, Globulin 3.9, Albumin/Globulin Ratio 0.9, TSH 0.16 L, Free T4 0.82 Micro: Microbiology 09/26/22 21:50 Nasal Secretion SARS-CoV-2 & FLU Antigen (Rapid) - Final Physical Exam Const alert, oriented x3, no apparent distress and average body habitus; Negative for healthy appearing Constitutional Narrative: Middle-aged, white female, lying in bed, appears older than stated age, appears comfortable nontoxic, nursing at bedside HEENT head/scalp atraumatic and moist oral mucous membranes HEENT Narrative: Mallampati 2, no thrush Head and Scalp: normocephalic Resp normal respiratory effort, no retractions and no use of accessory muscles Resp Narrative: Diffusely diminished but clear Auscultation: Negative for rales, rhonchi or wheezes Cardio regular rhythm, S1 normal heart sound, S2 normal heart sound, no murmurs, no rub, no gallops and no clicks Cardio Narrative: Mild tachycardia GI soft to palpation and hepatosplenomegaly GI Narrative: Abdomen is somewhat protuberant with what seems to be a positive fluid wave, no severe distention and bowel sounds are normal active, hepatomegaly noted with some mild tenderness over the right upper quadrant Extremity no clubbing, cyanosis or edema Extremity Narrative: Decreased lean muscle mass, scattered ecchymosis on extremities Neuro oriented x3, moves all extremities and no focal motor deficits Speech: speech normal Psych Psych Narrative: Affect is slightly flat but appropriate for situation, eye contact is good and patient appreciative and interacts appropriately Assessment & Plan Assessment/Plan (1) Acute upper gastrointestinal hemorrhage: (2) Esophageal varices in alcoholic cirrhosis: (3) Alcoholic cirrhosis: QUALIFIERS: Ascites presence: without ascites Qualified Code(s): K70.30 - Alcoholic cirrhosis of liver without ascites (4) Hypokalemia: (5) Alcoholic hepatitis: (6) Thrombocytopenia: (7) Acute blood loss anemia: (8) Leukopenia: PLAN: Plan Upper GI bleed secondary to severe erosive esophagitis/bile gastritis/portal hypertensive gastropathy -Suspected upper GI bleed -Esophageal bleeding and banding in April 2022 -EGD at that time showed grade 2 varices in the middle third of the esophagus and lower third of the esophagus that were banded and severe diffuse portal hypertensive gastropathy in the stomach -EGD on 09/26/2022 showed grade C erosive esophagitis with bleeding at the distal esophagus, diffuse severe inflammation characterized by erosions and erythema with friability in the entire stomach and moderate portal hypertensive gastropathy in the stomach, the duodenum was normal. -Continue Protonix drip until tomorrow and then transition to p.o. Protonix twice daily -Continue octreotide drip until tomorrow then transition to p.o. propranolol -GI is following appreciate input Acute blood loss anemia -Hemoglobin has dropped from April at which time it was 12.8 and today 9.7 today -Hemoglobin seems to have stabilized -Transfuse for hemoglobin less than 7 or precipitous drop -Repeat CBC in a.m. Acute alcohol withdrawal/alcoholism -Patient had been sober up until about 2 weeks ago since April -Was showing signs of acute withdrawal on admission -Continue phenobarbital taper -As needed Ativan for breakthrough withdrawal symptoms -Continue supportive medications for withdrawal symptoms -180 evaluated the patient and she declined discharge planning per documentation however the patient does indicate that she plans to do an outpatient program in [facility] where she lives after discharge Thrombocytopenia -Platelet count seems to be stabilizing -Suspect etiology is consumption with bleeding and marrow toxicity from alcohol use -Coags are normal -Repeat CBC in a.m. Alcoholic hepatitis -Mild -AST/ALT are improving and bilirubin is stable at 2.8--> this may be her baseline as her previous bilirubin was greater than 9 -No current need for steroids -continue home pentoxifylline -Repeat LFTs in a.m. Hypokalemia/hypophosphatemia/hypomagnesemia -2 g magnesium bolus -40 mmol potassium phosphate bolus -Repeat mag, Phos, potassium in a.m. History of esophageal varices/portal hypertensive gastropathy -See above -hold home propranolol while on octreotide Liver cirrhosis secondary to alcoholism -continue home aldactone -restart home lactulose -continue home Rifaximin -Appears to have some ascites will check ultrasound to further assess H/O Gastric Ulcer -IV PPI ggt -Restart Carafate HPL -continue home statin Anxiety/Depression -hold home antipsychotics for now -on multiple atypical antipsychotics--> will need to clarify -continue home zoloft DVT prophylaxis -scds -no chemoprophylaxis 2/2 GIB Code Status -Full Charges/Coding Visit Charges Inpatient E&M: 85107 Subs Hosp L2
--- NOTE | 2022-09-27 10:24 | US_ITS ---
INDICATION: Ascites survey only EXAMINATION: Ultrasound US Abdomen Limited (quadrant) TECHNIQUE: Godinez scale and color doppler imaging was performed of multiple quadrants of the abdomen for the purposes of ascites screening. FINDINGS: An ascites screening was performed with only small amount of free fluid identified in the abdomen. US/Abdomen Limited IMPRESSION: Small amount of ascites identified. Electronically Signed: Wil Walls, at 14:48 EDT ,
[2022-09-27] MEDS: 0.9% Normal Saline 1,000 ML 60 ML IV (12:29)
[2022-09-27] MEDS: Sucralfate 1 GM Tablet PO (16:15)
--- NOTE | 2022-09-27 18:50 | PN.GI_ITS ---
Subjective Subjective Patient denies any hematemesis. She denies any abdominal pain. She is tolerating a normal diet. Objective Data Objective Data Vital Signs: Vital Signs Temp Pulse Resp BP Pulse Ox O2 Del Method O2 Flow Rate 99.6 F H 100 16 130/81 H 93 Room Air 2 09/27/22 17:39 09/27/22 17:39 09/27/22 17:39 09/27/22 17:39 09/27/22 17:39 09/27/22 17:39 09/26/22 09:12 Oxygen Flow Rate (L/min) 2 Oxygen Delivery Method Room Air Weight: 153 lb 3.54 oz Body Mass Index (BMI) 25.5 Intake & Output: Intake and Output for Last 24 Hours 09/25/22 09/26/22 09/27/22 23:59 23:59 23:59 Intake Total 3442.83 / 3442.83 2409.1633 / 2409.1633 Output Total 1450 / 1450 2200 / 2200 Balance 1991.83 / 1991.83 209.1633 / 209.1633 Lab / Micro Data 09/27/22 05:46 09/27/22 05:46 Labs: Laboratory Results - last 24 hr 09/26/22 22:45: WBC 3.3 L, RBC 3.15 L, Hgb 9.4 L, Hct 29.4 L, MCV 93.3, MCH 29.8, MCHC 32.0, RDW Std Deviation 57.1 H, RDW Coeff of Melissa 16.9 H, Plt Count 30 L*, MPV 11.4, Immature Gran % (Auto) 4.800 H, Neut % (Auto) 69.5, Lymph % (Auto) 13.0 L, [place] % (Auto) 11.5 H, Eos % (Auto) 0.3, Baso % (Auto) 0.9, Absolute Neuts (auto) 2.3, Absolute Lymphs (auto) 0.43 L, Nucleated RBC % 0.9, Differential Comment SCANNED, Diff Path Review May foll, Platelet Estimate MKD DEC, Sodium 132 L, Potassium 3.5, Chloride 99, Carbon Dioxide 24.0, Anion Gap 9, BUN 6 L, Creatinine 0.82, Estim Creat Clear Calc 70.88, Est GFR (MDRD) Af Amer 95, Est GFR (MDRD) Non-Af 78, BUN/Creatinine Ratio 7.3 L, Glucose 223 H, Lactic Acid 1.8, Calcium 7.7 L, Total Bilirubin 2.80 H, AST 95 H, ALT 34, Alkaline Phosphatase 182 H, Total Protein 7.6, Albumin 3.4, Globulin 4.2, Albumin/Globulin Ratio 0.8 L 09/27/22 05:46: WBC 3.5 L, RBC 3.27 L, Hgb 9.7 L, Hct 30.2 L, MCV 92.4, MCH 29. 7, MCHC 32.1, RDW Std Deviation 57.5 H, RDW Coeff of Melissa 17.0 H, Plt Count 32 L* , MPV 11.3, Immature Gran % (Auto) 0.600, Neut % (Auto) 53.3, Lymph % (Auto) 28.7, [place] % (Auto) 15.1 H, Eos % (Auto) 2.0, Baso % (Auto) 0.3, Absolute Neuts (auto) 1.8 L, Absolute Lymphs (auto) 0.99, Nucleated RBC % 0, Differential Comment SCANNED, Diff Path Review July foll, Platelet Estimate MKD DEC, Sodium 135 L, Potassium 3.4 L, Chloride 104, Carbon Dioxide 24.0, Anion Gap 7, BUN 6 L, Creatinine 0.86, Estim Creat Clear Calc 67.58, Est GFR (MDRD) Af Amer 89, Est GFR (MDRD) Non-Af 74, BUN/Creatinine Ratio 6.9 L, Glucose 139 H, Calcium 7.7 L, Phosphorus 1.2 L, Magnesium 1.5 L, Total Bilirubin 2.80 H, AST 86 H, ALT 32, Alkaline Phosphatase 177 H, Total Protein 7.4, Albumin 3.5, Globulin 3.9, Albumin/Globulin Ratio 0.9, TSH 0.16 L, Free T4 0.82 Micro: Microbiology 09/26/22 21:50 Nasal Secretion SARS-CoV-2 & FLU Antigen (Rapid) - Final Radiography Diagnostic Testing: Radiology Impression Abdomen Ultrasound 09/27/22 10:24 IMPRESSION: Small amount of ascites identified. Electronically Signed: Wil Walls, at 14:48 EDT Reading Location ID and State: [facility] / [place] Tel , Service support , Physical Exam Const alert, oriented x3, no apparent distress and average body habitus; Negative for healthy appearing HEENT head/scalp atraumatic and moist oral mucous membranes HEENT Narrative: Mallampati 2, no thrush Head and Scalp: normocephalic Resp normal respiratory effort, no retractions and no use of accessory muscles Resp Narrative: Diffusely diminished but clear Auscultation: Negative for rales, rhonchi or wheezes Cardio regular rhythm, S1 normal heart sound, S2 normal heart sound, no murmurs, no rub, no gallops and no clicks Cardio Narrative: Mild tachycardia GI soft to palpation and hepatosplenomegaly GI Narrative: Abdomen is somewhat protuberant with what seems to be a positive fluid wave, no severe distention and bowel sounds are normal active, hepatomegaly noted with some mild tenderness over the right upper quadrant Extremity no clubbing, cyanosis or edema Extremity Narrative: Decreased lean muscle mass, scattered ecchymosis on extremities Neuro oriented x3, moves all extremities and no focal motor deficits Speech: speech normal Psych Psych Narrative: Affect is slightly flat but appropriate for situation, eye contact is good and patient appreciative and interacts appropriately Assessment & Plan Assessment/Plan (1) Bleeding esophageal varices due to alcoholic liver disease: PLAN: octreotide and PPI drip is stopped. Recommend only Protonix 40 mg IV every 12 hours. She is tolerating a regular diet. Protonix can be switched to 40 mg p.o. twice daily. (2) Alcohol withdrawal: PLAN: She is not having any signs of alcohol withdrawal at this time. Continue Precedex and phenobarbital. Had a long conversation with her regarding her continued alcohol intake and she says that she wants to stop and may be willing to go into AA for help. (3) Gastric ulcer with hemorrhage: QUALIFIERS: Gastric ulcer chronicity: acute Qualified Code(s): K25.0 - Acute gastric ulcer with hemorrhage PLAN: Healed gastric ulcer likely secondary to alcoholic gastritis. There was no sign of ulcerations on this exam but she did have severe portal gastropathy without recent stigmata of bleeding. (4) Cirrhosis of liver with ascites: QUALIFIERS: Hepatic cirrhosis type: alcoholic cirrhosis Qualified Code(s): K70.31 - Alcoholic cirrhosis of liver with ascites PLAN: At this time she is suffering from alcoholic hepatitis with a Madrey score of 20. She is not encephalopathic at this time. I would recommend Xifaxan 550 mg p.o. twice daily and lactulose 20 cc p.o. every 6 hours as prophylaxis for encephalopathy. (5) Alcoholic hepatitis: PLAN: Patient is Madrey score is 20. She does not need any treatment for alcoholic hepatitis at this time. Charges/Coding Visit Charges Inpatient E&M: 47822 Subs Hosp L3
[2022-09-27] MEDS: Montelukast 10 MG Tablet PO (22:40)
[2022-09-27] MEDS: Atorvastatin Calcium 40 MG Tablet PO (22:40)
[2022-09-28] MEDS: Phenobarbital 32.4 MG Tablet PO ×6 (00:17→22:57)
[2022-09-28 01:00] VITALS: BP 131/67; PULSE 99; RESP 18; TEMP 37.7; O2SAT 95
[2022-09-28] MEDS: 0.9% Normal Saline 1,000 ML 60 ML IV (04:46)
[2022-09-28] MEDS: Lactulose 20 GM/30 ML UDC PO ×2 (06:20→15:32)
[2022-09-28] MEDS: Sucralfate 1 GM Tablet PO ×2 (06:20→16:33)
[2022-09-28 06:22] LABS: Absolute Lymphocyte Count 0.53 X10^3/uL (0.83-4.51); Absolute Neutrophil Count 3.1 X10^3/uL (2.0-7.7); Basophil# 0.02 X10^3/uL; Basophil% 0.5 % (0-1); Eosinophil# 0.16 X10^3/uL; Eosinophils% 3.9 % (0-5); Hematocrit 29.5 % (37-47); Hemoglobin 9.4 g/dL (12.0-15.0); Lymphocyte # 0.53 X10^3/ul (0.83-4.51); Lymphocyte % 12.8 % (19-41); Mean Corp Hgb Conc 31.9 g/dL (32-36); Mean Corpuscular Hgb 29.9 pg (27.0-32.0); Mean Corpuscular Volume 93.9 fL (81-99); Mean Platelet Vol. 9.6 fl (6.2-12.0); Monocyte# 0.33 X10^3/uL; NRBC Flagged by Analyzer 0 % (0-5); Neutrophil # 3.07 X10^3/uL (2.7-7.7); Neutrophil % 74.1 % (47-70); POSITIVE COUNT YES; POSITIVE DIFFERENTIAL YES; RBC Distribution Width CV 17.5 % (11.6-14.6); RBC Distribution Width SD 59.9 fl (35.1-43.9); Red Blood Count 3.14 M/mm3 (4.2-5.4); White Blood Count 4.1 K/mm3 (4.4-11.0)
[2022-09-28 06:32] LABS: Differential Indicated SCAN CRITERIA MET
[2022-09-28 06:33] LABS: Platelet Count 31 K/mm3 (150-450)
[2022-09-28 06:45] LABS: Differential Comment SCANNED; Platelet Estimate MKD DEC (ADEQ)
[2022-09-28 06:58] LABS: ALB/GLOB Ratio 0.9 RATIO (0.9-2.4); AST(SGOT) 63 U/L (15-37); Alanine Aminotransfer ALT/SGPT 25 U/L (13-56); Albumin, Serum 3.2 g/dL (3.2-5.0); Alkaline Phosphatase 149 U/L (45-117); Anion Gap 8 (5-15); BUN 5 mg/dL (7-18); BUN/Creat Ratio 7.8 RATIO (10-20); Calcium,Total 7.7 mg/dL (8.5-10.1); Chloride 109 mmol/L (98-107); Creatinine, Serum 0.64 mg/dL (0.55-1.02); EST Glomerular Filtration Rate 104 mL/min (>60); Est Glom Filt Rate - Afr Amer 126 mL/min (>60); Estimated Creatinine Clearance 94.63 ml/min; Globulin 3.7 g/dL (2.2-4.2); Glucose 116 mg/dL (74-106); Phosphorus 1.6 mg/dL (2.5-4.9); Protein, Total 6.9 g/dL (6.4-8.2); Sodium Level 140 mmol/L (136-145)
[2022-09-28 07:42] VITALS: O2SAT 91
[2022-09-28 08:00] VITALS: BP 135/77; PULSE 102; RESP 16; TEMP 37; O2SAT 95
[2022-09-28] MEDS: Mirabegron 25 MG TAB.ER.24H PO (08:05)
[2022-09-28] MEDS: Sertraline 100 MG Tablet PO (08:05)
[2022-09-28] MEDS: sulfaSALAzine 500 MG Tablet 1000 MG PO ×2 (08:05→23:01)
[2022-09-28] MEDS: rifAXIMin 550 MG Tablet PO ×2 (08:06→23:00)
[2022-09-28] MEDS: Spironolactone 25 MG Tablet PO (08:06)
[2022-09-28] MEDS: Folic Acid 1 MG Tablet PO (08:06)
[2022-09-28] MEDS: OXcarbazepine 300 MG Tablet PO ×2 (08:06→23:00)
[2022-09-28] MEDS: Thiamine Hydrochloride 100 MG Tablet PO (08:06)
[2022-09-28 09:09] LABS: Pathologist Review Reviewed
[2022-09-28 09:09] LABS: Pathologist Review Reviewed
[2022-09-28 09:09] LABS: Pathologist Review Reviewed
--- NOTE | 2022-09-28 10:30 | PCM.PN.HOSP ---
Reason for Visit Reason for Visit: Hematemesis Subjective Subjective Patient states she is feeling much better today. No signs of withdrawal. Would like to take a shower if possible. Follows up with Dr. Grey for gastroenterology at [facility] as an outpatient and sees a primary care physician in [facility]. Objective Data Objective Data Vital Signs: Vital Signs Temp Pulse Resp BP Pulse Ox O2 Del Method O2 Flow Rate 98.6 F 102 H 16 135/77 H 95 Room Air 2 09/28/22 08:00 09/28/22 08:00 09/28/22 08:00 09/28/22 08:00 09/28/22 08:00 09/28/22 09:48 09/26/22 09:12 Oxygen Flow Rate (L/min) 2 Oxygen Delivery Method Room Air Weight: 69.5 kg Body Mass Index (BMI) 25.5 Intake & Output: Intake and Output for Last 24 Hours 09/26/22 09/27/22 09/28/22 23:59 23:59 23:59 Intake Total 3442.83 / 3442.83 2458.7433 / 2698.7433 1539.33 / 1539.33 Output Total 1450 / 1450 2200 / 2200 Balance 1992.83 / 1991.83 258.7433 / 498.7433 1539.33 / 1539.33 Lab / Micro Data 09/28/22 06:12 09/28/22 06:12 Labs: Laboratory Results - last 24 hr 09/26/22 06:26: Diff Path Review Reviewed 09/26/22 22:45: Diff Path Review Reviewed 09/27/22 05:46: Diff Path Review Reviewed 09/28/22 06:12: WBC 4.1 L, RBC 3.14 L, Hgb 9.4 L, Hct 29.5 L, MCV 93.9, MCH 29.9, MCHC 31.9 L, RDW Std Deviation 59.9 H, RDW Coeff of Melissa 17.5 H, Plt Count 31 L*, MPV 9.6, Immature Gran % (Auto) 0.700, Neut % (Auto) 74.1 H, Lymph % (Auto) 12.8 L, [place] % (Auto) 8.0, Eos % (Auto) 3.9, Baso % (Auto) 0.5, Absolute Neuts (auto) 3.1, Absolute Lymphs (auto) 0.53 L, Nucleated RBC % 0, Differential Comment SCANNED, Diff Path Review July foll, Platelet Estimate MKD DEC, Sodium 140, Potassium 3.0 L, Chloride 109 H, Carbon Dioxide 23.0, Anion Gap 8, BUN 5 L, Creatinine 0.64, Estim Creat Clear Calc 94.63, Est GFR (MDRD) Af Amer 126, Est GFR (MDRD) Non-Af 104, BUN/Creatinine Ratio 7.8 L, Glucose 116 H, Calcium 7.7 L, Phosphorus 1.6 L, Magnesium 2.0, Total Bilirubin 2.20 H, AST 63 H, ALT 25, Alkaline Phosphatase 149 H, Total Protein 6.9, Albumin 3.2, Globulin 3.7, Albumin/Globulin Ratio 0.9 Micro: Microbiology 09/26/22 21:50 Nasal Secretion SARS-CoV-2 & FLU Antigen (Rapid) - Final Radiography Diagnostic Testing: Radiology Impression Abdomen Ultrasound 09/27/22 10:24 IMPRESSION: Small amount of ascites identified. Electronically Signed: Wil Walls, at 14:48 EDT Reading Location ID and State: [address] [place] [address] Tel , Service support , Physical Exam Const alert, oriented x3, no apparent distress and average body habitus; Negative for healthy appearing Constitutional Narrative: Middle-aged, white female, lying in bed, appears older than stated age, appears comfortable nontoxic, eating breakfast and watching television HEENT head/scalp atraumatic and moist oral mucous membranes HEENT Narrative: Blank 2, no thrush Head and Scalp: normocephalic Eyes PERRL Eyes Narrative: Conjunctiva are mildly pale, no scleral icterus Neck no lymphadenopathy and supple Neck Narrative: Trachea midline, no thyroid enlargement Resp normal respiratory effort, no retractions and no use of accessory muscles Resp Narrative: Diffusely diminished but clear Auscultation: Negative for rales, rhonchi or wheezes Cardio regular rate, regular rhythm, S1 normal heart sound, S2 normal heart sound, no murmurs, no rub, no gallops and no clicks GI normal to inspection, nondistended, normoactive bowel sounds, soft to palpation, non-tender and hepatosplenomegaly Extremity no clubbing, cyanosis or edema Extremity Narrative: Decreased lean muscle mass, scattered ecchymosis on extremities Neuro oriented x3, moves all extremities and no focal motor deficits Speech: speech normal Psych affect normal Psych Narrative: Patient is very pleasant, interacts appropriately Assessment & Plan Assessment/Plan (1) Acute upper gastrointestinal hemorrhage: (2) Esophageal varices in alcoholic cirrhosis: (3) Alcoholic cirrhosis: QUALIFIERS: Ascites presence: without ascites Qualified Code(s): K70.30 - Alcoholic cirrhosis of liver without ascites (4) Hypokalemia: (5) Alcoholic hepatitis: (6) Thrombocytopenia: (7) Acute blood loss anemia: (8) Leukopenia: PLAN: Plan Upper GI bleed secondary to severe erosive esophagitis/bile gastritis/portal hypertensive gastropathy -EGD on 09/26/2022 showed grade C erosive esophagitis with bleeding at the distal esophagus, diffuse severe inflammation characterized by erosions and erythema with friability in the entire stomach and moderate portal hypertensive gastropathy in the stomach, the duodenum was normal. -Discontinue Protonix drip and start Protonix 40 mg p.o. twice daily -Continue home Carafate -Discontinue octreotide and restart home propranolol -Continue antibiotics but transition from Zosyn to ceftriaxone for SBP prophylaxis -Will discharge to complete a 7-day course currently day 3 of 7 -GI is following appreciate input Acute blood loss anemia -Hemoglobin has dropped from April at which time it was 12.8 and today 9.4 today -Hemoglobin remained stable -Transfuse for hemoglobin less than 7 or precipitous drop -Repeat CBC in a.m. Acute alcohol withdrawal/alcoholism -Patient had been sober up until about 2 weeks ago since April -Was showing signs of acute withdrawal on admission--> symptoms are improving -Continue phenobarbital taper -Discontinue as needed Ativan as patient has not required any -Continue supportive medications for withdrawal symptoms -180 evaluated the patient and she declined discharge planning per documentation however the patient does indicate that she plans to do an outpatient program in [facility] where she lives after discharge Thrombocytopenia -Platelet count stable -Suspect etiology is consumption with bleeding and marrow toxicity from alcohol use -Could potentially be related to antibiotics we will discontinue Zosyn and start ceftriaxone -No signs of bleeding -Coags are normal -Repeat CBC in a.m. Alcoholic hepatitis -Mild -AST/ALT have almost normalized and bilirubin slowly trending down to 2.2 today--> this may be her baseline as her previous bilirubin was greater than 9 -No current need for steroids -continue home pentoxifylline -No need to repeat LFTs Hypokalemia/hypophosphatemia/hypomagnesemia - hypomagnesemia resolved - ongoing hypophosphatemia and hypokalemia -Repeat K-Phos bolus IV -Give 40 mill equivalents of p.o. potassium -Repeat lab in a.m. History of esophageal varices/portal hypertensive gastropathy -See above -Discontinue octreotide and restart home propranolol Liver cirrhosis secondary to alcoholism -continue home aldactone -Continue home lactulose -continue home Rifaximin -No significant ascites noted on ultrasound H/O Gastric Ulcer -Transition off IV PPI to Protonix p.o. twice daily 40 mg -Continue home Carafate HPL -continue home statin Anxiety/Depression -hold home antipsychotics for now -on multiple atypical antipsychotics--> will need to clarify -continue home zoloft DVT prophylaxis -scds -no chemoprophylaxis 2/2 GIB Code Status -Full Charges/Coding Visit Charges Inpatient E&M: 28901 Subs Hosp L3
[2022-09-28 12:00] VITALS: BP 117/73; PULSE 98; RESP 18; TEMP 36.6; O2SAT 97
[2022-09-28] MEDS: Potassium Chloride Oral Tablet 20 MEQ 40 MEQ PO (12:16)
[2022-09-28] MEDS: Pentoxifylline 400 MG Tablet PO ×2 (13:11→16:34)
--- NOTE | 2022-09-28 15:34 | CHAPLAIN ---
Type of Pastoral Visit ___ Initial Visit _x__ Follow-up Visit ___ On-call Visit ___ General Patient Visit ___ Spiritual Assessment ___ Family Conference ___ Bereavement ___ Rapid Response ___ Code Blue ___ Other (describe below) Pastoral Care Referral From _x__ Patient ___ Family ___ Nurse ___ Physician ___ Flowers Salesperson ___ Building Attendant ___ Other (describe below) Sacrament/Intervention _x__ Active listening ___ Anointing ___ Latter-Day ___ Bereavement ___ Communion _x__ Flory exploration ___ _x__ Life review _x__ Prayer ___ Reconciliation ___ Sacrament of Sick ___ Supportive presence ___ Wedding ___ Other (describe below) Pastoral Comments patient is sitting on edge of bed and 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
--- NOTE | 2022-09-28 17:19 | PN.GI_ITS ---
Subjective Subjective Patient is doing a lot better today. She has not shown any signs of withdrawal at this time. She is tolerating a diet without any signs or symptoms of nausea, vomiting or hematemesis. Objective Data Objective Data Vital Signs: Vital Signs Temp Pulse Resp BP Pulse Ox O2 Del Method O2 Flow Rate 97.8 F 98 18 117/73 97 Room Air 2 09/28/22 12:00 09/28/22 12:00 09/28/22 12:00 09/28/22 12:00 09/28/22 12:00 09/28/22 12:00 09/26/22 09:12 Oxygen Flow Rate (L/min) 2 Oxygen Delivery Method Room Air Weight: 153 lb 3.54 oz Body Mass Index (BMI) 25.5 Intake & Output: Intake and Output for Last 24 Hours 09/26/22 09/27/22 09/28/22 23:59 23:59 23:59 Intake Total 3442.83 / 3442.83 2458.7433 / 2698.7433 3136.3233 / 3136.3233 Output Total 1450 / 1450 2200 / 2200 Balance 1992.83 / 1992.83 258.7433 / 498.7433 3136.3233 / 3136.3233 Lab / Micro Data 09/28/22 06:12 09/28/22 06:12 Labs: Laboratory Results - last 24 hr 09/26/22 06:26: Diff Path Review Reviewed 09/26/22 22:45: Diff Path Review Reviewed 09/27/22 05:46: Diff Path Review Reviewed 09/28/22 06:12: WBC 4.1 L, RBC 3.14 L, Hgb 9.4 L, Hct 29.5 L, MCV 93.9, MCH 29.9, MCHC 31.9 L, RDW Std Deviation 59.9 H, RDW Coeff of Melissa 17.5 H, Plt Count 31 L*, MPV 9.6, Immature Gran % (Auto) 0.700, Neut % (Auto) 74.1 H, Lymph % (Auto) 12.8 L, [place] % (Auto) 8.0, Eos % (Auto) 3.9, Baso % (Auto) 0.5, Absolute Neuts (auto) 3.1, Absolute Lymphs (auto) 0.53 L, Nucleated RBC % 0, Differential Comment SCANNED, Diff Path Review May foll, Platelet Estimate MKD DEC, Sodium 140, Potassium 3.0 L, Chloride 109 H, Carbon Dioxide 23.0, Anion Gap 8, BUN 5 L, Creatinine 0.64, Estim Creat Clear Calc 94.63, Est GFR (MDRD) Af Amer 126, Est GFR (MDRD) Non-Af 104, BUN/Creatinine Ratio 7.8 L, Glucose 116 H, Calcium 7.7 L, Phosphorus 1.6 L, Magnesium 2.0, Total Bilirubin 2.20 H, AST 63 H, ALT 25, Alkaline Phosphatase 149 H, Total Protein 6.9, Albumin 3.2, Globulin 3.7, Albumin/Globulin Ratio 0.9 Micro: Microbiology 09/26/22 21:50 Nasal Secretion SARS-CoV-2 & FLU Antigen (Rapid) - Final Physical Exam Const alert, oriented x3, no apparent distress and average body habitus; Negative for healthy appearing HEENT head/scalp atraumatic and moist oral mucous membranes HEENT Narrative: Blank 2, no thrush Head and Scalp: normocephalic Eyes PERRL Eyes Narrative: Conjunctiva are mildly pale, no scleral icterus Neck no lymphadenopathy and supple Neck Narrative: Trachea midline, no thyroid enlargement Resp normal respiratory effort, no retractions and no use of accessory muscles Resp Narrative: Diffusely diminished but clear Auscultation: Negative for rales, rhonchi or wheezes Cardio regular rate, regular rhythm, S1 normal heart sound, S2 normal heart sound, no murmurs, no rub, no gallops and no clicks GI normal to inspection, nondistended, normoactive bowel sounds, soft to palpation, non-tender and hepatosplenomegaly Extremity no clubbing, cyanosis or edema Extremity Narrative: Decreased lean muscle mass, scattered ecchymosis on extremities Neuro oriented x3, moves all extremities and no focal motor deficits Speech: speech normal Psych affect normal Psych Narrative: Patient is very pleasant, interacts appropriately Assessment & Plan Assessment/Plan (1) Bleeding esophageal varices due to alcoholic liver disease: PLAN: octreotide and PPI drip is stopped. Recommend only Protonix 40 mg IV every 12 hours. She is tolerating a regular diet. Protonix can be switched to 40 mg p.o. twice daily. (2) Alcohol withdrawal: QUALIFIERS: Complication of substance-induced condition: uncomplicated Qualified Code(s): F10.930 - Alcohol use, unspecified with withdrawal, uncomplicated PLAN: She is not having any signs of alcohol withdrawal at this time. Continue Precedex and phenobarbital. Had a long conversation with her regarding her continued alcohol intake and she says that she wants to stop and may be willing to go into AA for help. (3) Gastric ulcer with hemorrhage: QUALIFIERS: Gastric ulcer chronicity: acute Qualified Code(s): K25.0 - Acute gastric ulcer with hemorrhage PLAN: Healed gastric ulcer likely secondary to alcoholic gastritis. There was no sign of ulcerations on this exam but she did have severe portal gastropathy without recent stigmata of bleeding. (4) Cirrhosis of liver with ascites: QUALIFIERS: Hepatic cirrhosis type: alcoholic cirrhosis Qualified Code(s): K70.31 - Alcoholic cirrhosis of liver with ascites PLAN: At this time she is suffering from alcoholic hepatitis with a Madrey score of 20. She is not encephalopathic at this time. I would recommend Xifaxan 550 mg p.o. twice daily and lactulose 20 cc p.o. every 6 hours as prophylaxis for encephalopathy. (5) Alcoholic hepatitis: QUALIFIERS: Ascites presence: without ascites Qualified Code(s): K70.10 - Alcoholic hepatitis without ascites PLAN: Patient is Madrey score is 20. She does not need any treatment for alcoholic hepatitis at this time. PLAN: Plan 09/28: She continues to do better each day. Continue medical therapy. Charges/Coding Visit Charges Inpatient E&M: 95354 Subs Hosp L3
[2022-09-28 21:32] VITALS: BP 135/78; PULSE 79; RESP 18; TEMP 37.7; O2SAT 95
[2022-09-28] MEDS: 0.9% Saline Lock 10 ML Syringe IV (21:36)
[2022-09-28] MEDS: Ondansetron 4 MG/2 ML Vial IV (21:36)
[2022-09-28] MEDS: Atorvastatin Calcium 40 MG Tablet PO (22:57)
[2022-09-28] MEDS: Pantoprazole Sodium 40 MG Tablet PO (22:57)
[2022-09-28] MEDS: Montelukast 10 MG Tablet PO (22:59)
[2022-09-29] MEDS: hydrOXYzine PAM 25 MG Capsule 50 MG PO (01:02)
[2022-09-29] MEDS: Phenobarbital 32.4 MG Tablet PO ×2 (03:25→08:20)
[2022-09-29 03:27] VITALS: BP 104/67; PULSE 66; RESP 16; TEMP 36.8; O2SAT 95
[2022-09-29] MEDS: Sucralfate 1 GM Tablet PO (06:06)
[2022-09-29] MEDS: Lactulose 20 GM/30 ML UDC PO ×2 (06:06→13:06)
[2022-09-29 06:37] LABS: Absolute Lymphocyte Count 0.94 X10^3/uL (0.83-4.51); Absolute Neutrophil Count 2.5 X10^3/uL (2.0-7.7); Basophil# 0.01 X10^3/uL; Basophil% 0.2 % (0-1); Eosinophil# 0.24 X10^3/uL; Eosinophils% 5.9 % (0-5); Hematocrit 30.7 % (37-47); Hemoglobin 9.7 g/dL (12.0-15.0); Lymphocyte # 0.94 X10^3/ul (0.83-4.51); Lymphocyte % 23.3 % (19-41); Mean Corp Hgb Conc 31.6 g/dL (32-36); Mean Corpuscular Hgb 29.8 pg (27.0-32.0); Mean Corpuscular Volume 94.2 fL (81-99); Mean Platelet Vol. 11.9 fl (6.2-12.0); Monocyte# 0.35 X10^3/uL; Monocyte% 8.7 % (0-10); NRBC Flagged by Analyzer 0 % (0-5); Neutrophil # 2.48 X10^3/uL (2.7-7.7); Neutrophil % 61.4 % (47-70); POSITIVE COUNT YES; RBC Distribution Width CV 17.7 % (11.6-14.6); RBC Distribution Width SD 60.5 fl (35.1-43.9); Red Blood Count 3.26 M/mm3 (4.2-5.4)
[2022-09-29 06:52] LABS: Differential Indicated SCAN CRITERIA MET; Platelet Count 31 K/mm3 (150-450)
[2022-09-29 06:54] LABS: ALB/GLOB Ratio 0.9 RATIO (0.9-2.4); AST(SGOT) 59 U/L (15-37); Alanine Aminotransfer ALT/SGPT 26 U/L (13-56); Albumin, Serum 3.4 g/dL (3.2-5.0); Alkaline Phosphatase 144 U/L (45-117); Anion Gap 5 (5-15); BUN 3 mg/dL (7-18); BUN/Creat Ratio 5.1 RATIO (10-20); Calcium,Total 8.3 mg/dL (8.5-10.1); Chloride 111 mmol/L (98-107); Creatinine, Serum 0.59 mg/dL (0.55-1.02); EST Glomerular Filtration Rate 114 mL/min (>60); Est Glom Filt Rate - Afr Amer 138 mL/min (>60); Estimated Creatinine Clearance 102.65 ml/min; Globulin 3.8 g/dL (2.2-4.2); Glucose 102 mg/dL (74-106); Potassium 3.3 mmol/L (3.5-5.1); Protein, Total 7.2 g/dL (6.4-8.2); Sodium Level 140 mmol/L (136-145)
[2022-09-29 07:07] LABS: Differential Comment SCANNED; Platelet Estimate MKD DEC (ADEQ)
[2022-09-29 08:00] VITALS: BP 120/81; PULSE 60; RESP 16; TEMP 37; O2SAT 99
[2022-09-29] MEDS: Potassium Chloride Oral Tablet 20 MEQ 60 MEQ PO (08:20)
[2022-09-29] MEDS: 0.9% Saline Lock 10 ML Syringe IV (08:20)
[2022-09-29] MEDS: Pentoxifylline 400 MG Tablet PO ×2 (08:21→13:06)
[2022-09-29] MEDS: rifAXIMin 550 MG Tablet PO (08:21)
[2022-09-29] MEDS: Folic Acid 1 MG Tablet PO (08:21)
[2022-09-29] MEDS: sulfaSALAzine 500 MG Tablet 1000 MG PO (08:22)
[2022-09-29] MEDS: Propranolol LA 80 MG Capsule PO (08:22)
[2022-09-29] MEDS: Pantoprazole Sodium 40 MG Tablet PO (08:22)
[2022-09-29] MEDS: Sertraline 100 MG Tablet PO (08:22)
[2022-09-29] MEDS: Spironolactone 25 MG Tablet PO (08:22)
[2022-09-29] MEDS: Mirabegron 25 MG TAB.ER.24H PO (08:22)
[2022-09-29] MEDS: OXcarbazepine 300 MG Tablet PO (08:22)
[2022-09-29] MEDS: Thiamine Hydrochloride 100 MG Tablet PO (08:23)
[2022-09-29] MEDS: Ondansetron 4 MG/2 ML Vial IV (08:30)
[2022-09-29 08:34] VITALS: BP 120/81; PULSE 60; RESP 16; TEMP 37.1; O2SAT 97
[2022-09-29] MEDS: Ceftriaxone 1 GM/50 ML BAG IV (10:44)
[2022-09-29 14:30] VITALS: BP 120/90; PULSE 71; RESP 16; TEMP 36.5; O2SAT 99
[2022-09-29 15:01] LABS: Pathologist Review Reviewed
--- NOTE | 2022-09-29 15:11 | DS.PCM_ITS ---
Providers Date of Admission: 09/26/22 Primary Care Physician: KASEY DWYER Consultations 09/26/22 01:54 Consult: Gastroenterology Routine Consulting Provider: Cr Roman Reason for Consult: Acute GI bleed EMERGENT Consult: Janis MD Notified: No Date Notified: 09/26/22 Time Notified: 01:11 Reason For Visit: ACUTE GI BLEED Diagnosis Discharge Diagnosis (1) Bleeding esophageal varices due to alcoholic liver disease: Status: Resolved Code(s): K70.9 - Alcoholic liver disease, unspecified; I85.11 - Secondary esophageal varices with bleeding (2) Alcohol withdrawal: Status: Resolved Code(s): F10.939 - Alcohol use, unspecified with withdrawal, unspecified Qualifiers: Complication of substance-induced condition: uncomplicated Qualified Code(s): F10.930 - Alcohol use, unspecified with withdrawal, uncomplicated (3) Gastric ulcer with hemorrhage: Status: Inactive Code(s): K25.4 - Chronic or unspecified gastric ulcer with hemorrhage Qualifiers: Gastric ulcer chronicity: acute Qualified Code(s): K25.0 - Acute gastric ulcer with hemorrhage (4) Cirrhosis of liver with ascites: Status: Inactive Code(s): K74.60 - Unspecified cirrhosis of liver; R18.8 - Other ascites Qualifiers: Hepatic cirrhosis type: alcoholic cirrhosis Qualified Code(s): K70.31 - Alcoholic cirrhosis of liver with ascites (5) Alcoholic hepatitis: Status: Acute Code(s): K70.10 - Alcoholic hepatitis without ascites Qualifiers: Ascites presence: without ascites Qualified Code(s): K70.10 - Alcoholic hepatitis without ascites Plan Upper GI bleed secondary to severe erosive esophagitis/bile gastritis/portal hypertensive gastropathy -EGD on 09/26/2022 showed grade C erosive esophagitis with bleeding at the distal esophagus, diffuse severe inflammation characterized by erosions and erythema with friability in the entire stomach and moderate portal hypertensive gastropathy in the stomach, the duodenum was normal. -Discontinue Protonix drip and start Protonix 40 mg p.o. twice daily -Continue home Carafate -Discontinue octreotide and restart home propranolol -Continue antibiotics but transition from Zosyn to ceftriaxone for SBP prophylaxis -Will discharge to complete a 7-day course currently day 3 of 7 -GI is following appreciate input Acute blood loss anemia -Hemoglobin has dropped from April at which time it was 12.8 and today 9.4 today -Hemoglobin remained stable -Transfuse for hemoglobin less than 7 or precipitous drop -Repeat CBC in a.m. Acute alcohol withdrawal/alcoholism -Patient had been sober up until about 2 weeks ago since April -Was showing signs of acute withdrawal on admission--> symptoms are improving -Continue phenobarbital taper -Discontinue as needed Ativan as patient has not required any -Continue supportive medications for withdrawal symptoms -180 evaluated the patient and she declined discharge planning per documentation however the patient does indicate that she plans to do an outpatient program in [facility] where she lives after discharge Thrombocytopenia -Platelet count stable -Suspect etiology is consumption with bleeding and marrow toxicity from alcohol use -Could potentially be related to antibiotics we will discontinue Zosyn and start ceftriaxone -No signs of bleeding -Coags are normal -Repeat CBC in a.m. Alcoholic hepatitis -Mild -AST/ALT have almost normalized and bilirubin slowly trending down to 2.2 today--> this may be her baseline as her previous bilirubin was greater than 9 -No current need for steroids -continue home pentoxifylline -No need to repeat LFTs Hypokalemia/hypophosphatemia/hypomagnesemia - hypomagnesemia resolved - ongoing hypophosphatemia and hypokalemia -Repeat K-Phos bolus IV -Give 40 mill equivalents of p.o. potassium -Repeat lab in a.m. History of esophageal varices/portal hypertensive gastropathy -See above -Discontinue octreotide and restart home propranolol Liver cirrhosis secondary to alcoholism -continue home aldactone -Continue home lactulose -continue home Rifaximin -No significant ascites noted on ultrasound H/O Gastric Ulcer -Transition off IV PPI to Protonix p.o. twice daily 40 mg -Continue home Carafate HPL -continue home statin Anxiety/Depression -hold home antipsychotics for now -on multiple atypical antipsychotics--> will need to clarify -continue home zoloft DVT prophylaxis -scds -no chemoprophylaxis 2/2 GIB Code Status -Full Medications at Discharge Home Medications aripiprazole 2 mg tablet 2 mg PO DAILY see pcp 02/16/21 naltrexone 50 mg tablet 50 mg PO DAILY see pcp 02/16/21 sertraline 100 mg tablet (Zoloft) 100 mg PO DAILY depression 02/16/21 spironolactone 25 mg tablet 25 mg PO DAILY see pcp 02/16/21 pantoprazole 40 mg tablet,delayed release (Protonix) 40 mg PO BID see pcp #60 tabs 02/17/21 acamprosate 333 mg tablet,delayed release 333 mg PO TID Check with primary doctor 04/19/22 atorvastatin 40 mg tablet (Lipitor) 40 mg PO DAILY Check with primary doctor 04/19/22 baclofen 10 mg tablet 10 mg PO TID PRN PRN Pain 04/19/22 mirabegron 25 mg tablet,extended release 24 hr (Myrbetriq) 25 mg PO DAILY Check with primary doctor 04/19/22 montelukast 10 mg tablet (Singulair) 10 mg PO DAILY Check with primary doctor 04/19/22 oxcarbazepine 300 mg tablet (Trileptal) 300 mg PO BID Check with primary doctor 04/19/22 sulfasalazine 500 mg tablet (Azulfidine) 1,000 mg PO BID Check with primary doctor 04/19/22 folic acid 1 mg tablet 1 mg PO DAILY@0800 #30 tabs 04/26/22 pentoxifylline 400 mg tablet,extended release 400 mg PO TIDCM see pcp 30 days #90 tabs 04/26/22 rifaximin 550 mg tablet (Xifaxan) 550 mg PO BID see pcp 30 days #60 tabs 04/26/22 thiamine HCl (vitamin B1) 100 mg tablet (Vitamin B-1) 100 mg PO BREAKFAST see pcp 30 days #30 tabs 04/26/22 ciprofloxacin HCl 500 mg tablet (Cipro) 500 mg PO BID #8 tabs 09/29/22 lactulose 20 gram/30 mL oral solution 20 g (30 mL) PO Q8 pcp 30 days #2,700 mL 09/29/22 propranolol 80 mg capsule,24 hr,extended release (Inderal LA) 80 mg PO DAILY BP #30 caps 09/29/22 sucralfate 1 gram tablet (Carafate) 1 g PO BID see #60 tabs 09/29/22 Weight / BMI Weight Weight: 69.5 kg Body Mass Index (BMI) 25.5 ABG / Lab / Microbiology Data 09/29/22 06:25 09/29/22 06:25 Laboratory: Laboratory Results - last 24 hr 09/28/22 06:12: Diff Path Review Reviewed 09/29/22 06:25: WBC 4.0 L, RBC 3.26 L, Hgb 9.7 L, Hct 30.7 L, MCV 94.2, MCH 29.8, MCHC 31.6 L, RDW Std Deviation 60.5 H, RDW Coeff of Melissa 17.7 H, Plt Count 31 L*, MPV 11.9, Immature Gran % (Auto) 0.500, Neut % (Auto) 61.4, Lymph % (Auto) 23.3, [place] % (Auto) 8.7, Eos % (Auto) 5.9 H, Baso % (Auto) 0.2, Absolute Neuts (auto) 2.5, Absolute Lymphs (auto) 0.94, Nucleated RBC % 0, Differential Comment SCANNED, Diff Path Review July foll, Platelet Estimate MKD DEC, Sodium 140, Potassium 3.3 L, Chloride 111 H, Carbon Dioxide 24.0, Anion Gap 5, BUN 3 L, Creatinine 0.59, Estim Creat Clear Calc 102.65, Est GFR (MDRD) Af Amer 138, Est GFR (MDRD) Non-Af 114, BUN/Creatinine Ratio 5.1 L, Glucose 102, Calcium 8.3 L, Phosphorus 2.0 L, Total Bilirubin 2.10 H, AST 59 H, ALT 26, Alkaline Phosphatase 144 H, Total Protein 7.2, Albumin 3.4, Globulin 3.8, Albumin/Globulin Ratio 0.9 Microbiology: Microbiology 09/26/22 22:45 Blood Culture (Wb) - Anticubital Right Blood Culture - Preliminary No growth in 48 hours. 09/26/22 22:55 Blood Culture (Wb) - Anticubital Left Blood Culture - Preliminary No growth in 48 hours. 09/26/22 21:50 Nasal Secretion SARS-CoV-2 & FLU Antigen (Rapid) - Final Discharge Plan Admission Admit Date/Time: 09/26/22 01:04 Primary Reason for Your Visit: Hematemesis Attending Provider: Chasity Figueroa Primary Care Provider: KASEY DWYER Consulting Providers: Deep Woodson Instructions Additional Instructions / Restrictions: 1. Please follow-up with your primary care physician as directed below and ask for a CBC or complete blood count to be done within the next week to recheck your blood counts 2. Please follow-up with your home health clinician, Dr. Grey, within the next 3 months 3. Alcohol cessation is imperative Discharge Orders/Prescriptions Prescriptions: New ciprofloxacin HCl [Cipro] 500 mg tablet 500 mg PO BID Qty: 8 0RF Continued naltrexone 50 mg Tablet 50 mg PO DAILY spironolactone 25 mg Tablet 25 mg PO DAILY aripiprazole 2 mg Tablet 2 mg PO DAILY sertraline [Zoloft] 100 mg Tablet 100 mg PO DAILY pantoprazole [Protonix] 40 mg tablet,delayed release (DR/EC) 40 mg PO BID Qty: 60 0RF Myrbetriq 25 mg tablet extended release 24 hr 25 mg PO DAILY sulfasalazine [Azulfidine] 500 mg tablet 1,000 mg PO BID Patient Comments: take 2 tablets by mouth twice a day montelukast [Singulair] 10 mg tablet 10 mg PO DAILY Patient Comments: take 1 tablet by mouth once daily acamprosate 333 mg tablet,delayed release (DR/EC) 333 mg PO TID Patient Comments: take 1 tablet by mouth three times a day atorvastatin [Lipitor] 40 mg tablet 40 mg PO DAILY Patient Comments: take 1 tablet by mouth nightly baclofen 10 mg tablet 10 mg PO TID PRN PRN (Reason: Pain) Patient Comments: take 1 tablet by mouth three times a day NEEDED FOR PAIN oxcarbazepine [Trileptal] 300 mg tablet 300 mg PO BID Patient Comments: take 1 tablet by mouth twice a day pentoxifylline 400 mg Tablet Extended Release 400 mg PO TIDCM 30 Days Qty: 90 0RF folic acid 1 mg Tablet 1 mg PO DAILY@0800 Qty: 30 0RF Xifaxan 550 mg Tablet 550 mg PO BID 30 Days Qty: 60 0RF thiamine HCl (vitamin B1) [Vitamin B-1] 100 mg Tablet 100 mg PO BREAKFAST 30 Days Qty: 30 0RF sucralfate [Carafate] 1 gram tablet 1 g PO BID Qty: 60 0RF propranolol [Inderal LA] 80 mg capsule,extended release 24 hr 80 mg PO DAILY Qty: 30 0RF lactulose 20 gram/30 mL Solution 20 g PO Q8 30 Days Qty: 2700 0RF Discontinued olanzapine [Zyprexa] 5 mg tablet 5 mg PO QHS Patient Comments: take 1 tablet by mouth nightly prednisone 20 mg Tablet 40 mg PO BREAKFAST 30 Days Qty: 60 0RF ondansetron [ondansetron] 4 mg tablet,disintegrating 4 mg PO Q8H PRN PRN (Reason: Nausea) Qty: 10 0RF Referrals / Follow Up: KASEY DWYER [Other] - Within 1 Week (please call PCP and ask that a CBC be done to reassess blood counts with in the next 7 days) [facility] Doctor,Out of [Non-Staff] - Disposition Disposition (needs filled in before D/C Order can be placed): Home, Self Care Charges/Coding Visit Charges Inpatient E&M: 80731 Disch Hosp >30min
--- NOTE | 2022-09-29 15:11 | PCM.DC.SUM ---
Providers Date of Admission: 09/26/22 Date of Discharge: 09/29/22 Primary Care Physician: KASEY DWYER Consultations 09/26/22 01:54 Consult: Gastroenterology Routine Consulting Provider: Cr Roman Reason for Consult: Acute GI bleed EMERGENT Consult: No MD Notified: No Date Notified: 09/26/22 Time Notified: 01:11 Reason For Visit: ACUTE GI BLEED Diagnosis Discharge Diagnosis (1) Bleeding esophageal varices due to alcoholic liver disease: Status: Resolved Code(s): K70.9 - Alcoholic liver disease, unspecified; I85.11 - Secondary esophageal varices with bleeding (2) Alcohol withdrawal: Status: Resolved Code(s): F10.939 - Alcohol use, unspecified with withdrawal, unspecified Qualifiers: Complication of substance-induced condition: uncomplicated Qualified Code(s): F10.930 - Alcohol use, unspecified with withdrawal, uncomplicated (3) Gastric ulcer with hemorrhage: Status: Inactive Code(s): K25.4 - Chronic or unspecified gastric ulcer with hemorrhage Qualifiers: Gastric ulcer chronicity: acute Qualified Code(s): K25.0 - Acute gastric ulcer with hemorrhage (4) Cirrhosis of liver with ascites: Status: Inactive Code(s): K74.60 - Unspecified cirrhosis of liver; R18.8 - Other ascites Qualifiers: Hepatic cirrhosis type: alcoholic cirrhosis Qualified Code(s): K70.31 - Alcoholic cirrhosis of liver with ascites (5) Alcoholic hepatitis: Status: Acute Code(s): K70.10 - Alcoholic hepatitis without ascites Qualifiers: Ascites presence: without ascites Qualified Code(s): K70.10 - Alcoholic hepatitis without ascites Medications at Discharge Home Medications aripiprazole 2 mg tablet 2 mg PO DAILY see pcp 02/16/21 naltrexone 50 mg tablet 50 mg PO DAILY see pcp 02/16/21 sertraline 100 mg tablet (Zoloft) 100 mg PO DAILY depression 02/16/21 spironolactone 25 mg tablet 25 mg PO DAILY see pcp 02/16/21 pantoprazole 40 mg tablet,delayed release (Protonix) 40 mg PO BID see pcp #60 tabs 02/17/21 acamprosate 333 mg tablet,delayed release 333 mg PO TID Check with primary doctor 04/19/22 atorvastatin 40 mg tablet (Lipitor) 40 mg PO DAILY Check with primary doctor 04/19/22 baclofen 10 mg tablet 10 mg PO TID PRN PRN Pain 04/19/22 mirabegron 25 mg tablet,extended release 24 hr (Myrbetriq) 25 mg PO DAILY Check with primary doctor 04/19/22 montelukast 10 mg tablet (Singulair) 10 mg PO DAILY Check with primary doctor 04/19/22 oxcarbazepine 300 mg tablet (Trileptal) 300 mg PO BID Check with primary doctor 04/19/22 sulfasalazine 500 mg tablet (Azulfidine) 1,000 mg PO BID Check with primary doctor 04/19/22 folic acid 1 mg tablet 1 mg PO DAILY@0800 #30 tabs 04/26/22 pentoxifylline 400 mg tablet,extended release 400 mg PO TIDCM see pcp 30 days #90 tabs 04/26/22 rifaximin 550 mg tablet (Xifaxan) 550 mg PO BID see pcp 30 days #60 tabs 04/26/22 thiamine HCl (vitamin B1) 100 mg tablet (Vitamin B-1) 100 mg PO BREAKFAST see pcp 30 days #30 tabs 04/26/22 ciprofloxacin HCl 500 mg tablet (Cipro) 500 mg PO BID #8 tabs 09/29/22 lactulose 20 gram/30 mL oral solution 20 g (30 mL) PO Q8 pcp 30 days #2,700 mL 09/29/22 propranolol 80 mg capsule,24 hr,extended release (Inderal LA) 80 mg PO DAILY BP #30 caps 09/29/22 sucralfate 1 gram tablet (Carafate) 1 g PO BID see #60 tabs 09/29/22 Hospital Course Operations None Procedures EGD and - (Abdominal ultrasound/chest x-ray) Summary of Care Provided Minutes Spent on Discharge: 38 Hospital Course: Ms. Estevez is a 52-year-old white female with a history of esophageal varices secondary to alcoholic cirrhosis who presented to the emergency department [facility] early this morning on 09/26/2022 with multiple episodes of hematemesis that started on the same day of presentation. She denied any hematochezia or melena. She has a history of alcoholism and had been sober but started drinking about 2 weeks prior to presentation. She reported that she has been drinking 15 shots of vodka daily. Her last drink was about 2 hours prior to presentation and upon presentation she was having some tremulousness. Vital signs on presentation were stable. Her hemoglobin had dropped from 12.8 on 04/30/2019 23-11.1 at the time of admission and has subsequently dropped to 9.6 this morning. Count on admission was 51,000. Coags were unremarkable. She was found to be hypokalemic with normal renal function and elevated bilirubin at 1.7 this is down from previous in April at which time she had a bilirubin of 9.1. She has very mild transaminitis with an AST of 137 but her ALT is normal consistent with alcohol consumption. Her alcohol level on admission was 324. Patient reported that she was sober for some time but recently started drinking within the last 2 weeks due to going through a messy divorce currently. She was taken for EGD on 09/26/2022 and found to have grade C esophagitis with bleeding at the inferior esophagus, diffuse severe inflammation characterized by erosions and erythema along with friability in the entire stomach, moderate portal hypertensive gastropathy in the stomach and the second portion of the duodenum was normal. We maintained her on a Protonix and octreotide drip for 48 hours. This was then transferred to oral Protonix 40 mg p.o. twice daily, Carafate twice daily and her propranolol from home was reinitiated. With her ongoing heavy alcohol abuse over the last [address] her on phenobarbital during her hospitalization as she was starting to show signs of alcohol withdrawal within 12 hours of admission. Her detox overall went well. She had no further bleeding. We did obtain an abdominal ultrasound to assess for ascites and this showed only small amount of ascites. She was maintained on antibiotics for SBP prophylaxis given the fact that she has cirrhosis and a GI bleed and will be discharged to complete a total 7-day course on ciprofloxacin 400 mg p.o. twice daily for the next 4 days. She did meet with 180 with regards to her alcoholism during her hospital course and desired no further information from them and indicated she would follow-up in [facility], which is where she is from, for ongoing alcohol rehabilitation. We discussed extensively how imperative it would be for her to be committed to ongoing alcohol cessation. She was noted to be on several antipsychotics including Abilify and Zyprexa. As noted above, she was found to be thrombocytopenic which was persistent but stabilized during her hospital course. Coagulations were unremarkable. It was felt that her thrombocytopenia was multifactorial related to her liver disease, possibly Zyprexa, bleeding on presentation, and possibly antibiotics. She had no signs of spontaneous bleeding and was able to be discharged but we did recommend close follow-up with regards to his CBC be done within the next week for further evaluation of her pancytopenia. We did recommend that she discontinue diet Zyprexa at discharge. She will be maintained on Protonix 40 mg p.o. twice daily, lactulose, Carafate twice daily, and she is to continue her propranolol. She does follow-up with gastroenterology at [facility] and we encouraged follow-up with her stone gang sawyer in the next 3 months. I have asked her to follow-up with her primary care physician and request a CBC be done within the next week to reassess her platelet count, hemoglobin, and white count. She was discharged home in stable condition on 09/29/2022. Prescriptions were faxed to her local pharmacy. Discharge diagnoses: Upper GI bleed Severe erosive esophagitis Bile gastritis Severe portal hypertensive gastropathy Acute blood loss anemia Acute alcohol withdrawal Pancytopenia-multifactorial History of alcoholic hepatitis Hypokalemia-resolved Hypophosphatemia-resolved Hypomagnesemia-resolved History of esophageal varices Liver cirrhosis secondary to alcoholism History of gastric ulcer Hyperlipidemia Anxiety Depression Physical Exam Const alert, oriented x3, no apparent distress and average body habitus; Negative for healthy appearing Constitutional Narrative: Middle-aged, white female, lying in bed, appears older than stated age, appears comfortable nontoxic, eating breakfast and watching television General Appearance: cooperative, comfortable, well kempt and well developed Orientation / Consciousness: awake, oriented to person, oriented to place and oriented to time HEENT normocephalic, head/scalp atraumatic, hearing grossly normal bilaterally and moist oral mucous membranes HEENT Narrative: Mallampati 2, no thrush Eyes PERRL Eyes Narrative: Conjunctiva are mildly pale, no scleral icterus Neck no lymphadenopathy and supple Neck Narrative: Trachea midline, no thyroid enlargement Resp normal respiratory effort, no retractions and no use of accessory muscles Resp Narrative: Diffusely diminished but clear Auscultation: Negative for rales, rhonchi or wheezes Cardio regular rate, regular rhythm, S1 normal heart sound, S2 normal heart sound, no murmurs, no rub, no gallops and no clicks GI normal to inspection, nondistended, normoactive bowel sounds, soft to palpation, non-tender and hepatosplenomegaly Extremity no clubbing, cyanosis or edema Extremity Narrative: Decreased lean muscle mass, scattered ecchymosis on extremities Skin no rashes or lesions noted, no wounds, skin turgor normal and no jaundice Skin Narrative: Few scattered ecchymosis Neuro oriented x3, CN's II-XII intact bilaterally, moves all extremities and no focal motor deficits Speech: speech normal Psych affect normal Psych Narrative: Patient is very pleasant, interacts appropriately Weight / BMI Weight Weight: 69.5 kg Body Mass Index (BMI) 25.5 ABG / Lab / Microbiology Data 09/29/22 06:25 09/29/22 06:25 Laboratory: Laboratory Results - last 24 hr 09/28/22 06:12: Diff Path Review Reviewed 09/29/22 06:25: WBC 4.0 L, RBC 3.26 L, Hgb 9.7 L, Hct 30.7 L, MCV 94.2, MCH 29.8, MCHC 31.6 L, RDW Std Deviation 60.5 H, RDW Coeff of Melissa 17.7 H, Plt Count 31 L*, MPV 11.9, Immature Gran % (Auto) 0.500, Neut % (Auto) 61.4, Lymph % (Auto) 23.3, [place] % (Auto) 8.7, Eos % (Auto) 5.9 H, Baso % (Auto) 0.2, Absolute Neuts (auto) 2.5, Absolute Lymphs (auto) 0.94, Nucleated RBC % 0, Differential Comment SCANNED, Diff Path Review May foll, Platelet Estimate MKD DEC, Sodium 140, Potassium 3.3 L, Chloride 111 H, Carbon Dioxide 24.0, Anion Gap 5, BUN 3 L, Creatinine 0.59, Estim Creat Clear Calc 102.65, Est GFR (MDRD) Af Amer 138, Est GFR (MDRD) Non-Af 114, BUN/Creatinine Ratio 5.1 L, Glucose 102, Calcium 8.3 L, Phosphorus 2.0 L, Total Bilirubin 2.10 H, AST 59 H, ALT 26, Alkaline Phosphatase 144 H, Total Protein 7.2, Albumin 3.4, Globulin 3.8, Albumin/Globulin Ratio 0.9 Microbiology: Microbiology 09/26/22 22:45 Blood Culture (Wb) - Anticubital Right Blood Culture - Preliminary No growth in 48 hours. 09/26/22 22:55 Blood Culture (Wb) - Anticubital Left Blood Culture - Preliminary No growth in 48 hours. 09/26/22 21:50 Nasal Secretion SARS-CoV-2 & FLU Antigen (Rapid) - Final D/C Instructions Discharge Diet: Low fat / Low cholesterol Discharge Activity: Return to Normal Activity Return to work on: 10/02/22 Meaningful Use Info Meaningful Use Diagnoses (Choose all that apply): None applicable Discharge Plan Admission Admit Date/Time: 09/26/22 01:04 Primary Reason for Your Visit: Hematemesis Attending Provider: Chasity Figueroa Primary Care Provider: KASEY DWYER Consulting Providers: Deep Woodson Instructions Additional Instructions / Restrictions: 1. Please follow-up with your primary care physician as directed below and ask for a CBC or complete blood count to be done within the next week to recheck your blood counts 2. Please follow-up with your stone gang sawyer, Dr. Grey, within the next 3 months 3. Alcohol cessation is imperative Discharge Orders/Prescriptions Prescriptions: New ciprofloxacin HCl [Cipro] 500 mg tablet 500 mg PO BID Qty: 8 0RF Continued naltrexone 50 mg Tablet 50 mg PO DAILY spironolactone 25 mg Tablet 25 mg PO DAILY aripiprazole 2 mg Tablet 2 mg PO DAILY sertraline [Zoloft] 100 mg Tablet 100 mg PO DAILY pantoprazole [Protonix] 40 mg tablet,delayed release (DR/EC) 40 mg PO BID Qty: 60 0RF Myrbetriq 25 mg tablet extended release 24 hr 25 mg PO DAILY sulfasalazine [Azulfidine] 500 mg tablet 1,000 mg PO BID Patient Comments: take 2 tablets by mouth twice a day montelukast [Singulair] 10 mg tablet 10 mg PO DAILY Patient Comments: take 1 tablet by mouth once daily acamprosate 333 mg tablet,delayed release (DR/EC) 333 mg PO TID Patient Comments: take 1 tablet by mouth three times a day atorvastatin [Lipitor] 40 mg tablet 40 mg PO DAILY Patient Comments: take 1 tablet by mouth nightly baclofen 10 mg tablet 10 mg PO TID PRN PRN (Reason: Pain) Patient Comments: take 1 tablet by mouth three times a day NEEDED FOR PAIN oxcarbazepine [Trileptal] 300 mg tablet 300 mg PO BID Patient Comments: take 1 tablet by mouth twice a day pentoxifylline 400 mg Tablet Extended Release 400 mg PO TIDCM 30 Days Qty: 90 0RF folic acid 1 mg Tablet 1 mg PO DAILY@0800 Qty: 30 0RF Xifaxan 550 mg Tablet 550 mg PO BID 30 Days Qty: 60 0RF thiamine HCl (vitamin B1) [Vitamin B-1] 100 mg Tablet 100 mg PO BREAKFAST 30 Days Qty: 30 0RF sucralfate [Carafate] 1 gram tablet 1 g PO BID Qty: 60 0RF propranolol [Inderal LA] 80 mg capsule,extended release 24 hr 80 mg PO DAILY Qty: 30 0RF lactulose 20 gram/30 mL Solution 20 g PO Q8 30 Days Qty: 2700 0RF Discontinued olanzapine [Zyprexa] 5 mg tablet 5 mg PO QHS Patient Comments: take 1 tablet by mouth nightly prednisone 20 mg Tablet 40 mg PO BREAKFAST 30 Days Qty: 60 0RF ondansetron [ondansetron] 4 mg tablet,disintegrating 4 mg PO Q8H PRN PRN (Reason: Nausea) Qty: 10 0RF Referrals / Follow Up: KASEY DWYER [Other] - Within 1 Week (please call PCP and ask that a CBC be done to reassess blood counts with in the next 7 days) [facility] Doctor,Out of [Non-Staff] - Disposition Disposition (needs filled in before D/C Order can be placed): Home, Self Care Charges/Coding Visit Charges Inpatient E&M: 69492 Disch Hosp >30min
[2022-10-02 13:56] LABS: Pathologist Review Reviewed
== END 2022-09-29 16:10 | disposition home or self-care (01) | DRG 242 ==
LOC: ED 09-26 00:44 → PCU 09-26 02:24
PROVIDERS: Anesthesiology; Internal Medicine Gastroenterology; Admitting Provider Hospitalist; Emergency Provider Emergency Medicine; Visit Provider Internal Medicine
PROC: 0DJ08ZZ Inspection of Upper Intestinal Tract, Via Natural or Artificial Opening Endoscopic (ICD-10-PCS; CPT 43235; principal; 2022-09-26 11:25)
DX: K22.11 Ulcer of esophagus with bleeding (principal); D61.818 Other pancytopenia; K70.31 Alcoholic cirrhosis of liver with ascites; K76.6 Portal hypertension; E83.39 Other disorders of phosphorus metabolism; F10.239 Alcohol dependence with withdrawal, unspecified; E78.00 Pure hypercholesterolemia, unspecified; I10 Essential (primary) hypertension; F32.A Depression, unspecified; F41.9 Anxiety disorder, unspecified; E87.6 Hypokalemia; K29.60 Other gastritis without bleeding; K31.89 Other diseases of stomach and duodenum; K70.11 Alcoholic hepatitis with ascites; E83.42 Hypomagnesemia; Y90.8 Blood alcohol level of 240 mg/100 ml or more; Z63.5 Disruption of family by separation and divorce; Z79.899 Other long term (current) drug therapy; Z87.19 Personal history of other diseases of the digestive system
CPT/HCPCS: 36415; 71045; 76705; 80048; 80053; 81025; 82077; 83605; 83690; 83735; 84100; 84439; 84443; 85014; 85018; 85025; 85610; 86850; 86900; 86901; 87040; 87428; 99284; J7030; J7040; A4216; J2405; J3490